=== PATIENT | male | born 1945 | race Asian ===

== ENCOUNTER 2018-06-16 12:21 | Inpatient (IN) | payer MEDICAID ==
[~2018-06-16] VITALS: Ht 172.7 cm; Wt 82.2 kg
[2018-06-16 12:22] VITALS: BP 145/95
[2018-06-16] MEDS ORDERED: Albuterol ud Inhalation HHN ONE (12:45)
[2018-06-16] MEDS ORDERED: Solu-MEDROL 125mg Inj IVP ONE (13:30)
[2018-06-16 13:34] LABS: APPEARANCE,URINE SLIGHTLY CLOUDY; BILIRUBIN, URINE NEGATIVE (NEGATIVE); COLOR,URINE PALE YELLOW; GLUCOSE, URINE (UA) NEGATIVE (NEGATIVE); KETONES,URINE NEGATIVE (NEGATIVE); LEUKOCYTE ESTERASE ,URINE 3+ (NEGATIVE); NITRITE,URINE NEGATIVE (NEGATIVE); PH,URINE 5 (4.5-8.0); PROTEIN,URINE 2+ (NEGATIVE); UROBILINOGEN,URINE NORMAL MG/DL (0.0-1.0)
[2018-06-16 13:38] LABS: BASOPHILS % (AUTO) 0.8 % (0.0-2.0); EOSINOPHILS % (AUTO) 9.9 % (0.0-3.0); HEMOGLOBIN 14.3 G/DL (14.2-18.0); LYMPHOCYTES % (AUTO) 24.7 % (20.0-45.0); MEAN CORPUSCULAR VOLUME 88 FL (80-99); MONOCYTES % (AUTO) 6.3 % (1.0-10.0); NEUTROPHILS % (AUTO) 58.3 % (45.0-75.0); PLATELET COUNT 185 K/UL (150-450); RED CELL DISTRIBUTION WIDTH 13.5 % (11.6-14.8)
[2018-06-16 13:58] LABS: ANION GAP 11 mmol/L (5-15); BLOOD UREA NITROGEN 36 mg/dL (7-18); CALCIUM 8.9 MG/DL (8.5-10.1); CARBON DIOXIDE 21 MMOL/L (21-32); CHLORIDE 107 MMOL/L (98-107); CREATININE 2.5 MG/DL (0.55-1.30); POTASSIUM 4.2 MMOL/L (3.5-5.1); SODIUM 139 MMOL/L (136-145)
[2018-06-16] MEDS ORDERED: Isovue-370 150ml vial INJ PRN (14:00)
[2018-06-16] MEDS ORDERED: cefTRIAXone 1 GM in NS 55 ML IVPB ONE (14:00)
[2018-06-16 14:02] LABS: ALANINE AMINOTRANSFERASE 11 U/L (12-78); ALBUMIN 3.4 G/DL (3.4-5.0); ALBUMIN/GLOBULIN RATIO 0.7 (1.0-2.7); ALKALINE PHOSPHATASE 152 U/L (46-116); ASPARTATE AMINO TRANSFERASE 19 U/L (15-37); BILIRUBIN,TOTAL 0.3 MG/DL (0.2-1.0)
[2018-06-16 14:19] VITALS: BP 156/91
[2018-06-16] MEDS ORDERED: Albuterol/Ipratropium 3ml neb HHN PRN (15:00)
[2018-06-16] MEDS ORDERED: Nitroglycerin Subl 0.4mg tab SL PRN (15:00)
[2018-06-16] MEDS ORDERED: Morphine Sulfate 2mg/ml Inj IVP PRN (15:00)
[2018-06-16] MEDS ORDERED: Promethazine/Codeine 5ml UD ORAL PRN (15:00)
[2018-06-16] MEDS ORDERED: LORazepam Inj 2mg/ml 1ml IV PRN (15:00)
[2018-06-16] MEDS ORDERED: Ketorolac 30mg Inj IV PRN (15:00)
[2018-06-16 15:04] LABS: CREATINE KINASE 133 U/L (26-308)
[2018-06-16 15:40] LABS: BILIRUBIN, URINE NEGATIVE (NEGATIVE); COLOR,URINE PALE YELLOW; GLUCOSE, URINE (UA) NEGATIVE (NEGATIVE); KETONES,URINE NEGATIVE (NEGATIVE); LEUKOCYTE ESTERASE ,URINE 3+ (NEGATIVE); NITRITE,URINE NEGATIVE (NEGATIVE); PH,URINE 5 (4.5-8.0); PROTEIN,URINE 2+ (NEGATIVE); UROBILINOGEN,URINE NORMAL MG/DL (0.0-1.0)
--- NOTE | 2018-06-16 15:41 | Emergency Room Report ---
History of Present Illness General Chief Complaint: Upper Respiratory Illness Source: EMS Present Illness HPI Patient is a 72-year-old male brought in by EMS after increased cough and difficulty breathing. Patient gradual onset of symptoms of the past one week. Patient was noted to have increased nonproductive cough. The patient had an [place] the [place] approximately one and one half months ago. Patient denied any fever. He reported having increased cough and shortness of breath. Patient had previous surgery to his right femur after a fracture and had intermittent filler kristi placement approximately one year ago. Patient was noted to have some baseline renal insufficiency. Allergies: Coded Allergies: No Known Allergies (Unverified , 06/16/18) Patient History Past Medical History: see triage record Reviewed Nursing Documentation: PMH: Agreed; PSxH: Agreed Nursing Documentation-PMH Past Medical History: No History, Except For Review of Systems All Other Systems: negative except mentioned in HPI Physical Exam Vital Signs Date Time Temp Pulse Resp B/P (MAP) Pulse Ox O2 Delivery O2 Flow Rate FiO2 06/16/18 12:12 97.6 86 20 156/96 96 Room Air 97.5 Sp02 EP Interpretation: reviewed, normal General Appearance: normal inspection, no apparent distress, alert, GCS 15, mild distress Head: atraumatic ENT: normal ENT inspection, hearing grossly normal, normal voice Neck: normal inspection, full range of motion, supple, no bony tend Respiratory: normal inspection, no retraction, no accessory muscle use, crackles Cardiovascular #1: regular rate, rhythm, no edema Gastrointestinal: normal inspection, normal bowel sounds, non tender, soft, no guarding, no hernia Genitourinary: no CVA tenderness Musculoskeletal: normal inspection, back normal, normal range of motion Neurologic: normal inspection, alert, oriented x3, responsive, awning assembler III-XII nml as tested, motor strength/tone normal, speech normal Psychiatric: normal inspection, judgement/insight normal, mood/affect normal Skin: normal inspection, normal color, no rash Medical Decision Making Diagnostic Impression: Primary Impression: Pneumonitis Additional Impressions: Urinary tract infection Dehydration ER Course Patient presented for shortness of breath. Differential included but was not limited to anemia, pneumonia, pneumothorax, myocardial infarction, pericardial effusion, congestive heart failure, acidosis. Because of complexity of patient' s case laboratory testing and imaging studies were ordered. The patient was noted to have increased difficulty breathing. Patient was given IV Solu-Medrol as well as breathing treatments. Patient started on IV antibiotics after cultures are obtained. Dr. Andrea Trinidad was contacted for inpatient management due to panel physician Labs Test 06/16/18 13:10 White Blood Count 7.0 K/UL (4.8-10.8) Red Blood Count 5.10 M/UL (4.70-6.10) Hemoglobin 14.3 G/DL (14.2-18.0) Hematocrit 45.0 % (42.0-52.0) Mean Corpuscular Volume 88 FL (80-99) Mean Corpuscular Hemoglobin 28.1 PG (27.0-31.0) Mean Corpuscular Hemoglobin Concent 31.8 G/DL (32.0-36.0) Red Cell Distribution Width 13.5 % (11.6-14.8) Platelet Count 185 K/UL (150-450) Mean Platelet Volume 6.0 FL (6.5-10.1) Neutrophils (%) (Auto) 58.3 % (45.0-75.0) Lymphocytes (%) (Auto) 24.7 % (20.0-45.0) Monocytes (%) (Auto) 6.3 % (1.0-10.0) Eosinophils (%) (Auto) 9.9 % (0.0-3.0) Basophils (%) (Auto) 0.8 % (0.0-2.0) Prothrombin Time 10.1 SEC (9.30-11.50) Prothromb Time International Ratio 1.0 (0.9-1.1) Activated Partial Thromboplast Time 28 SEC (23-33) D-Dimer 2.01 mg/L FEU (0.00-0.49) Sodium Level 139 MMOL/L (136-145) Potassium Level 4.2 MMOL/L (3.5-5.1) Chloride Level 107 MMOL/L (98-107) Carbon Dioxide Level 21 MMOL/L (21-32) Anion Gap 11 mmol/L (5-15) Blood Urea Nitrogen 36 mg/dL (7-18) Creatinine 2.5 MG/DL (0.55-1.30) Estimat Glomerular Filtration Rate mL/min (>60) Glucose Level 122 MG/DL (74-106) Uric Acid 8.4 MG/DL (2.6-7.2) Calcium Level 8.9 MG/DL (8.5-10.1) Total Bilirubin 0.3 MG/DL (0.2-1.0) Aspartate Amino Transf (AST/SGOT) 19 U/L (15-37) Alanine Aminotransferase (ALT/SGPT) 11 U/L (12-78) Alkaline Phosphatase 152 U/L (46-116) Total Creatine Kinase 133 U/L (26-308) Troponin I 0.017 ng/mL (0.000-0.056) Total Protein 8.0 G/DL (6.4-8.2) Albumin 3.4 G/DL (3.4-5.0) Globulin 4.6 g/dL Albumin/Globulin Ratio 0.7 (1.0-2.7) EKG Diagnostic Results Rate: normal Rhythm: NSR ST Segments: no acute changes Last Vital Signs Date Time Temp Pulse Resp B/P (MAP) Pulse Ox O2 Delivery O2 Flow Rate FiO2 06/16/18 14:19 98.5 97 24 156/91 98 Room Air 98.5 Status: unchanged Disposition: ADMITTED INPATIENT Condition: Serious Referrals: NOT CHOSEN IPA/,REFERRING (PCP) Rinku Novoa MD Jun 16, 2018 15:40
[2018-06-16 15:44] LABS: APPEARANCE,URINE SLIGHTLY CLOUDY
[2018-06-16] MEDS ORDERED: [UNRECOGNIZED DRUG - OTHER] ORAL (15:50)
[2018-06-16] MEDS ORDERED: [UNRECOGNIZED DRUG - OTHER] ORAL (15:50)
[2018-06-16 15:51] VITALS: BP 167/104
[2018-06-16] MEDS: Piperacillin/Tazobactam 3.375 GM in D5W 110 ML IV SCH (16:26)
[2018-06-16] MEDS: Solu-MEDROL 125mg Inj IV SCH (17:02)
[2018-06-16 20:00] VITALS: BP 113/76
[2018-06-16] MEDS: Theophylline ER 100mg ORAL SCH (20:32)
[2018-06-16] MEDS: Heparin 5000 units/ml inj SUBQ SCH (20:34)
[2018-06-17] VITALS: BP 136/81
[2018-06-17 04:00] VITALS: BP 125/77
[2018-06-17] MEDS: Solu-MEDROL 125mg Inj IV SCH ×5 (05:31→23:43)
[2018-06-17 08:00] VITALS: BP 142/106
[2018-06-17] MEDS: Piperacillin/Tazobactam 3.375 GM in D5W 110 ML IV SCH ×5 (08:43→23:42)
[2018-06-17] MEDS: Theophylline ER 100mg ORAL SCH ×2 (08:45→20:09)
[2018-06-17] MEDS: Heparin 5000 units/ml inj SUBQ SCH ×2 (08:46→20:12)
[2018-06-17 12:00] VITALS: BP 137/84
--- NOTE | 2018-06-17 14:14 | General Progress Note ---
Progress Note Progress Note [id number] full consult dictated Teresa Caraballo MD Jun 17, 2018 14:13
--- NOTE | 2018-06-17 15:00 | History and Physical Report ---
DATE OF ADMISSION: 06/16/2018 TIME: 11 a.m. CONSULTANTS: 1. Juan Ibarra M.D. 2. Kory Cabello M.D. 3. Teresa Caraballo M.D. 4. Amrit Pacheco M.D CHIEF COMPLAINT: Shortness of breath, coughing, , UTI. BRIEF HISTORY: The patient is a 72-year-old male, who lives at home, presents for increased shortness of breath and coughing for one day increasing, came to [place], diagnosed the above, UTI, renal insufficiency. He also admitted to telemetry for further care. Currently, calm in bed, slight short of breath. No complaints. REVIEW OF SYSTEMS: No chest pain. Slight short of breath. No nausea, vomiting, or diarrhea. PAST MEDICAL HISTORY: Nothing. PAST SURGICAL HISTORY: Right leg. MEDICATIONS: Include heparin, theophylline, methylprednisolone, Zosyn, clonidine, albuterol, Ketoralac, lorazepam, morphine, nitroglycerin, promethazine, and temazepam. ALLERGIES: Denies. SOCIAL HISTORY: No smoking. No alcohol. No intravenous drug abuse. FAMILY HISTORY: Noncontributory. PHYSICAL EXAMINATION: GENERAL: Slightly anxious in bed, oriented x2, in no acute distress. VITAL SIGNS: Temperature is 98, pulse 97, respirations , and blood pressure 142/106. CARDIOVASCULAR: No murmur. LUNGS: Poor air exchange. ABDOMEN: Bowel sounds distant. EXTREMITIES: No cyanosis, clubbing, or edema. NEUROLOGIC: The patient moves all extremities, but slightly weak. LABORATORY AND DIAGNOSTIC DATA: Laboratories at this time show CBC is normal. BMP show BUN and creatinine 36/2.5. Glucose 122. ALT 11, alkaline phosphatase 152. Troponin 0.017. Albumin 3.4. INR is 1.0. D-dimer 2.01. PTT 28. Urinalysis show 3+ leukocyte esterase. ASSESSMENT: 1. Shortness of breath. 2. Cough. 3. Renal failure. 4. Urinary tract infection. PLAN: 1. Continue premeds. 2. O2 and pulmonary treatment. 3. Antibiotics per Infectious Disease. 4. IV fluids, blood pressure and blood sugar control. 5. OT, PT, and dietary evaluation. 6. CBC and BMP in the morning. 7. We will continue to follow the patient. Andrea Trinidad D.O. DR: BELÉN JOB#: [id number] CC:
[2018-06-17] MEDS ORDERED: Tubing IV Secondary IV ONE (15:26)
[2018-06-17] MEDS ORDERED: NS 275ml ONE (15:26)
[2018-06-17 16:00] VITALS: BP 135/84
--- NOTE | 2018-06-17 16:45 | Consultation ---
DATE OF CONSULTATION: 06/17/2018 NEPHROLOGY CONSULTATION CONSULTING PHYSICIAN: Teresa Caraballo M.D. REFERRING PHYSICIAN: Andrea Trinidad D.O. REASON FOR CONSULTATION: Acute renal failure. HISTORY OF PRESENT ILLNESS: The patient is a 72-year-old male with past medical history significant for history of hypertension and unknown baseline renal function, was brought into the emergency room at [facility] complaining of increasing shortness of breath and difficulty breathing with productive cough. He denied having any fever or chills. He was found to have creatinine . He was admitted in the hospital. Unfortunately, the patient used to speak only language Ari, which we could not find a network technical analyst, although his is next to the bedside I am not able to fully communicate with the patient. PAST MEDICAL HISTORY: Including, 1. History of hypertension. 2. Unknown baseline creatinine. HOME MEDICATIONS: Unknown. PAST SURGICAL HISTORY: History of right hip replacement. REVIEW OF SYSTEMS: Limited due to the patient's language barrier. PHYSICAL EXAMINATION: VITAL SIGNS: The patient had temperature of 97, pulse rate of 86, respiratory rate of 20, and blood pressure of 156/96. HEAD AND NECK: No JVP. No LAD. No thyromegaly. Extraocular movement intact. Pupils are reactive to light and accommodation. LUNGS: Has bilateral rhonchi. CARDIAC: Regular rate and rhythm. S1, S2. No murmur. No rub. ABDOMEN: Soft, nontender, and nondistended. No organomegaly. EXTREMITIES: No edema. No clubbing. No cyanosis. LABORATORY AND DIAGNOSTIC DATA: The patient had a chest x-ray, results has not been read yet. Laboratory on admission, the patient had sodium of 139, potassium 4.2, chloride 102, bicarbonate 20, BUN of 36, creatinine of 2.5, glucose of 122, calcium of 8.9. AST of 19, ALT of 11, and alkaline phosphatase of 152. Albumin of 3.4. UA revealed specific gravity of 1.010, pH of 5, protein 2+, wbc of 20 to 30, rbc 0 to 2, leukocyte esterase 3+, urine sodium was 69. ASSESSMENT: 1. Acute versus chronic renal failure with 2+ proteinuria. 2. Possible pneumonia, based on the ER information. 3. Uncontrolled hypertension. PLAN: Plan for the patient to start the patient on Norvasc 5 mg p.o. daily. I would discontinue Toradol at this time. The patient states the patient has a history of chronic kidney disease. I would obtain a random urine protein creatinine ratio to calculate the proteinuria. Check the microalbumin. I would start the patient on Norvasc 5 mg p.o. daily for better blood pressure control. I would scan the bladder, would monitor renal function and electrolytes closely. Again, I would like to thank, Dr. Andrea Trinidad, for allowing me to participate in the care of this patient. Bess Byrnes JOB#: [id number] CC:
--- NOTE | 2018-06-17 17:04 | Cardiology Progress Note ---
Assessment/Plan Assessment/Plan The patient is seen and examined, full consult note will be dictated shortly. Objective Last 24 Hour Vital Signs Date Time Temp Pulse Resp B/P (MAP) Pulse Ox O2 Delivery O2 Flow Rate FiO2 06/17/18 16:00 98.0 92 20 135/84 (101) 94 98.0 06/17/18 16:00 89 06/17/18 15:44 97 136/98 06/17/18 15:12 78 18 97 Room Air 21 06/17/18 15:03 77 18 98 Room Air 21 06/17/18 12:00 97.9 96 20 137/84 (101) 96 97.9 06/17/18 12:00 64 06/17/18 09:00 Room Air 06/17/18 08:17 80 20 97 Room Air 06/17/18 08:05 80 20 97 Room Air 21 06/17/18 08:00 61 06/17/18 08:00 98.0 97 32 142/106 (118) 98 98.0 06/17/18 04:00 97.7 69 20 125/77 (93) 96 97.7 06/17/18 04:00 81 06/17/18 00:00 97.8 88 20 136/81 (99) 96 97.8 06/17/18 00:00 75 06/16/18 23:30 Room Air 06/16/18 23:29 Room Air 06/16/18 21:00 Room Air 06/16/18 20:00 90 06/16/18 20:00 98.1 91 18 113/76 (88) 95 98.1 Intake and Output 06/16/18 06/17/18 19:00 07:00 Intake Total 230.0 ml Balance 230.0 ml Intake Oral 120 ml IV Total 110.0 ml # Voids 1 3 Laboratory Tests Test 06/17/18 16:00 Urine Random Total Protein 53 MG/DL (< 11.9) H Urine Creatinine 50.3 MG/DL (30.0-125.0) Microbiology Date/Time Source Procedure Growth Status 06/17/18 06:41 Sputum Gram Stain - Final Complete 06/17/18 06:41 Sputum Sputum Culture - Final CULTURE NOT PERFORMED ... Complete 06/16/18 13:10 Urine,Clean Catch Urine Culture - Preliminary Gram Negative Bacillus 1 Resulted Kory Cabello MD Jun 17, 2018 17:04
--- NOTE | 2018-06-17 17:37 | Diagnostic Imaging Report ---
EXAM: MR Head Without Intravenous Contrast CLINICAL HISTORY: DYSPHAGIA TECHNIQUE: Magnetic resonance images of the head/brain without intravenous contrast in multiple planes. COMPARISON: No relevant prior studies available. FINDINGS: Brain: Generalized atrophy. Tiny focus of restricted diffusion in the right insular ribbon cortex as well as small foci in the right parietal white matter consistent with tiny acute infarcts. Mild white matter T2 hyperintensity, likely mild chronic small vessel ischemia. Left caudate nucleus old lacunar infarct. No hemorrhage. No mass effect or midline shift. Ventricles: Generalized atrophy. Prominent ventricles likely due to central atrophy. Bones/joints: Unremarkable. Sinuses: Moderate ethmoid sinus and bilateral maxillary sinus mucosal thickening. No acute sinusitis. 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 Orbits: Unremarkable as visualized. IMPRESSION: 1. Tiny focus of restricted diffusion in the right insular ribbon cortex as well as small foci in the right parietal white matter consistent with tiny acute infarcts. No intracranial hemorrhage. No mass effect or midline shift. 2. Involutional changes and mild chronic small vessel ischemia. 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 3. Moderate ethmoid sinus and bilateral maxillary sinus mucosal thickening. Critical Value Communications 06/17/18 17:49 Call Nurse called GHADA Montgomery on 06/17 17:49 (-07:00)
--- NOTE | 2018-06-17 19:15 | Consultation ---
DATE OF CONSULTATION: 06/17/2018 NOTE: "POOR AUDIO QUALITY/AUDIO BREAKS" CARDIOLOGY CONSULTATION CONSULTING PHYSICIAN: Kory Cabello M.D. REFERRING PHYSICIAN: Andrea Trinidad D.O. REASON FOR CONSULTATION: Management of shortness of breath. HISTORY OF PRESENT ILLNESS: The patient is a very unfortunate 72-year-old gentleman, who was brought in by EMS for increasing cough and difficulty breathing that has been going on for just about a week. The cough is nonproductive. The patient denies any chest pain at the time of arrival to the hospital. Initial blood pressure in the emergency department was 156/96 mmHg, heart rate was 86. A 12-lead electrocardiogram showed sinus rhythm with no acute ST and T-wave abnormalities and somewhat borderline prolonged QT interval. There is no prior history of coronary artery disease, congestive heart failure, or cardiac arrhythmias. PAST MEDICAL HISTORY: Hypertension. PAST SURGICAL HISTORY: Right hip replacement. MEDICATIONS: List of medication . HABITS: Denies any tobacco, alcohol, or illicit drug use. FAMILY HISTORY: No premature coronary artery disease . REVIEW OF SYSTEMS: A 12-system review done essentially negative except what was mentioned in the history of present illness. PHYSICAL EXAMINATION: VITAL SIGNS: on room air, temperature 97.6 degrees Fahrenheit. GENERAL: The patient is a very unfortunate 72-year-old gentleman in no apparent respiratory distress. Alert and oriented x4. HEENT: Atraumatic, normocephalic. EENT, pupils are equal, round, and reactive to light and accommodation. Extraocular muscles intact. NECK: JVP less than 5 cm. No carotid bruit. Carotid upstrokes 2+ bilaterally. CARDIOVASCULAR SYSTEM: Normal S1, S2. Regular rate and rhythm. No murmurs, gallops, or rubs. PMI is at fourth intercostal space at the midclavicular line. LUNGS: Clear to auscultation bilaterally. ABDOMEN: Soft, nontender, and nondistended. No hepatosplenomegaly. Positive bowel sounds. DIAGNOSTIC DATA: with left axis deviation, borderline prolonged QT interval. No acute ST and T-wave abnormalities. Chest x-ray shows a normal cardiac silhouette and no acute cardiopulmonary disease. ASSESSMENT AND PLAN: seen in Cardiology consultation at request of Dr. Trinidad. 1. Dyspnea, most likely acute bronchitis, however, required to have 2D echocardiography for assessment of LV systolic and diastolic function. A chest x-ray does not show any evidence of cardiomegaly or pulmonary edema. Further therapeutic and diagnostic decision will be based on results of 2D echocardiography. In the meantime, I would like to obtain beta-natriuretic peptide for assessment of intracardiac filling pressure. 2. History of hypertension. and clonidine as p.r.n. basis. We will continue to monitor the patient's blood pressure in this hospitalization. I would like to thank Dr. Trinidad for the courtesy of this consultation. Kory Cabello M.D. DR: Juan Jose JOB#: [id number] CC:
[2018-06-17 20:00] VITALS: BP 133/85
[2018-06-18] VITALS (7 sets, daily range): BP systolic 125–149; BP diastolic 71–94
[2018-06-18] MEDS: Solu-MEDROL 125mg Inj IV SCH (06:01)
[2018-06-18 06:24] LABS: HEMATOCRIT 41.2 % (42.0-52.0); HEMOGLOBIN 13.3 G/DL (14.2-18.0); MEAN CORPUSCULAR VOLUME 87 FL (80-99); PLATELET COUNT 218 K/UL (150-450); RED BLOOD COUNT 4.74 M/UL (4.70-6.10); RED CELL DISTRIBUTION WIDTH 13.4 % (11.6-14.8); WHITE BLOOD COUNT 14.5 K/UL (4.8-10.8)
[2018-06-18 07:42] LABS: ANION GAP 14 mmol/L (5-15); BLOOD UREA NITROGEN 43 mg/dL (7-18); CALCIUM 9.4 MG/DL (8.5-10.1); CARBON DIOXIDE 18 MMOL/L (21-32); CHLORIDE 105 MMOL/L (98-107); CREATININE 2.6 MG/DL (0.55-1.30); POTASSIUM 3.9 MMOL/L (3.5-5.1); SODIUM 137 MMOL/L (136-145)
[2018-06-18] MEDS ORDERED: CHLORPROMAZINE IV PRN (08:00)
[2018-06-18] MEDS ORDERED: SODIUM CHLORIDE IV PRN (08:00)
--- NOTE | 2018-06-18 08:17 | Diagnostic Imaging Report ---
Indication: Shortness of breath Technique: One view of the chest Comparison: none Findings: Lungs and pleural spaces are clear. The heart size is normal. Impression: Negative This agrees with the preliminary interpretation provided overnight by [facility] teleradiology service.
[2018-06-18] MEDS: Piperacillin/Tazobactam 3.375 GM in D5W 110 ML IV SCH (09:04)
[2018-06-18] MEDS: Theophylline ER 100mg ORAL SCH ×2 (09:05→20:55)
[2018-06-18] MEDS: Heparin 5000 units/ml inj SUBQ SCH ×2 (09:07→20:57)
--- NOTE | 2018-06-18 11:26 | Consultation ---
History of Present Illness General Date patient seen: Jun 18, 2018 Chief Complaint: Upper Respiratory Illness Reason for Consultation: UTI Present Illness HPI Mr. Johnson is a 72 yo male who presented on 06/16/18 with SOB cough and UTI. He had been having these symptoms for 1 day. He was admittd for treatment. Currently he reports no complaints and denies SOB and cough, He does have new leukocytosis to 14 (after starting solumedrol) and Urine culture is now growing highly resistant acinetobacter. The patient specifically denies Dysuria and hematuria. No Sick contacts, No Lung problems before. Spoke to patient and his son as no continuing education specialist available PMHx/PSHx HTN Right hip replacement SocHx No E/T/D FamHx Not contributory Allergies: Coded Allergies: No Known Allergies (Unverified , 06/16/18) Medication History Scheduled [faropenem sodium ], 200 MG ORAL DAILY, (Reported) [nefrozon], 150-500 MG ORAL DAILY, (Reported) Patient History Healthcare decision maker Resuscitation status Full Code Advanced Directive on File Review of Systems All Other Systems: negative except mentioned in HPI Physical Exam Physical Exam Narrative GENERAL: NAD, Sitting in bed, Comfortable HEENT: NCAT, MMM, EOMI, PERRL, No LAD, No scleral icterus CARDIOVASCULAR: RRR, S1, S2, No M/R/G LUNGS: CTAB ABDOMEN: Soft, NT, ND, +BS, No CVA tenderness or back pain EXTREMITIES: No cyanosis, clubbing, or edema. Pulses 2+ in Ext NEUROLOGIC: A/O, The patient moves all extremities Last 24 Hour Vital Signs Date Time Temp Pulse Resp B/P (MAP) Pulse Ox O2 Delivery O2 Flow Rate FiO2 06/18/18 09:06 83 147/71 06/18/18 07:50 77 18 96 Room Air 21 06/18/18 07:45 75 18 95 Room Air 21 06/18/18 04:00 98.2 55 23 130/77 (94) 92 98.2 06/18/18 03:46 57 06/18/18 00:00 98.0 55 21 127/72 (90) 92 98.0 06/17/18 23:35 75 18 96 Room Air 21 06/17/18 23:30 70 18 96 Room Air 21 06/17/18 23:26 64 06/17/18 21:00 Room Air 06/17/18 20:00 98.1 100 21 133/85 (101) 96 98.1 06/17/18 19:03 100 06/17/18 16:00 98.0 92 20 135/84 (101) 94 98.0 06/17/18 16:00 89 06/17/18 15:44 97 136/98 06/17/18 15:12 78 18 97 Room Air 21 06/17/18 15:03 77 18 98 Room Air 21 06/17/18 12:00 97.9 96 20 137/84 (101) 96 97.9 06/17/18 12:00 64 Intake and Output 06/17/18 06/18/18 19:00 07:00 Intake Total 230.0 ml 184.16 ml Balance 230.0 ml 184.16 ml Intake Oral 120 ml 120 ml IV Total 110.0 ml 64.16 ml # Voids 3 3 # Bowel Movements 1 Laboratory Tests Test 06/17/18 16:00 06/17/18 17:55 06/18/18 06:10 Urine Random Total Protein 53 MG/DL (< 11.9) H Urine Creatinine 50.3 MG/DL (30.0-125.0) Pro-B-Type Natriuretic Peptide 809 pg/mL (0-125) H White Blood Count 14.5 K/UL (4.8-10.8) H Red Blood Count 4.74 M/UL (4.70-6.10) Hemoglobin 13.3 G/DL (14.2-18.0) L Hematocrit 41.2 % (42.0-52.0) L Mean Corpuscular Volume 87 FL (80-99) Mean Corpuscular Hemoglobin 28.1 PG (27.0-31.0) Mean Corpuscular Hemoglobin Concent 32.3 G/DL (32.0-36.0) Red Cell Distribution Width 13.4 % (11.6-14.8) Platelet Count 218 K/UL (150-450) Mean Platelet Volume 5.8 FL (6.5-10.1) L Neutrophils (%) (Auto) % (45.0-75.0) Lymphocytes (%) (Auto) % (20.0-45.0) Monocytes (%) (Auto) % (1.0-10.0) Eosinophils (%) (Auto) % (0.0-3.0) Basophils (%) (Auto) % (0.0-2.0) Differential Total Cells Counted 100 Neutrophils % (Manual) 92 % (45-75) H Lymphocytes % (Manual) 5 % (20-45) L Monocytes % (Manual) 1 % (1-10) Eosinophils % (Manual) 0 % (0-3) Basophils % (Manual) 0 % (0-2) Band Neutrophils 2 % (0-8) Platelet Estimate Adequate Platelet Morphology Normal Red Blood Cell Morphology Normal Sodium Level 137 MMOL/L (136-145) Potassium Level 3.9 MMOL/L (3.5-5.1) Chloride Level 105 MMOL/L (98-107) Carbon Dioxide Level 18 MMOL/L (21-32) L Anion Gap 14 mmol/L (5-15) Blood Urea Nitrogen 43 mg/dL (7-18) H Creatinine 2.6 MG/DL (0.55-1.30) H Estimat Glomerular Filtration Rate mL/min (>60) Glucose Level 150 MG/DL (74-106) H Calcium Level 9.4 MG/DL (8.5-10.1) Height (Feet): 5 Height (Inches): 8.00 Weight (Pounds): 181 Medications Current Medications Medications (Trade) Dose Ordered Sig/Markus Route PRN Reason Start Time Stop Time Status Last Admin Dose Admin Acetaminophen (Tylenol) 650 mg Q4H PRN ORAL Mild Pain/Temp > 100.5 06/17/18 13:15 07/17/18 13:14 06/17/18 20:09 Albuterol/ Ipratropium (Albuterol/ Ipratropium) 3 ml Q4H PRN HHN dyspnea 06/16/18 15:00 06/21/18 14:59 Amlodipine Besylate (Norvasc) 2.5 mg DAILY ORAL 06/17/18 14:26 07/17/18 14:25 06/18/18 09:06 Chlorpromazine 25 mg/Sodium Chloride 551 ml @ 550 mls/hr Q8H PRN IV HICCUPS 06/18/18 08:00 07/18/18 07:59 Clonidine HCl (Catapres Tab) 0.1 mg Q6H PRN ORAL sbp>160 06/16/18 16:00 07/16/18 15:59 06/16/18 16:26 Dextrose (Dextrose 50%) 25 ml STAT PRN IV Hypoglycemia 06/16/18 15:00 07/16/18 14:59 Dextrose (Dextrose 50%) 50 ml STAT PRN IV Hypoglycemia 06/16/18 15:00 07/16/18 14:59 Heparin Sodium (Porcine) (Heparin 5000 units/ml) 5,000 units EVERY 12 HOURS SUBQ 06/16/18 21:00 07/16/18 20:59 06/18/18 09:07 Iopamidol (Isovue-370 150ml) 150 ml NOW PRN INJ Radiology Procedure 06/16/18 14:00 06/18/18 13:58 Lorazepam (Ativan 2mg/ml 1ml) 0.5 mg Q4H PRN IV For Anxiety 06/16/18 15:00 06/23/18 14:59 Methylprednisolone Sodium Succinate (Solu-MEDROL) 60 mg EVERY 6 HOURS IV 06/16/18 18:00 07/16/18 17:59 06/18/18 06:01 Morphine Sulfate (Morphine Sulfate) 2 mg Q4H PRN IVP severe pain 7-10 06/16/18 15:00 06/23/18 14:59 Nitroglycerin (Ntg) 0.4 mg Q5M X 3 DOSES PRN SL Prn Chest Pain 06/16/18 15:00 07/16/18 14:59 Ondansetron HCl (Zofran) 4 mg Q6H PRN IVP Nausea & Vomiting 06/16/18 15:00 07/16/18 14:59 Piperacillin Sod/ Tazobactam Sod 3.375 gm/Dextrose 110 ml @ 27.5 mls/hr Q8H IV 06/16/18 16:00 06/23/18 15:59 06/18/18 09:04 Promethazine HCl/ Codeine (Phenergan with Codeine) 5 ml Q6H PRN ORAL cough 06/16/18 15:00 07/16/18 14:59 06/17/18 00:12 Temazepam (Restoril) 15 mg HSPRN PRN ORAL Insomnia 06/16/18 15:00 06/23/18 14:59 Theophylline (Teofilo-Dur) 100 mg EVERY 12 HOURS ORAL 06/16/18 21:00 07/16/18 20:59 06/18/18 09:05 Assessment/Plan Assessment/Plan A: UTI - Highly resistent Ancinetobacter - Colistin and minicocycline sensi pending - Will treat given NOEMÍ/CKD SOB - Resolved - Now on RA Viral bronchitis? Reactive Airways Dz? Right Hip Replacement P: Start Tigecyclin 100mg x 1 the 50mg for 7 days D/C Zosyn #2 f/u Colistin and minocycline MICs Monitor CBC and Temps Respiratory care Tahnk you for this consult. We will continue to follow the patent with you. Biju Nuñez MD Jun 18, 2018 11:26
--- NOTE | 2018-06-18 11:39 | Pulmonology Progress Note ---
Assessment/Plan Problems: (1) Hypertension (2) Bronchitis (3) S/P right hip fracture Assessment/Plan taper steroids respiratory treatment pain management MRI reviewed echo, doppler of carotid artery. Subjective Interval Events: feeling better Allergies: Coded Allergies: No Known Allergies (Unverified , 06/16/18) Objective Last 24 Hour Vital Signs Date Time Temp Pulse Resp B/P (MAP) Pulse Ox O2 Delivery O2 Flow Rate FiO2 06/18/18 09:06 83 147/71 06/18/18 09:00 Room Air 06/18/18 08:00 72 06/18/18 08:00 98.2 68 20 144/71 (95) 96 98.2 06/18/18 07:50 77 18 96 Room Air 21 06/18/18 07:45 75 18 95 Room Air 21 06/18/18 04:00 98.2 55 23 130/77 (94) 92 98.2 06/18/18 03:46 57 06/18/18 00:00 98.0 55 21 127/72 (90) 92 98.0 06/17/18 23:35 75 18 96 Room Air 21 06/17/18 23:30 70 18 96 Room Air 21 06/17/18 23:26 64 06/17/18 21:00 Room Air 06/17/18 20:00 98.1 100 21 133/85 (101) 96 98.1 06/17/18 19:03 100 06/17/18 16:00 98.0 92 20 135/84 (101) 94 98.0 06/17/18 16:00 89 06/17/18 15:44 97 136/98 06/17/18 15:12 78 18 97 Room Air 21 06/17/18 15:03 77 18 98 Room Air 21 06/17/18 12:00 97.9 96 20 137/84 (101) 96 97.9 06/17/18 12:00 64 Intake and Output 06/17/18 06/18/18 19:00 07:00 Intake Total 230.0 ml 184.16 ml Balance 230.0 ml 184.16 ml Intake Oral 120 ml 120 ml IV Total 110.0 ml 64.16 ml # Voids 3 3 # Bowel Movements 1 General Appearance: WD/WN HEENT: normocephalic, atraumatic, anicteric Respiratory/Chest: chest wall non-tender, lungs clear Cardiovascular: normal peripheral pulses, normal rate Abdomen: normal bowel sounds, soft, non tender Extremities: no cyanosis Skin: no rash 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 Complete 06/16/18 13:10 Urine,Clean Catch Urine Culture - Preliminary A.baumanii Complx - Mdr Resulted Laboratory Tests 06/17/18 16:00: Urine Random Total Protein 53H, Urine Creatinine 50.3 06/17/18 17:55: Pro-B-Type Natriuretic Peptide 809H 06/18/18 06:10: White Blood Count 14.5H, Red Blood Count 4.74, Hemoglobin 13.3L, Hematocrit 41.2L, Mean Corpuscular Volume 87, Mean Corpuscular Hemoglobin 28.1, Mean Corpuscular Hemoglobin Concent 32.3, Red Cell Distribution Width 13.4, Platelet Count 218, Mean Platelet Volume 5.8L, Neutrophils (%) (Auto) , Lymphocytes (%) ( Auto) , Monocytes (%) (Auto) , Eosinophils (%) (Auto) , Basophils (%) (Auto) , Differential Total Cells Counted 100, Neutrophils % (Manual) 92H, Lymphocytes % (Manual) 5L, Monocytes % (Manual) 1, Eosinophils % (Manual) 0, Basophils % ( Manual) 0, Band Neutrophils 2, Platelet Estimate Adequate, Platelet Morphology Normal, Red Blood Cell Morphology Normal, Sodium Level 137, Potassium Level 3.9 , Chloride Level 105, Carbon Dioxide Level 18L, Anion Gap 14, Blood Urea Nitrogen 43H, Creatinine 2.6H, Estimat Glomerular Filtration Rate , Glucose Level 150H, Calcium Level 9.4 Current Medications Medications (Trade) Dose Ordered Sig/Markus Route PRN Reason Start Time Stop Time Status Last Admin Dose Admin Acetaminophen (Tylenol) 650 mg Q4H PRN ORAL Mild Pain/Temp > 100.5 06/17/18 13:15 07/17/18 13:14 06/17/18 20:09 Albuterol/ Ipratropium (Albuterol/ Ipratropium) 3 ml Q4H PRN HHN dyspnea 06/16/18 15:00 06/21/18 14:59 Amlodipine Besylate (Norvasc) 2.5 mg DAILY ORAL 06/17/18 14:26 07/17/18 14:25 06/18/18 09:06 Chlorpromazine 25 mg/Sodium Chloride 551 ml @ 550 mls/hr Q8H PRN IV HICCUPS 06/18/18 08:00 07/18/18 07:59 Clonidine HCl (Catapres Tab) 0.1 mg Q6H PRN ORAL sbp>160 06/16/18 16:00 07/16/18 15:59 06/16/18 16:26 Dextrose (Dextrose 50%) 25 ml STAT PRN IV Hypoglycemia 06/16/18 15:00 07/16/18 14:59 Dextrose (Dextrose 50%) 50 ml STAT PRN IV Hypoglycemia 06/16/18 15:00 07/16/18 14:59 Heparin Sodium (Porcine) (Heparin 5000 units/ml) 5,000 units EVERY 12 HOURS SUBQ 06/16/18 21:00 07/16/18 20:59 06/18/18 09:07 Iopamidol (Isovue-370 150ml) 150 ml NOW PRN INJ Radiology Procedure 06/16/18 14:00 06/18/18 13:58 Lorazepam (Ativan 2mg/ml 1ml) 0.5 mg Q4H PRN IV For Anxiety 06/16/18 15:00 06/23/18 14:59 Methylprednisolone Sodium Succinate (Solu-MEDROL) 60 mg EVERY 6 HOURS IV 06/16/18 18:00 07/16/18 17:59 06/18/18 06:01 Morphine Sulfate (Morphine Sulfate) 2 mg Q4H PRN IVP severe pain 7-10 06/16/18 15:00 06/23/18 14:59 Nitroglycerin (Ntg) 0.4 mg Q5M X 3 DOSES PRN SL Prn Chest Pain 06/16/18 15:00 07/16/18 14:59 Ondansetron HCl (Zofran) 4 mg Q6H PRN IVP Nausea & Vomiting 06/16/18 15:00 07/16/18 14:59 Piperacillin Sod/ Tazobactam Sod 3.375 gm/Dextrose 110 ml @ 27.5 mls/hr Q8H IV 06/16/18 16:00 06/23/18 15:59 06/18/18 09:04 Promethazine HCl/ Codeine (Phenergan with Codeine) 5 ml Q6H PRN ORAL cough 06/16/18 15:00 07/16/18 14:59 06/17/18 00:12 Temazepam (Restoril) 15 mg HSPRN PRN ORAL Insomnia 06/16/18 15:00 06/23/18 14:59 Theophylline (Teofilo-Dur) 100 mg EVERY 12 HOURS ORAL 06/16/18 21:00 07/16/18 20:59 06/18/18 09:05 Juan Ibarra MD Jun 18, 2018 11:39
--- NOTE | 2018-06-18 12:48 | General Progress Note ---
Assessment/Plan Problem List: (1) SOB (shortness of breath) ICD Codes: R06.02 - Shortness of breath SNOMED: 979208063 (2) Renal failure ICD Codes: N19 - Unspecified kidney failure SNOMED: 09629437 (3) Cough ICD Codes: R05 - Cough SNOMED: 22564378 (4) Urinary tract infection ICD Codes: N39.0 - Urinary tract infection, site not specified SNOMED: 65177271 (5) Dehydration ICD Codes: E86.0 - Dehydration SNOMED: 92731159 Status: stable, progressing Assessment/Plan o2 pulm tx ot pt diet abx ivf cbc bmp am Subjective Constitutional: Reports: weakness Respiratory: Reports: shortness of breath Allergies: Coded Allergies: No Known Allergies (Unverified , 06/16/18) All Systems: reviewed and negative except above Subjective calm in bed Objective Last 24 Hour Vital Signs Date Time Temp Pulse Resp B/P (MAP) Pulse Ox O2 Delivery O2 Flow Rate FiO2 06/18/18 09:06 83 147/71 06/18/18 09:00 Room Air 06/18/18 08:00 72 06/18/18 08:00 98.2 68 20 144/71 (95) 96 98.2 06/18/18 07:50 77 18 96 Room Air 21 06/18/18 07:45 75 18 95 Room Air 21 06/18/18 04:00 98.2 55 23 130/77 (94) 92 98.2 06/18/18 03:46 57 06/18/18 00:00 98.0 55 21 127/72 (90) 92 98.0 06/17/18 23:35 75 18 96 Room Air 21 06/17/18 23:30 70 18 96 Room Air 21 06/17/18 23:26 64 06/17/18 21:00 Room Air 06/17/18 20:00 98.1 100 21 133/85 (101) 96 98.1 06/17/18 19:03 100 06/17/18 16:00 98.0 92 20 135/84 (101) 94 98.0 06/17/18 16:00 89 06/17/18 15:44 97 136/98 06/17/18 15:12 78 18 97 Room Air 21 06/17/18 15:03 77 18 98 Room Air 21 Intake and Output 06/17/18 06/18/18 19:00 07:00 Intake Total 230.0 ml 184.16 ml Balance 230.0 ml 184.16 ml Intake Oral 120 ml 120 ml IV Total 110.0 ml 64.16 ml # Voids 3 3 # Bowel Movements 1 Laboratory Tests 06/17/18 16:00: Urine Random Total Protein 53H, Urine Creatinine 50.3 06/17/18 17:55: Pro-B-Type Natriuretic Peptide 809H 06/18/18 06:10: White Blood Count 14.5H, Red Blood Count 4.74, Hemoglobin 13.3L, Hematocrit 41.2L, Mean Corpuscular Volume 87, Mean Corpuscular Hemoglobin 28.1, Mean Corpuscular Hemoglobin Concent 32.3, Red Cell Distribution Width 13.4, Platelet Count 218, Mean Platelet Volume 5.8L, Neutrophils (%) (Auto) , Lymphocytes (%) ( Auto) , Monocytes (%) (Auto) , Eosinophils (%) (Auto) , Basophils (%) (Auto) , Differential Total Cells Counted 100, Neutrophils % (Manual) 92H, Lymphocytes % (Manual) 5L, Monocytes % (Manual) 1, Eosinophils % (Manual) 0, Basophils % ( Manual) 0, Band Neutrophils 2, Platelet Estimate Adequate, Platelet Morphology Normal, Red Blood Cell Morphology Normal, Sodium Level 137, Potassium Level 3.9 , Chloride Level 105, Carbon Dioxide Level 18L, Anion Gap 14, Blood Urea Nitrogen 43H, Creatinine 2.6H, Estimat Glomerular Filtration Rate , Glucose Level 150H, Calcium Level 9.4 Height (Feet): 5 Height (Inches): 8.00 Weight (Pounds): 181 General Appearance: alert EENT: normal ENT inspection Neck: normal alignment Cardiovascular: normal peripheral pulses, normal rate, regular rhythm Respiratory/Chest: chest wall non-tender, lungs clear, normal breath sounds Abdomen: normal bowel sounds, non tender, soft Extremities: normal inspection Edema: no edema noted Arm (L), no edema noted Arm (R), no edema noted Leg (L), no edema noted Leg (R), no edema noted Pedal (L), no edema noted Pedal (R), no edema noted Generalized Neurologic: motor weakness Skin: normal pigmentation, warm/dry Andrea Trinidad DO Jun 18, 2018 12:48
[2018-06-18] MEDS ORDERED: Tigecycline 100 MG in D5W 110 ML IVPB ONE (13:00)
--- NOTE | 2018-06-18 17:31 | Cardiology Report ---
APPROVED REPORT EKG Measurement Heart [id number] Normal sinus rhythm Left axis deviation Abnormal ECG
[2018-06-18] MEDS ORDERED: Promethazine/Codeine 5ml UD ORAL PRN (22:00)
[2018-06-18] MEDS ORDERED: Morphine Sulfate 2mg/ml Inj IVP PRN (22:00)
[2018-06-18] MEDS ORDERED: Albuterol/Ipratropium 3ml neb HHN PRN (22:00)
[2018-06-18] MEDS ORDERED: LORazepam Inj 2mg/ml 1ml IV PRN (22:00)
[2018-06-18] MEDS ORDERED: Nitroglycerin Subl 0.4mg tab SL PRN (22:00)
[2018-06-18] MEDS: Tigecycline 50 MG in D5W 110 ML IVPB SCH (22:23)
[2018-06-18] MEDS ORDERED: Tigecycline 50 MG in D5W 110 ML IVPB SCH (23:00)
--- NOTE | 2018-06-18 23:45 | Cardiology Progress Note ---
Assessment/Plan Assessment/Plan 1. Dyspnea, most likely acute bronchitis, echo reveals normal LVEF at ~65% with no WMA. Chest x-ray does not show any evidence of cardiomegaly or pulmonary edema. 2. HTN, stage II, will optimize amlodipine, may have to add a diuretic if renal dysfunction is chronic.Use clonidine as p.r.n. basis. 3. Renal failure, acute vs chronic. Subjective Subjective Sinus rhythm at rate of 66. Objective Last 24 Hour Vital Signs Date Time Temp Pulse Resp B/P (MAP) Pulse Ox O2 Delivery O2 Flow Rate FiO2 06/18/18 22:36 Room Air 21 06/18/18 22:36 Room Air 21 06/18/18 21:30 97.5 66 20 149/93 (111) 97 97.5 06/18/18 21:00 Room Air 06/18/18 20:00 97.3 73 20 146/94 (111) 93 97.3 06/18/18 19:35 70 06/18/18 16:00 66 06/18/18 16:00 96.3 62 20 143/86 (105) 96 96.3 06/18/18 14:40 Room Air 06/18/18 14:40 Room Air 06/18/18 12:00 85 06/18/18 12:00 96.3 86 20 125/83 (97) 95 96.3 06/18/18 09:06 83 147/71 06/18/18 09:00 Room Air 06/18/18 08:00 72 06/18/18 08:00 98.2 68 20 144/71 (95) 96 98.2 06/18/18 07:50 77 18 96 Room Air 06/18/18 07:45 75 18 95 Room Air 21 06/18/18 04:00 98.2 55 23 130/77 (94) 92 98.2 06/18/18 03:46 57 06/18/18 00:00 98.0 55 21 127/72 (90) 92 98.0 Intake and Output 06/17/18 06/18/18 19:00 07:00 Intake Total 230.0 ml 184.16 ml Balance 230.0 ml 184.16 ml Intake Oral 120 ml 120 ml IV Total 110.0 ml 64.16 ml # Voids 3 3 # Bowel Movements 1 2D Echo: LVEF 65%, Trace MR, Grade I LVDD, RVSP 11 mmHg Laboratory Tests Test 06/18/18 06:10 White Blood Count 14.5 K/UL (4.8-10.8) H Red Blood Count 4.74 M/UL (4.70-6.10) Hemoglobin 13.3 G/DL (14.2-18.0) L Hematocrit 41.2 % (42.0-52.0) L Mean Corpuscular Volume 87 FL (80-99) Mean Corpuscular Hemoglobin 28.1 PG (27.0-31.0) Mean Corpuscular Hemoglobin Concent 32.3 G/DL (32.0-36.0) Red Cell Distribution Width 13.4 % (11.6-14.8) Platelet Count 218 K/UL (150-450) Mean Platelet Volume 5.8 FL (6.5-10.1) L Neutrophils (%) (Auto) % (45.0-75.0) Lymphocytes (%) (Auto) % (20.0-45.0) Monocytes (%) (Auto) % (1.0-10.0) Eosinophils (%) (Auto) % (0.0-3.0) Basophils (%) (Auto) % (0.0-2.0) Differential Total Cells Counted 100 Neutrophils % (Manual) 92 % (45-75) H Lymphocytes % (Manual) 5 % (20-45) L Monocytes % (Manual) 1 % (1-10) Eosinophils % (Manual) 0 % (0-3) Basophils % (Manual) 0 % (0-2) Band Neutrophils 2 % (0-8) Platelet Estimate Adequate Platelet Morphology Normal Red Blood Cell Morphology Normal Sodium Level 137 MMOL/L (136-145) Potassium Level 3.9 MMOL/L (3.5-5.1) Chloride Level 105 MMOL/L (98-107) Carbon Dioxide Level 18 MMOL/L (21-32) L Anion Gap 14 mmol/L (5-15) Blood Urea Nitrogen 43 mg/dL (7-18) H Creatinine 2.6 MG/DL (0.55-1.30) H Estimat Glomerular Filtration Rate mL/min (>60) Glucose Level 150 MG/DL (74-106) H Calcium Level 9.4 MG/DL (8.5-10.1) Microbiology Date/Time Source Procedure Growth Status 9/2/18 13:10 Blood Blood Culture - Preliminary NO GROWTH AFTER 24 HOURS Resulted 06/16/18 13:10 Blood Blood Culture - Preliminary NO GROWTH AFTER 24 HOURS Resulted 06/17/18 22:00 Sputum Expectorated Gram Stain - Final Resulted 06/17/18 22:00 Sputum Expectorated Sputum Culture Pending Resulted 06/17/18 06:41 Sputum Gram Stain - Final Complete 06/17/18 06:41 Sputum Sputum Culture - Final CULTURE NOT PERFORMED ... Complete 06/16/18 13:10 Urine,Clean Catch Urine Culture - Preliminary A.baumanii Complx - Mdr Resulted Objective HEENT: Atraumatic, normocephalic. EENT, pupils are equal, round, and reactive to light and accommodation. Extraocular muscles intact. NECK: JVP less than 5 cm. No carotid bruit. Carotid upstrokes 2+ bilaterally. CARDIOVASCULAR SYSTEM: Normal S1, S2. Regular rate and rhythm. No murmurs, gallops, or rubs. PMI is at fourth intercostal space at the midclavicular line. LUNGS: Clear to auscultation bilaterally. ABDOMEN: Soft, nontender, and nondistended. No hepatosplenomegaly. Positive bowel sounds. EXTREMITIES: No edema, clubbing or cyanosis. Kory Cabello MD Jun 18, 2018 23:45
--- NOTE | 2018-06-18 23:51 | Nephrology Progress Note ---
Assessment/Plan Assessment 1. Acute versus chronic renal failure with 2+ proteinuria. 2. Possible pneumonia, based on the ER information. 3. Uncontrolled hypertension. Plan plan continue current meds monitoring renal function avoid Nsaid replace electrolyte as need it fallow up with us of kidney Subjective Constitutional: Reports: no symptoms HEENT: Reports: no symptoms Genitourinary: Reports: no symptoms Neurologic/Psychiatric: Reports: no symptoms Objective Objective Last 24 Hour Vital Signs Date Time Temp Pulse Resp B/P (MAP) Pulse Ox O2 Delivery O2 Flow Rate FiO2 06/18/18 22:36 Room Air 21 06/18/18 22:36 Room Air 21 06/18/18 21:30 97.5 66 20 149/93 (111) 97 97.5 06/18/18 21:00 Room Air 06/18/18 20:00 97.3 73 20 146/94 (111) 93 97.3 06/18/18 19:35 70 06/18/18 16:00 66 06/18/18 16:00 96.3 62 20 143/86 (105) 96 96.3 06/18/18 14:40 Room Air 06/18/18 14:40 Room Air 06/18/18 12:00 85 06/18/18 12:00 96.3 86 20 125/83 (97) 95 96.3 06/18/18 09:06 83 147/71 06/18/18 09:00 Room Air 06/18/18 08:00 72 06/18/18 08:00 98.2 68 20 144/71 (95) 96 98.2 06/18/18 07:50 77 18 96 Room Air 06/18/18 07:45 75 18 95 Room Air 06/18/18 04:00 98.2 55 23 130/77 (94) 92 98.2 06/18/18 03:46 57 06/18/18 00:00 98.0 55 21 127/72 (90) 92 98.0 Intake and Output 06/17/18 06/18/18 19:00 07:00 Intake Total 230.0 ml 184.16 ml Balance 230.0 ml 184.16 ml Intake Oral 120 ml 120 ml IV Total 110.0 ml 64.16 ml # Voids 3 3 # Bowel Movements 1 Laboratory Tests 06/18/18 06:10: White Blood Count 14.5H, Red Blood Count 4.74, Hemoglobin 13.3L, Hematocrit 41.2L, Mean Corpuscular Volume 87, Mean Corpuscular Hemoglobin 28.1, Mean Corpuscular Hemoglobin Concent 32.3, Red Cell Distribution Width 13.4, Platelet Count 218, Mean Platelet Volume 5.8L, Neutrophils (%) (Auto) , Lymphocytes (%) ( Auto) , Monocytes (%) (Auto) , Eosinophils (%) (Auto) , Basophils (%) (Auto) , Differential Total Cells Counted 100, Neutrophils % (Manual) 92H, Lymphocytes % (Manual) 5L, Monocytes % (Manual) 1, Eosinophils % (Manual) 0, Basophils % ( Manual) 0, Band Neutrophils 2, Platelet Estimate Adequate, Platelet Morphology Normal, Red Blood Cell Morphology Normal, Sodium Level 137, Potassium Level 3.9 , Chloride Level 105, Carbon Dioxide Level 18L, Anion Gap 14, Blood Urea Nitrogen 43H, Creatinine 2.6H, Estimat Glomerular Filtration Rate , Glucose Level 150H, Calcium Level 9.4 Height (Feet): 5 Height (Inches): 8.00 Weight (Pounds): 181 Objective HEAD AND NECK: No JVP. No LAD. No thyromegaly. Extraocular movement intact. Pupils are reactive to light and accommodation. LUNGS: Has bilateral rhonchi. CARDIAC: Regular rate and rhythm. S1, S2. No murmur. No rub. ABDOMEN: Soft, nontender, and nondistended. No organomegaly. EXTREMITIES: No edema. No clubbing. No cyanosi Teresa Caraballo MD Jun 18, 2018 23:51
[2018-06-19] VITALS: BP 137/79
[2018-06-19] MEDS ORDERED: SODIUM CHLORIDE IV PRN ×2
[2018-06-19] MEDS ORDERED: CHLORPROMAZINE IV PRN ×2
[2018-06-19 06:34] LABS: BASOPHILS % (AUTO) 0.1 % (0.0-2.0); HEMATOCRIT 39.2 % (42.0-52.0); HEMOGLOBIN 12.8 G/DL (14.2-18.0); LYMPHOCYTES % (AUTO) 10.2 % (20.0-45.0); MEAN CORPUSCULAR VOLUME 87 FL (80-99); MONOCYTES % (AUTO) 4.8 % (1.0-10.0); NEUTROPHILS % (AUTO) 84.9 % (45.0-75.0); PLATELET COUNT 194 K/UL (150-450); RED CELL DISTRIBUTION WIDTH 13.4 % (11.6-14.8); WHITE BLOOD COUNT 13.6 K/UL (4.8-10.8)
[2018-06-19 06:40] LABS: ANION GAP 13 mmol/L (5-15); BLOOD UREA NITROGEN 55 mg/dL (7-18); CALCIUM 8.5 MG/DL (8.5-10.1); CARBON DIOXIDE 20 MMOL/L (21-32); CHLORIDE 108 MMOL/L (98-107); CREATININE 2.5 MG/DL (0.55-1.30); POTASSIUM 3.5 MMOL/L (3.5-5.1); SODIUM 141 MMOL/L (136-145)
[2018-06-19 08:00] VITALS: BP 123/69
[2018-06-19] MEDS: Tigecycline 50 MG in D5W 110 ML IVPB SCH (08:50)
[2018-06-19] MEDS ORDERED: Heparin 5000 units/ml inj SUBQ SCH (09:00)
[2018-06-19] MEDS ORDERED: Theophylline ER 100mg ORAL SCH (09:00)
[2018-06-19 12:00] VITALS: BP 146/71
--- NOTE | 2018-06-19 13:00 | General Progress Note ---
Assessment/Plan Problem List: (1) SOB (shortness of breath) ICD Codes: R06.02 - Shortness of breath SNOMED: 909873869 (2) Renal failure ICD Codes: N19 - Unspecified kidney failure SNOMED: 87483093 (3) Cough ICD Codes: R05 - Cough SNOMED: 84087211 (4) Urinary tract infection ICD Codes: N39.0 - Urinary tract infection, site not specified SNOMED: 39245938 (5) Dehydration ICD Codes: E86.0 - Dehydration SNOMED: 53057014 Status: stable, progressing Assessment/Plan o2 pulm tx ot pt diet abx ivf cbc bmp am Subjective Constitutional: Reports: weakness Respiratory: Reports: shortness of breath Allergies: Coded Allergies: No Known Allergies (Unverified , 06/16/18) All Systems: reviewed and negative except above Subjective calm in bed Objective Last 24 Hour Vital Signs Date Time Temp Pulse Resp B/P (MAP) Pulse Ox O2 Delivery O2 Flow Rate FiO2 06/19/18 12:00 96.3 75 19 146/71 (96) 99 96.3 06/19/18 08:50 90 123/69 06/19/18 08:15 Room Air 06/19/18 08:00 97.5 90 19 123/69 (87) 97 97.5 06/19/18 06:50 Room Air 06/19/18 06:50 Room Air 06/19/18 00:00 98.6 55 17 137/79 (98) 95 98.6 06/18/18 22:36 Room Air 21 06/18/18 22:36 Room Air 21 06/18/18 21:30 97.5 66 20 149/93 (111) 97 97.5 06/18/18 21:00 Room Air 06/18/18 20:00 97.3 73 20 146/94 (111) 93 97.3 06/18/18 19:35 70 06/18/18 16:00 66 06/18/18 16:00 96.3 62 20 143/86 (105) 96 96.3 06/18/18 14:40 Room Air 06/18/18 14:40 Room Air Intake and Output 06/18/18 06/19/18 19:00 07:00 Intake Total 820 ml 661 ml Balance 820 ml 661 ml Intake Oral 820 ml IV Total 661 ml # Voids 3 3 # Bowel Movements 1 1 Laboratory Tests 06/19/18 05:45: White Blood Count 13.6H, Red Blood Count 4.50L, Hemoglobin 12.8L, Hematocrit 39.2L, Mean Corpuscular Volume 87, Mean Corpuscular Hemoglobin 28.4, Mean Corpuscular Hemoglobin Concent 32.6, Red Cell Distribution Width 13.4, Platelet Count 194, Mean Platelet Volume 5.6L, Neutrophils (%) (Auto) 84.9H, Lymphocytes (%) (Auto) 10.2L, Monocytes (%) (Auto) 4.8, Eosinophils (%) (Auto) 0.0, Basophils (%) (Auto) 0.1, Sodium Level 141, Potassium Level 3.5, Chloride Level 108H, Carbon Dioxide Level 20L, Anion Gap 13, Blood Urea Nitrogen 55H, Creatinine 2.5H, Estimat Glomerular Filtration Rate , Glucose Level 101, Calcium Level 8.5 Height (Feet): 5 Height (Inches): 8.00 Weight (Pounds): 181 General Appearance: lethargic EENT: normal ENT inspection Neck: normal alignment Cardiovascular: normal peripheral pulses, normal rate, regular rhythm Respiratory/Chest: chest wall non-tender, lungs clear, normal breath sounds Abdomen: normal bowel sounds, non tender, soft Extremities: normal inspection Edema: no edema noted Arm (L), no edema noted Arm (R), no edema noted Leg (L), no edema noted Leg (R), no edema noted Pedal (L), no edema noted Pedal (R), no edema noted Generalized Neurologic: responsive, motor weakness Skin: normal pigmentation, warm/dry Andrea Trinidad DO Jun 19, 2018 13:00
--- NOTE | 2018-06-19 13:33 | Infectious Diseases Prog Note ---
Assessment/Plan Assessment/Plan A: UTI - Highly resistent Ancinetobacter - Colistin and minicocycline sensi pending SOB - Resolved - Now on RA Viral bronchitis? Reactive Airways Dz? Right Hip Replacement P: D/C Tigecycline as patients symptoms resolved prior to tigecycline D/C Zosyn #2 Monitor CBC and Temps Respiratory care\ Close monitoring of any UTI symptoms as this would require full course of abx for true UTI. We will continue to follow the patient with you. Subjective Allergies: Coded Allergies: No Known Allergies (Unverified , 06/16/18) Subjective Patient reports feeling well Afebrile Objective Vital Signs Last 24 Hour Vital Signs Date Time Temp Pulse Resp B/P (MAP) Pulse Ox O2 Delivery O2 Flow Rate FiO2 06/19/18 12:00 96.3 75 19 146/71 (96) 99 96.3 06/19/18 08:50 90 123/69 06/19/18 08:15 Room Air 06/19/18 08:00 97.5 90 19 123/69 (87) 97 97.5 06/19/18 06:50 Room Air 06/19/18 06:50 Room Air 06/19/18 00:00 98.6 55 17 137/79 (98) 95 98.6 06/18/18 22:36 Room Air 21 06/18/18 22:36 Room Air 21 06/18/18 21:30 97.5 66 20 149/93 (111) 97 97.5 06/18/18 21:00 Room Air 06/18/18 20:00 97.3 73 20 146/94 (111) 93 97.3 06/18/18 19:35 70 06/18/18 16:00 66 06/18/18 16:00 96.3 62 20 143/86 (105) 96 96.3 06/18/18 14:40 Room Air 06/18/18 14:40 Room Air Height (Feet): 5 Height (Inches): 8.00 Weight (Pounds): 181 Objective GENERAL: NAD, Sitting in bed, Comfortable HEENT: NCAT, MMM, EOMI CARDIOVASCULAR: RRR, S1, S2, No M/R/G LUNGS: CTAB ABDOMEN: Soft, NT, ND, +BS, EXTREMITIES: No cyanosis, clubbing, or edema. NEUROLOGIC: A/O, The patient moves all extremities Microbiology Date/Time Source Procedure Growth Status 06/17/18 22:00 Sputum Expectorated Gram Stain - Final Resulted 06/17/18 22:00 Sputum Expectorated Sputum Culture Pending Resulted 06/17/18 06:41 Sputum Gram Stain - Final Complete 06/17/18 06:41 Sputum Sputum Culture - Final CULTURE NOT PERFORMED ... Complete Laboratory Tests Test 06/19/18 05:45 White Blood Count 13.6 K/UL (4.8-10.8) H Red Blood Count 4.50 M/UL (4.70-6.10) L Hemoglobin 12.8 G/DL (14.2-18.0) L Hematocrit 39.2 % (42.0-52.0) L Mean Corpuscular Volume 87 FL (80-99) Mean Corpuscular Hemoglobin 28.4 PG (27.0-31.0) Mean Corpuscular Hemoglobin Concent 32.6 G/DL (32.0-36.0) Red Cell Distribution Width 13.4 % (11.6-14.8) Platelet Count 194 K/UL (150-450) Mean Platelet Volume 5.6 FL (6.5-10.1) L Neutrophils (%) (Auto) 84.9 % (45.0-75.0) H Lymphocytes (%) (Auto) 10.2 % (20.0-45.0) L Monocytes (%) (Auto) 4.8 % (1.0-10.0) Eosinophils (%) (Auto) 0.0 % (0.0-3.0) Basophils (%) (Auto) 0.1 % (0.0-2.0) Sodium Level 141 MMOL/L (136-145) Potassium Level 3.5 MMOL/L (3.5-5.1) Chloride Level 108 MMOL/L (98-107) H Carbon Dioxide Level 20 MMOL/L (21-32) L Anion Gap 13 mmol/L (5-15) Blood Urea Nitrogen 55 mg/dL (7-18) H Creatinine 2.5 MG/DL (0.55-1.30) H Estimat Glomerular Filtration Rate mL/min (>60) Glucose Level 101 MG/DL (74-106) Calcium Level 8.5 MG/DL (8.5-10.1) Current Medications Medications (Trade) Dose Ordered Sig/Markus Route PRN Reason Start Time Stop Time Status Last Admin Dose Admin Acetaminophen (Tylenol) 650 mg Q4H PRN ORAL Mild Pain/Temp > 100.5 06/18/18 22:00 07/18/18 21:59 Albuterol/ Ipratropium (Albuterol/ Ipratropium) 3 ml Q4H PRN HHN dyspnea 06/18/18 22:00 06/21/18 21:59 Amlodipine Besylate (Norvasc) 5 mg DAILY ORAL 06/19/18 09:00 07/19/18 08:59 06/19/18 08:50 Chlorpromazine 25 mg/Sodium Chloride 551 ml @ 550 mls/hr Q8H PRN IV HICCUPS 06/19/18 00:00 07/18/18 07:59 06/19/18 01:08 Clonidine HCl (Catapres Tab) 0.1 mg Q6H PRN ORAL sbp>160 06/18/18 22:00 07/16/18 15:59 Dextrose (Dextrose 50%) 25 ml STAT PRN IV Hypoglycemia 06/18/18 22:00 07/18/18 21:59 Dextrose (Dextrose 50%) 50 ml STAT PRN IV Hypoglycemia 06/18/18 22:00 07/18/18 21:59 Heparin Sodium (Porcine) (Heparin 5000 units/ml) 5,000 units EVERY 12 HOURS SUBQ 06/19/18 09:00 07/16/18 20:59 06/19/18 08:49 Lorazepam (Ativan 2mg/ml 1ml) 0.5 mg Q4H PRN IV For Anxiety 06/18/18 22:00 06/23/18 21:59 Morphine Sulfate (Morphine Sulfate) 2 mg Q4H PRN IVP severe pain 7-10 06/18/18 22:00 06/23/18 21:59 Nitroglycerin (Ntg) 0.4 mg Q5M X 3 DOSES PRN SL Prn Chest Pain 06/18/18 22:00 07/16/18 14:59 Ondansetron HCl (Zofran) 4 mg Q6H PRN IVP Nausea & Vomiting 06/18/18 22:00 07/18/18 21:59 Promethazine HCl/ Codeine (Phenergan with Codeine) 5 ml Q6H PRN ORAL cough 06/18/18 22:00 07/18/18 21:59 Temazepam (Restoril) 15 mg HSPRN PRN ORAL Insomnia 06/18/18 22:00 06/25/18 21:59 Theophylline (Teofilo-Dur) 100 mg EVERY 12 HOURS ORAL 06/19/18 09:00 07/16/18 20:59 06/19/18 08:49 Tigecycline 50 mg/ Dextrose 110 ml @ 220 mls/hr EVERY 12 HOURS IVPB 06/18/18 23:00 06/25/18 22:59 06/19/18 08:50 Biju Nuñez MD Jun 19, 2018 13:33
--- NOTE | 2018-06-19 13:38 | Pulmonology Progress Note ---
Assessment/Plan Problems: (1) Hypertension (2) Bronchitis (3) S/P right hip fracture Assessment/Plan MDR uti on Tigecycline respiratory treatment pain management MRI reviewed echo, doppler of carotid artery. Subjective ROS Limited/Unobtainable: No Constitutional: Reports: no symptoms HEENT: Repors: no symptoms Allergies: Coded Allergies: No Known Allergies (Unverified , 06/16/18) Objective Last 24 Hour Vital Signs Date Time Temp Pulse Resp B/P (MAP) Pulse Ox O2 Delivery O2 Flow Rate FiO2 06/19/18 12:00 96.3 75 19 146/71 (96) 99 96.3 06/19/18 08:50 90 123/69 06/19/18 08:15 Room Air 06/19/18 08:00 97.5 90 19 123/69 (87) 97 97.5 06/19/18 06:50 Room Air 06/19/18 06:50 Room Air 06/19/18 00:00 98.6 55 17 137/79 (98) 95 98.6 06/18/18 22:36 Room Air 21 06/18/18 22:36 Room Air 21 06/18/18 21:30 97.5 66 20 149/93 (111) 97 97.5 06/18/18 21:00 Room Air 06/18/18 20:00 97.3 73 20 146/94 (111) 93 97.3 06/18/18 19:35 70 06/18/18 16:00 66 06/18/18 16:00 96.3 62 20 143/86 (105) 96 96.3 06/18/18 14:40 Room Air 06/18/18 14:40 Room Air Intake and Output 06/18/18 06/19/18 19:00 07:00 Intake Total 820 ml 661 ml Balance 820 ml 661 ml Intake Oral 820 ml IV Total 661 ml # Voids 3 3 # Bowel Movements 1 1 General Appearance: WD/WN HEENT: normocephalic Respiratory/Chest: chest wall non-tender, lungs clear Cardiovascular: normal peripheral pulses, normal rate Abdomen: normal bowel sounds, soft, non tender Genitourinary: normal external genitalia Skin: no rash, no ulcers Microbiology Date/Time Source Procedure Growth Status 06/17/18 22:00 Sputum Expectorated Gram Stain - Final Resulted 06/17/18 22:00 Sputum Expectorated Sputum Culture Pending Resulted 06/17/18 06:41 Sputum Gram Stain - Final Complete 06/17/18 06:41 Sputum Sputum Culture - Final CULTURE NOT PERFORMED ... Complete Laboratory Tests 06/19/18 05:45: White Blood Count 13.6H, Red Blood Count 4.50L, Hemoglobin 12.8L, Hematocrit 39.2L, Mean Corpuscular Volume 87, Mean Corpuscular Hemoglobin 28.4, Mean Corpuscular Hemoglobin Concent 32.6, Red Cell Distribution Width 13.4, Platelet Count 194, Mean Platelet Volume 5.6L, Neutrophils (%) (Auto) 84.9H, Lymphocytes (%) (Auto) 10.2L, Monocytes (%) (Auto) 4.8, Eosinophils (%) (Auto) 0.0, Basophils (%) (Auto) 0.1, Sodium Level 141, Potassium Level 3.5, Chloride Level 108H, Carbon Dioxide Level 20L, Anion Gap 13, Blood Urea Nitrogen 55H, Creatinine 2.5H, Estimat Glomerular Filtration Rate , Glucose Level 101, Calcium Level 8.5 Current Medications Medications (Trade) Dose Ordered Sig/Markus Route PRN Reason Start Time Stop Time Status Last Admin Dose Admin Acetaminophen (Tylenol) 650 mg Q4H PRN ORAL Mild Pain/Temp > 100.5 06/18/18 22:00 07/18/18 21:59 Albuterol/ Ipratropium (Albuterol/ Ipratropium) 3 ml Q4H PRN HHN dyspnea 06/18/18 22:00 06/21/18 21:59 Amlodipine Besylate (Norvasc) 5 mg DAILY ORAL 06/19/18 09:00 07/19/18 08:59 06/19/18 08:50 Chlorpromazine 25 mg/Sodium Chloride 551 ml @ 550 mls/hr Q8H PRN IV HICCUPS 06/19/18 00:00 07/18/18 07:59 06/19/18 01:08 Clonidine HCl (Catapres Tab) 0.1 mg Q6H PRN ORAL sbp>160 06/18/18 22:00 07/16/18 15:59 Dextrose (Dextrose 50%) 25 ml STAT PRN IV Hypoglycemia 06/18/18 22:00 07/18/18 21:59 Dextrose (Dextrose 50%) 50 ml STAT PRN IV Hypoglycemia 06/18/18 22:00 07/18/18 21:59 Heparin Sodium (Porcine) (Heparin 5000 units/ml) 5,000 units EVERY 12 HOURS SUBQ 06/19/18 09:00 07/16/18 20:59 06/19/18 08:49 Lorazepam (Ativan 2mg/ml 1ml) 0.5 mg Q4H PRN IV For Anxiety 06/18/18 22:00 06/23/18 21:59 Morphine Sulfate (Morphine Sulfate) 2 mg Q4H PRN IVP severe pain 7-10 06/18/18 22:00 06/23/18 21:59 Nitroglycerin (Ntg) 0.4 mg Q5M X 3 DOSES PRN SL Prn Chest Pain 06/18/18 22:00 07/16/18 14:59 Ondansetron HCl (Zofran) 4 mg Q6H PRN IVP Nausea & Vomiting 06/18/18 22:00 07/18/18 21:59 Promethazine HCl/ Codeine (Phenergan with Codeine) 5 ml Q6H PRN ORAL cough 06/18/18 22:00 07/18/18 21:59 Temazepam (Restoril) 15 mg HSPRN PRN ORAL Insomnia 06/18/18 22:00 06/25/18 21:59 Theophylline (Teofilo-Dur) 100 mg EVERY 12 HOURS ORAL 06/19/18 09:00 07/16/18 20:59 06/19/18 08:49 Tigecycline 50 mg/ Dextrose 110 ml @ 220 mls/hr EVERY 12 HOURS IVPB 06/18/18 23:00 06/25/18 22:59 06/19/18 08:50 Juan Ibarra MD Jun 19, 2018 13:38
--- NOTE | 2018-06-19 16:22 | Diagnostic Imaging Report ---
Indication: Acute renal failure Technique: Grayscale and duplex images of the kidneys, retroperitoneum, and bladder were obtained. Comparison: none Findings: Right kidney measures 9.1 cm in length. Left kidney measures 8.5 cm in length. Both kidneys demonstrate slightly increased echogenicity and thinning of the cortex. No hydronephrosis. Left lower pole demonstrates a small shadowing focus in the renal parenchymal. Inferior vena cava is suboptimally visualized. Bladder is normal. Impression: Negative for hydronephrosis Mild increased echogenicity and renal cortical thinning, could indicate medical renal disease Possible left lower pole parenchymal calyceal calculus.
--- NOTE | 2018-06-20 13:49 | Discharge Summary ---
Discharge Summary Discharge Summary _ DATE OF ADMISSION: 06/16/2018 DATE OF DISCHARGE: 06/19/2018 CONSULTANTS: Dr. Juan Caraballo BRIEF HOSPITAL COURSE: Patient is a 72-year-old Ari-speaking male, who lives at home, presented to ED due to increased shortness of breath and cough for 1 day. He was brought in by EMS after increased cough and difficulty breathing. He was noted to have increased nonproductive cough. On evaluation at ED, he had stable vital signs. He was noted to have increased difficulty breathing and was given breathing treatment and IV Solu-Medrol. Blood work did not show any leukocytosis. Creatinine was elevated to 2.5, BUN 36. Troponin was negative. Urinalysis showed 20-30 WBC, 0-2 RBC, 3+ leukocyte esterase. He had an EKG that showed normal sinus rhythm. Cultures were obtained. Chest x-ray was negative. He was started on IV Rocephin. He was admitted for pneumonitis and UTI. Renal function was elevated. 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 Bladder scan done showed low residual. Renal ultrasound was negative for hydronephrosis. There was mild increased echogenicity and renal cortical thinning noted. He was started on Norvasc for blood pressure control. 12-lead EKG showed sinus rhythm with no acute ST to T wave abnormality and a somewhat borderline prolonged QT interval. He was given breathing treatment and pulmonary support. Echocardiogram with normal left ventricular ejection fraction at approximately 65% with no wall motion abnormality. Urine culture with highly resistant Acinetobacter. Zosyn was discontinued. He was given tigecycline. 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 There was tiny focus of restricted diffusion in the right insular cortex and right parietal white matter consistent with tiny acute infarcts. There was no intracranial hemorrhage. No mass effect or midline shift. Carotid duplex ultrasound with no significant plaque within the right and left extracranial carotid arteries. He underwent swallow evaluation. Patient denied any swallowing difficulty. He had good mastication time and good bolus control. Overall, patient swallowing seemed functional. He was recommended mechanical soft (finely chopped/chopped) with thin liquids. Strict aspiration precaution. Steroids were tapered. He was saturating well on room air. He was then cleared for discharge home off antibiotics. FINAL DIAGNOSES: MDR UTI Acute on chronic renal failure with proteinuria Uncontrolled Hypertension stage II Dyspnea, most likely due to acute bronchitis Possible pneumonia Status post right hip replacement Dehydration DISPOSITION: Patient was discharged home. DISCHARGE INSTRUCTIONS: Follow up with PCP in a week. I have been assigned to dictate discharge summary on this account, and I was not involved in the patient's management. Silvia Carrillo NP Jun 20, 2018 13:49
--- NOTE | 2018-06-20 15:58 | Diagnostic Imaging Report ---
APPROVED REPORT CPT Code: 22302 Vascular Symptoms Comments: DIZZINESS. CAROTID (BILATERAL) - Imaging reveals no significant plaque within the right and left extracranial carotid arteries. The Doppler spectral flow analysis is within normal limits throughout the extracranial carotid arteries bilaterally. VERTEBRAL- The vertebral arteries are within normal limits.
== END 2018-06-19 18:01 | disposition home or self-care (01) | DRG 139 ==
LOC: EDBD 12:21 → EDBEDREQ 13:09 → EMR 13:22 → EDBEDREQ 14:17 → 2E 14:28 → 4E 06-18 22:16
DX: J18.9 Pneumonia, unspecified organism (principal); N17.9 Acute kidney failure, unspecified; N39.0 Urinary tract infection, site not specified; B96.89 Other specified bacterial agents as the cause of diseases classified elsewhere; Z16.24 Resistance to multiple antibiotics; J20.9 Acute bronchitis, unspecified; I12.9 Hypertensive chronic kidney disease with stage 1 through stage 4 chronic kidney disease, or unspecified chronic kidney disease; N18.9 Chronic kidney disease, unspecified; Z96.641 Presence of right artificial hip joint; E86.0 Dehydration; Z86.73 Personal history of transient ischemic attack (TIA), and cerebral infarction without residual deficits
CPT/HCPCS: 36415; 70551; 71045; 76770; 80048; 80053; 81001; 81003; 82044; 82550; 82570; 83880; 84133; 84300; 84484; 84550; 85007; 85025; 85379; 85610; 85730; 87040; 87070; 87086; 87181; 87205; 89050; 93005; 93306; 93880; 94640; 94664; 96365; 96375; 99285

== ENCOUNTER 2018-11-04 13:01 | Emergency (ER) | payer MEDICAID, OTHER ==
[~2018-11-04] VITALS: Ht 157.5 cm; Wt 72.6 kg
[~2018-11-04 13:01] MED LIST: [UNRECOGNIZED DRUG - OTHER] ORAL; [UNRECOGNIZED DRUG - OTHER] ORAL
[2018-11-04] MEDS ORDERED: NKM (13:02)
--- NOTE | 2018-11-04 13:14 | NUR ---
ED Nurse Note:pt. was BIBA from home with flu like symptoms, no fever
--- NOTE | 2018-11-04 13:16 | Emergency Room Report ---
History of Present Illness General Chief Complaint: Flu Like Symptoms Source: Medical Record, EMS Present Illness HPI 73-year-old male patient presents the ER brought in by ambulance complaining of "feeling shaky" and flulike symptoms for the past 1 day. Reports shaky symptoms times 1 day secondary to feeling "cold and feverish", reports subjective fever at home that began after "walking up stairs", patient afebrile currently in the ER. Reports congestion symptoms for the past 4 days. Reports dry cough during this time, denies history of DC or asthma. Denies hemoptysis. Denies vomiting or diarrhea. Denies sore throat. Reports congestion symptoms. Denies chest pain or SOB. Reports sick contacts at home. Denies recent travel. states has been taking ibuprofen at home for relief of symptoms. Denies other aggravating or relieving factors. States did not receive flu vaccine this year. Allergies: Coded Allergies: No Known Allergies (Unverified , 06/16/18) Patient History Past Medical History: see triage record Reviewed Nursing Documentation: PMH: Agreed; PSxH: Agreed Nursing Documentation-PMH Past Medical History: No History, Except For Hx Cardiac Problems: Yes Hx Hypertension: Yes Hx Cancer: No Hx Gastrointestinal Problems: No Hx Neurological Problems: No Review of Systems All Other Systems: negative except mentioned in HPI Physical Exam Vital Signs Date Time Temp Pulse Resp B/P (MAP) Pulse Ox O2 Delivery O2 Flow Rate FiO2 11/04/18 13:01 98.1 101 18 112/47 95 Room Air Sp02 EP Interpretation: reviewed, normal General Appearance: well appearing, no apparent distress, alert, GCS 15, non- toxic Head: normocephalic, atraumatic Eyes: bilateral eye normal inspection, bilateral eye PERRL ENT: hearing grossly normal, normal pharynx, no angioedema, normal voice, TMs + canals normal, uvula midline, moist mucus membranes Neck: full range of motion, no meningismus, no bony tend Respiratory: lungs clear, normal breath sounds, no rhonchi, no respiratory distress, no accessory muscle use, no wheezing, speaking full sentences Cardiovascular #1: regular rate, rhythm, no edema Gastrointestinal: non tender, soft, no mass, non-distended, no guarding, no rebound Genitourinary: no CVA tenderness Musculoskeletal: back normal, digits/nails normal, gait/station normal, normal range of motion, non-tender Neurologic: alert, oriented x3, responsive, motor strength/tone normal, sensory intact Psychiatric: mood/affect normal Skin: no rash Lymphatic: no adenopathy Medical Decision Making PA Attestation Dr. Jarrett is my supervising Physician whom patient management has been discussed with. Diagnostic Impression: Primary Impression: Influenza-like symptoms ER Course Pt presents to ED c/o cough, congestion and "shaking" secondary to subjective fever symptoms. DDX considered but are not limited to influenza, viral URI, pneumonia, strep throat, rhinitis, sinusitis, otitis media, otitis externa. Denies chest pain, shortness of breath, does not require cardiac workup at this time. VITAL SIGNS are WNL, patient is afebrile. ER COURSE: Provide with Tylenol in the ER. CXR shows no acute disease per the preliminary reading, compared to previous chest x-ray on file. Low suspicion for pneumonia, does not require antibiotics at this time. Lungs clear to auscultation, no wheezes, rhonci or rales. patient afebrile. Low suspicion for pneumonia. no tonsillar exudates, no pharyngeal erythema, history of cough, no fever, no stridor, uvula midline, low suspicion for peritonsillar abscess. Likely viral etiology of symptoms. Symptomatic treatment. drink plenty of fluids. Salt water gargles for sore throat. Followup with PCP for further treatment and/or referral as needed. Patient is resting comfortably no acute distress, vitals stable, does not require further lab workup at this time, okay for outpatient follow-up and treatment. Return to ER immediately for new or worsening of symptoms. Discuss further treatment referral with primary care provider. DISCHARGE: -Rx given for Claritin -Rx given for Tylenol/Acetaminophen -Rx given for Tessalon Perles. -Rx given for Tamiflu for influenza. At this time pt is stable for d/c to home. Patient is resting comfortably, in no acute distress, nontoxic appearing. Patient to take medications as instructed Will provide with patient care instructions and any necessary prescriptions. Care plan and follow-up instructions provided. Patient instructed to follow-up with primary care provider in 3 - 5 days. Patient questions asked and answered. Patient reports understanding and agreement to treatment plan. ER precautions given. Patient instructed to return to ER immediately for any new or worsening of symptoms including but not limited to increasing SOB, persistent fever, intractable vomiting. - Please note that this Emergency Department Report was dictated using Network Intelligenceboard runner technology software, occasionally this can lead to erroneous entry secondary to interpretation by the dictation equipment. Chest X-Ray Diagnostic Results Chest X-Ray Diagnostic Results : Chest X-Ray Ordered: Yes # of Views/Limited/Complete: 1 View Indication: Chest Pain EP Interpretation: Yes PA Xray: Interpretation reviewed, by supervising MD, and agrees with findings. Interpretation: no consolidation, no effusion, no pneumothorax, no acute cardiopulmonary disease Impression: No acute disease LOREE Scribken Text Pablo Melendez PA-C Last Vital Signs Date Time Temp Pulse Resp B/P (MAP) Pulse Ox O2 Delivery O2 Flow Rate FiO2 11/04/18 13:01 98.1 101 18 112/47 95 Room Air Status: improved Disposition: HOME, SELF-CARE Condition: Stable Scripts Oseltamivir Phosphate (Tamiflu) 75 Mg Capsule 75 MG ORAL TWICE A DAY for 5 Days, #10 CAP Prov: Alphonse Melendez 11/04/18 Benzonatate* (TESSALON PERLE*) 100 Mg Capsule 100 MG ORAL THREE TIMES A DAY, #20 PERLE Prov: Alphonse Melendez 11/04/18 Loratadine (CLARITIN) 10 Mg Capsule 10 MG ORAL DAILY, #30 CAP Prov: Alphonse Melendez 11/04/18 Acetaminophen* (TYLENOL EXTRA STRENGTH*) 500 Mg Tablet 500 MG ORAL Q8H PRN for Prn Headache/Temp > 101, #30 TAB 0 Refills Prov: Alphonse Melendez 11/04/18 Patient Instructions: Influenza, Adult, [id number], Upper Respiratory Infection, Adult, [id number] Additional Instructions: Followup with primary care provider in 3 -5 days. Take medications as directed. Patient questions asked and answered. ER precautions given, patient instructed to return to ER immediately for any new or worsening of symptoms. Alphonse Melendez Nov 04, 2018 13:15
[2018-11-04] MEDS ORDERED: CLARITIN10 M2 ORAL (13:19)
[2018-11-04] MEDS ORDERED: TESSALON PERLE100 MG ORAL (13:19)
[2018-11-04] MEDS ORDERED: TYLENOL EXTRA500 MG ORAL (13:19)
[2018-11-04 13:27] VITALS: BP 112/47
--- NOTE | 2018-11-04 13:28 | NUR ---
ED Nurse Note:chest x-ray done
[2018-11-04] MEDS ORDERED: TAMIFLU75 MG ORAL (13:39)
--- NOTE | 2018-11-04 14:00 | Diagnostic Imaging Report ---
Indication: Reason For Exam: PAIN Technique: Portable AP view of the chest Comparison: 06/16/2018 Findings: Lung volumes are low. Heart size and mediastinal contours are stable line for differences in lung volumes and patient's rightward rotation. There is vascular crowding at the bases. No definite focal consolidation. No silhouetting of the heart borders or diaphragms. No pleural effusion or pneumothorax. No acute osseous abnormality. IMPRESSION: Exam with low lung volumes. No definite radiographic evidence of acute cardiopulmonary disease. No significant interval change compared to the prior exam line for differences in technique.
[2018-11-04 14:11] VITALS: BP 112/47
--- NOTE | 2018-11-04 14:12 | NUR ---
ED Nurse Note: Pt is DC per ER provider order. pt is alert and oriented times 4. pt vital signs, status and condition are within normal limits. pt has left with all belongings including DC notes and prescription. pt is able to understand DC notes and prescriptions. pt is instructed to follow up with primary provider as soon as possible. pt is stable for discharge. pt is able to ambulate with steady gait. PT ID is DC.
== END 2018-11-04 14:18 | disposition home or self-care (01) ==
LOC: EDBD 13:01 → EMR 13:50
DX: J11.1 Influenza due to unidentified influenza virus with other respiratory manifestations (principal); I10 Essential (primary) hypertension
CPT/HCPCS: 71045; 99283

== ENCOUNTER 2018-11-07 15:44 | Inpatient (IN) | payer MEDICAID ==
[~2018-11-07] VITALS: Ht 172.7 cm; Wt 93.2 kg
[2018-11-07] VITALS (10 sets, daily range): BP systolic 125–191; BP diastolic 61–140
[~2018-11-07 15:44] MED LIST changes: +CLARITIN10 M2 ORAL; +NKM; +TAMIFLU75 MG ORAL; +TESSALON PERLE100 MG ORAL; +TYLENOL EXTRA500 MG ORAL
[2018-11-07] MEDS ORDERED: UNOBMED (15:51)
[2018-11-07 16:20] LABS: BASOPHILS % (AUTO) 0.4 % (0.0-2.0); EOSINOPHILS % (AUTO) 0.4 % (0.0-3.0); HEMATOCRIT 36.1 % (42.0-52.0); HEMOGLOBIN 12.3 G/DL (14.2-18.0); LYMPHOCYTES % (AUTO) 8.2 % (20.0-45.0); MEAN CORPUSCULAR VOLUME 87 FL (80-99); MONOCYTES % (AUTO) 11.6 % (1.0-10.0); NEUTROPHILS % (AUTO) 79.5 % (45.0-75.0); PLATELET COUNT 129 K/UL (150-450); RED BLOOD COUNT 4.16 M/UL (4.70-6.10); RED CELL DISTRIBUTION WIDTH 12.8 % (11.6-14.8); WHITE BLOOD COUNT 16.4 K/UL (4.8-10.8)
[2018-11-07 16:22] LABS: APPEARANCE,URINE CLEAR; BILIRUBIN, URINE NEGATIVE (NEGATIVE); COLOR,URINE PALE YELLOW; GLUCOSE, URINE (UA) NEGATIVE (NEGATIVE); KETONES,URINE NEGATIVE (NEGATIVE); LEUKOCYTE ESTERASE ,URINE 3+ (NEGATIVE); NITRITE,URINE NEGATIVE (NEGATIVE); PH,URINE 5 (4.5-8.0); PROTEIN,URINE 2+ (NEGATIVE); UROBILINOGEN,URINE NORMAL MG/DL (0.0-1.0)
[2018-11-07 16:49] LABS: ANION GAP 14 mmol/L (5-15); BLOOD UREA NITROGEN 51 mg/dL (7-18); CALCIUM 8.7 MG/DL (8.5-10.1); CARBON DIOXIDE 19 MMOL/L (21-32); CHLORIDE 100 MMOL/L (98-107); CREATININE 4.4 MG/DL (0.55-1.30); POTASSIUM 4.3 MMOL/L (3.5-5.1); SODIUM 132 MMOL/L (136-145)
--- NOTE | 2018-11-07 17:00 | Diagnostic Imaging Report ---
Indication: Shortness of breath Technique: One view of the chest Comparison: 11/04/2018 Findings: Lungs and pleural spaces are largely clear. Heart size is normal. There is some atelectasis in the right perihilar region and left lung base Impression: Minimal bilateral atelectatic changes. No acute process otherwise
[2018-11-07 17:05] LABS: ALANINE AMINOTRANSFERASE < 6 U/L (12-78); ALBUMIN/GLOBULIN RATIO 0.8 (1.0-2.7); ALKALINE PHOSPHATASE 152 U/L (46-116); ASPARTATE AMINO TRANSFERASE 12 U/L (15-37); BILIRUBIN,TOTAL 0.9 MG/DL (0.2-1.0); CKMB 0.5 NG/ML (0.0-3.6); CREATINE KINASE 40 U/L (26-308)
[2018-11-07] MEDS ORDERED: cefTRIAXone 1 GM in NS 55 ML IVPB ONE (17:15)
--- NOTE | 2018-11-07 19:20 | Emergency Room Report ---
History of Present Illness General Chief Complaint: General Complaint Source: Patient, Medical Record Present Illness HPI Patient is a 73-year-old male brought in by family member after increased difficulty breathing. Patient had gradual onset of symptoms. He was noted to have some subjective fever. Patient prior history of renal disease as well as diabetes. He was noted to have some increased difficulty with urinary hesitancy as well as decreased urine output. Patient had not been on dialysis. Allergies: Coded Allergies: No Known Allergies (Unverified , 06/16/18) Patient History Reviewed Nursing Documentation: PMH: Agreed; PSxH: Agreed Nursing Documentation-PMH Hx Cardiac Problems: Yes - R LEG SURGERY X 1 YEAR AGO Hx Hypertension: Yes Hx Cancer: No Hx Gastrointestinal Problems: No Hx Neurological Problems: No Review of Systems All Other Systems: negative except mentioned in HPI Physical Exam Vital Signs Date Time Temp Pulse Resp B/P (MAP) Pulse Ox O2 Delivery O2 Flow Rate FiO2 11/07/18 15:48 98.2 92 16 140/72 100 Room Air Sp02 EP Interpretation: reviewed, normal General Appearance: alert, mild distress Head: atraumatic ENT: normal ENT inspection, hearing grossly normal, normal voice Neck: normal inspection, full range of motion, supple, no bony tend Respiratory: normal inspection, no respiratory distress, no retraction Cardiovascular #1: regular rate, rhythm, no edema Gastrointestinal: normal inspection, normal bowel sounds, non tender, soft, no guarding, no hernia Genitourinary: no CVA tenderness Musculoskeletal: normal inspection, normal range of motion, decreased range of motion Neurologic: normal inspection, alert, responsive, speech normal Psychiatric: normal inspection, judgement/insight normal, mood/affect normal Skin: normal inspection, normal color, no rash Procedures Critical Care Time Critical Care Time Patient had a critical medical condition which untreated could potentially result in life or limb threatening injury. Total critical care time excluding procedures approximately 45 minutes. Medical Decision Making Diagnostic Impression: Primary Impression: Urinary tract infection Additional Impressions: Hypertension Influenza-like illness Renal insufficiency ER Course Presented for shortness of breath. Differential included but was not limited to anemia, pneumonia, pneumothorax, myocardial infarction, pericardial effusion , congestive heart failure, acidosis. Because of complexity of patient's case laboratory testing and imaging studies were ordered. EKG interpreted by me showed normal sinus rhythm with a rate of [address] there are no acute ST or T wave changes. Chest x-ray read by radiology showed lungs and pleural spaces which are largely clear heart size is normal there is some atelectasis in the right perihilar region and left lung base. Patient was given IV antibiotics. Laboratory testing showed some evidence of urinary infection. Patient noted to have elevated white blood count. He was given some IV fluids initially. BNP was noted to be greater than 9500. Patient was discussed with Dr. Crawford who agreed to accept the patient to [facility] . Patient was noted to have some worsening of respiratory status. Patient is noted to have increased difficulty breathing. Patient was given IV steroids as well as IV breathing treatments and was started on BiPAP.Dr. Michelet Menchaca was contacted for Dr. Miles for [facility] physician. Patient will be admitted to stepdown unit. Labs Test 11/07/18 16:00 White Blood Count 16.4 K/UL (4.8-10.8) Red Blood Count 4.16 M/UL (4.70-6.10) Hemoglobin 12.3 G/DL (14.2-18.0) Hematocrit 36.1 % (42.0-52.0) Mean Corpuscular Volume 87 FL (80-99) Mean Corpuscular Hemoglobin 29.5 PG (27.0-31.0) Mean Corpuscular Hemoglobin Concent 34.0 G/DL (32.0-36.0) Red Cell Distribution Width 12.8 % (11.6-14.8) Platelet Count 129 K/UL (150-450) Mean Platelet Volume 6.3 FL (6.5-10.1) Neutrophils (%) (Auto) 79.5 % (45.0-75.0) Lymphocytes (%) (Auto) 8.2 % (20.0-45.0) Monocytes (%) (Auto) 11.6 % (1.0-10.0) Eosinophils (%) (Auto) 0.4 % (0.0-3.0) Basophils (%) (Auto) 0.4 % (0.0-2.0) Urine Color Pale yellow Urine Appearance Clear Urine pH 5 (4.5-8.0) Urine Specific [place] 1.005 (1.005-1.035) Urine Protein 2+ (NEGATIVE) Urine Glucose (UA) Negative (NEGATIVE) Urine Ketones Negative (NEGATIVE) Urine Blood 3+ (NEGATIVE) Urine Nitrite Negative (NEGATIVE) Urine Bilirubin Negative (NEGATIVE) Urine Urobilinogen Normal MG/DL (0.0-1.0) Urine Leukocyte Esterase 3+ (NEGATIVE) Urine RBC 0-2 /HPF (0 - 0) Urine WBC 20-30 /HPF (0 - 0) Urine Squamous Epithelial Cells Occasional /LPF Urine Bacteria Few /HPF (NONE) Sodium Level 132 MMOL/L (136-145) Potassium Level 4.3 MMOL/L (3.5-5.1) Chloride Level 100 MMOL/L (98-107) Carbon Dioxide Level 19 MMOL/L (21-32) Anion Gap 14 mmol/L (5-15) Blood Urea Nitrogen 51 mg/dL (7-18) Creatinine 4.4 MG/DL (0.55-1.30) Estimat Glomerular Filtration Rate mL/min (>60) Glucose Level 129 MG/DL (74-106) Lactic Acid Level 1.40 mmol/L (0.4-2.0) Calcium Level 8.7 MG/DL (8.5-10.1) Total Bilirubin 0.9 MG/DL (0.2-1.0) Aspartate Amino Transf (AST/SGOT) 12 U/L (15-37) Alanine Aminotransferase (ALT/SGPT) < 6 U/L (12-78) Alkaline Phosphatase 152 U/L (46-116) Total Creatine Kinase 40 U/L (26-308) Creatine Kinase MB 0.5 NG/ML (0.0-3.6) Creatine Kinase MB Relative Index 1.2 Troponin I 0.010 ng/mL (0.000-0.056) Pro-B-Type Natriuretic Peptide 9406 pg/mL (0-125) Total Protein 7.0 G/DL (6.4-8.2) Albumin 3.0 G/DL (3.4-5.0) Globulin 4.0 g/dL Albumin/Globulin Ratio 0.8 (1.0-2.7) EKG Diagnostic Results Rate: normal Rhythm: NSR ST Segments: no acute changes Last Vital Signs Date Time Temp Pulse Resp B/P (MAP) Pulse Ox O2 Delivery O2 Flow Rate FiO2 11/07/18 19:01 98.2 100 21 135/100 100 Room Air Status: unchanged Disposition: ADMITTED INPATIENT Condition: Serious Referrals: Wilton Dunlap MD (PCP) Rinku Novoa MD Nov 07, 2018 19:20
[2018-11-07] MEDS ORDERED: Solu-MEDROL 125mg Inj ONE (20:44)
[2018-11-07] MEDS ORDERED: Albuterol/Ipratropium 3ml neb HHN ONE (20:45)
[2018-11-07] MEDS ORDERED: Solu-MEDROL 125mg Inj IVP ONE (20:45)
[2018-11-07] MEDS: NovoLOG Insulin Flexpen SUBQ SCH (21:00)
[2018-11-07] MEDS ORDERED: Bumetanide 2.5mg/10ml Inj IVP SCH (22:00)
[2018-11-07] MEDS: Albuterol/Ipratropium 3ml neb HHN SCH (22:00)
[2018-11-07] MEDS ORDERED: Enoxaparin 30mg Inj SUBQ SCH (23:30)
[2018-11-08] VITALS (39 sets, daily range): BP systolic 99–138; BP diastolic 25–95
--- NOTE | 2018-11-08 | History and Physical Report ---
DATE OF ADMISSION: 11/07/2018 REASON FOR ADMISSION: 1. Respiratory failure. 2. Sepsis. 3. Acute kidney injury. 4. CKD stage 4. HISTORY OF PRESENT ILLNESS: The patient is a 73-year-old gentleman who was brought into the emergency room by family member after difficulty breathing with increasing shortness of breath for the last 24 to 36 hours. The patient was noted to have a temperature of approximately 100.2 degrees. He does have known CKD stage 4 with a baseline creatinine in the mid 2s along with diabetes mellitus. He had noted some decreased urinary output and urinary hesitancy. He has not been on dialysis in the past. During his ER stay, the patient continued to deteriorate. At first, he was awake and alert. emergency room physician then gave the patient was given IV antibiotics. He continued to deteriorate requiring higher oxygenation and felt to be in bronchospasm and respiratory failure and such he was intubated. At that time, it was also noted that his temperature had peaked at 106, currently at 104. ALLERGIES: No known drug allergies. PAST MEDICAL HISTORY: 1. Hypertension. 2. Influenza. 3. Diabetes mellitus. PAST SURGICAL HISTORY: Right leg surgery one year ago. FAMILY HISTORY: Positive for hypertension and diabetes. REVIEW OF SYSTEMS: Cannot obtain as patient is intubated, sedated on mechanical ventilation. LABORATORY AND DIAGNOSTIC DATA: Laboratories dated November 07, 2018, white cell count 16.4, hemoglobin 12.3, and platelet count 129. Sodium 132, potassium 4.3, creatinine 4.4, BUN 51, AST and ALT of 12 and 6 respectively. Troponin 0.01. PHYSICAL EXAMINATION: VITAL SIGNS: Blood pressure 135/100, pulse 135, temperature 106.2. The patient is currently intubated on mechanical ventilation. GENERAL: The patient intubated, sedated on mechanical ventilation. HEENT: Extraocular muscles intact. No lymphadenopathy. CARDIOVASCULAR: S1 and S2. Tachycardic. PULMONARY: mild diffuse wheezing ABDOMEN: Obese, nondistended, nontender. EXTREMITIES: Trace edema bilaterally. ASSESSMENT AND PLAN: 1. Acute kidney injury on CKD, stage 4. Creatinine currently 4.4, most likely secondary to a component of intravascular volume depletion. At this time, we will hydrate the patient as patient currently intubated on mechanical ventilation. No overt signs of volume overload. Renal ultrasound to rule out any obstructive uropathy. Gustafson catheter to be placed. 2. Severe sepsis. The patient has been started on IV antibiotics. Infectious Diseases has been consulted. 3. Hypertension. Currently at this time, the patient's blood pressure stable. Continue to monitor. Medications as deemed appropriate. 4. Respiratory failure, currently intubated, sedated on mechanical ventilation. Pulmonary Critical Care has been consulted. 5. Hyperthermia, temperature 106, could be due to either reaction to medication or underlying severe sepsis. We will continue to monitor. Cooling blanket has been placed. Michelet Menchaca MD DR: Cristian JOB#: [id number] CC: EMI
[2018-11-08] MEDS ORDERED: Piperacillin/Tazobactam 3.375 GM in NS 110 ML IVPB SCH (01:30)
[2018-11-08] MEDS ORDERED: Vancomycin 1gm/D5W 275ml IVPB ONE ×4 (02:00→04:00)
[2018-11-08] MEDS: Enoxaparin 30mg Inj SUBQ SCH ×2 (02:45→21:01)
[2018-11-08] MEDS: NovoLOG Insulin Flexpen SUBQ SCH ×4 (06:30→21:01)
[2018-11-08] MEDS: Albuterol/Ipratropium 3ml neb HHN SCH ×3 (06:57→22:52)
[2018-11-08 06:59] LABS: HEMATOCRIT 34.8 % (42.0-52.0); HEMOGLOBIN 11.9 G/DL (14.2-18.0); MEAN CORPUSCULAR VOLUME 86 FL (80-99); PLATELET COUNT 113 K/UL (150-450); RED BLOOD COUNT 4.04 M/UL (4.70-6.10)
[2018-11-08 07:07] LABS: ALANINE AMINOTRANSFERASE 14 U/L (12-78); ALBUMIN 2.5 G/DL (3.4-5.0); ALBUMIN/GLOBULIN RATIO 0.7 (1.0-2.7); ALKALINE PHOSPHATASE 144 U/L (46-116); ANION GAP 16 mmol/L (5-15); ASPARTATE AMINO TRANSFERASE 18 U/L (15-37); BLOOD UREA NITROGEN 51 mg/dL (7-18); CALCIUM 8.1 MG/DL (8.5-10.1); CARBON DIOXIDE 16 MMOL/L (21-32); CHLORIDE 105 MMOL/L (98-107); CREATININE 4.6 MG/DL (0.55-1.30); POTASSIUM 4.4 MMOL/L (3.5-5.1); SODIUM 136 MMOL/L (136-145)
--- NOTE | 2018-11-08 08:11 | Nephrology Progress Note ---
Assessment/Plan Assessment/Plan A/P 1) Sepsis- blood and urine Cxs pending - Emperic Abx started, await ID adjustments 2) Resp FL- bronchospasms - intubated on mech ventilation - Dr Chris to follow 3) Vito on CKD 4- multifact ATN affecting residual renal fx - may require HD, renal US pending - continue IVFs -avoid nephrotoxins 4) Met Acidosis- due to renal insuff - monitor lactic acid - IV bicarb iniated Subjective Date patient seen: Nov 08, 2018 Time patient seen: 08:05 ROS Limited/Unobtainable: Yes Allergies: Coded Allergies: No Known Allergies (Unverified , 06/16/18) Subjective Patient intubated sedated on mechanical ventilation Objective Last 24 Hour Vital Signs Date Time Temp Pulse Resp B/P (MAP) Pulse Ox O2 Delivery O2 Flow Rate FiO2 11/08/18 07:39 20 108/70 Mechanical Ventilator 60 11/08/18 07:00 20 107/69 Endotracheal Tube 60 11/08/18 07:00 20 107/69 Endotracheal Tube 60 11/08/18 07:00 20 107/69 Endotracheal Tube 60 11/08/18 07:00 20 107/69 Endotracheal Tube 60 11/08/18 07:00 20 107/69 Endotracheal Tube 60 11/08/18 07:00 20 107/69 Endotracheal Tube 60 11/08/18 07:00 20 107/69 Endotracheal Tube 60 11/08/18 07:00 20 107/69 Endotracheal Tube 60 11/08/18 06:56 57 20 60 11/08/18 06:56 56 20 98 Mechanical Ventilator 10.0 11/08/18 06:45 57 20 123/65 (84) 97 11/08/18 06:32 20 123/65 Endotracheal Tube 60 11/08/18 06:32 20 123/65 Endotracheal Tube 60 11/08/18 06:32 20 123/65 Endotracheal Tube 60 11/08/18 06:32 20 123/65 Endotracheal Tube 60 11/08/18 06:32 20 123/65 Endotracheal Tube 60 11/08/18 06:32 20 123/65 Endotracheal Tube 60 11/08/18 06:32 20 123/65 Endotracheal Tube 60 11/08/18 06:30 65 19 133/72 (92) 99 11/08/18 06:17 20 117/66 Endotracheal Tube 60 11/08/18 06:16 20 133/72 Endotracheal Tube 60 11/08/18 06:16 20 133/72 Endotracheal Tube 60 11/08/18 06:15 60 20 135/74 (94) 100 11/08/18 06:03 20 117/66 Endotracheal Tube 60 11/08/18 06:00 55 20 117/66 (83) 100 11/08/18 05:48 20 111/70 Endotracheal Tube 60 11/08/18 05:45 55 20 114/68 (83) 99 11/08/18 05:33 20 112/67 Endotracheal Tube 60 11/08/18 05:30 57 20 112/67 (82) 99 11/08/18 05:15 56 20 112/68 (83) 99 11/08/18 05:00 57 20 116/69 (85) 100 11/08/18 05:00 20 116/69 Endotracheal Tube 60 11/08/18 04:54 56 20 60 11/08/18 04:45 56 20 111/70 (84) 99 11/08/18 04:30 57 20 113/68 (83) 99 11/08/18 04:15 59 20 113/71 (85) 99 11/08/18 04:00 20 114/71 Endotracheal Tube 60 11/08/18 04:00 Endotracheal Tube 11/08/18 04:00 97.8 61 20 114/71 (85) 99 11/08/18 03:50 63 20 60 11/08/18 03:45 64 20 116/74 (88) 99 11/08/18 03:30 64 20 117/73 (88) 99 11/08/18 03:00 64 20 113/73 (86) 99 11/08/18 03:00 20 113/78 Endotracheal Tube 60 11/08/18 02:45 66 20 113/75 (88) 99 11/08/18 02:30 67 20 111/70 (84) 98 11/08/18 02:15 70 20 119/74 (89) 99 11/08/18 02:08 60 11/08/18 02:00 82 22 130/78 (95) 99 11/08/18 02:00 20 130/78 Endotracheal Tube 60 11/08/18 02:00 Endotracheal Tube 100.0 11/08/18 01:58 98.7 85 20 138/95 (109) 100 11/08/18 01:55 20 138/95 Endotracheal Tube 60 11/08/18 01:55 85 11/08/18 00:50 25 117/91 Mechanical Ventilator 60 11/08/18 00:47 99.4 80 20 116/76 98 Mechanical Ventilator 60 11/08/18 00:39 83 20 60 11/08/18 00:30 98.9 84 20 107/73 98 Mechanical Ventilator 100 11/08/18 00:24 60 11/08/18 00:00 100.2 90 21 114/72 100 Mechanical Ventilator 100 11/07/18 23:50 26 114/101 Mechanical Ventilator 60 11/07/18 23:50 26 114/101 Mechanical Ventilator 100 11/07/18 23:30 102.9 98 26 125/89 100 Mechanical Ventilator 100 11/07/18 23:05 106 25 100 11/07/18 23:00 103.3 106 25 136/65 97 Mechanical Ventilator 100 11/07/18 22:50 25 136/65 Mechanical Ventilator 60 11/07/18 22:50 25 136/65 Mechanical Ventilator 100 11/07/18 22:45 25 156/88 Mechanical Ventilator 100 11/07/18 22:45 25 156/88 Mechanical Ventilator 100 11/07/18 22:40 25 158/88 Mechanical Ventilator 100 11/07/18 22:40 25 158/88 Mechanical Ventilator 100 11/07/18 22:35 26 165/91 Mechanical Ventilator 100 11/07/18 22:35 26 165/91 Mechanical Ventilator 100 11/07/18 22:30 103.8 129 26 150/90 99 Mechanical Ventilator 100 11/07/18 22:30 26 157/90 Mechanical Ventilator 100 11/07/18 22:30 26 157/90 Mechanical Ventilator 100 11/07/18 22:25 25 156/86 Mechanical Ventilator 100 11/07/18 22:25 25 156/86 Mechanical Ventilator 100 11/07/18 22:20 26 155/89 Mechanical Ventilator 100 11/07/18 22:20 26 155/89 Mechanical Ventilator 100 11/07/18 22:16 135 20 100 11/07/18 22:15 123 29 99 Simple Mask 6.0 11/07/18 22:10 26 150/90 Mechanical Ventilator 100 11/07/18 22:10 26 150/90 Mechanical Ventilator 100 11/07/18 22:00 104.7 156 25 158/61 100 Mechanical Ventilator 100 11/07/18 21:55 25 158/61 Mechanical Ventilator 100 11/07/18 21:30 106.0 141 25 191/104 97 Mechanical Ventilator 100 11/07/18 21:28 143 27 98 Simple Mask 10.0 11/07/18 21:21 133 27 97 Facial 100 11/07/18 21:15 100 11/07/18 21:00 106.8 147 26 155/140 97 Ambu-Bag 15.0 11/07/18 20:45 100 11/07/18 20:30 102.4 134 30 139/91 97 Simple Mask 15.0 11/07/18 20:00 99.1 88 25 130/80 100 Room Air 11/07/18 19:01 98.2 100 21 135/100 100 Room Air 11/07/18 16:31 98.2 85 18 140/75 100 Room Air 11/07/18 16:04 92 16 Room Air 11/07/18 15:48 98.2 92 16 140/72 100 Room Air Intake and Output 11/07/18 11/08/18 18:59 06:59 Intake Total 1055 ml 1714.904 ml Output Total 1050 ml Balance 1055 ml 664.904 ml Intake IV Total 1055 ml 1714.904 ml Output Urine Total 1050 ml # Voids 1 2 Laboratory Tests 11/07/18 16:00: White Blood Count 16.4H, Red Blood Count 4.16L, Hemoglobin 12.3L, Hematocrit 36.1L, Mean Corpuscular Volume 87, Mean Corpuscular Hemoglobin 29.5, Mean Corpuscular Hemoglobin Concent 34.0, Red Cell Distribution Width 12.8, Platelet Count 129L, Mean Platelet Volume 6.3L, Neutrophils (%) (Auto) 79.5H, Lymphocytes (%) (Auto) 8.2L, Monocytes (%) (Auto) 11.6H, Eosinophils (%) (Auto) 0.4, Basophils (%) (Auto) 0.4, Urine Color Pale yellow, Urine Appearance Clear, Urine pH 5, Urine Specific [place] 1.005, Urine Protein 2+H, Urine Glucose (UA) Negative, Urine Ketones Negative, Urine Blood 3+H, Urine Nitrite Negative, Urine Bilirubin Negative, Urine Urobilinogen Normal, Urine Leukocyte Esterase 3+ H, Urine RBC 0-2H, Urine WBC 20-30H, Urine Squamous Epithelial Cells Occasional , Urine Bacteria Few, Sodium Level 132L, Potassium Level 4.3, Chloride Level 100 , Carbon Dioxide Level 19L, Anion Gap 14, Blood Urea Nitrogen 51H, Creatinine 4.4H, Estimat Glomerular Filtration Rate , Glucose Level 129H, Lactic Acid Level 1.40, Calcium Level 8.7, Total Bilirubin 0.9, Aspartate Amino Transf (AST/ SGOT) 12L, Alanine Aminotransferase (ALT/SGPT) < 6L, Alkaline Phosphatase 152H, Total Creatine Kinase 40, Creatine Kinase MB 0.5, Creatine Kinase MB Relative Index 1.2, Troponin I 0.010, Pro-B-Type Natriuretic Peptide 9406H, Total Protein 7.0, Albumin 3.0L, Globulin 4.0, Albumin/Globulin Ratio 0.8L, Triglycerides Level 218H 11/07/18 23:30: Troponin I 0.020 11/08/18 00:02: Arterial Blood pH 7.303L, Arterial Blood Partial Pressure CO2 33.5L, Arterial Blood Partial Pressure O2 193.5H, Arterial Blood HCO3 16.2*L, Arterial Blood Oxygen Saturation 98.3, Arterial Blood Base Excess -9.2*L, Evaristo Test Positive 11/08/18 05:50: White Blood Count 17.0H, Red Blood Count 4.04L, Hemoglobin 11.9L, Hematocrit 34.8L, Mean Corpuscular Volume 86, Mean Corpuscular Hemoglobin 29.4, Mean Corpuscular Hemoglobin Concent 34.1, Red Cell Distribution Width 13.0, Platelet Count 113L, Mean Platelet Volume 7.2, Neutrophils (%) (Auto) , Lymphocytes (%) ( Auto) , Monocytes (%) (Auto) , Eosinophils (%) (Auto) , Basophils (%) (Auto) , Sodium Level 136, Potassium Level 4.4, Chloride Level 105, Carbon Dioxide Level 16L, Anion Gap 16H, Blood Urea Nitrogen 51H, Creatinine 4.6H, Estimat Glomerular Filtration Rate , Glucose Level 185H, Lactic Acid Level 0.80, Calcium Level 8.1L, Total Bilirubin 1.0, Aspartate Amino Transf (AST/SGOT) 18, Alanine Aminotransferase (ALT/SGPT) 14, Alkaline Phosphatase 144H, Troponin I 0.061H, Total Protein 6.3L, Albumin 2.5L, Globulin 3.8, Albumin/Globulin Ratio 0.7L, Neutrophils % (Manual) [Pending], Lymphocytes % (Manual) [Pending], Platelet Estimate [Pending], Platelet Morphology [Pending] Height (Feet): 5 Height (Inches): 8.00 Weight (Pounds): 210 General Appearance: no apparent distress EENT: normal ENT inspection Neck: normal alignment, supple Cardiovascular: regular rhythm, tachycardia Respiratory/Chest: expiratory wheezing Abdomen: non tender, soft Edema: no edema noted Arm (L), no edema noted Arm (R), no edema noted Leg (L), no edema noted Leg (R), no edema noted Pedal (L), no edema noted Pedal (R), no edema noted Generalized Michelet Menchaca MD Nov 08, 2018 08:11
[2018-11-08] MEDS ORDERED: Aspirin Baby 81mg ORAL SCH (09:00)
[2018-11-08] MEDS ORDERED: Oseltamivir 75mg cap ORAL SCH (09:00)
[2018-11-08] MEDS: Piperacillin/Tazobactam 3.375 GM in NS 110 ML IVPB SCH ×2 (09:00→21:02)
[2018-11-08] MEDS: Sodium Bicarbonate 150 ML in D5W 1000ml 1,000 ML IV SCH ×2 (09:43→21:30)
--- NOTE | 2018-11-08 10:54 | Diagnostic Imaging Report ---
Indication: Post intubation Technique: One view of the chest Comparison: 6 hours earlier Findings: Interim endotracheal intubation, tip projected at the level the abner. Interim nasogastric intubation, tip coiled in the stomach, projected at the level of the gastric antrum/body junction. Suboptimal inspiration noted, with right infrahilar and left basilar atelectatic changes. The heart size is upper limits of normal Impression: Somewhat low position of endotracheal tube. Technologist describes that the tube was withdrawn by about 2 cm after the radiograph was obtained Satisfactory nasogastric intubation
--- NOTE | 2018-11-08 11:06 | Diagnostic Imaging Report ---
Indication: Acute renal failure Technique: Grayscale and duplex images of the kidneys, retroperitoneum, and bladder were obtained. Doppler interrogation of the renal vessels Comparison: none Findings: Exam is limited, due to inability to access the patient's left side, per technologist. Right kidney measures 10.3 cm in length. Left kidney measures 10.6 cm in length. Increased renal echogenicity described on the prior study is less evident currently.. The left kidney demonstrates moderate hydronephrosis. No focal abnormality. Inferior vena cava could not be visualized. Bladder is empty, contains a Gustafson catheter. Impression: Limited exam, as described Moderate left hydronephrosis, etiology not demonstrated. Empty bladder with a Gustafson catheter Note inability to visualize inferior vena cava
--- NOTE | 2018-11-08 11:13 | Consultation ---
History of Present Illness General Date patient seen: Nov 08, 2018 Time patient seen: 11:03 Chief Complaint: Respiratory failure Reason for Consultation: Acute hypoxemic respiratory failure and bronchospa Present Illness HPI 73 y/o male w/ hx CKD, HTN, DM admitted after presenting with difficulty urinating and shortness of breath with fever. Noted with high fevers in ED apparently. Abx started for possible UTI and noted to become unresponsive and possibly in bronchospasm. Was intubated for hypoxia and bronchospasm. Has been in the ICU and agitated, wanting to be extubated. No fevers in ID. No more wheezing, no secretions. Noted with metabolic acidosis and getting bicarb gtt. He was empirically started on treatment for the flu. CXR clear on admission but felt to be dehydrated. Allergies: Coded Allergies: No Known Allergies (Unverified , 06/16/18) Medication History Scheduled Benzonatate* (Tessalon Perle*), 100 MG ORAL THREE TIMES A DAY Loratadine (Claritin), 10 MG ORAL DAILY Oseltamivir Phosphate (Tamiflu), 75 MG ORAL TWICE A DAY Scheduled PRN Acetaminophen* (Tylenol Extra Strength*), 500 MG ORAL Q8H PRN for Prn Headache/ Temp > 101 Miscellaneous Medications Unable to Obtain Medications (Unable To Obtain Meds), (Reported) Discontinued Medications [faropenem sodium ], 200 MG ORAL DAILY, (Reported) Discontinued Reason: Therapy completed [nefrozon], 150-500 MG ORAL DAILY, (Reported) Discontinued Reason: Therapy completed Patient History Limited by: medical condition History Provided By: Medical Record Healthcare decision maker golden rosen Resuscitation status Full Code Advanced Directive on File No Past Medical/Surgical History Past Medical/Surgical History: (1) Renal insufficiency (2) Hypertension Review of Systems ROS Narrative Unable to obtain due to patient factors Physical Exam General Appearance: WD/WN, other - mildly agitated Lines, tubes and drains: endotracheal tube HEENT: normocephalic, atraumatic, mucous membranes moist Neck: supple Respiratory/Chest: lungs clear Cardiovascular/Chest: normal rate, regular rhythm Abdomen: non tender, soft Extremities: no edema Last 24 Hour Vital Signs Date Time Temp Pulse Resp B/P (MAP) Pulse Ox O2 Delivery O2 Flow Rate FiO2 11/08/18 09:59 68 26 60 11/08/18 08:15 59 20 110/62 (78) 98 11/08/18 08:15 20 120/68 Mechanical Ventilator 60 11/08/18 08:10 20 115/65 Mechanical Ventilator 60 11/08/18 08:05 20 112/62 Mechanical Ventilator 60 11/08/18 08:00 Endotracheal Tube 11/08/18 08:00 98.4 58 20 115/64 (81) 98 11/08/18 08:00 20 110/62 Mechanical Ventilator 60 11/08/18 08:00 60 11/08/18 07:55 20 118/65 Mechanical Ventilator 60 11/08/18 07:50 20 115/64 Mechanical Ventilator 60 11/08/18 07:45 20 120/64 Mechanical Ventilator 60 11/08/18 07:39 20 108/70 Mechanical Ventilator 60 11/08/18 07:00 20 107/69 Endotracheal Tube 60 11/08/18 07:00 20 107/69 Endotracheal Tube 60 11/08/18 07:00 20 107/69 Endotracheal Tube 60 11/08/18 07:00 20 107/69 Endotracheal Tube 60 11/08/18 07:00 20 107/69 Endotracheal Tube 60 11/08/18 07:00 20 107/69 Endotracheal Tube 60 11/08/18 07:00 20 107/69 Endotracheal Tube 60 11/08/18 07:00 20 107/69 Endotracheal Tube 60 11/08/18 06:56 57 20 60 11/08/18 06:56 56 20 98 Mechanical Ventilator 10.0 11/08/18 06:45 57 20 123/65 (84) 97 11/08/18 06:32 20 123/65 Endotracheal Tube 60 11/08/18 06:32 20 123/65 Endotracheal Tube 60 11/08/18 06:32 20 123/65 Endotracheal Tube 60 11/08/18 06:32 20 123/65 Endotracheal Tube 60 11/08/18 06:32 20 123/65 Endotracheal Tube 60 11/08/18 06:32 20 123/65 Endotracheal Tube 60 11/08/18 06:32 20 123/65 Endotracheal Tube 60 11/08/18 06:30 65 19 133/72 (92) 99 11/08/18 06:17 20 117/66 Endotracheal Tube 60 11/08/18 06:16 20 133/72 Endotracheal Tube 60 11/08/18 06:16 20 133/72 Endotracheal Tube 60 11/08/18 06:15 60 20 135/74 (94) 100 11/08/18 06:03 20 117/66 Endotracheal Tube 60 11/08/18 06:00 55 20 117/66 (83) 100 11/08/18 05:48 20 111/70 Endotracheal Tube 60 11/08/18 05:45 55 20 114/68 (83) 99 11/08/18 05:33 20 112/67 Endotracheal Tube 60 11/08/18 05:30 57 20 112/67 (82) 99 11/08/18 05:15 56 20 112/68 (83) 99 11/08/18 05:00 57 20 116/69 (85) 100 11/08/18 05:00 20 116/69 Endotracheal Tube 60 11/08/18 04:54 56 20 60 11/08/18 04:45 56 20 111/70 (84) 99 11/08/18 04:30 57 20 113/68 (83) 99 11/08/18 04:15 59 20 113/71 (85) 99 11/08/18 04:00 20 114/71 Endotracheal Tube 60 11/08/18 04:00 Endotracheal Tube 11/08/18 04:00 97.8 61 20 114/71 (85) 99 11/08/18 03:50 63 20 60 11/08/18 03:45 64 20 116/74 (88) 99 11/08/18 03:30 64 20 117/73 (88) 99 11/08/18 03:00 64 20 113/73 (86) 99 11/08/18 03:00 20 113/78 Endotracheal Tube 60 11/08/18 02:45 66 20 113/75 (88) 99 11/08/18 02:30 67 20 111/70 (84) 98 11/08/18 02:15 70 20 119/74 (89) 99 11/08/18 02:08 60 11/08/18 02:00 82 22 130/78 (95) 99 11/08/18 02:00 20 130/78 Endotracheal Tube 60 11/08/18 02:00 Endotracheal Tube 100.0 11/08/18 01:58 98.7 85 20 138/95 (109) 100 11/08/18 01:55 20 138/95 Endotracheal Tube 60 11/08/18 01:55 85 11/08/18 00:50 25 117/91 Mechanical Ventilator 60 11/08/18 00:47 99.4 80 20 116/76 98 Mechanical Ventilator 60 11/08/18 00:39 83 20 60 11/08/18 00:30 98.9 84 20 107/73 98 Mechanical Ventilator 100 11/08/18 00:24 60 11/08/18 00:00 100.2 90 21 114/72 100 Mechanical Ventilator 100 11/07/18 23:50 26 114/101 Mechanical Ventilator 60 11/07/18 23:50 26 114/101 Mechanical Ventilator 100 11/07/18 23:30 102.9 98 26 125/89 100 Mechanical Ventilator 100 11/07/18 23:05 106 25 100 11/07/18 23:00 103.3 106 25 136/65 97 Mechanical Ventilator 100 11/07/18 22:50 25 136/65 Mechanical Ventilator 60 11/07/18 22:50 25 136/65 Mechanical Ventilator 100 11/07/18 22:45 25 156/88 Mechanical Ventilator 100 11/07/18 22:45 25 156/88 Mechanical Ventilator 100 11/07/18 22:40 25 158/88 Mechanical Ventilator 100 11/07/18 22:40 25 158/88 Mechanical Ventilator 100 11/07/18 22:35 26 165/91 Mechanical Ventilator 100 11/07/18 22:35 26 165/91 Mechanical Ventilator 100 11/07/18 22:30 103.8 129 26 150/90 99 Mechanical Ventilator 100 11/07/18 22:30 26 157/90 Mechanical Ventilator 100 11/07/18 22:30 26 157/90 Mechanical Ventilator 100 11/07/18 22:25 25 156/86 Mechanical Ventilator 100 11/07/18 22:25 25 156/86 Mechanical Ventilator 100 11/07/18 22:20 26 155/89 Mechanical Ventilator 100 11/07/18 22:20 26 155/89 Mechanical Ventilator 100 11/07/18 22:16 135 20 100 11/07/18 22:15 123 29 99 Simple Mask 6.0 11/07/18 22:10 26 150/90 Mechanical Ventilator 100 11/07/18 22:10 26 150/90 Mechanical Ventilator 100 11/07/18 22:00 104.7 156 25 158/61 100 Mechanical Ventilator 100 11/07/18 21:55 25 158/61 Mechanical Ventilator 100 11/07/18 21:30 106.0 141 25 191/104 97 Mechanical Ventilator 100 11/07/18 21:28 143 27 98 Simple Mask 10.0 11/07/18 21:21 133 27 97 Facial 100 11/07/18 21:15 100 11/07/18 21:00 106.8 147 26 155/140 97 Ambu-Bag 15.0 11/07/18 20:45 100 11/07/18 20:30 102.4 134 30 139/91 97 Simple Mask 15.0 11/07/18 20:00 99.1 88 25 130/80 100 Room Air 11/07/18 19:01 98.2 100 21 135/100 100 Room Air 11/07/18 16:31 98.2 85 18 140/75 100 Room Air 11/07/18 16:04 92 16 Room Air 11/07/18 15:48 98.2 92 16 140/72 100 Room Air Intake and Output 11/07/18 11/08/18 18:59 06:59 Intake Total 1055 ml 1714.904 ml Output Total 1050 ml Balance 1055 ml 664.904 ml Intake IV Total 1055 ml 1714.904 ml Output Urine Total 1050 ml # Voids 1 2 Laboratory Tests Test 11/07/18 16:00 11/07/18 23:30 11/08/18 00:02 11/08/18 05:50 White Blood Count 16.4 K/UL (4.8-10.8) H 17.0 K/UL (4.8-10.8) H Red Blood Count 4.16 M/UL (4.70-6.10) L 4.04 M/UL (4.70-6.10) L Hemoglobin 12.3 G/DL (14.2-18.0) L 11.9 G/DL (14.2-18.0) L Hematocrit 36.1 % (42.0-52.0) L 34.8 % (42.0-52.0) L Mean Corpuscular Volume 87 FL (80-99) 86 FL (80-99) Mean Corpuscular Hemoglobin 29.5 PG (27.0-31.0) 29.4 PG (27.0-31.0) Mean Corpuscular Hemoglobin Concent 34.0 G/DL (32.0-36.0) 34.1 G/DL (32.0-36.0) Red Cell Distribution Width 12.8 % (11.6-14.8) 13.0 % (11.6-14.8) Platelet Count 129 K/UL (150-450) L 113 K/UL (150-450) L Mean Platelet Volume 6.3 FL (6.5-10.1) L 7.2 FL (6.5-10.1) Neutrophils (%) (Auto) 79.5 % (45.0-75.0) H % (45.0-75.0) Lymphocytes (%) (Auto) 8.2 % (20.0-45.0) L % (20.0-45.0) Monocytes (%) (Auto) 11.6 % (1.0-10.0) H % (1.0-10.0) Eosinophils (%) (Auto) 0.4 % (0.0-3.0) % (0.0-3.0) Basophils (%) (Auto) 0.4 % (0.0-2.0) % (0.0-2.0) Urine Color Pale yellow Urine Appearance Clear Urine pH 5 (4.5-8.0) Urine Specific [place] 1.005 (1.005-1.035) Urine Protein 2+ (NEGATIVE) H Urine Glucose (UA) Negative (NEGATIVE) Urine Ketones Negative (NEGATIVE) Urine Blood 3+ (NEGATIVE) H Urine Nitrite Negative (NEGATIVE) Urine Bilirubin Negative (NEGATIVE) Urine Urobilinogen Normal MG/DL (0.0-1.0) Urine Leukocyte Esterase 3+ (NEGATIVE) H Urine RBC 0-2 /HPF (0 - 0) H Urine WBC 20-30 /HPF (0 - 0) H Urine Squamous Epithelial Cells Occasional /LPF Urine Bacteria Few /HPF (NONE) Sodium Level 132 MMOL/L (136-145) L 136 MMOL/L (136-145) Potassium Level 4.3 MMOL/L (3.5-5.1) 4.4 MMOL/L (3.5-5.1) Chloride Level 100 MMOL/L (98-107) 105 MMOL/L (98-107) Carbon Dioxide Level 19 MMOL/L (21-32) L 16 MMOL/L (21-32) L Anion Gap 14 mmol/L (5-15) 16 mmol/L (5-15) H Blood Urea Nitrogen 51 mg/dL (7-18) H 51 mg/dL (7-18) H Creatinine 4.4 MG/DL (0.55-1.30) H 4.6 MG/DL (0.55-1.30) H Estimat Glomerular Filtration Rate mL/min (>60) mL/min (>60) Glucose Level 129 MG/DL (74-106) H 185 MG/DL (74-106) H Lactic Acid Level 1.40 mmol/L (0.4-2.0) 0.80 mmol/L (0.4-2.0) Calcium Level 8.7 MG/DL (8.5-10.1) 8.1 MG/DL (8.5-10.1) L Total Bilirubin 0.9 MG/DL (0.2-1.0) 1.0 MG/DL (0.2-1.0) Aspartate Amino Transf (AST/SGOT) 12 U/L (15-37) L 18 U/L (15-37) Alanine Aminotransferase (ALT/SGPT) < 6 U/L (12-78) L 14 U/L (12-78) Alkaline Phosphatase 152 U/L (46-116) H 144 U/L (46-116) H Total Creatine Kinase 40 U/L (26-308) Creatine Kinase MB 0.5 NG/ML (0.0-3.6) Creatine Kinase MB Relative Index 1.2 Troponin I 0.010 ng/mL (0.000-0.056) 0.020 ng/mL (0.000-0.056) 0.061 ng/mL (0.000-0.056) Pro-B-Type Natriuretic Peptide 9406 pg/mL (0-125) H Total Protein 7.0 G/DL (6.4-8.2) 6.3 G/DL (6.4-8.2) L Albumin 3.0 G/DL (3.4-5.0) L 2.5 G/DL (3.4-5.0) L Globulin 4.0 g/dL 3.8 g/dL Albumin/Globulin Ratio 0.8 (1.0-2.7) L 0.7 (1.0-2.7) L Triglycerides Level 218 MG/DL (30-150) H Arterial Blood pH 7.303 (7.350-7.450) Arterial Blood Partial Pressure CO2 33.5 mmHg (35.0-45.0) L Arterial Blood Partial Pressure O2 193.5 mmHg (75.0-100.0) H Arterial Blood HCO3 16.2 mmol/L (22.0-26.0) *L Arterial Blood Oxygen Saturation 98.3 % (95-100) Arterial Blood Base Excess -9.2 (-2-2) *L Evaristo Test Positive Differential Total Cells Counted 100 Neutrophils % (Manual) 91 % (45-75) H Lymphocytes % (Manual) 3 % (20-45) L Monocytes % (Manual) 1 % (1-10) Eosinophils % (Manual) 0 % (0-3) Basophils % (Manual) 0 % (0-2) Band Neutrophils 5 % (0-8) Platelet Estimate Decreased L Platelet Morphology Normal Red Blood Cell Morphology Normal Test 11/08/18 06:00 Arterial Blood pH 7.317 (7.350-7.450) Arterial Blood Partial Pressure CO2 32.2 mmHg (35.0-45.0) L Arterial Blood Partial Pressure O2 98.9 mmHg (75.0-100.0) Arterial Blood HCO3 16.1 mmol/L (22.0-26.0) *L Arterial Blood Oxygen Saturation 96.8 % (95-100) Arterial Blood Base Excess -9.0 (-2-2) L Evaristo Test Positive Microbiology Date/Time Source Procedure Growth Status 11/07/18 16:00 Nasal Nares Influenza Types A,B Antigen (SIMEON) - Final Complete 11/07/18 16:00 Urine,Clean Catch Urine Culture - Preliminary Gram Negative Bacillus 1 Resulted Height (Feet): 5 Height (Inches): 8.00 Weight (Pounds): 210 Medications Current Medications Medications (Trade) Dose Ordered Sig/Markus Route PRN Reason Start Time Stop Time Status Last Admin Dose Admin Acetaminophen (Tylenol) 650 mg Q4H PRN ORAL Mild Pain (Pain Scale 1-3) 11/07/18 21:42 12/07/18 21:41 Albuterol/ Ipratropium (Albuterol/ Ipratropium) 3 ml Q8HR HHN 11/07/18 22:00 11/12/18 21:59 11/08/18 06:57 Aspirin (ASA) 81 mg DAILY ORAL 11/08/18 09:00 12/08/18 08:59 11/08/18 09:00 Dextrose (Dextrose 50%) 25 ml Q30M PRN IV Hypoglycemia 11/07/18 21:43 12/07/18 21:42 Dextrose (Dextrose 50%) 50 ml Q30M PRN IV Hypoglycemia 11/07/18 21:43 12/07/18 21:42 Enoxaparin Sodium (Lovenox) 30 mg QHS SUBQ 11/08/18 02:30 12/08/18 02:29 11/08/18 02:45 Insulin Aspart (NovoLOG) BEFORE MEALS AND HS SUBQ 11/07/18 21:00 12/07/18 20:59 Ondansetron HCl (Zofran) 4 mg Q6H PRN IVP Nausea & Vomiting 11/07/18 21:43 12/07/18 21:42 Oseltamivir Phosphate (Tamiflu) 30 mg DAILY ORAL 11/08/18 09:00 11/13/18 08:59 11/08/18 09:00 Pantoprazole (Protonix) 40 mg DAILY ORAL 11/08/18 09:00 12/08/18 08:59 11/08/18 09:00 Piperacillin Sod/ Tazobactam Sod 3.375 gm/Sodium Chloride 110 ml @ 27.5 mls/hr Q12H IVPB 11/08/18 09:00 11/15/18 08:59 11/08/18 09:00 Sodium Bicarbonate 150 ml/Dextrose 1,150 ml @ 100 mls/hr [id number] IV 11/08/18 09:30 12/08/18 09:29 11/08/18 09:43 Vancomycin HCl (Vanco rx to dose) 1 ea DAILY PRN MISC Per rx protocol 11/08/18 01:00 12/08/18 00:59 Vancomycin/Sodium Chloride 250 ml @ 166.667 mls/hr ONCE ONCE IVPB 11/08/18 14:00 11/08/18 15:29 Objective Narrative CXR - clear lung gillette Assessment/Plan Assessment/Plan Problem List: 1. Acute hypoxemic respiratory failure -intubated 11/08 2. Acute bronchospasm - seems to have resolved 3. NOEMÍ on CKD - possible dehydration 4. Metabolic acidosis 5. UTI, gram negative bacillus 6. Possible influenza 7. HTN Plan: -on mechanical support on minimal vent settings with clear lung sounds -PS 8 now and if tolerating, extubate -repeat CXR tomorrow -f/u cultures and viral swab -abx: vanco/zosyn -bicarb gtt per renal -monitor volumes and renal function -steroids given in ED but given no wheezing, will hold off on further. Case d/w RUFFLER Biju Alexander MD Nov 08, 2018 11:13
--- NOTE | 2018-11-08 12:03 | Diagnostic Imaging Report ---
Indication: Post orogastric feeding tube placement Technique: One view of the upper abdomen Comparison: none Findings: There is an enteric feeding tube in place, tip projected at the level gastric antrum or pylorus. Visualized bowel gas is unremarkable. Impression: Satisfactory orogastric tube placement
[2018-11-08] MEDS ORDERED: Vancomycin 750mg/NS 250ml IVPB ONE (14:00)
--- NOTE | 2018-11-08 14:17 | Consultation ---
History of Present Illness General Date patient seen: Nov 08, 2018 Chief Complaint: General Complaint Reason for Consultation: Acute hypoxemic respiratory failure and bronchospa Present Illness HPI 73 y/o M with hx of CKD IV (b/l Cr mid 2s), HTN, DM presented to ED on 11/08 with SOB, fever, difficulty urinating. Upon admission patient with T 100.2 and respiratory status deteriorated, patient became unresponsive and was intubated and admitted to ICU. Tm 106; now afebrile >12hrs WBC 12 Bacteremic GNR Allergies: Coded Allergies: No Known Allergies (Unverified , 06/16/18) Medication History Scheduled Benzonatate* (Tessalon Perle*), 100 MG ORAL THREE TIMES A DAY Loratadine (Claritin), 10 MG ORAL DAILY Oseltamivir Phosphate (Tamiflu), 75 MG ORAL TWICE A DAY Scheduled PRN Acetaminophen* (Tylenol Extra Strength*), 500 MG ORAL Q8H PRN for Prn Headache/ Temp > 101 Miscellaneous Medications Unable to Obtain Medications (Unable To Obtain Meds), (Reported) Discontinued Medications [faropenem sodium ], 200 MG ORAL DAILY, (Reported) Discontinued Reason: Therapy completed [nefrozon], 150-500 MG ORAL DAILY, (Reported) Discontinued Reason: Therapy completed Patient History Healthcare decision maker golden rosen Resuscitation status Full Code Advanced Directive on File No Patient History Narrative Pmhx: as above Shx: reviewed Fhx: non contributory Review of Systems All Other Systems: negative except mentioned in HPI ROS Narrative unable to obtain Physical Exam Physical Exam Narrative General Appearance: WD/WN, other - mildly agitated Lines, tubes and drains: endotracheal tube HEENT: normocephalic, atraumatic, mucous membranes moist Neck: supple Respiratory/Chest: lungs clear Cardiovascular/Chest: normal rate, regular rhythm Abdomen: non tender, soft Extremities: no edema Last 24 Hour Vital Signs Date Time Temp Pulse Resp B/P (MAP) Pulse Ox O2 Delivery O2 Flow Rate FiO2 11/08/18 13:00 74 13 133/81 (98) 100 11/08/18 12:00 65 11/08/18 12:00 Venturi Mask Venturi Mask 11/08/18 12:00 98.8 70 13 128/78 (95) 100 11/08/18 11:00 75 13 136/80 (98) 100 11/08/18 10:50 Venturi Mask 14.0 55 11/08/18 10:00 70 20 120/72 (88) 100 11/08/18 09:59 68 26 60 11/08/18 09:00 65 20 115/68 (84) 98 11/08/18 08:15 59 20 110/62 (78) 98 11/08/18 08:15 20 120/68 Mechanical Ventilator 60 11/08/18 08:10 20 115/65 Mechanical Ventilator 60 11/08/18 08:05 20 112/62 Mechanical Ventilator 60 11/08/18 08:00 Endotracheal Tube 11/08/18 08:00 98.4 58 20 115/64 (81) 98 11/08/18 08:00 20 110/62 Mechanical Ventilator 60 11/08/18 08:00 60 11/08/18 08:00 58 11/08/18 07:55 20 118/65 Mechanical Ventilator 60 11/08/18 07:50 20 115/64 Mechanical Ventilator 60 11/08/18 07:45 20 120/64 Mechanical Ventilator 60 11/08/18 07:39 20 108/70 Mechanical Ventilator 60 11/08/18 07:00 20 107/69 Endotracheal Tube 60 11/08/18 07:00 20 107/69 Endotracheal Tube 60 11/08/18 07:00 20 107/69 Endotracheal Tube 60 11/08/18 07:00 20 107/69 Endotracheal Tube 60 11/08/18 07:00 20 107/69 Endotracheal Tube 60 11/08/18 07:00 20 107/69 Endotracheal Tube 60 11/08/18 07:00 20 107/69 Endotracheal Tube 60 11/08/18 07:00 20 107/69 Endotracheal Tube 60 11/08/18 06:56 57 20 60 11/08/18 06:56 56 20 98 Mechanical Ventilator 10.0 11/08/18 06:45 57 20 123/65 (84) 97 11/08/18 06:32 20 123/65 Endotracheal Tube 60 11/08/18 06:32 20 123/65 Endotracheal Tube 60 11/08/18 06:32 20 123/65 Endotracheal Tube 60 11/08/18 06:32 20 123/65 Endotracheal Tube 60 11/08/18 06:32 20 123/65 Endotracheal Tube 60 11/08/18 06:32 20 123/65 Endotracheal Tube 60 11/08/18 06:32 20 123/65 Endotracheal Tube 60 11/08/18 06:30 65 19 133/72 (92) 99 11/08/18 06:17 20 117/66 Endotracheal Tube 60 11/08/18 06:16 20 133/72 Endotracheal Tube 60 11/08/18 06:16 20 133/72 Endotracheal Tube 60 11/08/18 06:15 60 20 135/74 (94) 100 11/08/18 06:03 20 117/66 Endotracheal Tube 60 11/08/18 06:00 55 20 117/66 (83) 100 11/08/18 05:48 20 111/70 Endotracheal Tube 60 11/08/18 05:45 55 20 114/68 (83) 99 11/08/18 05:33 20 112/67 Endotracheal Tube 60 11/08/18 05:30 57 20 112/67 (82) 99 11/08/18 05:15 56 20 112/68 (83) 99 11/08/18 05:00 57 20 116/69 (85) 100 11/08/18 05:00 20 116/69 Endotracheal Tube 60 11/08/18 04:54 56 20 60 11/08/18 04:45 56 20 111/70 (84) 99 11/08/18 04:30 57 20 113/68 (83) 99 11/08/18 04:15 59 20 113/71 (85) 99 11/08/18 04:00 20 114/71 Endotracheal Tube 60 11/08/18 04:00 Endotracheal Tube 11/08/18 04:00 97.8 61 20 114/71 (85) 99 11/08/18 03:50 63 20 60 11/08/18 03:45 64 20 116/74 (88) 99 11/08/18 03:30 64 20 117/73 (88) 99 11/08/18 03:00 64 20 113/73 (86) 99 11/08/18 03:00 20 113/78 Endotracheal Tube 60 11/08/18 02:45 66 20 113/75 (88) 99 11/08/18 02:30 67 20 111/70 (84) 98 11/08/18 02:15 70 20 119/74 (89) 99 11/08/18 02:08 60 11/08/18 02:00 82 22 130/78 (95) 99 11/08/18 02:00 20 130/78 Endotracheal Tube 60 11/08/18 02:00 Endotracheal Tube 100.0 11/08/18 01:58 98.7 85 20 138/95 (109) 100 11/08/18 01:55 20 138/95 Endotracheal Tube 60 11/08/18 01:55 85 11/08/18 00:50 25 117/91 Mechanical Ventilator 60 11/08/18 00:47 99.4 80 20 116/76 98 Mechanical Ventilator 60 11/08/18 00:39 83 20 60 11/08/18 00:30 98.9 84 20 107/73 98 Mechanical Ventilator 100 11/08/18 00:24 60 11/08/18 00:00 100.2 90 21 114/72 100 Mechanical Ventilator 100 11/07/18 23:50 26 114/101 Mechanical Ventilator 60 11/07/18 23:50 26 114/101 Mechanical Ventilator 100 11/07/18 23:30 102.9 98 26 125/89 100 Mechanical Ventilator 100 11/07/18 23:05 106 25 100 11/07/18 23:00 103.3 106 25 136/65 97 Mechanical Ventilator 100 11/07/18 22:50 25 136/65 Mechanical Ventilator 60 11/07/18 22:50 25 136/65 Mechanical Ventilator 100 11/07/18 22:45 25 156/88 Mechanical Ventilator 100 11/07/18 22:45 25 156/88 Mechanical Ventilator 100 11/07/18 22:40 25 158/88 Mechanical Ventilator 100 11/07/18 22:40 25 158/88 Mechanical Ventilator 100 11/07/18 22:35 26 165/91 Mechanical Ventilator 100 11/07/18 22:35 26 165/91 Mechanical Ventilator 100 11/07/18 22:30 103.8 129 26 150/90 99 Mechanical Ventilator 100 11/07/18 22:30 26 157/90 Mechanical Ventilator 100 11/07/18 22:30 26 157/90 Mechanical Ventilator 100 11/07/18 22:25 25 156/86 Mechanical Ventilator 100 11/07/18 22:25 25 156/86 Mechanical Ventilator 100 11/07/18 22:20 26 155/89 Mechanical Ventilator 100 11/07/18 22:20 26 155/89 Mechanical Ventilator 100 11/07/18 22:16 135 20 100 11/07/18 22:15 123 29 99 Simple Mask 6.0 11/07/18 22:10 26 150/90 Mechanical Ventilator 100 11/07/18 22:10 26 150/90 Mechanical Ventilator 100 11/07/18 22:00 104.7 156 25 158/61 100 Mechanical Ventilator 100 11/07/18 21:55 25 158/61 Mechanical Ventilator 100 11/07/18 21:30 106.0 141 25 191/104 97 Mechanical Ventilator 100 11/07/18 21:28 143 27 98 Simple Mask 10.0 11/07/18 21:21 133 27 97 Facial 100 11/07/18 21:15 100 11/07/18 21:00 106.8 147 26 155/140 97 Ambu-Bag 15.0 11/07/18 20:45 100 11/07/18 20:30 102.4 134 30 139/91 97 Simple Mask 15.0 11/07/18 20:00 99.1 88 25 130/80 100 Room Air 11/07/18 19:01 98.2 100 21 135/100 100 Room Air 11/07/18 16:31 98.2 85 18 140/75 100 Room Air 11/07/18 16:04 92 16 Room Air 11/07/18 15:48 98.2 92 16 140/72 100 Room Air Intake and Output 11/07/18 11/08/18 19:00 07:00 Intake Total 1055 ml 1714.904 ml Output Total 1150 ml Balance 1055 ml 564.904 ml Intake IV Total 1055 ml 1714.904 ml Output Urine Total 1150 ml # Voids 1 2 Laboratory Tests Test 11/07/18 16:00 11/07/18 23:30 11/08/18 00:02 11/08/18 05:50 White Blood Count 16.4 K/UL (4.8-10.8) H 17.0 K/UL (4.8-10.8) H Red Blood Count 4.16 M/UL (4.70-6.10) L 4.04 M/UL (4.70-6.10) L Hemoglobin 12.3 G/DL (14.2-18.0) L 11.9 G/DL (14.2-18.0) L Hematocrit 36.1 % (42.0-52.0) L 34.8 % (42.0-52.0) L Mean Corpuscular Volume 87 FL (80-99) 86 FL (80-99) Mean Corpuscular Hemoglobin 29.5 PG (27.0-31.0) 29.4 PG (27.0-31.0) Mean Corpuscular Hemoglobin Concent 34.0 G/DL (32.0-36.0) 34.1 G/DL (32.0-36.0) Red Cell Distribution Width 12.8 % (11.6-14.8) 13.0 % (11.6-14.8) Platelet Count 129 K/UL (150-450) L 113 K/UL (150-450) L Mean Platelet Volume 6.3 FL (6.5-10.1) L 7.2 FL (6.5-10.1) Neutrophils (%) (Auto) 79.5 % (45.0-75.0) H % (45.0-75.0) Lymphocytes (%) (Auto) 8.2 % (20.0-45.0) L % (20.0-45.0) Monocytes (%) (Auto) 11.6 % (1.0-10.0) H % (1.0-10.0) Eosinophils (%) (Auto) 0.4 % (0.0-3.0) % (0.0-3.0) Basophils (%) (Auto) 0.4 % (0.0-2.0) % (0.0-2.0) Urine Color Pale yellow Urine Appearance Clear Urine pH 5 (4.5-8.0) Urine Specific [place] 1.005 (1.005-1.035) Urine Protein 2+ (NEGATIVE) H Urine Glucose (UA) Negative (NEGATIVE) Urine Ketones Negative (NEGATIVE) Urine Blood 3+ (NEGATIVE) H Urine Nitrite Negative (NEGATIVE) Urine Bilirubin Negative (NEGATIVE) Urine Urobilinogen Normal MG/DL (0.0-1.0) Urine Leukocyte Esterase 3+ (NEGATIVE) H Urine RBC 0-2 /HPF (0 - 0) H Urine WBC 20-30 /HPF (0 - 0) H Urine Squamous Epithelial Cells Occasional /LPF Urine Bacteria Few /HPF (NONE) Sodium Level 132 MMOL/L (136-145) L 136 MMOL/L (136-145) Potassium Level 4.3 MMOL/L (3.5-5.1) 4.4 MMOL/L (3.5-5.1) Chloride Level 100 MMOL/L (98-107) 105 MMOL/L (98-107) Carbon Dioxide Level 19 MMOL/L (21-32) L 16 MMOL/L (21-32) L Anion Gap 14 mmol/L (5-15) 16 mmol/L (5-15) H Blood Urea Nitrogen 51 mg/dL (7-18) H 51 mg/dL (7-18) H Creatinine 4.4 MG/DL (0.55-1.30) H 4.6 MG/DL (0.55-1.30) H Estimat Glomerular Filtration Rate mL/min (>60) mL/min (>60) Glucose Level 129 MG/DL (74-106) H 185 MG/DL (74-106) H Lactic Acid Level 1.40 mmol/L (0.4-2.0) 0.80 mmol/L (0.4-2.0) Calcium Level 8.7 MG/DL (8.5-10.1) 8.1 MG/DL (8.5-10.1) L Total Bilirubin 0.9 MG/DL (0.2-1.0) 1.0 MG/DL (0.2-1.0) Aspartate Amino Transf (AST/SGOT) 12 U/L (15-37) L 18 U/L (15-37) Alanine Aminotransferase (ALT/SGPT) < 6 U/L (12-78) L 14 U/L (12-78) Alkaline Phosphatase 152 U/L (46-116) H 144 U/L (46-116) H Total Creatine Kinase 40 U/L (26-308) Creatine Kinase MB 0.5 NG/ML (0.0-3.6) Creatine Kinase MB Relative Index 1.2 Troponin I 0.010 ng/mL (0.000-0.056) 0.020 ng/mL (0.000-0.056) 0.061 ng/mL (0.000-0.056) Pro-B-Type Natriuretic Peptide 9406 pg/mL (0-125) H Total Protein 7.0 G/DL (6.4-8.2) 6.3 G/DL (6.4-8.2) L Albumin 3.0 G/DL (3.4-5.0) L 2.5 G/DL (3.4-5.0) L Globulin 4.0 g/dL 3.8 g/dL Albumin/Globulin Ratio 0.8 (1.0-2.7) L 0.7 (1.0-2.7) L Triglycerides Level 218 MG/DL (30-150) H Arterial Blood pH 7.303 (7.350-7.450) Arterial Blood Partial Pressure CO2 33.5 mmHg (35.0-45.0) L Arterial Blood Partial Pressure O2 193.5 mmHg (75.0-100.0) H Arterial Blood HCO3 16.2 mmol/L (22.0-26.0) *L Arterial Blood Oxygen Saturation 98.3 % (95-100) Arterial Blood Base Excess -9.2 (-2-2) *L Evaristo Test Positive Differential Total Cells Counted 100 Neutrophils % (Manual) 91 % (45-75) H Lymphocytes % (Manual) 3 % (20-45) L Monocytes % (Manual) 1 % (1-10) Eosinophils % (Manual) 0 % (0-3) Basophils % (Manual) 0 % (0-2) Band Neutrophils 5 % (0-8) Platelet Estimate Decreased L Platelet Morphology Normal Red Blood Cell Morphology Normal Test 11/08/18 06:00 Arterial Blood pH 7.317 (7.350-7.450) Arterial Blood Partial Pressure CO2 32.2 mmHg (35.0-45.0) L Arterial Blood Partial Pressure O2 98.9 mmHg (75.0-100.0) Arterial Blood HCO3 16.1 mmol/L (22.0-26.0) *L Arterial Blood Oxygen Saturation 96.8 % (95-100) Arterial Blood Base Excess -9.0 (-2-2) L Evaristo Test Positive Microbiology Date/Time Source Procedure Growth Status 11/07/18 16:00 Blood Blood Culture - Preliminary Resulted 11/07/18 16:00 Nasal Nares Influenza Types A,B Antigen (SIMEON) - Final Complete 11/07/18 16:00 Urine,Clean Catch Urine Culture - Preliminary Gram Negative Bacillus 1 Resulted Height (Feet): 5 Height (Inches): 8.00 Weight (Pounds): 210 Medications Current Medications Medications (Trade) Dose Ordered Sig/Markus Route PRN Reason Start Time Stop Time Status Last Admin Dose Admin Acetaminophen (Tylenol) 650 mg Q4H PRN ORAL Mild Pain (Pain Scale 1-3) 11/07/18 21:42 12/07/18 21:41 Albuterol/ Ipratropium (Albuterol/ Ipratropium) 3 ml Q8HR HHN 11/07/18 22:00 11/12/18 21:59 11/08/18 06:57 Aspirin (ASA) 81 mg DAILY ORAL 11/08/18 09:00 12/08/18 08:59 11/08/18 09:00 Dextrose (Dextrose 50%) 25 ml Q30M PRN IV Hypoglycemia 11/07/18 21:43 12/07/18 21:42 Dextrose (Dextrose 50%) 50 ml Q30M PRN IV Hypoglycemia 11/07/18 21:43 12/07/18 21:42 Enoxaparin Sodium (Lovenox) 30 mg QHS SUBQ 11/08/18 02:30 12/08/18 02:29 11/08/18 02:45 Insulin Aspart (NovoLOG) BEFORE MEALS AND HS SUBQ 11/07/18 21:00 12/07/18 20:59 Ondansetron HCl (Zofran) 4 mg Q6H PRN IVP Nausea & Vomiting 11/07/18 21:43 12/07/18 21:42 Oseltamivir Phosphate (Tamiflu) 30 mg DAILY ORAL 11/08/18 09:00 11/13/18 08:59 11/08/18 09:00 Pantoprazole (Protonix) 40 mg DAILY ORAL 11/08/18 09:00 12/08/18 08:59 11/08/18 09:00 Piperacillin Sod/ Tazobactam Sod 3.375 gm/Sodium Chloride 110 ml @ 27.5 mls/hr Q12H IVPB 11/08/18 09:00 11/15/18 08:59 11/08/18 09:00 Sodium Bicarbonate 150 ml/Dextrose 1,150 ml @ 100 mls/hr [id number] IV 11/08/18 09:30 12/08/18 09:29 11/08/18 09:43 Vancomycin HCl (Vanco rx to dose) 1 ea DAILY PRN MISC Per rx protocol 11/08/18 01:00 12/08/18 00:59 Vancomycin/Sodium Chloride 250 ml @ 166.667 mls/hr ONCE ONCE IVPB 11/08/18 14:00 11/08/18 15:29 Assessment/Plan Assessment/Plan Abx: IV Vancomycin 11/08- Ceftriaxone 11/07- Tamiflu x 11/08 Zosyn 11/08- Assessment: SEvere sepsis 2ry to UTI c/w GNR bacteremia -CXR: Minimal bilateral atelectatic changes. No acute process otherwise -u/a wbc 20-30, nit neg, luek large; ucx 40-50 K GNR -BCx 10/16 GNR Fever, improving Leukocytosis Acute respiratory failure s/p intubation 11/07- sp extubation 11/08 NOEMÍ on CKD - (b/l Cr mid 2s) HTN DM Plan: -Continue Zosyn #1 pending ID and sensi GNR Ucx and Bcx -Continue IV Vancomycin #1 for now -will d/c in next 24hrs if no gram positive growth -Repeat Bcx x2 -f/u cx -Monitor CBC/CMP, temperatures -ICU/ETT care -aspiration precautions Thank you for this consultation. Will continue to follow along with you. Discussed with RN and patient's son by phone. Ewa Lin M.D. Nov 08, 2018 14:17
[2018-11-08] MEDS ORDERED: cefTRIAXone 1 GM in D5W 55 ML IVPB SCH (17:00)
--- NOTE | 2018-11-08 18:48 | Consultation ---
History of Present Illness General Date patient seen: Nov 08, 2018 Time patient seen: 15:48 Chief Complaint: General Complaint Reason for Consultation: Acute hypoxemic respiratory failure and bronchospa Present Illness HPI Pt came in from home due to "unable to urinate x2 days", now complaining of discomfort 5/10. Abdomen noted to be distended. Cardiology consulted for elevated troponin. Patient has urosepsis and left hydronephrosis on imaging, CXR clear but patient was intubated for respiratory distress, currently on 14 L venturi mask. Blood and urine cultures positive for gram negative rods. Currently in ICU and hypotensive but not in pressers. He was coughing and having SOB. Influenza panel was negative. He has a hx of HTN and DM in the past with CKD. Allergies: Coded Allergies: No Known Allergies (Unverified , 06/16/18) Medication History Scheduled Benzonatate* (Tessalon Perle*), 100 MG ORAL THREE TIMES A DAY Loratadine (Claritin), 10 MG ORAL DAILY Oseltamivir Phosphate (Tamiflu), 75 MG ORAL TWICE A DAY Scheduled PRN Acetaminophen* (Tylenol Extra Strength*), 500 MG ORAL Q8H PRN for Prn Headache/ Temp > 101 Miscellaneous Medications Unable to Obtain Medications (Unable To Obtain Meds), (Reported) Discontinued Medications [faropenem sodium ], 200 MG ORAL DAILY, (Reported) Discontinued Reason: Therapy completed [nefrozon], 150-500 MG ORAL DAILY, (Reported) Discontinued Reason: Therapy completed Patient History Healthcare decision maker golden rosen Resuscitation status Full Code Advanced Directive on File No Review of Systems Constitutional: Reports: no symptoms Eye: Reports: no symptoms ENT: Reports: no symptoms Respiratory: Reports: cough, shortness of breath Cardiovascular: Reports: no symptoms Gastrointestinal: Reports: abdominal pain Genitourinary: Reports: no symptoms Musculoskeletal: Reports: no symptoms Skin: Reports: no symptoms Psychiatric: Reports: no symptoms Neurological: Reports: no symptoms Endocrine: Reports: no symptoms Hematologic/Lymphatic: Reports: no symptoms Physical Exam General Appearance: mild distress Lines, tubes and drains: peripheral, ngt HEENT: normocephalic, atraumatic Neck: non-tender, normal alignment, supple, normal inspection Respiratory/Chest: chest wall non-tender, lungs clear Cardiovascular/Chest: normal peripheral pulses, normal rate, regular rhythm Abdomen: normal bowel sounds, soft, no organomegaly, no mass Extremities: normal range of motion, non-tender, normal inspection Skin Exam: normal pigmentation, warm/dry 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 normal, no motor/sensory deficits Last 24 Hour Vital Signs Date Time Temp Pulse Resp B/P (MAP) Pulse Ox O2 Delivery O2 Flow Rate FiO2 11/08/18 18:00 78 28 107/25 (52) 100 11/08/18 17:00 79 24 99/62 (74) 100 11/08/18 16:00 Venturi Mask Venturi Mask 11/08/18 16:00 98.9 78 13 125/70 (88) 100 11/08/18 16:00 82 11/08/18 15:14 74 19 100 Venturi Mask 8.0 40 11/08/18 15:03 55 11/08/18 15:03 76 16 100 Venturi Mask 14.0 55 11/08/18 15:00 73 18 111/66 (81) 100 11/08/18 14:00 66 18 110/68 (82) 100 11/08/18 13:00 74 13 133/81 (98) 100 11/08/18 12:00 65 11/08/18 12:00 Venturi Mask Venturi Mask 11/08/18 12:00 98.8 70 13 128/78 (95) 100 11/08/18 11:00 75 13 136/80 (98) 100 11/08/18 10:50 Venturi Mask 14.0 55 11/08/18 10:00 70 20 120/72 (88) 100 11/08/18 09:59 68 26 60 11/08/18 09:00 65 20 115/68 (84) 98 11/08/18 08:15 59 20 110/62 (78) 98 11/08/18 08:15 20 120/68 Mechanical Ventilator 60 11/08/18 08:10 20 115/65 Mechanical Ventilator 60 11/08/18 08:05 20 112/62 Mechanical Ventilator 60 11/08/18 08:00 Endotracheal Tube 11/08/18 08:00 98.4 58 20 115/64 (81) 98 11/08/18 08:00 20 110/62 Mechanical Ventilator 60 11/08/18 08:00 60 11/08/18 08:00 58 11/08/18 07:55 20 118/65 Mechanical Ventilator 60 11/08/18 07:50 20 115/64 Mechanical Ventilator 60 11/08/18 07:45 20 120/64 Mechanical Ventilator 60 11/08/18 07:39 20 108/70 Mechanical Ventilator 60 11/08/18 07:00 20 107/69 Endotracheal Tube 60 11/08/18 07:00 20 107/69 Endotracheal Tube 60 11/08/18 07:00 20 107/69 Endotracheal Tube 60 11/08/18 07:00 20 107/69 Endotracheal Tube 60 11/08/18 07:00 20 107/69 Endotracheal Tube 60 11/08/18 07:00 20 107/69 Endotracheal Tube 60 11/08/18 07:00 20 107/69 Endotracheal Tube 60 11/08/18 07:00 20 107/69 Endotracheal Tube 60 11/08/18 06:56 57 20 60 11/08/18 06:56 56 20 98 Mechanical Ventilator 10.0 11/08/18 06:45 57 20 123/65 (84) 97 11/08/18 06:32 20 123/65 Endotracheal Tube 60 11/08/18 06:32 20 123/65 Endotracheal Tube 60 11/08/18 06:32 20 123/65 Endotracheal Tube 60 11/08/18 06:32 20 123/65 Endotracheal Tube 60 11/08/18 06:32 20 123/65 Endotracheal Tube 60 11/08/18 06:32 20 123/65 Endotracheal Tube 60 11/08/18 06:32 20 123/65 Endotracheal Tube 60 11/08/18 06:30 65 19 133/72 (92) 99 11/08/18 06:17 20 117/66 Endotracheal Tube 60 11/08/18 06:16 20 133/72 Endotracheal Tube 60 11/08/18 06:16 20 133/72 Endotracheal Tube 60 11/08/18 06:15 60 20 135/74 (94) 100 11/08/18 06:03 20 117/66 Endotracheal Tube 60 11/08/18 06:00 55 20 117/66 (83) 100 11/08/18 05:48 20 111/70 Endotracheal Tube 60 11/08/18 05:45 55 20 114/68 (83) 99 11/08/18 05:33 20 112/67 Endotracheal Tube 60 11/08/18 05:30 57 20 112/67 (82) 99 11/08/18 05:15 56 20 112/68 (83) 99 11/08/18 05:00 57 20 116/69 (85) 100 11/08/18 05:00 20 116/69 Endotracheal Tube 60 11/08/18 04:54 56 20 60 11/08/18 04:45 56 20 111/70 (84) 99 11/08/18 04:30 57 20 113/68 (83) 99 11/08/18 04:15 59 20 113/71 (85) 99 11/08/18 04:00 20 114/71 Endotracheal Tube 60 11/08/18 04:00 Endotracheal Tube 11/08/18 04:00 97.8 61 20 114/71 (85) 99 11/08/18 03:50 63 20 60 11/08/18 03:45 64 20 116/74 (88) 99 11/08/18 03:30 64 20 117/73 (88) 99 11/08/18 03:00 64 20 113/73 (86) 99 11/08/18 03:00 20 113/78 Endotracheal Tube 60 11/08/18 02:45 66 20 113/75 (88) 99 11/08/18 02:30 67 20 111/70 (84) 98 11/08/18 02:15 70 20 119/74 (89) 99 11/08/18 02:08 60 11/08/18 02:00 82 22 130/78 (95) 99 11/08/18 02:00 20 130/78 Endotracheal Tube 60 11/08/18 02:00 Endotracheal Tube 100.0 11/08/18 01:58 98.7 85 20 138/95 (109) 100 11/08/18 01:55 20 138/95 Endotracheal Tube 60 11/08/18 01:55 85 11/08/18 00:50 25 117/91 Mechanical Ventilator 60 11/08/18 00:47 99.4 80 20 116/76 98 Mechanical Ventilator 60 11/08/18 00:39 83 20 60 11/08/18 00:30 98.9 84 20 107/73 98 Mechanical Ventilator 100 11/08/18 00:24 60 11/08/18 00:00 100.2 90 21 114/72 100 Mechanical Ventilator 100 11/07/18 23:50 26 114/101 Mechanical Ventilator 60 11/07/18 23:50 26 114/101 Mechanical Ventilator 100 11/07/18 23:30 102.9 98 26 125/89 100 Mechanical Ventilator 100 11/07/18 23:05 106 25 100 11/07/18 23:00 103.3 106 25 136/65 97 Mechanical Ventilator 100 11/07/18 22:50 25 136/65 Mechanical Ventilator 60 11/07/18 22:50 25 136/65 Mechanical Ventilator 100 11/07/18 22:45 25 156/88 Mechanical Ventilator 100 11/07/18 22:45 25 156/88 Mechanical Ventilator 100 11/07/18 22:40 25 158/88 Mechanical Ventilator 100 11/07/18 22:40 25 158/88 Mechanical Ventilator 100 11/07/18 22:35 26 165/91 Mechanical Ventilator 100 11/07/18 22:35 26 165/91 Mechanical Ventilator 100 11/07/18 22:30 103.8 129 26 150/90 99 Mechanical Ventilator 100 11/07/18 22:30 26 157/90 Mechanical Ventilator 100 11/07/18 22:30 26 157/90 Mechanical Ventilator 100 11/07/18 22:25 25 156/86 Mechanical Ventilator 100 11/07/18 22:25 25 156/86 Mechanical Ventilator 100 11/07/18 22:20 26 155/89 Mechanical Ventilator 100 11/07/18 22:20 26 155/89 Mechanical Ventilator 100 11/07/18 22:16 135 20 100 11/07/18 22:15 123 29 99 Simple Mask 6.0 11/07/18 22:10 26 150/90 Mechanical Ventilator 100 11/07/18 22:10 26 150/90 Mechanical Ventilator 100 11/07/18 22:00 104.7 156 25 158/61 100 Mechanical Ventilator 100 11/07/18 21:55 25 158/61 Mechanical Ventilator 100 11/07/18 21:30 106.0 141 25 191/104 97 Mechanical Ventilator 100 11/07/18 21:28 143 27 98 Simple Mask 10.0 11/07/18 21:21 133 27 97 Facial 100 11/07/18 21:15 100 11/07/18 21:00 106.8 147 26 155/140 97 Ambu-Bag 15.0 11/07/18 20:45 100 11/07/18 20:30 102.4 134 30 139/91 97 Simple Mask 15.0 11/07/18 20:00 99.1 88 25 130/80 100 Room Air 11/07/18 19:01 98.2 100 21 135/100 100 Room Air Intake and Output 11/07/18 11/08/18 19:00 07:00 Intake Total 1055 ml 1714.904 ml Output Total 1150 ml Balance 1055 ml 564.904 ml Intake IV Total 1055 ml 1714.904 ml Output Urine Total 1150 ml # Voids 1 2 Laboratory Tests Test 11/07/18 23:30 11/08/18 00:02 11/08/18 05:50 11/08/18 06:00 Troponin I 0.020 ng/mL (0.000-0.056) 0.061 ng/mL (0.000-0.056) Arterial Blood pH 7.303 (7.350-7.450) 7.317 (7.350-7.450) Arterial Blood Partial Pressure CO2 33.5 mmHg (35.0-45.0) L 32.2 mmHg (35.0-45.0) L Arterial Blood Partial Pressure O2 193.5 mmHg (75.0-100.0) H 98.9 mmHg (75.0-100.0) Arterial Blood HCO3 16.2 mmol/L (22.0-26.0) *L 16.1 mmol/L (22.0-26.0) *L Arterial Blood Oxygen Saturation 98.3 % (95-100) 96.8 % (95-100) Arterial Blood Base Excess -9.2 (-2-2) *L -9.0 (-2-2) L Evaristo Test Positive Positive White Blood Count 17.0 K/UL (4.8-10.8) H Red Blood Count 4.04 M/UL (4.70-6.10) L Hemoglobin 11.9 G/DL (14.2-18.0) L Hematocrit 34.8 % (42.0-52.0) L Mean Corpuscular Volume 86 FL (80-99) Mean Corpuscular Hemoglobin 29.4 PG (27.0-31.0) Mean Corpuscular Hemoglobin Concent 34.1 G/DL (32.0-36.0) Red Cell Distribution Width 13.0 % (11.6-14.8) Platelet Count 113 K/UL (150-450) L Mean Platelet Volume 7.2 FL (6.5-10.1) Neutrophils (%) (Auto) % (45.0-75.0) Lymphocytes (%) (Auto) % (20.0-45.0) Monocytes (%) (Auto) % (1.0-10.0) Eosinophils (%) (Auto) % (0.0-3.0) Basophils (%) (Auto) % (0.0-2.0) Differential Total Cells Counted 100 Neutrophils % (Manual) 91 % (45-75) H Lymphocytes % (Manual) 3 % (20-45) L Monocytes % (Manual) 1 % (1-10) Eosinophils % (Manual) 0 % (0-3) Basophils % (Manual) 0 % (0-2) Band Neutrophils 5 % (0-8) Platelet Estimate Decreased L Platelet Morphology Normal Red Blood Cell Morphology Normal Sodium Level 136 MMOL/L (136-145) Potassium Level 4.4 MMOL/L (3.5-5.1) Chloride Level 105 MMOL/L (98-107) Carbon Dioxide Level 16 MMOL/L (21-32) L Anion Gap 16 mmol/L (5-15) H Blood Urea Nitrogen 51 mg/dL (7-18) H Creatinine 4.6 MG/DL (0.55-1.30) H Estimat Glomerular Filtration Rate mL/min (>60) Glucose Level 185 MG/DL (74-106) H Lactic Acid Level 0.80 mmol/L (0.4-2.0) Calcium Level 8.1 MG/DL (8.5-10.1) L Total Bilirubin 1.0 MG/DL (0.2-1.0) Aspartate Amino Transf (AST/SGOT) 18 U/L (15-37) Alanine Aminotransferase (ALT/SGPT) 14 U/L (12-78) Alkaline Phosphatase 144 U/L (46-116) H Total Protein 6.3 G/DL (6.4-8.2) L Albumin 2.5 G/DL (3.4-5.0) L Globulin 3.8 g/dL Albumin/Globulin Ratio 0.7 (1.0-2.7) L Height (Feet): 5 Height (Inches): 8.00 Weight (Pounds): 210 Medications Current Medications Medications (Trade) Dose Ordered Sig/Markus Route PRN Reason Start Time Stop Time Status Last Admin Dose Admin Acetaminophen (Tylenol) 650 mg Q4H PRN ORAL Mild Pain (Pain Scale 1-3) 11/07/18 21:42 12/07/18 21:41 Albuterol/ Ipratropium (Albuterol/ Ipratropium) 3 ml Q8HR HHN 11/07/18 22:00 11/12/18 21:59 11/08/18 15:03 Aspirin (ASA) 81 mg DAILY ORAL 11/08/18 09:00 12/08/18 08:59 11/08/18 09:00 Dextrose (Dextrose 50%) 25 ml Q30M PRN IV Hypoglycemia 11/07/18 21:43 12/07/18 21:42 Dextrose (Dextrose 50%) 50 ml Q30M PRN IV Hypoglycemia 11/07/18 21:43 12/07/18 21:42 Enoxaparin Sodium (Lovenox) 30 mg QHS SUBQ 11/08/18 02:30 12/08/18 02:29 11/08/18 02:45 Insulin Aspart (NovoLOG) BEFORE MEALS AND HS SUBQ 11/07/18 21:00 12/07/18 20:59 Ondansetron HCl (Zofran) 4 mg Q6H PRN IVP Nausea & Vomiting 11/07/18 21:43 12/07/18 21:42 Oseltamivir Phosphate (Tamiflu) 30 mg DAILY ORAL 11/08/18 09:00 11/13/18 08:59 11/08/18 09:00 Pantoprazole (Protonix) 40 mg DAILY ORAL 11/08/18 09:00 12/08/18 08:59 11/08/18 09:00 Piperacillin Sod/ Tazobactam Sod 3.375 gm/Sodium Chloride 110 ml @ 27.5 mls/hr Q12H IVPB 11/08/18 09:00 11/15/18 08:59 11/08/18 09:00 Sodium Bicarbonate 150 ml/Dextrose 1,150 ml @ 100 mls/hr [id number] IV 11/08/18 09:30 12/08/18 09:29 11/08/18 09:43 Vancomycin HCl (Vanco rx to dose) 1 ea DAILY PRN MISC Per rx protocol 11/08/18 01:00 12/08/18 00:59 Assessment/Plan Status: stable Assessment/Plan Assessment Urosepsis Hydronephrosis Hypertension Diabetes CKD Elevated troponin Respiratory failure Plan Continue Abx for urosepsis Extubated to venturi mask, continue pulmonary hygeine BP low, hold anti hypertensive medications Serial Troponin, clinically not significant and likely from sepsis and CKD Echocardiogram to evaluate filling pressures and LV function Stress dose steroids Monitor renal function, may need dialysis, no evidence of fluid overload Outpatient stress test when stable to evaluate coronary perfusion given cardiac risk factors Hold aspirin given CKD Biju Leon MD Nov 08, 2018 18:48
[2018-11-09] VITALS (18 sets, daily range): BP systolic 96–168; BP diastolic 56–93
[2018-11-09 05:38] LABS: HEMATOCRIT 34.9 % (42.0-52.0); HEMOGLOBIN 11.8 G/DL (14.2-18.0); MEAN CORPUSCULAR VOLUME 86 FL (80-99); PLATELET COUNT 140 K/UL (150-450); RED BLOOD COUNT 4.03 M/UL (4.70-6.10); RED CELL DISTRIBUTION WIDTH 12.6 % (11.6-14.8); WHITE BLOOD COUNT 15.9 K/UL (4.8-10.8)
[2018-11-09 05:51] LABS: ANION GAP 16 mmol/L (5-15); BLOOD UREA NITROGEN 58 mg/dL (7-18); CALCIUM 8.7 MG/DL (8.5-10.1); CARBON DIOXIDE 19 MMOL/L (21-32); CHLORIDE 104 MMOL/L (98-107); SODIUM 138 MMOL/L (136-145)
[2018-11-09] MEDS: NovoLOG Insulin Flexpen SUBQ SCH ×4 (06:15→21:00)
[2018-11-09] MEDS: Albuterol/Ipratropium 3ml neb HHN SCH ×2 (06:44→14:37)
--- NOTE | 2018-11-09 08:09 | Nephrology Progress Note ---
Assessment/Plan Assessment/Plan A/P 1) Sepsis- G- rods urine and blood - ID adjusting medications 2) Resp FL- bronchospasms - extubated - Dr Miles 3) NOEMÍ on CKD 4- multifact ATN affecting residual renal fx - may require HD, The left kidney demonstrates moderate hydronephrosis - continue IVFs 4) Met Acidosis- due to renal insuff -improved IV bicarb gtt 5) The left kidney demonstrates moderate hydronephrosis- Urology to asses Subjective Date patient seen: Nov 09, 2018 Time patient seen: 08:05 ROS Limited/Unobtainable: Yes Allergies: Coded Allergies: No Known Allergies (Unverified , 06/16/18) Subjective Patient extubated. Much improved Objective Last 24 Hour Vital Signs Date Time Temp Pulse Resp B/P (MAP) Pulse Ox O2 Delivery O2 Flow Rate FiO2 11/09/18 07:00 80 16 109/62 (78) 94 11/09/18 06:55 72 18 100 Room Air 21 11/09/18 06:55 28 11/09/18 06:45 74 17 95 Room Air 21 11/09/18 06:45 95 Room Air 21 11/09/18 06:45 Room Air 21 11/09/18 06:00 71 17 110/63 (79) 96 11/09/18 05:00 79 17 103/66 (78) 98 11/09/18 04:00 Nasal Cannula 2.0 Nasal Cannula 2.0 11/09/18 04:00 78 11/09/18 04:00 97.8 70 16 97/56 (70) 97 11/09/18 03:00 73 15 102/59 (73) 95 11/09/18 02:00 74 16 96/56 (69) 92 11/09/18 01:00 83 17 96/59 (71) 97 11/09/18 00:00 Nasal Cannula 2.0 Nasal Cannula 2.0 11/09/18 00:00 97.6 87 18 101/59 (73) 96 11/08/18 23:00 80 16 100 Nasal Cannula 2.0 28 11/08/18 23:00 82 20 109/65 (80) 100 11/08/18 22:51 28 11/08/18 22:50 76 18 97 Nasal Cannula 2.0 28 11/08/18 22:00 68 12 109/66 (80) 99 11/08/18 21:00 71 17 118/68 (85) 99 11/08/18 20:00 Nasal Cannula 2.0 Nasal Cannula 2.0 11/08/18 20:00 73 11/08/18 20:00 98.0 74 18 113/67 (82) 100 11/08/18 19:00 77 28 107/65 (79) 100 11/08/18 19:00 99 Nasal Cannula 2.0 28 11/08/18 19:00 Nasal Cannula 2.0 28 11/08/18 18:00 78 28 107/25 (52) 100 11/08/18 17:00 79 24 99/62 (74) 100 11/08/18 16:00 Venturi Mask Venturi Mask 11/08/18 16:00 98.9 78 13 125/70 (88) 100 11/08/18 16:00 82 11/08/18 15:14 74 19 100 Venturi Mask 8.0 40 11/08/18 15:03 55 11/08/18 15:03 76 16 100 Venturi Mask 14.0 55 11/08/18 15:00 73 18 111/66 (81) 100 11/08/18 14:00 66 18 110/68 (82) 100 11/08/18 13:00 74 13 133/81 (98) 100 11/08/18 12:00 65 11/08/18 12:00 Venturi Mask Venturi Mask 11/08/18 12:00 98.8 70 13 128/78 (95) 100 11/08/18 11:00 75 13 136/80 (98) 100 11/08/18 10:50 Venturi Mask 14.0 55 11/08/18 10:00 70 20 120/72 (88) 100 11/08/18 09:59 68 26 60 11/08/18 09:00 65 20 115/68 (84) 98 11/08/18 08:15 59 20 110/62 (78) 98 11/08/18 08:15 20 120/68 Mechanical Ventilator 60 11/08/18 08:10 20 115/65 Mechanical Ventilator 60 Intake and Output 11/08/18 11/09/18 19:00 07:00 Intake Total 100 ml 1310.0 ml Output Total 820 ml 1075 ml Balance -720 ml 235.0 ml Intake IV Total 100 ml 1310.0 ml Output Urine Total 820 ml 1075 ml Laboratory Tests 11/09/18 05:00: Sodium Level 138, Potassium Level 4.0, Chloride Level 104, Carbon Dioxide Level 19L, Anion Gap 16H, Blood Urea Nitrogen 58H, Creatinine 5.0H, Estimat Glomerular Filtration Rate , Glucose Level 233H, Calcium Level 8.7 11/09/18 05:10: White Blood Count 15.9H, Red Blood Count 4.03L, Hemoglobin 11.8L, Hematocrit 34.9L, Mean Corpuscular Volume 86, Mean Corpuscular Hemoglobin 29.2, Mean Corpuscular Hemoglobin Concent 33.7, Red Cell Distribution Width 12.6, Platelet Count 140L, Mean Platelet Volume 7.5, Neutrophils (%) (Auto) , Lymphocytes (%) ( Auto) , Monocytes (%) (Auto) , Eosinophils (%) (Auto) , Basophils (%) (Auto) , Neutrophils % (Manual) [Pending], Lymphocytes % (Manual) [Pending], Platelet Estimate [Pending], Platelet Morphology [Pending] Height (Feet): 5 Height (Inches): 8.00 Weight (Pounds): 208 General Appearance: no apparent distress, alert EENT: normal ENT inspection Neck: normal alignment, supple Cardiovascular: normal rate, regular rhythm Respiratory/Chest: lungs clear, normal breath sounds Abdomen: non tender, soft Edema: no edema noted Arm (L), no edema noted Arm (R), no edema noted Leg (L), no edema noted Leg (R), no edema noted Pedal (L), no edema noted Pedal (R), no edema noted Generalized Michelet Menchaca MD Nov 09, 2018 08:08
[2018-11-09] MEDS: Sodium Bicarbonate 150 ML in D5W 1000ml 1,000 ML IV SCH ×2 (08:27→16:57)
[2018-11-09] MEDS: Piperacillin/Tazobactam 3.375 GM in NS 110 ML IVPB SCH (09:12)
--- NOTE | 2018-11-09 09:35 | Infectious Diseases Prog Note ---
Assessment/Plan Assessment/Plan Severe sepsis 2ry to UTI c/w Acinetobacer -CXR: Minimal bilateral atelectatic changes. No acute process otherwise -u/a wbc 20-30, nit neg, luek large; ucx 40-50 K Acinetobacter -BCx 10/16 GNR Fever, resolved Leukocytosis Acute respiratory failure s/p intubation 11/07- sp extubation 11/08 NOEMÍ on CKD - (b/l Cr mid 2s) HTN DM Plan: - Start Tigecycline #1 for Acinetobacter urosepsis - 11/09 SP Zosyn #2 pending ID and sensi GNR Ucx and Bcx - 11/09 SP IV Vancomycin #2 -Repeat Bcx x2 -f/u cx -Monitor CBC/CMP, temperatures -ICU/ETT care -aspiration precautions Thank you for this consultation. Will continue to follow along with you. Subjective Allergies: Coded Allergies: No Known Allergies (Unverified , 06/16/18) Subjective Afebrile awake and alert no complaints Continued leukocytosis Urine growing acinetobacter MDR Blood also with GNR Objective Vital Signs Last 24 Hour Vital Signs Date Time Temp Pulse Resp B/P (MAP) Pulse Ox O2 Delivery O2 Flow Rate FiO2 11/09/18 08:00 Nasal Cannula 2.0 Nasal Cannula 2.0 11/09/18 08:00 78 11/09/18 08:00 97.9 78 16 112/66 (81) 96 11/09/18 07:00 80 16 109/62 (78) 94 11/09/18 06:55 72 18 100 Room Air 21 11/09/18 06:55 28 11/09/18 06:45 74 17 95 Room Air 21 11/09/18 06:45 95 Room Air 21 11/09/18 06:45 Room Air 21 11/09/18 06:00 71 17 110/63 (79) 96 11/09/18 05:00 79 17 103/66 (78) 98 11/09/18 04:00 Nasal Cannula 2.0 Nasal Cannula 2.0 11/09/18 04:00 78 11/09/18 04:00 97.8 70 16 97/56 (70) 97 11/09/18 03:00 73 15 102/59 (73) 95 11/09/18 02:00 74 16 96/56 (69) 92 1/26/19 01:00 83 17 96/59 (71) 97 11/09/18 00:00 Nasal Cannula 2.0 Nasal Cannula 2.0 11/09/18 00:00 97.6 87 18 101/59 (73) 96 11/08/18 23:00 80 16 100 Nasal Cannula 2.0 28 11/08/18 23:00 82 20 109/65 (80) 100 11/08/18 22:51 28 11/08/18 22:50 76 18 97 Nasal Cannula 2.0 28 11/08/18 22:00 68 12 109/66 (80) 99 11/08/18 21:00 71 17 118/68 (85) 99 11/08/18 20:00 Nasal Cannula 2.0 Nasal Cannula 2.0 11/08/18 20:00 73 11/08/18 20:00 98.0 74 18 113/67 (82) 100 11/08/18 19:00 77 28 107/65 (79) 100 11/08/18 19:00 99 Nasal Cannula 2.0 28 11/08/18 19:00 Nasal Cannula 2.0 28 11/08/18 18:00 78 28 107/25 (52) 100 11/08/18 17:00 79 24 99/62 (74) 100 11/08/18 16:00 Venturi Mask Venturi Mask 11/08/18 16:00 98.9 78 13 125/70 (88) 100 11/08/18 16:00 82 11/08/18 15:14 74 19 100 Venturi Mask 8.0 40 11/08/18 15:03 55 11/08/18 15:03 76 16 100 Venturi Mask 14.0 55 11/08/18 15:00 73 18 111/66 (81) 100 11/08/18 14:00 66 18 110/68 (82) 100 11/08/18 13:00 74 13 133/81 (98) 100 11/08/18 12:00 65 11/08/18 12:00 Venturi Mask Venturi Mask 11/08/18 12:00 98.8 70 13 128/78 (95) 100 11/08/18 11:00 75 13 136/80 (98) 100 11/08/18 10:50 Venturi Mask 14.0 55 11/08/18 10:00 70 20 120/72 (88) 100 11/08/18 09:59 68 26 60 Height (Feet): 5 Height (Inches): 8.00 Weight (Pounds): 208 Objective General: NAD HEENT: normocephalic, atraumatic, mucous membranes moist Respiratory/Chest: lungs clear Cardiovascular/Chest: normal rate, regular rhythm Abdomen: non tender, soft Microbiology Date/Time Source Procedure Growth Status 11/07/18 16:00 Blood Blood Culture - Preliminary Gram Negative Kit Resulted 11/07/18 15:45 Blood Blood Culture - Preliminary NO GROWTH AFTER 24 HOURS Resulted 11/07/18 16:00 Nasal Nares Influenza Types A,B Antigen (SIMEON) - Final Complete 11/07/18 16:00 Urine,Clean Catch Urine Culture - Preliminary A.baumanii Complx - Mdr Resulted Laboratory Tests Test 11/09/18 05:00 11/09/18 05:10 Sodium Level 138 MMOL/L (136-145) Potassium Level 4.0 MMOL/L (3.5-5.1) Chloride Level 104 MMOL/L (98-107) Carbon Dioxide Level 19 MMOL/L (21-32) L Anion Gap 16 mmol/L (5-15) H Blood Urea Nitrogen 58 mg/dL (7-18) H Creatinine 5.0 MG/DL (0.55-1.30) H Estimat Glomerular Filtration Rate mL/min (>60) Glucose Level 233 MG/DL (74-106) H Calcium Level 8.7 MG/DL (8.5-10.1) White Blood Count 15.9 K/UL (4.8-10.8) H Red Blood Count 4.03 M/UL (4.70-6.10) L Hemoglobin 11.8 G/DL (14.2-18.0) L Hematocrit 34.9 % (42.0-52.0) L Mean Corpuscular Volume 86 FL (80-99) Mean Corpuscular Hemoglobin 29.2 PG (27.0-31.0) Mean Corpuscular Hemoglobin Concent 33.7 G/DL (32.0-36.0) Red Cell Distribution Width 12.6 % (11.6-14.8) Platelet Count 140 K/UL (150-450) L Mean Platelet Volume 7.5 FL (6.5-10.1) Neutrophils (%) (Auto) % (45.0-75.0) Lymphocytes (%) (Auto) % (20.0-45.0) Monocytes (%) (Auto) % (1.0-10.0) Eosinophils (%) (Auto) % (0.0-3.0) Basophils (%) (Auto) % (0.0-2.0) Neutrophils % (Manual) Pending Lymphocytes % (Manual) Pending Platelet Estimate Pending Platelet Morphology Pending Current Medications Medications (Trade) Dose Ordered Sig/Markus Route PRN Reason Start Time Stop Time Status Last Admin Dose Admin Acetaminophen (Tylenol) 650 mg Q4H PRN ORAL Mild Pain (Pain Scale 1-3) 11/07/18 21:42 12/07/18 21:41 Albuterol/ Ipratropium (Albuterol/ Ipratropium) 3 ml Q8HR HHN 11/07/18 22:00 11/12/18 21:59 11/09/18 06:44 Dextrose (Dextrose 50%) 25 ml Q30M PRN IV Hypoglycemia 11/07/18 21:43 12/07/18 21:42 Dextrose (Dextrose 50%) 50 ml Q30M PRN IV Hypoglycemia 11/07/18 21:43 12/07/18 21:42 Enoxaparin Sodium (Lovenox) 30 mg QHS SUBQ 11/08/18 02:30 12/08/18 02:29 11/08/18 21:01 Insulin Aspart (NovoLOG) BEFORE MEALS AND HS SUBQ 11/07/18 21:00 12/07/18 20:59 11/09/18 06:15 Ondansetron HCl (Zofran) 4 mg Q6H PRN IVP Nausea & Vomiting 11/07/18 21:43 12/07/18 21:42 Oseltamivir Phosphate (Tamiflu) 30 mg DAILY ORAL 11/08/18 09:00 11/13/18 08:59 11/09/18 09:12 Pantoprazole (Protonix) 40 mg DAILY ORAL 11/08/18 09:00 12/08/18 08:59 11/09/18 09:12 Piperacillin Sod/ Tazobactam Sod 3.375 gm/Sodium Chloride 110 ml @ 27.5 mls/hr Q12H IVPB 11/08/18 09:00 11/15/18 08:59 11/09/18 09:12 Sodium Bicarbonate 150 ml/Dextrose 1,150 ml @ 100 mls/hr [id number] IV 11/08/18 09:30 12/08/18 09:29 11/09/18 08:27 Vancomycin HCl (Vanco rx to dose) 1 ea DAILY PRN MISC Per rx protocol 11/08/18 01:00 12/08/18 00:59 Biju Nuñez MD Nov 09, 2018 09:35
--- NOTE | 2018-11-09 09:45 | Pulmonology Progress Note ---
Assessment/Plan Assessment/Plan Problem List: 1. Acute hypoxemic respiratory failure -intubated 11/08; now extubated 2. Acute bronchospasm - resolved 3. NOEMÍ on CKD - 4. Metabolic acidosis 5. UTI, gram negative bacillus 6. Rule out influenza 7. 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 Subjective Interval Events: Looking and feeling better Constitutional: Reports: no symptoms HEENT: Repors: no symptoms Respiratory: Reports: no symptoms Cardiovascular: Reports: no symptoms Gastrointestinal/Abdominal: Reports: no symptoms Genitourinary: Reports: no symptoms Neurologic: Reports: no symptoms Allergies: Coded Allergies: No Known Allergies (Unverified , 06/16/18) Objective Last 24 Hour Vital Signs Date Time Temp Pulse Resp B/P (MAP) Pulse Ox O2 Delivery O2 Flow Rate FiO2 11/09/18 08:00 Nasal Cannula 2.0 Nasal Cannula 2.0 11/09/18 08:00 78 11/09/18 08:00 97.9 78 16 112/66 (81) 96 11/09/18 07:00 80 16 109/62 (78) 94 11/09/18 06:55 72 18 100 Room Air 21 11/09/18 06:55 28 11/09/18 06:45 74 17 95 Room Air 21 11/09/18 06:45 95 Room Air 21 11/09/18 06:45 Room Air 21 11/09/18 06:00 71 17 110/63 (79) 96 11/09/18 05:00 79 17 103/66 (78) 98 11/09/18 04:00 Nasal Cannula 2.0 Nasal Cannula 2.0 11/09/18 04:00 78 11/09/18 04:00 97.8 70 16 97/56 (70) 97 11/09/18 03:00 73 15 102/59 (73) 95 11/09/18 02:00 74 16 96/56 (69) 92 11/09/18 01:00 83 17 96/59 (71) 97 11/09/18 00:00 Nasal Cannula 2.0 Nasal Cannula 2.0 11/09/18 00:00 97.6 87 18 101/59 (73) 96 11/08/18 23:00 80 16 100 Nasal Cannula 2.0 28 11/08/18 23:00 82 20 109/65 (80) 100 11/08/18 22:51 28 11/08/18 22:50 76 18 97 Nasal Cannula 2.0 28 11/08/18 22:00 68 12 109/66 (80) 99 11/08/18 21:00 71 17 118/68 (85) 99 11/08/18 20:00 Nasal Cannula 2.0 Nasal Cannula 2.0 11/08/18 20:00 73 11/08/18 20:00 98.0 74 18 113/67 (82) 100 11/08/18 19:00 77 28 107/65 (79) 100 11/08/18 19:00 99 Nasal Cannula 2.0 28 11/08/18 19:00 Nasal Cannula 2.0 28 11/08/18 18:00 78 28 107/25 (52) 100 11/08/18 17:00 79 24 99/62 (74) 100 11/08/18 16:00 Venturi Mask Venturi Mask 11/08/18 16:00 98.9 78 13 125/70 (88) 100 11/08/18 16:00 82 11/08/18 15:14 74 19 100 Venturi Mask 8.0 40 11/08/18 15:03 55 11/08/18 15:03 76 16 100 Venturi Mask 14.0 55 11/08/18 15:00 73 18 111/66 (81) 100 11/08/18 14:00 66 18 110/68 (82) 100 11/08/18 13:00 74 13 133/81 (98) 100 11/08/18 12:00 65 11/08/18 12:00 Venturi Mask Venturi Mask 11/08/18 12:00 98.8 70 13 128/78 (95) 100 11/08/18 11:00 75 13 136/80 (98) 100 11/08/18 10:50 Venturi Mask 14.0 55 11/08/18 10:00 70 20 120/72 (88) 100 11/08/18 09:59 68 26 60 Intake and Output 11/08/18 11/09/18 18:59 06:59 Intake Total 1310.0 ml Output Total 860 ml 1070 ml Balance -860 ml 240.0 ml Intake IV Total 1310.0 ml Output Urine Total 860 ml 1070 ml General Appearance: no acute distress HEENT: normocephalic Respiratory/Chest: chest wall non-tender, lungs clear Cardiovascular: normal peripheral pulses, normal rate Abdomen: normal bowel sounds Microbiology Date/Time Source Procedure Growth Status 11/07/18 16:00 Blood Blood Culture - Preliminary Gram Negative Kit Resulted 11/07/18 15:45 Blood Blood Culture - Preliminary NO GROWTH AFTER 24 HOURS Resulted 11/07/18 16:00 Nasal Nares Influenza Types A,B Antigen (SIMEON) - Final Complete 11/07/18 16:00 Urine,Clean Catch Urine Culture - Preliminary A.baumanii Complx - Mdr Resulted Laboratory Tests 11/09/18 05:00: Sodium Level 138, Potassium Level 4.0, Chloride Level 104, Carbon Dioxide Level 19L, Anion Gap 16H, Blood Urea Nitrogen 58H, Creatinine 5.0H, Estimat Glomerular Filtration Rate , Glucose Level 233H, Calcium Level 8.7 11/09/18 05:10: White Blood Count 15.9H, Red Blood Count 4.03L, Hemoglobin 11.8L, Hematocrit 34.9L, Mean Corpuscular Volume 86, Mean Corpuscular Hemoglobin 29.2, Mean Corpuscular Hemoglobin Concent 33.7, Red Cell Distribution Width 12.6, Platelet Count 140L, Mean Platelet Volume 7.5, Neutrophils (%) (Auto) , Lymphocytes (%) ( Auto) , Monocytes (%) (Auto) , Eosinophils (%) (Auto) , Basophils (%) (Auto) , Neutrophils % (Manual) [Pending], Lymphocytes % (Manual) [Pending], Platelet Estimate [Pending], Platelet Morphology [Pending] Current Medications Medications (Trade) Dose Ordered Sig/Markus Route PRN Reason Start Time Stop Time Status Last Admin Dose Admin Acetaminophen (Tylenol) 650 mg Q4H PRN ORAL Mild Pain (Pain Scale 1-3) 11/07/18 21:42 12/07/18 21:41 Albuterol/ Ipratropium (Albuterol/ Ipratropium) 3 ml Q8HR HHN 11/07/18 22:00 11/12/18 21:59 11/09/18 06:44 Dextrose (Dextrose 50%) 25 ml Q30M PRN IV Hypoglycemia 11/07/18 21:43 12/07/18 21:42 Dextrose (Dextrose 50%) 50 ml Q30M PRN IV Hypoglycemia 11/07/18 21:43 12/07/18 21:42 Enoxaparin Sodium (Lovenox) 30 mg QHS SUBQ 11/08/18 02:30 12/08/18 02:29 11/08/18 21:01 Insulin Aspart (NovoLOG) BEFORE MEALS AND HS SUBQ 11/07/18 21:00 12/07/18 20:59 11/09/18 06:15 Ondansetron HCl (Zofran) 4 mg Q6H PRN IVP Nausea & Vomiting 11/07/18 21:43 12/07/18 21:42 Oseltamivir Phosphate (Tamiflu) 30 mg DAILY ORAL 11/08/18 09:00 11/13/18 08:59 11/09/18 09:12 Pantoprazole (Protonix) 40 mg DAILY ORAL 11/08/18 09:00 12/08/18 08:59 11/09/18 09:12 Sodium Bicarbonate 150 ml/Dextrose 1,150 ml @ 100 mls/hr [id number] IV 11/08/18 09:30 12/08/18 09:29 11/09/18 08:27 Tigecycline 100 mg/Sodium Chloride 110 ml @ 110 mls/hr ONCE IVPB 11/09/18 11:00 11/09/18 13:00 Tigecycline 50 mg/ Sodium Chloride 110 ml @ 220 mls/hr EVERY 12 HOURS IVPB 11/09/18 21:00 11/16/18 20:59 Duglas Miles MD Nov 09, 2018 09:45
--- NOTE | 2018-11-09 10:34 | Diagnostic Imaging Report ---
EXAM: XR Chest, 1 View CLINICAL HISTORY: SOB TECHNIQUE: Frontal view of the chest. COMPARISON: Chest x-ray 11/07/182148 FINDINGS: Lungs: Hypoventilatory lungs. Bibasilar lung atelectasis. Pleural space: Unremarkable. No pneumothorax. Heart: Unremarkable. No cardiomegaly. Mediastinum: Unremarkable. Bones/joints: Unremarkable. Tubes, lines and devices: Interval removal of the endotracheal tube and NG tube. IMPRESSION: 1. Hypoventilatory lungs. Bibasilar lung atelectasis. 2. Interval removal of the endotracheal tube and NG tube.
[2018-11-09] MEDS ORDERED: Zemuron 50mg/5ml Inj IV ONE (10:49)
[2018-11-09] MEDS ORDERED: Etomidate 40mg/20ml Inj IV ONE (10:49)
--- NOTE | 2018-11-09 10:59 | Cardiology Progress Note ---
Assessment/Plan Status: stable Assessment/Plan Assessment/Plan Status: stable Assessment/Plan Assessment Urosepsis Hydronephrosis Hypertension Diabetes CKD Elevated troponin Respiratory failure Plan Stable on room BP low, hold anti hypertensive medications Serial Troponin, clinically not significant and likely from sepsis and CKD Echocardiogram to evaluate filling pressures and LV function Stress dose steroids Monitor renal function, may need dialysis, no evidence of fluid overload Outpatient stress test when stable to evaluate coronary perfusion given cardiac risk factors Hold aspirin given CKD Urology consult pending for hydronephrosis Transfer to [facility] Subjective Cardiovascular: Reports: no symptoms Respiratory: Reports: no symptoms Gastrointestinal/Abdominal: Reports: no symptoms Genitourinary: Reports: no symptoms Subjective No acute events, being trasferred to [facility], currently stable on room air, BUN and creatinine elevated,urology consult pending. Hemodynamically stable, Family at bedside Objective Last 24 Hour Vital Signs Date Time Temp Pulse Resp B/P (MAP) Pulse Ox O2 Delivery O2 Flow Rate FiO2 11/09/18 10:00 82 19 110/68 (82) 98 11/09/18 09:00 85 19 118/66 (83) 98 11/09/18 08:00 Nasal Cannula 2.0 Nasal Cannula 2.0 11/09/18 08:00 78 11/09/18 08:00 97.9 78 16 112/66 (81) 96 11/09/18 07:00 80 16 109/62 (78) 94 11/09/18 06:55 72 18 100 Room Air 21 11/09/18 06:55 28 11/09/18 06:45 74 17 95 Room Air 21 11/09/18 06:45 95 Room Air 21 11/09/18 06:45 Room Air 21 11/09/18 06:00 71 17 110/63 (79) 96 11/09/18 05:00 79 17 103/66 (78) 98 11/09/18 04:00 Nasal Cannula 2.0 Nasal Cannula 2.0 11/09/18 04:00 78 11/09/18 04:00 97.8 70 16 97/56 (70) 97 11/09/18 03:00 73 15 102/59 (73) 95 11/09/18 02:00 74 16 96/56 (69) 92 11/09/18 01:00 83 17 96/59 (71) 97 11/09/18 00:00 Nasal Cannula 2.0 Nasal Cannula 2.0 11/09/18 00:00 97.6 87 18 101/59 (73) 96 11/08/18 23:00 80 16 100 Nasal Cannula 2.0 28 11/08/18 23:00 82 20 109/65 (80) 100 11/08/18 22:51 28 11/08/18 22:50 76 18 97 Nasal Cannula 2.0 28 11/08/18 22:00 68 12 109/66 (80) 99 11/08/18 21:00 71 17 118/68 (85) 99 11/08/18 20:00 Nasal Cannula 2.0 Nasal Cannula 2.0 11/08/18 20:00 73 11/08/18 20:00 98.0 74 18 113/67 (82) 100 11/08/18 19:00 77 28 107/65 (79) 100 11/08/18 19:00 99 Nasal Cannula 2.0 28 11/08/18 19:00 Nasal Cannula 2.0 28 11/08/18 18:00 78 28 107/25 (52) 100 11/08/18 17:00 79 24 99/62 (74) 100 11/08/18 16:00 Venturi Mask Venturi Mask 11/08/18 16:00 98.9 78 13 125/70 (88) 100 11/08/18 16:00 82 11/08/18 15:14 74 19 100 Venturi Mask 8.0 40 11/08/18 15:03 55 11/08/18 15:03 76 16 100 Venturi Mask 14.0 55 11/08/18 15:00 73 18 111/66 (81) 100 11/08/18 14:00 66 18 110/68 (82) 100 11/08/18 13:00 74 13 133/81 (98) 100 11/08/18 12:00 65 11/08/18 12:00 Venturi Mask Venturi Mask 11/08/18 12:00 98.8 70 13 128/78 (95) 100 11/08/18 11:00 75 13 136/80 (98) 100 General Appearance: no apparent distress, alert EENT: PERRL/EOMI Neck: non-tender, normal alignment, supple, normal inspection, no JVD Rhythm: NSR Cardiovascular: normal peripheral pulses, normal rate, regular rhythm Respiratory/Chest: chest wall non-tender, lungs clear Abdomen: normal bowel sounds, non tender, soft, no organomegaly Extremities: normal range of motion, non-tender Neurologic: chocolate dipper II-XII grossly normal, no motor/sensory deficits Intake and Output 11/08/18 11/09/18 18:59 06:59 Intake Total 1310.0 ml Output Total 860 ml 1070 ml Balance -860 ml 240.0 ml Intake IV Total 1310.0 ml Output Urine Total 860 ml 1070 ml Laboratory Tests Test 11/09/18 05:00 11/09/18 05:10 Sodium Level 138 MMOL/L (136-145) Potassium Level 4.0 MMOL/L (3.5-5.1) Chloride Level 104 MMOL/L (98-107) Carbon Dioxide Level 19 MMOL/L (21-32) L Anion Gap 16 mmol/L (5-15) H Blood Urea Nitrogen 58 mg/dL (7-18) H Creatinine 5.0 MG/DL (0.55-1.30) H Estimat Glomerular Filtration Rate mL/min (>60) Glucose Level 233 MG/DL (74-106) H Calcium Level 8.7 MG/DL (8.5-10.1) White Blood Count 15.9 K/UL (4.8-10.8) H Red Blood Count 4.03 M/UL (4.70-6.10) L Hemoglobin 11.8 G/DL (14.2-18.0) L Hematocrit 34.9 % (42.0-52.0) L Mean Corpuscular Volume 86 FL (80-99) Mean Corpuscular Hemoglobin 29.2 PG (27.0-31.0) Mean Corpuscular Hemoglobin Concent 33.7 G/DL (32.0-36.0) Red Cell Distribution Width 12.6 % (11.6-14.8) Platelet Count 140 K/UL (150-450) L Mean Platelet Volume 7.5 FL (6.5-10.1) Neutrophils (%) (Auto) % (45.0-75.0) Lymphocytes (%) (Auto) % (20.0-45.0) Monocytes (%) (Auto) % (1.0-10.0) Eosinophils (%) (Auto) % (0.0-3.0) Basophils (%) (Auto) % (0.0-2.0) Differential Total Cells Counted 100 Neutrophils % (Manual) 90 % (45-75) H Lymphocytes % (Manual) 3 % (20-45) L Monocytes % (Manual) 5 % (1-10) Eosinophils % (Manual) 0 % (0-3) Basophils % (Manual) 0 % (0-2) Band Neutrophils 2 % (0-8) Platelet Estimate Decreased L Platelet Morphology Normal Red Blood Cell Morphology Normal Microbiology Date/Time Source Procedure Growth Status 11/07/18 16:00 Blood Blood Culture - Preliminary Gram Negative Kit Resulted 11/07/18 15:45 Blood Blood Culture - Preliminary NO GROWTH AFTER 24 HOURS Resulted 11/07/18 16:00 Nasal Nares Influenza Types A,B Antigen (SIMEON) - Final Complete 11/07/18 16:00 Urine,Clean Catch Urine Culture - Preliminary A.baumanii Complx - Mdr Resulted Biju Leon MD Nov 09, 2018 10:59
[2018-11-09] MEDS ORDERED: SODIUM CHLORIDE IVPB SCH ×2 (11:00)
[2018-11-09] MEDS ORDERED: TIGECYCLINE IVPB SCH ×4 (11:00→21:00)
[2018-11-09] MEDS ORDERED: Lidocaine 1% Plain 30 ml INJ PRN ×2 (12:37→15:20)
--- NOTE | 2018-11-09 12:41 | Consultation ---
History of Present Illness General Date patient seen: Nov 09, 2018 Time patient seen: 12:37 Chief Complaint: General Complaint Referring physician: Ginger Reason for Consultation: Acute hypoxemic respiratory failure and bronchospa Present Illness HPI 73 yo male with sepsis, respiratory distress. Etiology likely left hydronephrosis. Has baseline CKD. Discussed with son, as patient does not speak icelandic. Currently resting comfortably. Was intubated after admission, but now stable again. Allergies: Coded Allergies: No Known Allergies (Unverified , 06/16/18) Medication History Scheduled Benzonatate* (Tessalon Perle*), 100 MG ORAL THREE TIMES A DAY Loratadine (Claritin), 10 MG ORAL DAILY Oseltamivir Phosphate (Tamiflu), 75 MG ORAL TWICE A DAY Scheduled PRN Acetaminophen* (Tylenol Extra Strength*), 500 MG ORAL Q8H PRN for Prn Headache/ Temp > 101 Miscellaneous Medications Unable to Obtain Medications (Unable To Obtain Meds), (Reported) Discontinued Medications [faropenem sodium ], 200 MG ORAL DAILY, (Reported) Discontinued Reason: Therapy completed [nefrozon], 150-500 MG ORAL DAILY, (Reported) Discontinued Reason: Therapy completed Patient History Limited by: language barrier History Provided By: Family Member Healthcare decision maker golden rosen Resuscitation status Full Code Advanced Directive on File No Past Medical/Surgical History Past Medical/Surgical History: (1) Renal failure Review of Systems Constitutional: Denies: no symptoms, see HPI, chills, sweats, fever, malaise, weakness, other Eye: Denies: no symptoms, see HPI, eye pain, blurred vision, tearing, double vision, nose pain, nose congestion, acuity changes, discharge, other ENT: Denies: no symptoms, see HPI, ear pain, ear discharge, nose pain, nose congestion, throat pain, throat swelling, mouth pain, hearing loss, nasal discharge, other Respiratory: Denies: no symptoms, see HPI, cough, orthopnea, shortness of breath, stridor, wheezing, RUELAS, sputum, other Gastrointestinal: Denies: no symptoms, see HPI, abdominal pain, constipation, diarrhea, nausea, vomiting, melena, hematemesis, other All Other Systems: negative except mentioned in HPI Physical Exam General Appearance: no apparent distress HEENT: atraumatic Respiratory/Chest: lungs clear Cardiovascular/Chest: normal rate Abdomen: non tender, soft Skin Exam: warm/dry Last 24 Hour Vital Signs Date Time Temp Pulse Resp B/P (MAP) Pulse Ox O2 Delivery O2 Flow Rate FiO2 11/09/18 10:00 82 19 110/68 (82) 98 11/09/18 09:00 85 19 118/66 (83) 98 11/09/18 08:00 Nasal Cannula 2.0 Nasal Cannula 2.0 11/09/18 08:00 78 11/09/18 08:00 97.9 78 16 112/66 (81) 96 11/09/18 07:00 80 16 109/62 (78) 94 11/09/18 06:55 72 18 100 Room Air 21 11/09/18 06:55 28 11/09/18 06:45 74 17 95 Room Air 21 11/09/18 06:45 95 Room Air 21 11/09/18 06:45 Room Air 21 11/09/18 06:00 71 17 110/63 (79) 96 11/09/18 05:00 79 17 103/66 (78) 98 11/09/18 04:00 Nasal Cannula 2.0 Nasal Cannula 2.0 11/09/18 04:00 78 11/09/18 04:00 97.8 70 16 97/56 (70) 97 11/09/18 03:00 73 15 102/59 (73) 95 11/09/18 02:00 74 16 96/56 (69) 92 11/09/18 01:00 83 17 96/59 (71) 97 11/09/18 00:00 Nasal Cannula 2.0 Nasal Cannula 2.0 11/09/18 00:00 97.6 87 18 101/59 (73) 96 11/08/18 23:00 80 16 100 Nasal Cannula 2.0 28 11/08/18 23:00 82 20 109/65 (80) 100 11/08/18 22:51 28 11/08/18 22:50 76 18 97 Nasal Cannula 2.0 28 11/08/18 22:00 68 12 109/66 (80) 99 11/08/18 21:00 71 17 118/68 (85) 99 11/08/18 20:00 Nasal Cannula 2.0 Nasal Cannula 2.0 11/08/18 20:00 73 11/08/18 20:00 98.0 74 18 113/67 (82) 100 11/08/18 19:00 77 28 107/65 (79) 100 11/08/18 19:00 99 Nasal Cannula 2.0 28 11/08/18 19:00 Nasal Cannula 2.0 28 11/08/18 18:00 78 28 107/25 (52) 100 11/08/18 17:00 79 24 99/62 (74) 100 11/08/18 16:00 Venturi Mask Venturi Mask 11/08/18 16:00 98.9 78 13 125/70 (88) 100 11/08/18 16:00 82 11/08/18 15:14 74 19 100 Venturi Mask 8.0 40 11/08/18 15:03 55 11/08/18 15:03 76 16 100 Venturi Mask 14.0 55 11/08/18 15:00 73 18 111/66 (81) 100 11/08/18 14:00 66 18 110/68 (82) 100 11/08/18 13:00 74 13 133/81 (98) 100 Intake and Output 11/08/18 11/09/18 18:59 06:59 Intake Total 1310.0 ml Output Total 860 ml 1070 ml Balance -860 ml 240.0 ml Intake IV Total 1310.0 ml Output Urine Total 860 ml 1070 ml Laboratory Tests Test 11/09/18 05:00 11/09/18 05:10 Sodium Level 138 MMOL/L (136-145) Potassium Level 4.0 MMOL/L (3.5-5.1) Chloride Level 104 MMOL/L (98-107) Carbon Dioxide Level 19 MMOL/L (21-32) L Anion Gap 16 mmol/L (5-15) H Blood Urea Nitrogen 58 mg/dL (7-18) H Creatinine 5.0 MG/DL (0.55-1.30) H Estimat Glomerular Filtration Rate mL/min (>60) Glucose Level 233 MG/DL (74-106) H Calcium Level 8.7 MG/DL (8.5-10.1) White Blood Count 15.9 K/UL (4.8-10.8) H Red Blood Count 4.03 M/UL (4.70-6.10) L Hemoglobin 11.8 G/DL (14.2-18.0) L Hematocrit 34.9 % (42.0-52.0) L Mean Corpuscular Volume 86 FL (80-99) Mean Corpuscular Hemoglobin 29.2 PG (27.0-31.0) Mean Corpuscular Hemoglobin Concent 33.7 G/DL (32.0-36.0) Red Cell Distribution Width 12.6 % (11.6-14.8) Platelet Count 140 K/UL (150-450) L Mean Platelet Volume 7.5 FL (6.5-10.1) Neutrophils (%) (Auto) % (45.0-75.0) Lymphocytes (%) (Auto) % (20.0-45.0) Monocytes (%) (Auto) % (1.0-10.0) Eosinophils (%) (Auto) % (0.0-3.0) Basophils (%) (Auto) % (0.0-2.0) Differential Total Cells Counted 100 Neutrophils % (Manual) 90 % (45-75) H Lymphocytes % (Manual) 3 % (20-45) L Monocytes % (Manual) 5 % (1-10) Eosinophils % (Manual) 0 % (0-3) Basophils % (Manual) 0 % (0-2) Band Neutrophils 2 % (0-8) Platelet Estimate Decreased L Platelet Morphology Normal Red Blood Cell Morphology Normal Height (Feet): 5 Height (Inches): 8.00 Weight (Pounds): 208 Medications Current Medications Medications (Trade) Dose Ordered Sig/Markus Route PRN Reason Start Time Stop Time Status Last Admin Dose Admin Acetaminophen (Tylenol) 650 mg Q4H PRN ORAL Mild Pain (Pain Scale 1-3) 11/07/18 21:42 12/07/18 21:41 11/09/18 11:48 Albuterol/ Ipratropium (Albuterol/ Ipratropium) 3 ml Q8HR HHN 11/07/18 22:00 11/12/18 21:59 11/09/18 06:44 Dextrose (Dextrose 50%) 25 ml Q30M PRN IV Hypoglycemia 11/07/18 21:43 12/07/18 21:42 Dextrose (Dextrose 50%) 50 ml Q30M PRN IV Hypoglycemia 11/07/18 21:43 12/07/18 21:42 Enoxaparin Sodium (Lovenox) 30 mg QHS SUBQ 11/08/18 02:30 12/08/18 02:29 11/08/18 21:01 Insulin Aspart (NovoLOG) BEFORE MEALS AND HS SUBQ 11/07/18 21:00 12/07/18 20:59 11/09/18 11:47 Ondansetron HCl (Zofran) 4 mg Q6H PRN IVP Nausea & Vomiting 11/07/18 21:43 12/07/18 21:42 Oseltamivir Phosphate (Tamiflu) 30 mg DAILY ORAL 11/08/18 09:00 11/13/18 08:59 11/09/18 09:12 Pantoprazole (Protonix) 40 mg DAILY ORAL 11/08/18 09:00 12/08/18 08:59 11/09/18 09:12 Sodium Bicarbonate 150 ml/Dextrose 1,150 ml @ 100 mls/hr [id number] IV 11/08/18 09:30 12/08/18 09:29 11/09/18 08:27 Tigecycline 100 mg/Sodium Chloride 110 ml @ 110 mls/hr ONCE IVPB 11/09/18 11:00 11/09/18 13:00 11/09/18 11:00 Tigecycline 50 mg/ Sodium Chloride 110 ml @ 220 mls/hr EVERY 12 HOURS IVPB 11/09/18 21:00 11/16/18 20:59 Objective Narrative renal ultrasound: left hydro Assessment/Plan Status: stable Assessment/Plan 73 yo male with sepsis likely from source (left hydronephrosis). Given active infection with hydronephrosis, recommend percutaneous nephrostomy tube placement. Discussed with radiology department and willing to do first thing Sunday AM. Patient currently stable. Discussed with son given language barrier. Will get a CT abd/pelvis to better evaluate where and why obstruction present to left kidney, suspect kidney stone. 1. CT abd pelvis 2. plan for left nephrostomy tube placement sunday AM. 3. will need outpatient follow up for stone (if present) removal as well as nephrostomy tube removal Alen Miller M.D. Nov 09, 2018 12:41
[2018-11-09] MEDS ORDERED: Isovue-300 100ml vial INJ PRN ×2 (12:45→15:30)
--- NOTE | 2018-11-09 16:14 | Diagnostic Imaging Report ---
EXAM: CT Abdomen and Pelvis Without Intravenous Contrast CLINICAL HISTORY: IMP TECHNIQUE: Axial computed tomography images of the abdomen and pelvis without intravenous contrast. CTDI is 19.51 mGy and DLP is 1172 mGy-cm. One or more of the following dose reduction techniques were used: automated exposure control, adjustment of the mA and/or kV according to patient size, use of iterative reconstruction technique. COMPARISON: No relevant prior studies available. FINDINGS: Lung bases: Bibasilar lung atelectasis/airspace disease. Pleural space: Small bilateral pleural effusions. Heart: Cardiomegaly. Mediastinum: Small hiatal hernia. ABDOMEN: Liver: Hepatomegaly. Gallbladder and bile ducts: Gallstones. No ductal dilation. Pancreas: Unremarkable. No ductal dilation. Spleen: Unremarkable. No splenomegaly. Adrenals: Unremarkable. No mass. Kidneys and ureters: Hyperdensities in the distal third of left ureter may be sludge or stones, largest measuring up to 4 x 7 mm, resulting in moderate left hydronephrosis. Left perinephric and periureteral stranding, query superimposed infection. Layering left calyceal 8 mm hyperdensity may be nephrocalcinosis. Stomach and bowel: Moderate stool and gas in the colon. No bowel obstruction. No mucosal thickening. PELVIS: Appendix: No findings to suggest acute appendicitis. Bladder: Gustafson catheter in the urinary bladder. No stones. Reproductive: Unremarkable as visualized. ABDOMEN and PELVIS: Intraperitoneal space: Unremarkable. No free air. No significant fluid collection. Bones/joints: Left inferior pubic ramus and ischial old fractures. Displaced sacrococcygeal junction, likely old. Soft tissues: Old injection calcified granulomas bilateral buttock subcutaneous soft tissue. Vasculature: Unremarkable. No abdominal aortic aneurysm. Lymph nodes: Unremarkable. No enlarged lymph nodes. IMPRESSION: 1. Small bilateral pleural effusions. Bibasilar atelectasis and airspace disease. 2. Hyperdensities in the distal third of left ureter may be sludge or stones, largest measuring up to 4 x 7 mm, resulting in moderate left hydronephrosis. Left perinephric and periureteral stranding, query superimposed infection. 3. Layering left calyceal 8 mm hyperdensity may be nephrocalcinosis. 4. Gallstones. 5. Moderate stool and gas in the colon. No bowel obstruction.
[2018-11-09] MEDS ORDERED: NS 275ml ONE (17:11)
[2018-11-09] MEDS ORDERED: Guaifenesin/DM 10ml syrup ORAL PRN (20:30)
[2018-11-09] MEDS ORDERED: [UNRECOGNIZED DRUG - OTHER] IVPB SCH ×2 (21:00)
[2018-11-09] MEDS ORDERED: Enoxaparin 30mg Inj SUBQ SCH (21:00)
[2018-11-09] MEDS: Tigecycline 50 MG in NS 110 ML IVPB SCH (21:01)
[2018-11-10] VITALS: BP 122/82
[2018-11-10] MEDS: Albuterol/Ipratropium 3ml neb HHN SCH ×4 (00:05→23:33)
[2018-11-10 04:00] VITALS: BP 139/77
[2018-11-10] MEDS: Sodium Bicarbonate 150 ML in D5W 1000ml 1,000 ML IV SCH (04:30)
[2018-11-10] MEDS: NovoLOG Insulin Flexpen SUBQ SCH ×4 (06:05→20:56)
[2018-11-10 07:10] LABS: ANION GAP 13 mmol/L (5-15); BLOOD UREA NITROGEN 70 mg/dL (7-18); CALCIUM 8.3 MG/DL (8.5-10.1); CARBON DIOXIDE 25 MMOL/L (21-32); CHLORIDE 105 MMOL/L (98-107); CREATININE 4.6 MG/DL (0.55-1.30); POTASSIUM 3.6 MMOL/L (3.5-5.1); SODIUM 143 MMOL/L (136-145)
[2018-11-10 08:00] VITALS: BP 122/69
--- NOTE | 2018-11-10 08:27 | Nephrology Progress Note ---
Assessment/Plan Assessment/Plan A/P 1) Sepsis- G- rods urine and blood - mgmt per ID 2) Resp [place]- bronchospasms - extubated - Dr Miles 3) NOEMÍ on CKD 4- multifact ATN affecting residual renal fx - sepsis, left hydro. Abx. Cr slightly improved 4) Met Acidosis- due to renal insuff -change to po bicarb 5) Left [place]- Hyperdensities in the distal third of left ureter may be sludge or stones, largest measuring up to 4 x 7 mm, resulting in moderate left hydronephrosis. - PCNT on Sunday Subjective Date patient seen: Nov 10, 2018 Time patient seen: 08:24 ROS Limited/Unobtainable: Yes Allergies: Coded Allergies: No Known Allergies (Unverified , 06/16/18) Subjective Patient extubated. No kiswahili. Breathing well Objective Last 24 Hour Vital Signs Date Time Temp Pulse Resp B/P (MAP) Pulse Ox O2 Delivery O2 Flow Rate FiO2 11/10/18 04:00 Room Air Room Air 11/10/18 04:00 98.2 80 17 139/77 (97) 95 11/10/18 03:35 79 11/10/18 00:18 63 18 99 Room Air 21 11/10/18 00:05 71 18 94 Room Air 21 11/10/18 00:00 98.2 68 18 122/82 (95) 94 11/10/18 00:00 Room Air Room Air 11/09/18 23:33 70 11/09/18 22:49 95 Room Air 21 11/09/18 22:49 Room Air 21 11/09/18 20:00 98.2 83 18 118/72 (87) 96 11/09/18 20:00 Room Air Room Air 11/09/18 19:20 78 11/09/18 16:00 77 11/09/18 16:00 Room Air Room Air 11/09/18 16:00 80 18 118/71 (87) 96 11/09/18 15:00 85 18 153/88 (109) 99 11/09/18 14:45 89 22 100 Nasal Cannula 1.0 24 11/09/18 14:37 86 23 97 Nasal Cannula 1.0 24 11/09/18 14:00 80 18 150/82 (104) 97 11/09/18 13:00 79 18 168/93 (118) 97 11/09/18 12:00 97.3 83 18 116/63 (80) 98 11/09/18 12:00 75 11/09/18 12:00 Nasal Cannula 2.0 Nasal Cannula 2.0 11/09/18 11:00 83 18 112/59 (76) 98 11/09/18 10:00 82 19 110/68 (82) 98 11/09/18 09:00 85 19 118/66 (83) 98 Intake and Output 11/09/18 11/10/18 19:00 07:00 Intake Total 600 ml 1210 ml Output Total 1300 ml 1500 ml Balance -700 ml -290 ml Intake IV Total 600 ml 1210 ml Output Urine Total 1300 ml 1500 ml # Bowel Movements 2 Laboratory Tests 11/10/18 04:40: Sodium Level 143, Potassium Level 3.6, Chloride Level 105, Carbon Dioxide Level 25, Anion Gap 13, Blood Urea Nitrogen 70H, Creatinine 4.6H, Estimat Glomerular Filtration Rate , Glucose Level 101#, Calcium Level 8.3L Height (Feet): 5 Height (Inches): 8.00 Weight (Pounds): 204 General Appearance: no apparent distress, alert EENT: normal ENT inspection Neck: normal alignment, supple Cardiovascular: normal rate, regular rhythm Respiratory/Chest: lungs clear, normal breath sounds Abdomen: non tender, soft Edema: no edema noted Arm (L), no edema noted Arm (R), no edema noted Leg (L), no edema noted Leg (R), no edema noted Pedal (L), no edema noted Pedal (R), no edema noted Generalized Michelet Menchaca MD Nov 10, 2018 08:27
[2018-11-10] MEDS: Tigecycline 50 MG in NS 110 ML IVPB SCH ×2 (08:54→21:02)
[2018-11-10] MEDS ORDERED: Sodium Bicarbonate 650mg Tab ORAL SCH (09:00)
--- NOTE | 2018-11-10 10:34 | Pulmonology Progress Note ---
Assessment/Plan Assessment/Plan Problem List: 1. Acute hypoxemic respiratory failure -intubated 11/08; now extubated 2. Acute bronchospasm - resolved 3. NOEMÍ on CKD - 4. Metabolic acidosis 5. UTI, gram negative bacillus 6. Rule out influenza 7. HTN Plan: -To [facility] -reviewed CXR -f/u cultures and viral swab -abx: vanco/zosyn for neprostomy on Sunday ? FELICIA mcdaniel Subjective Interval Events: Better; afebrile Constitutional: Reports: no symptoms HEENT: Repors: no symptoms Respiratory: Reports: no symptoms Cardiovascular: Reports: no symptoms Gastrointestinal/Abdominal: Reports: no symptoms Genitourinary: Reports: no symptoms Allergies: Coded Allergies: No Known Allergies (Unverified , 06/16/18) Objective Last 24 Hour Vital Signs Date Time Temp Pulse Resp B/P (MAP) Pulse Ox O2 Delivery O2 Flow Rate FiO2 11/10/18 08:30 69 18 99 Room Air 21 11/10/18 08:23 Room Air 21 11/10/18 08:23 74 18 96 Room Air 21 11/10/18 08:23 97 Room Air 21 11/10/18 08:00 97.7 101 16 122/69 (86) 97 11/10/18 04:00 Room Air Room Air 11/10/18 04:00 98.2 80 17 139/77 (97) 95 11/10/18 03:35 79 11/10/18 00:18 63 18 99 Room Air 21 11/10/18 00:05 71 18 94 Room Air 21 11/10/18 00:00 98.2 68 18 122/82 (95) 94 11/10/18 00:00 Room Air Room Air 11/09/18 23:33 70 11/09/18 22:49 95 Room Air 21 11/09/18 22:49 Room Air 21 11/09/18 20:00 98.2 83 18 118/72 (87) 96 11/09/18 20:00 Room Air Room Air 11/09/18 19:20 78 11/09/18 16:00 77 11/09/18 16:00 Room Air Room Air 11/09/18 16:00 80 18 118/71 (87) 96 11/09/18 15:00 85 18 153/88 (109) 99 11/09/18 14:45 89 22 100 Nasal Cannula 1.0 24 11/09/18 14:37 86 23 97 Nasal Cannula 1.0 24 11/09/18 14:00 80 18 150/82 (104) 97 11/09/18 13:00 79 18 168/93 (118) 97 11/09/18 12:00 97.3 83 18 116/63 (80) 98 11/09/18 12:00 75 11/09/18 12:00 Nasal Cannula 2.0 Nasal Cannula 2.0 11/09/18 11:00 83 18 112/59 (76) 98 Intake and Output 11/09/18 11/10/18 19:00 07:00 Intake Total 600 ml 1210 ml Output Total 1300 ml 1500 ml Balance -700 ml -290 ml Intake IV Total 600 ml 1210 ml Output Urine Total 1300 ml 1500 ml # Bowel Movements 2 General Appearance: no acute distress HEENT: normocephalic Respiratory/Chest: chest wall non-tender Cardiovascular: normal peripheral pulses, normal rate Abdomen: normal bowel sounds, soft, non tender Microbiology Date/Time Source Procedure Growth Status 11/08/18 16:20 Blood Blood Culture - Preliminary NO GROWTH AFTER 24 HOURS Resulted 11/08/18 16:05 Blood Blood Culture - Preliminary NO GROWTH AFTER 24 HOURS Resulted 11/07/18 16:00 Blood Blood Culture - Preliminary Acinetobacter Baumanii - Mdr Resulted 11/07/18 15:45 Blood Blood Culture - Preliminary NO GROWTH AFTER 48 HOURS Resulted 11/07/18 16:00 Nasal Nares Influenza Types A,B Antigen (SIMEON) - Final Complete 11/07/18 16:00 Urine,Clean Catch Urine Culture - Final A.baumanii Complx - Mdr Complete 11/07/18 23:05 Rectum VRE Culture - Final NO VANCOMYCIN RESISTANT ENTEROCOCCUS ... Complete Laboratory Tests 11/10/18 04:40: Sodium Level 143, Potassium Level 3.6, Chloride Level 105, Carbon Dioxide Level 25, Anion Gap 13, Blood Urea Nitrogen 70H, Creatinine 4.6H, Estimat Glomerular Filtration Rate , Glucose Level 101#, Calcium Level 8.3L Current Medications Medications (Trade) Dose Ordered Sig/Markus Route PRN Reason Start Time Stop Time Status Last Admin Dose Admin Acetaminophen (Tylenol) 650 mg Q4H PRN ORAL Mild Pain (Pain Scale 1-3) 11/09/18 15:20 12/07/18 15:19 Albuterol/ Ipratropium (Albuterol/ Ipratropium) 3 ml Q8HRT HHN 11/09/18 23:00 11/14/18 22:59 11/10/18 08:23 Dextrose (Dextrose 50%) 25 ml Q30M PRN IV Hypoglycemia 11/09/18 15:45 12/07/18 21:42 Dextrose (Dextrose 50%) 50 ml Q30M PRN IV Hypoglycemia 11/09/18 15:45 12/07/18 21:42 Enoxaparin Sodium (Lovenox) 30 mg QHS SUBQ 11/09/18 21:00 12/08/18 02:29 11/09/18 21:00 Guaifenesin/ Dextromethorphan (Robitussin DM Syrup) 5 ml Q8H PRN ORAL For Cough 11/09/18 20:30 12/09/18 20:29 11/09/18 20:56 Insulin Aspart (NovoLOG) BEFORE MEALS AND HS SUBQ 11/09/18 16:30 12/07/18 20:59 11/09/18 21:00 Iopamidol (Isovue-300 100ml) 100 ml PRN PRN INJ PROCEDURE 11/09/18 15:30 11/10/18 15:29 Lidocaine HCl (Xylocaine 1% 30ml) 30 ml ONCE PRN INJ PROCEDURE 11/09/18 15:20 11/10/18 23:59 Ondansetron HCl (Zofran) 4 mg Q6H PRN IVP Nausea & Vomiting 11/09/18 15:45 12/07/18 21:42 Oseltamivir Phosphate (Tamiflu) 30 mg DAILY ORAL 11/10/18 09:00 11/13/18 08:59 11/10/18 08:46 Pantoprazole (Protonix) 40 mg DAILY ORAL 11/10/18 09:00 12/08/18 08:59 11/10/18 08:46 Sodium Bicarbonate (NaHCO3) 650 mg THREE TIMES A DAY ORAL 11/10/18 09:00 12/10/18 08:59 11/10/18 08:46 Tigecycline 50 mg/ Sodium Chloride 110 ml @ 220 mls/hr EVERY 12 HOURS IVPB 11/09/18 21:00 11/16/18 20:59 11/10/18 08:54 Duglas Miles MD Nov 10, 2018 10:34
--- NOTE | 2018-11-10 11:11 | Cardiology Report ---
APPROVED REPORT EKG Measurement Heart [id number] Normal sinus rhythm Prolonged QT Abnormal ECG
--- NOTE | 2018-11-10 11:12 | Cardiology Report ---
APPROVED REPORT EKG Measurement Heart [id number] AR 140P4 [id number] Sinus tachycardia Otherwise normal ECG
[2018-11-10 11:45] VITALS: BP 131/80
[2018-11-10] MEDS ORDERED: Lidocaine 1% Plain 30 ml INJ ONE (12:00)
[2018-11-10] MEDS ORDERED: Isovue-300 100ml vial INJ ONE (12:00)
--- NOTE | 2018-11-10 12:03 | Cardiology Report ---
APPROVED REPORT EXAM: Two-dimensional and M-mode echocardiogram with Doppler and color Doppler. INDICATION Hypertension M-Mode DIMENSIONS IVSd1.3 (0.7-1.1cm)Left Atrium (MM)4.0 (1.6-4.0cm) LVDd4.1 (3.5-5.6cm)Aortic Root3.5 (2.0-3.7cm) PWd1.1 (0.7-1.1cm)Aortic Cusp Exc.2.0 (1.5-2.0cm) LVDs1.7 (2.5-4.0cm) PWs1.8 cm Technically difficult study due to patient on ventilator. Study quality precludes accurate assessment of regional wall motion. Normal left ventricular chamber size, systolic function and wall motion. Left ventricular ejection fraction estimated to be 60 %. Mild left ventricular hypertrophy. Anterior Echo-free space, may be due to pericardial fat or effusion. All other cardiac chamber sizes are within normal limits. Mild focal aortic valve sclerosis with adequate cusp excursion. Mildly thickened mitral valve leaflets with normal excursion. Mild mitral annulus and aortic root calcification. Normal pulmonic valve structure. Normal tricuspid valve structure. IVC dilated at 2.3 cm without physiological collapse. A color flow and spectral Doppler study was performed and revealed: No aortic insufficiency. Trace mitral regurgitation. Mitral diastolic velocities suggest mild left ventricular diastolic dysfunction (Grade I). No tricuspid regurgitation. Tricuspid systolic velocities suggests peak right ventricular systolic pressure of 20 mmHg. No pulmonic regurgitation present.
[2018-11-10] MEDS ORDERED: Guaifenesin/DM 10ml syrup ORAL PRN (12:30)
[2018-11-10] MEDS ORDERED: Albuterol/Ipratropium 3ml neb HHN PRN (13:15)
[2018-11-10] MEDS: Sodium Bicarbonate 650mg Tab ORAL SCH ×2 (13:19→17:23)
[2018-11-10 16:00] VITALS: BP 141/87
--- NOTE | 2018-11-10 19:31 | Cardiology Progress Note ---
Assessment/Plan Status: stable Assessment/Plan Assessment/Plan Status: stable Assessment/Plan Assessment Urosepsis Hydronephrosis Hypertension Diabetes CKD Elevated troponin Respiratory failure Plan Stable on room air BP low, hold anti hypertensive medications Serial Troponin, clinically not significant and likely from sepsis and CKD Echocardiogram to evaluate filling pressures and LV function Stress dose steroids Outpatient stress test when stable to evaluate coronary perfusion given cardiac risk factors Hold aspirin given CKD Urology consult pending for hydronephrosis, cleared to proceed with nephrostomy tubes on sunday Subjective Cardiovascular: Reports: no symptoms Respiratory: Reports: no symptoms Gastrointestinal/Abdominal: Reports: no symptoms Genitourinary: Reports: no symptoms Subjective No acute events, stable on room air. Patient is positive for Gram positive cocci in pairs and chains in 2 bottles and Gram positive cocci in clusters in 1 bottle. Vitals stable, no pain Objective Last 24 Hour Vital Signs Date Time Temp Pulse Resp B/P (MAP) Pulse Ox O2 Delivery O2 Flow Rate FiO2 11/10/18 16:00 98.3 77 18 141/87 (105) 95 11/10/18 15:08 Room Air 21 11/10/18 15:08 Room Air 21 11/10/18 11:45 97.7 89 20 131/80 (97) 96 11/10/18 08:30 69 18 99 Room Air 21 11/10/18 08:23 Room Air 21 11/10/18 08:23 74 18 96 Room Air 21 11/10/18 08:23 97 Room Air 11/10/18 08:00 82 11/10/18 08:00 97.7 101 16 122/69 (86) 97 11/10/18 08:00 Room Air 11/10/18 04:00 Room Air Room Air 11/10/18 04:00 98.2 80 17 139/77 (97) 95 11/10/18 03:35 79 11/10/18 00:18 63 18 99 Room Air 21 11/10/18 00:05 71 18 94 Room Air 21 11/10/18 00:00 98.2 68 18 122/82 (95) 94 11/10/18 00:00 Room Air Room Air 11/09/18 23:33 70 11/09/18 22:49 95 Room Air 11/09/18 22:49 Room Air 21 11/09/18 20:00 98.2 83 18 118/72 (87) 96 11/09/18 20:00 Room Air Room Air General Appearance: no apparent distress, alert EENT: PERRL/EOMI, normal ENT inspection, TMs normal, pharynx normal Neck: non-tender, normal alignment, supple, normal inspection, no JVD Rhythm: NSR Cardiovascular: normal peripheral pulses, normal rate Respiratory/Chest: chest wall non-tender, lungs clear Abdomen: normal bowel sounds, non tender Extremities: normal range of motion, non-tender 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 normal Intake and Output 11/09/18 11/10/18 18:59 06:59 Intake Total 600 ml 1310 ml Output Total 365 ml 2500 ml Balance 235 ml -1190 ml IV Total 600 ml 1310 ml Output Urine Total 365 ml 2500 ml # Bowel Movements 2 Laboratory Tests Test 11/10/18 04:40 Sodium Level 143 MMOL/L (136-145) Potassium Level 3.6 MMOL/L (3.5-5.1) Chloride Level 105 MMOL/L (98-107) Carbon Dioxide Level 25 MMOL/L (21-32) Anion Gap 13 mmol/L (5-15) Blood Urea Nitrogen 70 mg/dL (7-18) H Creatinine 4.6 MG/DL (0.55-1.30) H Estimat Glomerular Filtration Rate mL/min (>60) Glucose Level 101 MG/DL (74-106) # Calcium Level 8.3 MG/DL (8.5-10.1) L Microbiology Date/Time Source Procedure Growth Status 11/08/18 16:20 Blood Blood Culture - Preliminary NO GROWTH AFTER 24 HOURS Resulted 11/08/18 16:05 Blood Blood Culture - Preliminary NO GROWTH AFTER 24 HOURS Resulted 11/07/18 23:05 Nasal Nares MRSA Culture - Final NO METHICILLIN RESISTANT STAPH AUREUS... Complete 11/07/18 23:05 Rectum VRE Culture - Final NO VANCOMYCIN RESISTANT ENTEROCOCCUS ... Complete Biju Leon MD Nov 10, 2018 19:31
[2018-11-10 20:09] VITALS: BP 132/81
[2018-11-10] MEDS: Enoxaparin 30mg Inj SUBQ SCH (20:48)
[2018-11-11] VITALS (21 sets, daily range): BP systolic 120–158; BP diastolic 65–93
[2018-11-11] MEDS: NovoLOG Insulin Flexpen SUBQ SCH ×4 (05:48→21:00)
[2018-11-11] MEDS: Albuterol/Ipratropium 3ml neb HHN SCH ×3 (07:23→23:56)
--- NOTE | 2018-11-11 08:01 | Pulmonology Progress Note ---
Assessment/Plan Assessment/Plan Problem List: 1. Acute hypoxemic respiratory failure -intubated 11/08; now extubated 2. Acute bronchospasm - resolved 3. NOEMÍ on CKD - 4. Metabolic acidosis 5. UTI, gram negative bacillus 6. Rule out influenza 7. HTN Plan: -Now on medical floor -reviewed CXR -f/u cultures and viral swab -abx: for neprostomy today ? FELICIA mcdaniel Subjective Interval Events: None new Constitutional: Reports: no symptoms HEENT: Repors: no symptoms Respiratory: Reports: no symptoms Cardiovascular: Reports: no symptoms Gastrointestinal/Abdominal: Reports: no symptoms Genitourinary: Reports: no symptoms Neurologic: Reports: no symptoms Allergies: Coded Allergies: No Known Allergies (Unverified , 06/16/18) Objective Last 24 Hour Vital Signs Date Time Temp Pulse Resp B/P (MAP) Pulse Ox O2 Delivery O2 Flow Rate FiO2 11/11/18 07:24 80 18 98 Room Air 11/11/18 07:23 Room Air 11/11/18 07:23 94 Room Air 11/11/18 07:18 81 18 96 Room Air 11/11/18 04:00 98.1 80 19 130/70 (90) 94 11/11/18 00:00 99.0 79 18 131/72 (91) 93 11/10/18 23:42 72 20 98 Room Air 21 11/10/18 23:32 78 20 95 Room Air 21 11/10/18 23:31 Room Air 21 11/10/18 23:31 95 Room Air 11/10/18 20:09 97.9 82 19 132/81 (98) 95 11/10/18 16:00 98.3 77 18 141/87 (105) 95 11/10/18 15:08 Room Air 21 11/10/18 15:08 Room Air 11/10/18 11:45 97.7 89 20 131/80 (97) 96 11/10/18 08:30 69 18 99 Room Air 21 11/10/18 08:23 Room Air 21 11/10/18 08:23 74 18 96 Room Air 21 11/10/18 08:23 97 Room Air 21 Intake and Output 11/10/18 11/11/18 19:00 07:00 Intake Total 966.667 ml 510 ml Output Total 900 ml 2700 ml Balance 66.667 ml -2190 ml Intake Oral 720 ml 400 ml IV Total 246.667 ml 110 ml Output Urine Total 900 ml 2700 ml # Voids 1 # Bowel Movements 1 General Appearance: no acute distress HEENT: normocephalic Respiratory/Chest: chest wall non-tender, lungs clear Cardiovascular: normal peripheral pulses, normal rate Abdomen: normal bowel sounds, soft, non tender Microbiology Date/Time Source Procedure Growth Status 11/08/18 16:20 Blood Blood Culture - Preliminary NO GROWTH AFTER 48 HOURS Resulted 11/08/18 16:05 Blood Blood Culture - Preliminary NO GROWTH AFTER 48 HOURS Resulted Current Medications Medications (Trade) Dose Ordered Sig/Markus Route PRN Reason Start Time Stop Time Status Last Admin Dose Admin Acetaminophen (Tylenol) 650 mg Q4H PRN ORAL Mild Pain (Pain Scale 1-3) 11/10/18 12:30 12/07/18 12:29 Albuterol/ Ipratropium (Albuterol/ Ipratropium) 3 ml Q4H PRN HHN Shortness of Breath 11/10/18 13:15 11/15/18 13:14 Albuterol/ Ipratropium (Albuterol/ Ipratropium) 3 ml Q8HRT HHN 11/10/18 15:00 11/14/18 22:59 11/11/18 07:23 Dextrose (Dextrose 50%) 25 ml Q30M PRN IV Hypoglycemia 11/10/18 12:15 12/07/18 21:42 Dextrose (Dextrose 50%) 50 ml Q30M PRN IV Hypoglycemia 11/10/18 12:15 12/07/18 21:42 Enoxaparin Sodium (Lovenox) 30 mg QHS SUBQ 11/10/18 21:00 12/08/18 02:29 Guaifenesin/ Dextromethorphan (Robitussin DM Syrup) 5 ml Q8H PRN ORAL For Cough 11/10/18 12:30 12/09/18 20:29 Insulin Aspart (NovoLOG) BEFORE MEALS AND HS SUBQ 11/10/18 16:30 12/07/18 20:59 Ondansetron HCl (Zofran) 4 mg Q6H PRN IVP Nausea & Vomiting 11/10/18 12:30 12/07/18 12:29 Oseltamivir Phosphate (Tamiflu) 30 mg DAILY ORAL 11/11/18 09:00 11/12/18 09:01 Pantoprazole (Protonix) 40 mg DAILY ORAL 11/11/18 09:00 12/08/18 08:59 Sodium Bicarbonate (NaHCO3) 650 mg THREE TIMES A DAY ORAL 11/10/18 13:00 12/10/18 08:59 11/10/18 17:23 Tigecycline 50 mg/ Sodium Chloride 110 ml @ 220 mls/hr EVERY 12 HOURS IVPB 11/10/18 21:00 11/16/18 20:59 11/10/18 21:02 Duglas Miles MD Nov 11, 2018 08:01
--- NOTE | 2018-11-11 08:09 | Nephrology Progress Note ---
Assessment/Plan Assessment/Plan A/P 1) Sepsis- G- rods urine and blood - Abx mgmt per ID 2) Resp [place]- bronchospasms, resolved 3) NOEMÍ on CKD 4- multifact ATN affecting residual renal fx - sepsis, left hydro. Abx. Cr slightly improved - PCNT today, am labs pending 4) Met Acidosis- due to renal insuff -po bicarb 5) Left [place]- Hyperdensities in the distal third of left ureter may be sludge or stones, largest measuring up to 4 x 7 mm, resulting in moderate left hydronephrosis. - PCNT Subjective Date patient seen: Nov 11, 2018 Time patient seen: 08:07 Allergies: Coded Allergies: No Known Allergies (Unverified , 06/16/18) Subjective Patient in bathroom, NPO for procedure Objective Last 24 Hour Vital Signs Date Time Temp Pulse Resp B/P (MAP) Pulse Ox O2 Delivery O2 Flow Rate FiO2 11/11/18 07:24 80 18 98 Room Air 11/11/18 07:23 Room Air 11/11/18 07:23 94 Room Air 11/11/18 07:18 81 18 96 Room Air 11/11/18 04:00 98.1 80 19 130/70 (90) 94 11/11/18 00:00 99.0 79 18 131/72 (91) 93 11/10/18 23:42 72 20 98 Room Air 21 11/10/18 23:32 78 20 95 Room Air 11/10/18 23:31 Room Air 21 11/10/18 23:31 95 Room Air 11/10/18 20:09 97.9 82 19 132/81 (98) 95 11/10/18 16:00 98.3 77 18 141/87 (105) 95 11/10/18 15:08 Room Air 11/10/18 15:08 Room Air 11/10/18 11:45 97.7 89 20 131/80 (97) 96 11/10/18 08:30 69 18 99 Room Air 21 11/10/18 08:23 Room Air 21 11/10/18 08:23 74 18 96 Room Air 21 11/10/18 08:23 97 Room Air 21 Intake and Output 11/10/18 11/11/18 19:00 07:00 Intake Total 966.667 ml 510 ml Output Total 900 ml 2700 ml Balance 66.667 ml -2190 ml Intake Oral 720 ml 400 ml IV Total 246.667 ml 110 ml Output Urine Total 900 ml 2700 ml # Voids 1 # Bowel Movements 1 Height (Feet): 5 Height (Inches): 8.00 Weight (Pounds): 211 Michelet Menchaca MD Nov 11, 2018 08:09
[2018-11-11 08:23] LABS: BASOPHILS % (AUTO) 0.6 % (0.0-2.0); EOSINOPHILS % (AUTO) 1.4 % (0.0-3.0); HEMATOCRIT 37.6 % (42.0-52.0); HEMOGLOBIN 12.3 G/DL (14.2-18.0); LYMPHOCYTES % (AUTO) 16.6 % (20.0-45.0); MEAN CORPUSCULAR VOLUME 87 FL (80-99); MONOCYTES % (AUTO) 8.3 % (1.0-10.0); NEUTROPHILS % (AUTO) 73.1 % (45.0-75.0); PLATELET COUNT 165 K/UL (150-450); WHITE BLOOD COUNT 12.4 K/UL (4.8-10.8)
[2018-11-11 08:49] LABS: ANION GAP 12 mmol/L (5-15); BLOOD UREA NITROGEN 80 mg/dL (7-18); CALCIUM 8.1 MG/DL (8.5-10.1); CARBON DIOXIDE 24 MMOL/L (21-32); CHLORIDE 103 MMOL/L (98-107); CREATININE 4.4 MG/DL (0.55-1.30); POTASSIUM 4.1 MMOL/L (3.5-5.1); SODIUM 139 MMOL/L (136-145)
--- NOTE | 2018-11-11 09:54 | Infectious Diseases Prog Note ---
Assessment/Plan Assessment/Plan Severe sepsis 2ry to UTI c/w Acinetobacer -CXR: Minimal bilateral atelectatic changes. No acute process otherwise -u/a wbc 20-30, nit neg, luek large; ucx 40-50 K Acinetobacter -BCx 10/16 GNR Fever, resolved Leukocytosis Acute respiratory failure s/p intubation 11/07- sp extubation 11/08 NOEMÍ on CKD - (b/l Cr mid 2s) HTN DM Plan: - Start Tigecycline #3/ for Acinetobacter urosepsis ( End date 11/23/18) - 11/09 SP Zosyn #2 pending ID and sensi GNR Ucx and Bcx - 11/09 SP IV Vancomycin #2 -Repeat Bcx x2 -f/u cx -Monitor CBC/CMP, temperatures -ICU/ETT care -aspiration precautions Thank you for this consultation. Will continue to follow along with you. Subjective Allergies: Coded Allergies: No Known Allergies (Unverified , 06/16/18) Subjective Afebrile awake and alert no complaints Leukocytosis improving Objective Vital Signs Last 24 Hour Vital Signs Date Time Temp Pulse Resp B/P (MAP) Pulse Ox O2 Delivery O2 Flow Rate FiO2 11/11/18 08:00 99.0 97 20 142/78 (99) 96 11/11/18 07:24 80 18 98 Room Air 11/11/18 07:23 Room Air 21 11/11/18 07:23 94 Room Air 11/11/18 07:18 81 18 96 Room Air 11/11/18 04:00 98.1 80 19 130/70 (90) 94 11/11/18 00:00 99.0 79 18 131/72 (91) 93 11/10/18 23:42 72 20 98 Room Air 21 11/10/18 23:32 78 20 95 Room Air 21 11/10/18 23:31 Room Air 21 11/10/18 23:31 95 Room Air 21 11/10/18 20:09 97.9 82 19 132/81 (98) 95 11/10/18 16:00 98.3 77 18 141/87 (105) 95 11/10/18 15:08 Room Air 21 11/10/18 15:08 Room Air 21 11/10/18 11:45 97.7 89 20 131/80 (97) 96 Height (Feet): 5 Height (Inches): 8.00 Weight (Pounds): 211 Objective General: NAD, Laying in bed HEENT: normocephalic, atraumatic, mucous membranes moist Respiratory/Chest: lungs clear Cardiovascular/Chest: normal rate, regular rhythm Abdomen: non tender, soft Microbiology Date/Time Source Procedure Growth Status 11/08/18 16:20 Blood Blood Culture - Preliminary NO GROWTH AFTER 48 HOURS Resulted 11/08/18 16:05 Blood Blood Culture - Preliminary NO GROWTH AFTER 48 HOURS Resulted Laboratory Tests Test 11/11/18 07:00 White Blood Count 12.4 K/UL (4.8-10.8) H Red Blood Count 4.30 M/UL (4.70-6.10) L Hemoglobin 12.3 G/DL (14.2-18.0) L Hematocrit 37.6 % (42.0-52.0) L Mean Corpuscular Volume 87 FL (80-99) Mean Corpuscular Hemoglobin 28.6 PG (27.0-31.0) Mean Corpuscular Hemoglobin Concent 32.8 G/DL (32.0-36.0) Red Cell Distribution Width 13.0 % (11.6-14.8) Platelet Count 165 K/UL (150-450) Mean Platelet Volume 5.6 FL (6.5-10.1) L Neutrophils (%) (Auto) 73.1 % (45.0-75.0) Lymphocytes (%) (Auto) 16.6 % (20.0-45.0) L Monocytes (%) (Auto) 8.3 % (1.0-10.0) Eosinophils (%) (Auto) 1.4 % (0.0-3.0) Basophils (%) (Auto) 0.6 % (0.0-2.0) Prothrombin Time 10.9 SEC (9.30-11.50) Prothromb Time International Ratio 1.0 (0.9-1.1) Sodium Level 139 MMOL/L (136-145) Potassium Level 4.1 MMOL/L (3.5-5.1) Chloride Level 103 MMOL/L (98-107) Carbon Dioxide Level 24 MMOL/L (21-32) Anion Gap 12 mmol/L (5-15) Blood Urea Nitrogen 80 mg/dL (7-18) H Creatinine 4.4 MG/DL (0.55-1.30) H Estimat Glomerular Filtration Rate mL/min (>60) Glucose Level 78 MG/DL (74-106) Calcium Level 8.1 MG/DL (8.5-10.1) L Current Medications Medications (Trade) Dose Ordered Sig/Markus Route PRN Reason Start Time Stop Time Status Last Admin Dose Admin Acetaminophen (Tylenol) 650 mg Q4H PRN ORAL Mild Pain (Pain Scale 1-3) 11/10/18 12:30 12/07/18 12:29 Albuterol/ Ipratropium (Albuterol/ Ipratropium) 3 ml Q4H PRN HHN Shortness of Breath 11/10/18 13:15 11/15/18 13:14 Albuterol/ Ipratropium (Albuterol/ Ipratropium) 3 ml Q8HRT HHN 11/10/18 15:00 11/14/18 22:59 11/11/18 07:23 Dextrose (Dextrose 50%) 25 ml Q30M PRN IV Hypoglycemia 11/10/18 12:15 12/07/18 21:42 Dextrose (Dextrose 50%) 50 ml Q30M PRN IV Hypoglycemia 11/10/18 12:15 12/07/18 21:42 Enoxaparin Sodium (Lovenox) 30 mg QHS SUBQ 11/10/18 21:00 12/08/18 02:29 Guaifenesin/ Dextromethorphan (Robitussin DM Syrup) 5 ml Q8H PRN ORAL For Cough 11/10/18 12:30 12/09/18 20:29 Insulin Aspart (NovoLOG) BEFORE MEALS AND HS SUBQ 11/10/18 16:30 12/07/18 20:59 Ondansetron HCl (Zofran) 4 mg Q6H PRN IVP Nausea & Vomiting 11/10/18 12:30 12/07/18 12:29 Oseltamivir Phosphate (Tamiflu) 30 mg DAILY ORAL 11/11/18 09:00 11/12/18 09:01 Pantoprazole (Protonix) 40 mg DAILY ORAL 11/11/18 09:00 12/08/18 08:59 Sodium Bicarbonate (NaHCO3) 650 mg THREE TIMES A DAY ORAL 11/10/18 13:00 12/10/18 08:59 11/10/18 17:23 Tigecycline 50 mg/ Sodium Chloride 110 ml @ 220 mls/hr EVERY 12 HOURS IVPB 11/10/18 21:00 11/16/18 20:59 11/10/18 21:02 Biju Nuñez MD Nov 11, 2018 09:54
[2018-11-11] MEDS: Tigecycline 50 MG in NS 110 ML IVPB SCH ×2 (10:06→21:00)
[2018-11-11] MEDS ORDERED: ceFAZolin 1gm/50ml Premix 50 ML IV PRN (13:45)
[2018-11-11] MEDS ORDERED: Heparin 2000 units/Ns 1000ml INJ PRN (13:45)
[2018-11-11] MEDS ORDERED: Lidocaine 1% Plain 30 ml INJ PRN (13:45)
--- NOTE | 2018-11-11 14:41 | Pre-Procedure Note/Attestation ---
Pre-Procedure Note/Attestation Complete Prior to Procedure Planned Procedure: left Procedure Narrative: nephrostomy Indications for Procedure Pre-Operative Diagnosis: obstructive uropathy Attestation I attest that I discussed the nature of the procedure; its benefits; risks and complications; and alternatives (and the risks and benefits of such alternatives ), prior to the procedure, with the patient (or the patient's legal entry level account representative). I attest that, if there was a reasonable possibility of needing a blood transfusion, the patient (or the patient's legal entry level account representative) was given the [facility] standardized written summary, pursuant to the Donnell Malik Blood Safety Act ([place] Health and Safety Code # 1645, as amended). I attest that I re-evaluated the patient just prior to the surgery and that there has been no change in the patient's H&P, except as documented below: Harsha Brown MD Nov 11, 2018 14:41
--- NOTE | 2018-11-11 14:42 | Moderate Sedation - Procedural ---
Moderate Sedation HPI Home Medication Active Scripts Oseltamivir Phosphate (Tamiflu) 75 Mg Capsule, 75 MG ORAL TWICE A DAY for 5 Days , #10 CAP Prov:Alphonse Melendez Keri 11/04/18 Benzonatate* (TESSALON PERLE*) 100 Mg Capsule, 100 MG ORAL THREE TIMES A DAY, # 20 PERLE Prov:Alphonse Melendez NoeAMaxwell 11/04/18 Loratadine (CLARITIN) 10 Mg Capsule, 10 MG ORAL DAILY, #30 CAP Prov:Alphonse Melendez NoeAMaxwell 11/04/18 Acetaminophen* (TYLENOL EXTRA STRENGTH*) 500 Mg Tablet, 500 MG ORAL Q8H PRN for Prn Headache/Temp > 101, #30 TAB 0 Refills Prov:Alphonse MelendezDon 11/04/18 Reported Medications Unable to Obtain Medications (UNABLE TO OBTAIN MEDS) 1 Ea Ea 11/07/18 Discontinued Reported Medications [faropenem sodium ] No Conflict Check, 200 MG ORAL DAILY 06/16/18 [nefrozon] No Conflict Check, 150-500 MG ORAL DAILY nefrozon (taurine 500mg and acetylcysteine 150mg) daily 06/16/18 Patient History Allergies: Coded Allergies: No Known Allergies (Unverified , 06/16/18) Pre-Procedural Mod Sedation Date: Dec 12, 2018 Pre-Assessment Time: 14:41 Pre-Sedation Assessment: Eval. Immed. Prior to Sed Airway Assessment (Malampati): III Pre-op Diagnosis: obstructive uropathy Evaluation ASA Score: I Informed Consent The nature of the procedure/sedation; its benefits; risks and complications; and alternatives (and the risks and benefits of such alternatives) were discussed with the patient (or their legal technical account representative), prior to the procedure. All questions were answered to the patient's (or their legal technical account representative's) satisfaction and the patient (or their legal technical account representative) gave informed consent to the procedure. I attest that I re-evaluated the patient just prior to the surgery and that there has been no change in the patient's H&P, except as documented below: Post Procedure Assessment Post Procedure TIme: 15:16 Communication: No Apparent Limitation Mental Status: Awake Respiration: Unlabored Skin Condition: WNL Adomen: WNL Nausea: NO Vomiting: NO Harsha Brown MD Nov 11, 2018 14:42
[2018-11-11] MEDS ORDERED: fentaNYL 100 mcg/2 mL IV ONE (14:47)
[2018-11-11] MEDS ORDERED: Midazolam 2mg/2ml Inj ONE (14:47)
--- NOTE | 2018-11-11 15:18 | Brief Operative Note ---
Immediate Post Operative Note Operative Note Pre-op Diagnosis: obstructive uropathy Procedure: L nephrostomy Post-op Diagnosis: same Post-op Diagnosis: same as pre-op Findings: consistent w/pre-op dx studies Surgeon: Helio BROWN Anesthesia: moderate sedation Specimen: none Complications: none Condition: stable Fluids: none Drains: other - 8.5 F pigtail Implant(s) used?: No Harsha Brown MD Nov 11, 2018 15:18
[2018-11-11] MEDS ORDERED: fentaNYL 100 mcg/2 mL IV SCH (16:00)
[2018-11-11] MEDS ORDERED: Midazolam 2mg/2ml Inj IVP SCH (16:00)
--- NOTE | 2018-11-11 16:24 | Diagnostic Imaging Report ---
Indication: Dyspnea Technique: One view of the chest Comparison: 11/10/2018 Findings: Interim removal of endotracheal and nasogastric tube-reportedly patient self extubated. The heart is enlarged. There is some hazy opacity at the right lung base which could indicate infiltrate or pleural fluid. Pulmonary congestion appears minimally decreased overall Impression: Interim endotracheal and nasogastric extubation Slightly decreased interstitial congestion Persistent right basilar hazy opacity, may reflect pleural fluid, infiltrate, or overlying soft tissue
--- NOTE | 2018-11-11 16:37 | Cardiology Progress Note ---
Assessment/Plan Status: stable Assessment/Plan Assessment/Plan Status: stable Assessment/Plan Assessment Urosepsis Hydronephrosis Hypertension Diabetes CKD Elevated troponin Respiratory failure Plan Stable on room air BP low, hold anti hypertensive medications Serial Troponin, clinically not significant and likely from sepsis and CKD Echocardiogram to evaluate filling pressures and LV function Stress dose steroids Outpatient stress test when stable to evaluate coronary perfusion given cardiac risk factors Hold aspirin given CKD Urology consult pending for hydronephrosis, cleared to proceed with nephrostomy tubes on sunday, NPO Subjective Cardiovascular: Reports: no symptoms Respiratory: Reports: no symptoms Gastrointestinal/Abdominal: Reports: no symptoms Genitourinary: Reports: no symptoms Subjective No acute events, NPO for nephrostomy tube today, no acute events, no complaints , vitals stable Objective Last 24 Hour Vital Signs Date Time Temp Pulse Resp B/P (MAP) Pulse Ox O2 Delivery O2 Flow Rate FiO2 11/11/18 15:58 98.0 82 16 99 Nasal Cannula 3.0 80 97 11/11/18 15:30 98.5 76 18 128/76 99 Nasal Cannula 2 11/11/18 15:27 79 16 99 Room Air 21 11/11/18 15:25 72 14 137/85 97 Nasal Cannula 2 11/11/18 15:22 77 16 96 Room Air 21 11/11/18 15:20 82 15 130/81 99 Nasal Cannula 3 11/11/18 15:16 98.3 79 23 123/65 99 Nasal Cannula 3 11/11/18 15:10 79 18 123/65 (84) 99 11/11/18 15:05 78 18 132/67 (88) 97 11/11/18 15:00 77 18 128/76 (93) 98 11/11/18 14:55 98.0 83 18 120/81 (94) 96 11/11/18 14:05 83 19 11/11/18 12:00 97.7 84 19 147/83 (104) 95 11/11/18 08:00 99.0 97 20 142/78 (99) 96 11/11/18 07:24 80 18 98 Room Air 21 11/11/18 07:23 Room Air 21 11/11/18 07:23 94 Room Air 21 11/11/18 07:18 81 18 96 Room Air 21 11/11/18 04:00 98.1 80 19 130/70 (90) 94 11/11/18 00:00 99.0 79 18 131/72 (91) 93 11/10/18 23:42 72 20 98 Room Air 21 11/10/18 23:32 78 20 95 Room Air 21 11/10/18 23:31 Room Air 21 11/10/18 23:31 95 Room Air 21 11/10/18 20:09 97.9 82 19 132/81 (98) 95 General Appearance: no apparent distress, alert EENT: PERRL/EOMI, normal ENT inspection, TMs normal, pharynx normal Neck: non-tender, normal alignment, normal inspection, no JVD Rhythm: NSR Cardiovascular: normal peripheral pulses, normal rate, regular rhythm Respiratory/Chest: chest wall non-tender, lungs clear Abdomen: normal bowel sounds, non tender, soft, no organomegaly, no mass Extremities: normal range of motion, non-tender 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, no motor/sensory deficits Intake and Output 11/10/18 11/11/18 18:59 06:59 Intake Total 1066.667 ml 510 ml Output Total 900 ml 2700 ml Balance 166.667 ml -2190 ml Intake Oral 720 ml 400 ml IV Total 346.667 ml 110 ml Output Urine Total 900 ml 2700 ml # Voids 1 # Bowel Movements 1 Laboratory Tests Test 11/11/18 07:00 White Blood Count 12.4 K/UL (4.8-10.8) H Red Blood Count 4.30 M/UL (4.70-6.10) L Hemoglobin 12.3 G/DL (14.2-18.0) L Hematocrit 37.6 % (42.0-52.0) L Mean Corpuscular Volume 87 FL (80-99) Mean Corpuscular Hemoglobin 28.6 PG (27.0-31.0) Mean Corpuscular Hemoglobin Concent 32.8 G/DL (32.0-36.0) Red Cell Distribution Width 13.0 % (11.6-14.8) Platelet Count 165 K/UL (150-450) Mean Platelet Volume 5.6 FL (6.5-10.1) L Neutrophils (%) (Auto) 73.1 % (45.0-75.0) Lymphocytes (%) (Auto) 16.6 % (20.0-45.0) L Monocytes (%) (Auto) 8.3 % (1.0-10.0) Eosinophils (%) (Auto) 1.4 % (0.0-3.0) Basophils (%) (Auto) 0.6 % (0.0-2.0) Prothrombin Time 10.9 SEC (9.30-11.50) Prothromb Time International Ratio 1.0 (0.9-1.1) Sodium Level 139 MMOL/L (136-145) Potassium Level 4.1 MMOL/L (3.5-5.1) Chloride Level 103 MMOL/L (98-107) Carbon Dioxide Level 24 MMOL/L (21-32) Anion Gap 12 mmol/L (5-15) Blood Urea Nitrogen 80 mg/dL (7-18) H Creatinine 4.4 MG/DL (0.55-1.30) H Estimat Glomerular Filtration Rate mL/min (>60) Glucose Level 78 MG/DL (74-106) Calcium Level 8.1 MG/DL (8.5-10.1) L Biju Leon MD Nov 11, 2018 16:37
[2018-11-11] MEDS ORDERED: HYDROmorphone 1mg/ml Carpuject IVP PRN (16:45)
[2018-11-11] MEDS: Enoxaparin 30mg Inj SUBQ SCH (21:00)
[2018-11-12] VITALS: BP 139/74
[2018-11-12 04:00] VITALS: BP 142/77
[2018-11-12] MEDS: NovoLOG Insulin Flexpen SUBQ SCH ×4 (06:30→20:48)
[2018-11-12 07:05] LABS: ANION GAP 13 mmol/L (5-15); BLOOD UREA NITROGEN 77 mg/dL (7-18); CALCIUM 7.8 MG/DL (8.5-10.1); CARBON DIOXIDE 22 MMOL/L (21-32); CHLORIDE 102 MMOL/L (98-107); CREATININE 4.4 MG/DL (0.55-1.30); POTASSIUM 3.9 MMOL/L (3.5-5.1); SODIUM 137 MMOL/L (136-145)
[2018-11-12] MEDS: Albuterol/Ipratropium 3ml neb HHN SCH ×3 (07:39→23:55)
[2018-11-12 08:00] VITALS: BP 150/66
--- NOTE | 2018-11-12 08:24 | Pulmonology Progress Note ---
Assessment/Plan Assessment/Plan Problem List: 1. Acute hypoxemic respiratory failure -intubated 11/08; now extubated 2. Acute bronchospasm - resolved 3. NOEMÍ on CKD - 4. Metabolic acidosis 5. UTI, gram negative bacillus 6. Rule out influenza 7. HTN 8. S/p nephrostomy 9. Headache 10. Diarrhea Plan: -Now on medical floor -await nephrostomy followup/urology followup -DC mcdaniel? Check stool for c diff Add toradol for NICOLAS Subjective Interval Events: S/p nephrostomy tube placement (L); now reporting diarrhea Constitutional: Reports: no symptoms HEENT: Repors: no symptoms Respiratory: Reports: no symptoms Cardiovascular: Reports: no symptoms Gastrointestinal/Abdominal: Reports: diarrhea Genitourinary: Reports: no symptoms Neurologic: Reports: headache Psychiatric: Reports: no symptoms Allergies: Coded Allergies: No Known Allergies (Unverified , 06/16/18) Objective Last 24 Hour Vital Signs Date Time Temp Pulse Resp B/P (MAP) Pulse Ox O2 Delivery O2 Flow Rate FiO2 11/12/18 08:15 76 20 97 Room Air 11/12/18 08:10 94 Room Air 21 11/12/18 08:10 Room Air 21 11/12/18 08:10 74 20 94 Room Air 11/12/18 04:00 97.9 79 17 142/77 (98) 93 79 11/12/18 00:03 77 20 98 Room Air 11/12/18 00:00 98.1 84 17 139/74 (95) 92 84 11/11/18 23:57 Room Air 11/11/18 23:55 95 Room Air 11/11/18 23:55 76 20 95 Room Air 21 11/11/18 20:00 96.7 81 16 138/79 (98) 93 81 11/11/18 17:55 97.7 11/11/18 17:45 97.7 86 17 135/78 (97) 97 11/11/18 17:15 98.4 93 18 141/75 (97) 94 11/11/18 16:55 97.9 11/11/18 16:45 97.9 85 18 153/78 (103) 93 11/11/18 16:30 97.2 89 20 158/83 (108) 94 11/11/18 16:15 97.5 87 19 155/79 (104) 93 11/11/18 16:00 97.9 68 19 134/79 (97) 94 11/11/18 15:58 98.0 82 16 99 Nasal Cannula 3.0 80 97 11/11/18 15:30 98.5 76 18 128/76 99 Nasal Cannula 2 11/11/18 15:27 79 16 99 Room Air 21 11/11/18 15:25 72 14 137/85 97 Nasal Cannula 2 11/11/18 15:22 77 16 96 Room Air 21 11/11/18 15:20 82 15 130/81 99 Nasal Cannula 3 11/11/18 15:16 98.3 79 23 123/65 99 Nasal Cannula 3 11/11/18 15:10 79 18 123/65 (84) 99 11/11/18 15:05 78 18 132/67 (88) 97 11/11/18 15:00 77 18 128/76 (93) 98 11/11/18 14:55 98.0 83 18 120/81 (94) 96 11/11/18 14:05 83 19 11/11/18 12:00 97.7 84 19 147/83 (104) 95 Intake and Output 11/11/18 11/12/18 19:00 07:00 Intake Total 1040 ml Output Total 1950 ml 800 ml Balance -910 ml -800 ml Intake Oral 480 ml IV Total 560 ml Output Urine Total 1550 ml 800 ml Other 400 ml General Appearance: no acute distress HEENT: normocephalic Respiratory/Chest: chest wall non-tender, lungs clear Cardiovascular: normal peripheral pulses, normal rate Abdomen: normal bowel sounds, soft, non tender Laboratory Tests 11/12/18 05:40: Sodium Level 137, Potassium Level 3.9, Chloride Level 102, Carbon Dioxide Level 22, Anion Gap 13, Blood Urea Nitrogen 77H, Creatinine 4.4H, Estimat Glomerular Filtration Rate , Glucose Level 78, Calcium Level 7.8L Current Medications Medications (Trade) Dose Ordered Sig/Markus Route PRN Reason Start Time Stop Time Status Last Admin Dose Admin Acetaminophen (Tylenol) 650 mg Q4H PRN ORAL Mild Pain (Pain Scale 1-3) 11/10/18 12:30 12/07/18 12:29 11/11/18 16:25 Albuterol/ Ipratropium (Albuterol/ Ipratropium) 3 ml Q4H PRN HHN Shortness of Breath 11/10/18 13:15 11/15/18 13:14 Albuterol/ Ipratropium (Albuterol/ Ipratropium) 3 ml Q8HRT HHN 11/10/18 15:00 11/14/18 22:59 11/12/18 07:39 Cefazolin Sodium 50 ml @ 100 mls/hr ONCE PRN IV for radiology use 11/11/18 13:45 11/12/18 23:59 Dextrose (Dextrose 50%) 25 ml Q30M PRN IV Hypoglycemia 11/10/18 12:15 12/07/18 21:42 Dextrose (Dextrose 50%) 50 ml Q30M PRN IV Hypoglycemia 11/10/18 12:15 12/07/18 21:42 Enoxaparin Sodium (Lovenox) 30 mg QHS SUBQ 11/10/18 21:00 12/08/18 02:29 11/11/18 21:00 Guaifenesin/ Dextromethorphan (Robitussin DM Syrup) 5 ml Q8H PRN ORAL For Cough 11/10/18 12:30 12/09/18 20:29 Heparin Sodium/ Sodium Chloride (Heparin 2000 units/Ns 1000ml premix) 2,000 unit ONCE PRN INJ radiology use 11/11/18 13:45 11/12/18 23:59 Hydromorphone HCl (Dilaudid) 1 mg Q4H PRN IVP Severe Pain (Pain Scale 7-10) 11/11/18 16:45 11/18/18 16:44 11/11/18 17:25 Insulin Aspart (NovoLOG) BEFORE MEALS AND HS SUBQ 11/10/18 16:30 12/07/18 20:59 Lidocaine HCl (Xylocaine 1% 30ml) 30 ml ONCE PRN INJ radiology use 11/11/18 13:45 11/12/18 23:59 Ondansetron HCl (Zofran) 4 mg Q6H PRN IVP Nausea & Vomiting 11/10/18 12:30 12/07/18 12:29 Oseltamivir Phosphate (Tamiflu) 30 mg DAILY ORAL 11/11/18 09:00 11/12/18 09:01 11/11/18 11:04 Pantoprazole (Protonix) 40 mg DAILY ORAL 11/11/18 09:00 12/08/18 08:59 11/11/18 11:04 Sodium Chloride 1,000 ml @ 75 mls/hr [id number] IV 11/11/18 11:04 12/11/18 11:03 11/12/18 01:45 Tigecycline 50 mg/ Sodium Chloride 110 ml @ 220 mls/hr EVERY 12 HOURS IVPB 11/10/18 21:00 11/16/18 20:59 11/11/18 21:00 Duglas Miles MD Nov 12, 2018 08:24
[2018-11-12] MEDS ORDERED: traMADol 50mg tab ORAL PRN (08:30)
--- NOTE | 2018-11-12 08:32 | Diagnostic Imaging Report ---
Indication: Hydronephrosis, distal left ureteral calculus Technique: Informed consent obtained over the phone from the patient's son. Prior imaging studies reviewed. Procedural timeout performed. Total sterile technique, including sterile gloves and hand hygiene, hat, mask, sterile gown, large sterile drape, and preparation with 2% chlorhexidine utilized. Patient given preprocedure antibiotics. Local anesthesia with 1% lidocaine. Under real-time ultrasound guidance, posterior left lower pole calyx punctured using 21-gauge micropuncture needle. Spontaneous return of urine observed. Contrast injected, confirming satisfactory access. 0.018 guidewire introduced, followed by introduction of a 6 Amharic Linn introducer assembly. Dilator and stylet removed, 0.[address] as a safety wire. 0.035 guidewire inserted, over which was passed a 8.5 Amharic Cook all-purpose drainage catheter. Pigtail was formed. Contrast injected, confirming satisfactory position of the catheter. The 0.018 guidewire was removed. Catheter was fixed to the skin, placed to gravity drainage. The patient tolerated the procedure well, without immediate complication. Total fluoroscopy time 54.8 seconds. Total dose area product 0.06775 mGycm2 Number of images: 5 Comparison: Reference made to renal ultrasound and 11/07/2018, CT scan 11/09/2018 Findings: Initial images document satisfactory posterior lower pole calyceal access, moderate hydronephrosis and hydroureter, occlusion of the distal ureter. Completion images document satisfactory placement of pigtail catheter within the renal pelvis Impression: Successful left nephrostomy for relief of obstructive uropathy, as described
[2018-11-12] MEDS ORDERED: metroNIDAZOLE 500mg tab ORAL SCH (09:00)
[2018-11-12] MEDS: Tigecycline 50 MG in NS 110 ML IVPB SCH ×2 (09:20→20:29)
--- NOTE | 2018-11-12 09:30 | Infectious Diseases Prog Note ---
Assessment/Plan Assessment/Plan Severe sepsis 2ry to UTI c/w Acinetobacer -CXR: Minimal bilateral atelectatic changes. No acute process otherwise -u/a wbc 20-30, nit neg, luek large; ucx 40-50 K Acinetobacter -BCx 10/16 GNR Fever, resolved Leukocytosis Acute respiratory failure s/p intubation 11/07- sp extubation 11/08 NOEMÍ on CKD - (b/l Cr mid 2s) HTN DM Plan: - Start Tigecycline #/ for Acinetobacter urosepsis ( End date 11/23/18) - 11/09 SP Zosyn #2 pending ID and sensi GNR Ucx and Bcx - 11/09 SP IV Vancomycin #2 -Repeat Bcx x2 -f/u cx -Monitor CBC/CMP, temperatures -ICU/ETT care -aspiration precautions Thank you for this consultation. Will continue to follow along with you. Subjective Allergies: Coded Allergies: No Known Allergies (Unverified , 06/16/18) Subjective Afebrile awake and alert no complaints WBCs pending Objective Vital Signs Last 24 Hour Vital Signs Date Time Temp Pulse Resp B/P (MAP) Pulse Ox O2 Delivery O2 Flow Rate FiO2 11/12/18 08:15 76 20 97 Room Air 21 11/12/18 08:10 94 Room Air 21 11/12/18 08:10 Room Air 21 11/12/18 08:10 74 20 94 Room Air 11/12/18 04:00 97.9 79 17 142/77 (98) 93 79 11/12/18 00:03 77 20 98 Room Air 11/12/18 00:00 98.1 84 17 139/74 (95) 92 84 11/11/18 23:57 Room Air 21 11/11/18 23:55 95 Room Air 21 11/11/18 23:55 76 20 95 Room Air 21 11/11/18 20:00 96.7 81 16 138/79 (98) 93 81 11/11/18 17:55 97.7 11/11/18 17:45 97.7 86 17 135/78 (97) 97 11/11/18 17:15 98.4 93 18 141/75 (97) 94 11/11/18 16:55 97.9 11/11/18 16:45 97.9 85 18 153/78 (103) 93 11/11/18 16:30 97.2 89 20 158/83 (108) 94 11/11/18 16:15 97.5 87 19 155/79 (104) 93 11/11/18 16:00 97.9 68 19 134/79 (97) 94 11/11/18 15:58 98.0 82 16 99 Nasal Cannula 3.0 80 97 11/11/18 15:30 98.5 76 18 128/76 99 Nasal Cannula 2 11/11/18 15:27 79 16 99 Room Air 21 11/11/18 15:25 72 14 137/85 97 Nasal Cannula 2 11/11/18 15:22 77 16 96 Room Air 21 11/11/18 15:20 82 15 130/81 99 Nasal Cannula 3 11/11/18 15:16 98.3 79 23 123/65 99 Nasal Cannula 3 11/11/18 15:10 79 18 123/65 (84) 99 11/11/18 15:05 78 18 132/67 (88) 97 11/11/18 15:00 77 18 128/76 (93) 98 11/11/18 14:55 98.0 83 18 120/81 (94) 96 11/11/18 14:05 83 19 11/11/18 12:00 97.7 84 19 147/83 (104) 95 Height (Feet): 5 Height (Inches): 8.00 Weight (Pounds): 210 Objective General: NAD HEENT: normocephalic, atraumatic, mucous membranes moist Respiratory/Chest: lungs clear Cardiovascular/Chest: normal rate, regular rhythm Abdomen: non tender, soft Laboratory Tests Test 11/12/18 05:40 Sodium Level 137 MMOL/L (136-145) Potassium Level 3.9 MMOL/L (3.5-5.1) Chloride Level 102 MMOL/L (98-107) Carbon Dioxide Level 22 MMOL/L (21-32) Anion Gap 13 mmol/L (5-15) Blood Urea Nitrogen 77 mg/dL (7-18) H Creatinine 4.4 MG/DL (0.55-1.30) H Estimat Glomerular Filtration Rate mL/min (>60) Glucose Level 78 MG/DL (74-106) Calcium Level 7.8 MG/DL (8.5-10.1) L Current Medications Medications (Trade) Dose Ordered Sig/Markus Route PRN Reason Start Time Stop Time Status Last Admin Dose Admin Acetaminophen (Tylenol) 650 mg Q4H PRN ORAL Mild Pain (Pain Scale 1-3) 11/10/18 12:30 12/07/18 12:29 11/11/18 16:25 Albuterol/ Ipratropium (Albuterol/ Ipratropium) 3 ml Q4H PRN HHN Shortness of Breath 11/10/18 13:15 11/15/18 13:14 Albuterol/ Ipratropium (Albuterol/ Ipratropium) 3 ml Q8HRT HHN 11/10/18 15:00 11/14/18 22:59 11/12/18 07:39 Cefazolin Sodium 50 ml @ 100 mls/hr ONCE PRN IV for radiology use 11/11/18 13:45 11/12/18 23:59 Dextrose (Dextrose 50%) 25 ml Q30M PRN IV Hypoglycemia 11/10/18 12:15 12/07/18 21:42 Dextrose (Dextrose 50%) 50 ml Q30M PRN IV Hypoglycemia 11/10/18 12:15 12/07/18 21:42 Enoxaparin Sodium (Lovenox) 30 mg QHS SUBQ 11/10/18 21:00 12/08/18 02:29 11/11/18 21:00 Guaifenesin/ Dextromethorphan (Robitussin DM Syrup) 5 ml Q8H PRN ORAL For Cough 11/10/18 12:30 12/09/18 20:29 Heparin Sodium/ Sodium Chloride (Heparin 2000 units/Ns 1000ml premix) 2,000 unit ONCE PRN INJ radiology use 11/11/18 13:45 11/12/18 23:59 Hydromorphone HCl (Dilaudid) 1 mg Q4H PRN IVP Severe Pain (Pain Scale 7-10) 11/11/18 16:45 11/18/18 16:44 11/11/18 17:25 Insulin Aspart (NovoLOG) BEFORE MEALS AND HS SUBQ 11/10/18 16:30 12/07/18 20:59 Lidocaine HCl (Xylocaine 1% 30ml) 30 ml ONCE PRN INJ radiology use 11/11/18 13:45 11/12/18 23:59 Metronidazole (Flagyl) 500 mg ONCE ORAL 11/12/18 09:00 11/12/18 10:00 11/12/18 09:20 Metronidazole (Flagyl) 500 mg Q8HR ORAL 11/12/18 14:00 11/19/18 13:59 Ondansetron HCl (Zofran) 4 mg Q6H PRN IVP Nausea & Vomiting 11/10/18 12:30 12/07/18 12:29 Pantoprazole (Protonix) 40 mg DAILY ORAL 11/11/18 09:00 12/08/18 08:59 11/12/18 09:20 Sodium Chloride 1,000 ml @ 75 mls/hr [id number] IV 11/11/18 11:04 12/11/18 11:03 11/12/18 01:45 Tigecycline 50 mg/ Sodium Chloride 110 ml @ 220 mls/hr EVERY 12 HOURS IVPB 11/10/18 21:00 11/16/18 20:59 11/12/18 09:20 Tramadol HCl (Ultram) 50 mg Q6H PRN ORAL Moderate Breakthru Pain (5-7) 11/12/18 08:30 11/19/18 08:29 Biju Nuñez MD Nov 12, 2018 09:30
--- NOTE | 2018-11-12 09:38 | Nephrology Progress Note ---
Assessment/Plan Assessment/Plan A/P 1) Sepsis- G- rods urine and blood - Abx mgmt per ID, s/p PCNT 2) Resp FL- bronchospasms, resolved. Per PULM 3) NOEMÍ on CKD 4- multifact ATN affecting residual renal fx. cr stable at 4.4, will need renal f/u - sepsis, left hydro. Abx. 4) Met Acidosis- due to renal insuff. Resolved 5) Left [place]- Hyperdensities in the distal third of left ureter may be sludge or stones, largest measuring up to 4 x 7 mm, resulting in moderate left hydronephrosis. - s/p left PCNT Subjective Date patient seen: Nov 12, 2018 Time patient seen: 09:36 ROS Limited/Unobtainable: Yes Allergies: Coded Allergies: No Known Allergies (Unverified , 06/16/18) Subjective Patient had PCNT left side Objective Last 24 Hour Vital Signs Date Time Temp Pulse Resp B/P (MAP) Pulse Ox O2 Delivery O2 Flow Rate FiO2 11/12/18 08:15 76 20 97 Room Air 21 11/12/18 08:10 94 Room Air 21 11/12/18 08:10 Room Air 21 11/12/18 08:10 74 20 94 Room Air 21 11/12/18 04:00 97.9 79 17 142/77 (98) 93 79 11/12/18 00:03 77 20 98 Room Air 21 11/12/18 00:00 98.1 84 17 139/74 (95) 92 84 11/11/18 23:57 Room Air 21 11/11/18 23:55 95 Room Air 11/11/18 23:55 76 20 95 Room Air 21 11/11/18 20:00 96.7 81 16 138/79 (98) 93 81 11/11/18 17:55 97.7 11/11/18 17:45 97.7 86 17 135/78 (97) 97 11/11/18 17:15 98.4 93 18 141/75 (97) 94 11/11/18 16:55 97.9 11/11/18 16:45 97.9 85 18 153/78 (103) 93 11/11/18 16:30 97.2 89 20 158/83 (108) 94 11/11/18 16:15 97.5 87 19 155/79 (104) 93 11/11/18 16:00 97.9 68 19 134/79 (97) 94 11/11/18 15:58 98.0 82 16 99 Nasal Cannula 3.0 80 97 11/11/18 15:30 98.5 76 18 128/76 99 Nasal Cannula 2 11/11/18 15:27 79 16 99 Room Air 21 11/11/18 15:25 72 14 137/85 97 Nasal Cannula 2 11/11/18 15:22 77 16 96 Room Air 21 11/11/18 15:20 82 15 130/81 99 Nasal Cannula 3 11/11/18 15:16 98.3 79 23 123/65 99 Nasal Cannula 3 11/11/18 15:10 79 18 123/65 (84) 99 11/11/18 15:05 78 18 132/67 (88) 97 11/11/18 15:00 77 18 128/76 (93) 98 11/11/18 14:55 98.0 83 18 120/81 (94) 96 11/11/18 14:05 83 19 11/11/18 12:00 97.7 84 19 147/83 (104) 95 Intake and Output 11/11/18 11/12/18 18:59 06:59 Intake Total 1040 ml Output Total 1950 ml 800 ml Balance -910 ml -800 ml Intake Oral 480 ml IV Total 560 ml Output Urine Total 1550 ml 800 ml Other 400 ml Laboratory Tests 11/12/18 05:40: Sodium Level 137, Potassium Level 3.9, Chloride Level 102, Carbon Dioxide Level 22, Anion Gap 13, Blood Urea Nitrogen 77H, Creatinine 4.4H, Estimat Glomerular Filtration Rate , Glucose Level 78, Calcium Level 7.8L Height (Feet): 5 Height (Inches): 8.00 Weight (Pounds): 210 General Appearance: no apparent distress, alert EENT: normal ENT inspection Neck: normal alignment, supple Cardiovascular: normal rate, regular rhythm Respiratory/Chest: lungs clear, normal breath sounds Abdomen: non tender, soft Edema: no edema noted Arm (L), no edema noted Arm (R), no edema noted Leg (L), no edema noted Leg (R), no edema noted Pedal (L), no edema noted Pedal (R), no edema noted Generalized Michelet Menchaca MD Nov 12, 2018 09:38
[2018-11-12 12:00] VITALS: BP 148/80
--- NOTE | 2018-11-12 13:42 | GI Initial Consult Note ---
History of Present Illness General Date patient seen: Nov 12, 2018 Time patient seen: 13:37 Reason for Hospitalization: General Complaint Referring physician: Ginger Reason for Consultation: Severe diarrhea Present Illness HPI Patient is a 73-year-old male brought in by family member after increased difficulty breathing. Patient had gradual onset of symptoms. He was noted to have some subjective fever. Patient prior history of renal disease as well as diabetes. He was noted to have some increased difficulty with urinary hesitancy as well as decreased urine output. Patient had not been on dialysis. GI consulted for severe diarrhea. Initial HPI noted above. Patient seen, awake alert and oriented x4 no apparent distress with no active signs or symptoms of nausea vomiting. The patient presents today with persistent diarrhea. C. difficile stool collection is still pending. Noted that the patient has prophylactically been started on Flagyl. Abdominal pelvis CT was performed a few days prior most notable with stool and colonic gas. The patient is currently on ADA diet. Presents today with mild leukocytosis normocytic anemia and troponin elevation. Unknown history of endoscopic or colonoscopy. Home Meds Active Scripts Oseltamivir Phosphate (Tamiflu) 75 Mg Capsule, 75 MG ORAL TWICE A DAY for 5 Days , #10 CAP Prov:Alphonse Melendez 11/04/18 Benzonatate* (TESSALON PERLE*) 100 Mg Capsule, 100 MG ORAL THREE TIMES A DAY, # 20 PERLE Prov:Alphonse Melendez.Luis 11/04/18 Loratadine (CLARITIN) 10 Mg Capsule, 10 MG ORAL DAILY, #30 CAP Prov:Alphonse Melendez 11/04/18 Acetaminophen* (TYLENOL EXTRA STRENGTH*) 500 Mg Tablet, 500 MG ORAL Q8H PRN for Prn Headache/Temp > 101, #30 TAB 0 Refills Prov:Alphonse Melendez 11/04/18 Reported Medications Unable to Obtain Medications (UNABLE TO OBTAIN MEDS) 1 Ea Ea 11/07/18 Discontinued Reported Medications [faropenem sodium ] No Conflict Check, 200 MG ORAL DAILY 06/16/18 [nefrozon] No Conflict Check, 150-500 MG ORAL DAILY nefrozon (taurine 500mg and acetylcysteine 150mg) daily 06/16/18 Med list reviewed/reconciled: Yes Allergies: Coded Allergies: No Known Allergies (Unverified , 9/2/18) Patient History Limited by: language barrier History Provided By: Medical Record PMH Narrative Hx Cardiac Problems: Yes - R LEG SURGERY X 1 YEAR AGO Hx Hypertension: Yes Hx Cancer: No Hx Gastrointestinal Problems: No Hx Neurological Problems: No Social History: Denies: smoking, alcohol use, drug use, other Review of Systems All Other Systems: negative except mentioned in HPI Physical Exam Vital Signs Date Time Temp Pulse Resp B/P (MAP) Pulse Ox O2 Delivery O2 Flow Rate FiO2 11/08/18 07:00 20 107/69 Endotracheal Tube 60 11/08/18 08:00 58 11/08/18 08:00 98.4 98 11/08/18 10:50 14.0 Sp02 EP Interpretation: reviewed, normal Labs Laboratory Tests Test 11/12/18 05:40 Sodium Level 137 MMOL/L (136-145) Potassium Level 3.9 MMOL/L (3.5-5.1) Chloride Level 102 MMOL/L (98-107) Carbon Dioxide Level 22 MMOL/L (21-32) Anion Gap 13 mmol/L (5-15) Blood Urea Nitrogen 77 mg/dL (7-18) H Creatinine 4.4 MG/DL (0.55-1.30) H Estimat Glomerular Filtration Rate mL/min (>60) Glucose Level 78 MG/DL (74-106) Calcium Level 7.8 MG/DL (8.5-10.1) L General Appearance: well appearing, no apparent distress, alert Head: normocephalic EENT: PERRL/EOMI, normal ENT inspection Neck: supple Respiratory: normal breath sounds, no respiratory distress Cardiovascular: normal rate Gastrointestinal: normal inspection, non tender, soft, normal bowel sounds, non -distended Rectal: deferred Genitourinary: deferred Musculoskeletal: normal inspection, back normal Neurologic: normal inspection, alert, oriented x3, responsive Psychiatric: normal inspection, judgement/insight normal, memory normal Skin: normal inspection, normal color, no rash, warm/dry, palpation normal, well hydrated Lymphatic: normal inspection, no adenopathy Current Medications Current Medications Medications (Trade) Dose Ordered Sig/Markus Route PRN Reason Start Time Stop Time Status Last Admin Dose Admin Acetaminophen (Tylenol) 650 mg Q4H PRN ORAL Mild Pain (Pain Scale 1-3) 11/10/18 12:30 12/07/18 12:29 11/11/18 16:25 Albuterol/ Ipratropium (Albuterol/ Ipratropium) 3 ml Q4H PRN HHN Shortness of Breath 11/10/18 13:15 11/15/18 13:14 Albuterol/ Ipratropium (Albuterol/ Ipratropium) 3 ml Q8HRT HHN 11/10/18 15:00 11/14/18 22:59 11/12/18 07:39 Cefazolin Sodium 50 ml @ 100 mls/hr ONCE PRN IV for radiology use 11/11/18 13:45 11/12/18 23:59 Dextrose (Dextrose 50%) 25 ml Q30M PRN IV Hypoglycemia 11/10/18 12:15 12/07/18 21:42 Dextrose (Dextrose 50%) 50 ml Q30M PRN IV Hypoglycemia 11/10/18 12:15 12/07/18 21:42 Enoxaparin Sodium (Lovenox) 30 mg QHS SUBQ 11/10/18 21:00 12/08/18 02:29 11/11/18 21:00 Guaifenesin/ Dextromethorphan (Robitussin DM Syrup) 5 ml Q8H PRN ORAL For Cough 11/10/18 12:30 12/09/18 20:29 Heparin Sodium/ Sodium Chloride (Heparin 2000 units/Ns 1000ml premix) 2,000 unit ONCE PRN INJ radiology use 11/11/18 13:45 11/12/18 23:59 Hydromorphone HCl (Dilaudid) 1 mg Q4H PRN IVP Severe Pain (Pain Scale 7-10) 11/11/18 16:45 11/18/18 16:44 11/11/18 17:25 Insulin Aspart (NovoLOG) BEFORE MEALS AND HS SUBQ 11/10/18 16:30 12/07/18 20:59 Lidocaine HCl (Xylocaine 1% 30ml) 30 ml ONCE PRN INJ radiology use 11/11/18 13:45 11/12/18 23:59 Metronidazole (Flagyl) 500 mg Q8HR ORAL 11/12/18 14:00 11/19/18 13:59 Ondansetron HCl (Zofran) 4 mg Q6H PRN IVP Nausea & Vomiting 11/10/18 12:30 12/07/18 12:29 Pantoprazole (Protonix) 40 mg DAILY ORAL 11/11/18 09:00 12/08/18 08:59 11/12/18 09:20 Sodium Chloride 1,000 ml @ 75 mls/hr [id number] IV 11/11/18 11:04 12/11/18 11:03 11/12/18 01:45 Tigecycline 50 mg/ Sodium Chloride 110 ml @ 220 mls/hr EVERY 12 HOURS IVPB 11/10/18 21:00 11/16/18 20:59 11/12/18 09:20 Tramadol HCl (Ultram) 50 mg Q6H PRN ORAL Moderate Breakthru Pain (5-7) 11/12/18 08:30 11/19/18 08:29 GI: Plan Problems: (1) Diarrhea (2) Clostridium difficile colitis (3) Dehydration (4) Electrolyte imbalance (5) Normocytic anemia Plan C. difficile stool study pending collection to rule out any infectious colitis Continue Flagyl 500 mg 3 times daily The patient is currently on Protonix, which needs to be discontinued if tested positive for C. difficile Hold all stool softeners and laxatives Okay to give Imodium as needed once stool studies collected Continue ADA diet anemia work up OB stool r/o GI bleed monitor H&H, prn transfusions bowel regime ppi fu labs Discussed with Dr. wSain. Thank you for this patient referral, we will follow. The patient was seen and examined at bedside and all new and available data was reviewed in the patients chart. I agree with the above findings, impression and plan. (Patient seen earlier today. Signature stamp does not reflect patient encounter time.). - MD Annel Bateman,[facility] MANAGER [employer] Nov 12, 2018 13:42
--- NOTE | 2018-11-12 15:09 | Cardiology Progress Note ---
Assessment/Plan Status: stable Assessment/Plan Assessment/Plan Status: stable Assessment/Plan Assessment Urosepsis Hydronephrosis Hypertension Diabetes CKD Elevated troponin Respiratory failure Plan Stable on room air BP low, hold anti hypertensive medications Serial Troponin, clinically not significant and likely from sepsis and CKD Echocardiogram to evaluate filling pressures and LV function --> 60 % no significant valvular disease or pulmonary hypertension Stress dose steroids Outpatient stress test when stable to evaluate coronary perfusion given cardiac risk factors Hold aspirin given CKD Urology consult pending for hydronephrosis, s/p left nephrostomy tube C.diff pending for diarrhea, continue flagyl Subjective Cardiovascular: Reports: no symptoms Respiratory: Reports: no symptoms Gastrointestinal/Abdominal: Reports: diarrhea Genitourinary: Reports: no symptoms Subjective No acute events, left nephrostomy tube patent with serous sanguineus drain, patient had diarrhea, flagyl started, c. diff pending, vitals stable, no pain Objective Last 24 Hour Vital Signs Date Time Temp Pulse Resp B/P (MAP) Pulse Ox O2 Delivery O2 Flow Rate FiO2 11/12/18 12:00 97.8 82 20 148/80 (102) 95 82 11/12/18 08:15 76 20 97 Room Air 21 11/12/18 08:10 94 Room Air 21 11/12/18 08:10 Room Air 21 11/12/18 08:10 74 20 94 Room Air 21 11/12/18 08:00 97.9 74 20 150/66 (94) 93 74 11/12/18 04:00 97.9 79 17 142/77 (98) 93 79 11/12/18 00:03 77 20 98 Room Air 21 11/12/18 00:00 98.1 84 17 139/74 (95) 92 84 11/11/18 23:57 Room Air 21 11/11/18 23:55 95 Room Air 21 11/11/18 23:55 76 20 95 Room Air 21 11/11/18 20:00 96.7 81 16 138/79 (98) 93 81 11/11/18 17:55 97.7 11/11/18 17:45 97.7 86 17 135/78 (97) 97 11/11/18 17:15 98.4 93 18 141/75 (97) 94 11/11/18 16:55 97.9 11/11/18 16:45 97.9 85 18 153/78 (103) 93 11/11/18 16:30 97.2 89 20 158/83 (108) 94 11/11/18 16:15 97.5 87 19 155/79 (104) 93 11/11/18 16:00 97.9 68 19 134/79 (97) 94 11/11/18 15:58 98.0 82 16 99 Nasal Cannula 3.0 80 97 11/11/18 15:30 98.5 76 18 128/76 99 Nasal Cannula 2 11/11/18 15:27 79 16 99 Room Air 21 11/11/18 15:25 72 14 137/85 97 Nasal Cannula 2 11/11/18 15:22 77 16 96 Room Air 21 11/11/18 15:20 82 15 130/81 99 Nasal Cannula 3 11/11/18 15:16 98.3 79 23 123/65 99 Nasal Cannula 3 11/11/18 15:10 79 18 123/65 (84) 99 General Appearance: no apparent distress, alert EENT: normal ENT inspection, TMs normal Neck: non-tender, normal alignment, supple, normal inspection Rhythm: NSR Cardiovascular: normal peripheral pulses, normal rate, regular rhythm Respiratory/Chest: chest wall non-tender, lungs clear, normal breath sounds Abdomen: normal bowel sounds, non tender, soft, no organomegaly, no mass Extremities: normal range of motion, non-tender Neurologic: radiology asst II-XII grossly normal, no motor/sensory deficits Intake and Output 11/11/18 11/12/18 19:00 07:00 Intake Total 1040 ml Output Total 1950 ml 800 ml Balance -910 ml -800 ml Intake Oral 480 ml IV Total 560 ml Output Urine Total 1550 ml 800 ml Other 400 ml Laboratory Tests Test 11/12/18 05:40 Sodium Level 137 MMOL/L (136-145) Potassium Level 3.9 MMOL/L (3.5-5.1) Chloride Level 102 MMOL/L (98-107) Carbon Dioxide Level 22 MMOL/L (21-32) Anion Gap 13 mmol/L (5-15) Blood Urea Nitrogen 77 mg/dL (7-18) H Creatinine 4.4 MG/DL (0.55-1.30) H Estimat Glomerular Filtration Rate mL/min (>60) Glucose Level 78 MG/DL (74-106) Calcium Level 7.8 MG/DL (8.5-10.1) L Biju Leon MD Nov 12, 2018 15:08
[2018-11-12] MEDS: metroNIDAZOLE 500mg tab ORAL SCH ×2 (15:24→21:54)
[2018-11-12 16:00] VITALS: BP 141/73
[2018-11-12 20:00] VITALS: BP 147/76
[2018-11-12] MEDS: Enoxaparin 30mg Inj SUBQ SCH (20:32)
[2018-11-13] VITALS: BP 142/72
[2018-11-13 04:00] VITALS: BP 143/78
[2018-11-13] MEDS: metroNIDAZOLE 500mg tab ORAL SCH ×2 (05:43→13:26)
[2018-11-13] MEDS: NovoLOG Insulin Flexpen SUBQ SCH ×3 (06:29→16:30)
[2018-11-13 06:44] LABS: BASOPHILS % (AUTO) 0.5 % (0.0-2.0); EOSINOPHILS % (AUTO) 7.1 % (0.0-3.0); HEMATOCRIT 36.1 % (42.0-52.0); HEMOGLOBIN 11.9 G/DL (14.2-18.0); LYMPHOCYTES % (AUTO) 17.3 % (20.0-45.0); MEAN CORPUSCULAR VOLUME 87 FL (80-99); MONOCYTES % (AUTO) 6.8 % (1.0-10.0); NEUTROPHILS % (AUTO) 68.2 % (45.0-75.0); PLATELET COUNT 195 K/UL (150-450); RED BLOOD COUNT 4.14 M/UL (4.70-6.10); RED CELL DISTRIBUTION WIDTH 12.9 % (11.6-14.8); WHITE BLOOD COUNT 11.9 K/UL (4.8-10.8)
[2018-11-13 06:55] LABS: INR 1.1 (0.9-1.1)
[2018-11-13 07:24] LABS: ALANINE AMINOTRANSFERASE 9 U/L (12-78); ALBUMIN 2.4 G/DL (3.4-5.0); ALBUMIN/GLOBULIN RATIO 0.7 (1.0-2.7); ALKALINE PHOSPHATASE 115 U/L (46-116); ANION GAP 12 mmol/L (5-15); ASPARTATE AMINO TRANSFERASE 15 U/L (15-37); BILIRUBIN,TOTAL 0.6 MG/DL (0.2-1.0); BLOOD UREA NITROGEN 72 mg/dL (7-18); CALCIUM 7.8 MG/DL (8.5-10.1); CARBON DIOXIDE 22 MMOL/L (21-32); CHLORIDE 103 MMOL/L (98-107); FERRITIN 757 NG/ML (8-388); POTASSIUM 3.6 MMOL/L (3.5-5.1); SODIUM 137 MMOL/L (136-145)
[2018-11-13] MEDS: Albuterol/Ipratropium 3ml neb HHN SCH ×2 (07:49→15:29)
[2018-11-13 07:56] LABS: % IRON SATURATION 35 % (15-50); IRON 47 ug/dL (50-175); TOTAL IRON BINDING CAPACITY 136 ug/dL (250-450)
[2018-11-13 08:00] VITALS: BP 144/80
[2018-11-13] MEDS: Tigecycline 50 MG in NS 110 ML IVPB SCH (08:24)
--- NOTE | 2018-11-13 09:22 | Nephrology Progress Note ---
Assessment/Plan Assessment/Plan A/P 1) Sepsis- G- rods urine and blood - Abx mgmt per ID 2) Resp FL- bronchospasms, resolved. 3) CKD 4- multifact ATN affecting residual renal fx. cr stable at 4. Will f/u as outpt 4) Met Acidosis- Resolved 5) Left [place]- Hyperdensities in the distal third of left ureter may be sludge or stones, largest measuring up to 4 x 7 mm, resulting in moderate left hydronephrosis. - s/p left PCNT Subjective Date patient seen: Nov 13, 2018 Time patient seen: 09:14 ROS Limited/Unobtainable: No Allergies: Coded Allergies: No Known Allergies (Unverified , 06/16/18) Subjective Patient has PCNT left side Objective Last 24 Hour Vital Signs Date Time Temp Pulse Resp B/P (MAP) Pulse Ox O2 Delivery O2 Flow Rate FiO2 11/13/18 07:57 74 20 99 Room Air 11/13/18 07:50 73 20 97 Room Air 11/13/18 07:50 73 20 Room Air 11/13/18 04:00 97.8 81 20 143/78 (99) 93 11/13/18 00:00 97.6 86 18 142/72 (95) 93 11/13/18 00:00 72 20 98 Room Air 11/12/18 23:56 75 20 94 Room Air 11/12/18 23:53 72 20 Room Air 11/12/18 21:00 Room Air 11/12/18 20:00 98.5 76 20 147/76 (99) 95 11/12/18 16:00 98.4 89 20 141/73 (95) 95 89 11/12/18 15:56 79 20 98 Room Air 11/12/18 15:33 77 20 96 Room Air 11/12/18 12:00 97.8 82 20 148/80 (102) 95 82 Intake and Output 11/12/18 11/13/18 19:00 07:00 Intake Total 1840 ml 1295 ml Output Total 3100 ml 2900 ml Balance -1260 ml -1605 ml Intake Oral 720 ml 360 ml IV Total 1120 ml 935 ml Output Urine Total 1300 ml 1400 ml Other 1800 ml 1500 ml # Bowel Movements 2 Laboratory Tests 11/13/18 05:45: White Blood Count 11.9H, Red Blood Count 4.14L, Hemoglobin 11.9L, Hematocrit 36.1L, Mean Corpuscular Volume 87, Mean Corpuscular Hemoglobin 28.8, Mean Corpuscular Hemoglobin Concent 33.0, Red Cell Distribution Width 12.9, Platelet Count 195, Mean Platelet Volume 6.0L, Neutrophils (%) (Auto) 68.2, Lymphocytes ( %) (Auto) 17.3L, Monocytes (%) (Auto) 6.8, Eosinophils (%) (Auto) 7.1H, Basophils (%) (Auto) 0.5, Reticulocyte Count [Pending], Prothrombin Time 11.6H, Prothromb Time International Ratio 1.1, Activated Partial Thromboplast Time 34H , Sodium Level 137, Potassium Level 3.6, Chloride Level 103, Carbon Dioxide Level 22, Anion Gap 12, Blood Urea Nitrogen 72H, Creatinine 4.0H, Estimat Glomerular Filtration Rate , Glucose Level 84, Calcium Level 7.8L, Iron Level 47L, Total Iron Binding Capacity 136L, Percent Iron Saturation 35, Unsaturated Iron Binding 89L, Ferritin 757H, Total Bilirubin 0.6, Aspartate Amino Transf ( AST/SGOT) 15, Alanine Aminotransferase (ALT/SGPT) 9L, Alkaline Phosphatase 115, Total Protein 6.0L, Albumin 2.4L, Globulin 3.6, Albumin/Globulin Ratio 0.7L, Carcinoembryonic Antigen [Pending], Vitamin B12 Level 1839H, Folate 36.8, Thyroid Stimulating Hormone (TSH) 0.787, Free Thyroxine 1.30 Height (Feet): 5 Height (Inches): 8.00 Weight (Pounds): 205 General Appearance: no apparent distress, alert EENT: normal ENT inspection Neck: normal alignment, supple Cardiovascular: normal rate, regular rhythm Respiratory/Chest: lungs clear, normal breath sounds Abdomen: non tender, soft Edema: no edema noted Arm (L), no edema noted Arm (R), no edema noted Leg (L), no edema noted Leg (R), no edema noted Pedal (L), no edema noted Pedal (R), no edema noted Generalized Michelet Menchaca MD Nov 13, 2018 09:22
--- NOTE | 2018-11-13 09:25 | Pulmonology Progress Note ---
Assessment/Plan Assessment/Plan Problem List: 1. Acute hypoxemic respiratory failure -intubated 11/08; resolved. 2. Acute bronchospasm - resolved 3. NOEMÍ on CKD - 4. Metabolic acidosis 5. UTI, gram negative bacillus 6. Rule out influenza 7. HTN 8. S/p nephrostomy 9. Headache 10. Diarrhea; resolved. Plan: -Now on medical floor -DC to SNF with nephrostomy -DC mcdaniel today Check stool for c diff Add toradol for NICOLAS Subjective Interval Events: Feeling better Constitutional: Reports: no symptoms HEENT: Repors: no symptoms Respiratory: Reports: no symptoms Cardiovascular: Reports: no symptoms Gastrointestinal/Abdominal: Reports: no symptoms Genitourinary: Reports: no symptoms Neurologic: Reports: no symptoms Allergies: Coded Allergies: No Known Allergies (Unverified , 06/16/18) Objective Last 24 Hour Vital Signs Date Time Temp Pulse Resp B/P (MAP) Pulse Ox O2 Delivery O2 Flow Rate FiO2 11/13/18 07:57 74 20 99 Room Air 11/13/18 07:50 73 20 97 Room Air 11/13/18 07:50 73 20 Room Air 11/13/18 04:00 97.8 81 20 143/78 (99) 93 11/13/18 00:00 97.6 86 18 142/72 (95) 93 11/13/18 00:00 72 20 98 Room Air 21 11/12/18 23:56 75 20 94 Room Air 11/12/18 23:53 72 20 Room Air 11/12/18 21:00 Room Air 11/12/18 20:00 98.5 76 20 147/76 (99) 95 11/12/18 16:00 98.4 89 20 141/73 (95) 95 89 11/12/18 15:56 79 20 98 Room Air 11/12/18 15:33 77 20 96 Room Air 11/12/18 12:00 97.8 82 20 148/80 (102) 95 82 Intake and Output 11/12/18 11/13/18 19:00 07:00 Intake Total 1840 ml 1295 ml Output Total 3100 ml 2900 ml Balance -1260 ml -1605 ml Intake Oral 720 ml 360 ml IV Total 1120 ml 935 ml Output Urine Total 1300 ml 1400 ml Other 1800 ml 1500 ml # Bowel Movements 2 General Appearance: no acute distress HEENT: normocephalic Respiratory/Chest: chest wall non-tender, lungs clear Cardiovascular: normal peripheral pulses, normal rate Abdomen: normal bowel sounds, soft, non tender Microbiology Date/Time Source Procedure Growth Status 11/11/18 07:10 Blood Blood Culture - Preliminary NO GROWTH AFTER 24 HOURS Resulted 11/11/18 07:00 Blood Blood Culture - Preliminary NO GROWTH AFTER 24 HOURS Resulted Laboratory Tests 11/13/18 05:45: White Blood Count 11.9H, Red Blood Count 4.14L, Hemoglobin 11.9L, Hematocrit 36.1L, Mean Corpuscular Volume 87, Mean Corpuscular Hemoglobin 28.8, Mean Corpuscular Hemoglobin Concent 33.0, Red Cell Distribution Width 12.9, Platelet Count 195, Mean Platelet Volume 6.0L, Neutrophils (%) (Auto) 68.2, Lymphocytes ( %) (Auto) 17.3L, Monocytes (%) (Auto) 6.8, Eosinophils (%) (Auto) 7.1H, Basophils (%) (Auto) 0.5, Reticulocyte Count [Pending], Prothrombin Time 11.6H, Prothromb Time International Ratio 1.1, Activated Partial Thromboplast Time 34H , Sodium Level 137, Potassium Level 3.6, Chloride Level 103, Carbon Dioxide Level 22, Anion Gap 12, Blood Urea Nitrogen 72H, Creatinine 4.0H, Estimat Glomerular Filtration Rate , Glucose Level 84, Calcium Level 7.8L, Iron Level 47L, Total Iron Binding Capacity 136L, Percent Iron Saturation 35, Unsaturated Iron Binding 89L, Ferritin 757H, Total Bilirubin 0.6, Aspartate Amino Transf ( AST/SGOT) 15, Alanine Aminotransferase (ALT/SGPT) 9L, Alkaline Phosphatase 115, Total Protein 6.0L, Albumin 2.4L, Globulin 3.6, Albumin/Globulin Ratio 0.7L, Carcinoembryonic Antigen [Pending], Vitamin B12 Level 1839H, Folate 36.8, Thyroid Stimulating Hormone (TSH) 0.787, Free Thyroxine 1.30 Current Medications Medications (Trade) Dose Ordered Sig/Markus Route PRN Reason Start Time Stop Time Status Last Admin Dose Admin Acetaminophen (Tylenol) 650 mg Q4H PRN ORAL Mild Pain (Pain Scale 1-3) 11/10/18 12:30 12/07/18 12:29 11/11/18 16:25 Albuterol/ Ipratropium (Albuterol/ Ipratropium) 3 ml Q4H PRN HHN Shortness of Breath 11/10/18 13:15 11/15/18 13:14 Albuterol/ Ipratropium (Albuterol/ Ipratropium) 3 ml Q8HRT HHN 11/10/18 15:00 11/14/18 22:59 11/13/18 07:49 Dextrose (Dextrose 50%) 25 ml Q30M PRN IV Hypoglycemia 11/10/18 12:15 12/07/18 21:42 Dextrose (Dextrose 50%) 50 ml Q30M PRN IV Hypoglycemia 11/10/18 12:15 12/07/18 21:42 Enoxaparin Sodium (Lovenox) 30 mg QHS SUBQ 11/10/18 21:00 12/08/18 02:29 11/12/18 20:32 Guaifenesin/ Dextromethorphan (Robitussin DM Syrup) 5 ml Q8H PRN ORAL For Cough 11/10/18 12:30 12/09/18 20:29 11/12/18 15:24 Hydromorphone HCl (Dilaudid) 1 mg Q4H PRN IVP Severe Pain (Pain Scale 7-10) 11/11/18 16:45 11/18/18 16:44 11/11/18 17:25 Insulin Aspart (NovoLOG) BEFORE MEALS AND HS SUBQ 11/10/18 16:30 12/07/18 20:59 11/12/18 17:35 Metronidazole (Flagyl) 500 mg Q8HR ORAL 11/12/18 14:00 11/19/18 13:59 11/13/18 05:43 Ondansetron HCl (Zofran) 4 mg Q6H PRN IVP Nausea & Vomiting 11/10/18 12:30 12/07/18 12:29 Pantoprazole (Protonix) 40 mg DAILY ORAL 11/11/18 09:00 12/08/18 08:59 11/13/18 08:24 Sodium Chloride 1,000 ml @ 75 mls/hr [id number] IV 11/11/18 11:04 12/11/18 11:03 11/13/18 02:06 Tigecycline 50 mg/ Sodium Chloride 110 ml @ 220 mls/hr EVERY 12 HOURS IVPB 11/10/18 21:00 11/16/18 20:59 11/13/18 08:24 Tramadol HCl (Ultram) 50 mg Q6H PRN ORAL Moderate Breakthru Pain (5-7) 11/12/18 08:30 11/19/18 08:29 Duglas Miles MD Nov 13, 2018 09:25
[2018-11-13] MEDS ORDERED: LEVAQUIN500 MG ORAL (09:27)
[2018-11-13] MEDS ORDERED: GUAIFENESIN DM118 M1 ORAL (09:27)
[2018-11-13] MEDS ORDERED: TRAMADOL HCL50 MG ORAL (09:27)
[2018-11-13] MEDS ORDERED: FLAGYL500 MG ORAL (09:27)
--- NOTE | 2018-11-13 09:52 | Cardiology Progress Note ---
Assessment/Plan Status: stable Assessment/Plan Assessment/Plan Status: stable Assessment/Plan Assessment Urosepsis Hydronephrosis Hypertension Diabetes CKD Elevated troponin Respiratory failure Plan Stable on room air BP low, hold anti hypertensive medications Serial Troponin, clinically not significant and likely from sepsis and CKD Echocardiogram to evaluate filling pressures and LV function --> 60 % no significant valvular disease or pulmonary hypertension Stress dose steroids Outpatient stress test when stable to evaluate coronary perfusion given cardiac risk factors Hold aspirin given CKD Urology consult pending for hydronephrosis, s/p left nephrostomy tube C.diff pending for diarrhea, continue flagyl Dispo planning clear for discharge Subjective Cardiovascular: Reports: no symptoms Respiratory: Reports: no symptoms Gastrointestinal/Abdominal: Reports: no symptoms Genitourinary: Reports: no symptoms Subjective No acute events, left nephrostomy tube patent with serous sanguineus drain, patient had diarrhea, flagyl started, c. diff pending, vitals stable, no pain Objective Last 24 Hour Vital Signs Date Time Temp Pulse Resp B/P (MAP) Pulse Ox O2 Delivery O2 Flow Rate FiO2 11/13/18 08:00 98.3 75 18 144/80 (101) 100 11/13/18 07:57 74 20 99 Room Air 11/13/18 07:50 73 20 97 Room Air 21 11/13/18 07:50 73 20 Room Air 21 11/13/18 04:00 97.8 81 20 143/78 (99) 93 11/13/18 00:00 97.6 86 18 142/72 (95) 93 11/13/18 00:00 72 20 98 Room Air 21 11/12/18 23:56 75 20 94 Room Air 21 11/12/18 23:53 72 20 Room Air 21 11/12/18 21:00 Room Air 11/12/18 20:00 98.5 76 20 147/76 (99) 95 11/12/18 16:00 98.4 89 20 141/73 (95) 95 89 11/12/18 15:56 79 20 98 Room Air 21 11/12/18 15:33 77 20 96 Room Air 21 11/12/18 12:00 97.8 82 20 148/80 (102) 95 82 General Appearance: no apparent distress, alert EENT: PERRL/EOMI, normal ENT inspection, TMs normal, pharynx normal Neck: non-tender, normal alignment, supple, normal inspection, no JVD Rhythm: NSR Cardiovascular: normal peripheral pulses, normal rate, regular rhythm Respiratory/Chest: chest wall non-tender, lungs clear, normal breath sounds, no accessory muscle use Abdomen: normal bowel sounds, non tender, soft, no organomegaly, no mass Extremities: normal range of motion, non-tender, normal inspection Neurologic: lock expert II-XII grossly normal, no motor/sensory deficits Intake and Output 11/12/18 11/13/18 19:00 07:00 Intake Total 1840 ml 1295 ml Output Total 3100 ml 2900 ml Balance -1260 ml -1605 ml Intake Oral 720 ml 360 ml IV Total 1120 ml 935 ml Output Urine Total 1300 ml 1400 ml Other 1800 ml 1500 ml # Bowel Movements 2 Laboratory Tests Test 11/13/18 05:45 White Blood Count 11.9 K/UL (4.8-10.8) H Red Blood Count 4.14 M/UL (4.70-6.10) L Hemoglobin 11.9 G/DL (14.2-18.0) L Hematocrit 36.1 % (42.0-52.0) L Mean Corpuscular Volume 87 FL (80-99) Mean Corpuscular Hemoglobin 28.8 PG (27.0-31.0) Mean Corpuscular Hemoglobin Concent 33.0 G/DL (32.0-36.0) Red Cell Distribution Width 12.9 % (11.6-14.8) Platelet Count 195 K/UL (150-450) Mean Platelet Volume 6.0 FL (6.5-10.1) L Neutrophils (%) (Auto) 68.2 % (45.0-75.0) Lymphocytes (%) (Auto) 17.3 % (20.0-45.0) L Monocytes (%) (Auto) 6.8 % (1.0-10.0) Eosinophils (%) (Auto) 7.1 % (0.0-3.0) H Basophils (%) (Auto) 0.5 % (0.0-2.0) Reticulocyte Count Pending Prothrombin Time 11.6 SEC (9.30-11.50) H Prothromb Time International Ratio 1.1 (0.9-1.1) Activated Partial Thromboplast Time 34 SEC (23-33) H Sodium Level 137 MMOL/L (136-145) Potassium Level 3.6 MMOL/L (3.5-5.1) Chloride Level 103 MMOL/L (98-107) Carbon Dioxide Level 22 MMOL/L (21-32) Anion Gap 12 mmol/L (5-15) Blood Urea Nitrogen 72 mg/dL (7-18) H Creatinine 4.0 MG/DL (0.55-1.30) H Estimat Glomerular Filtration Rate mL/min (>60) Glucose Level 84 MG/DL (74-106) Calcium Level 7.8 MG/DL (8.5-10.1) L Iron Level 47 ug/dL (50-175) L Total Iron Binding Capacity 136 ug/dL (250-450) L Percent Iron Saturation 35 % (15-50) Unsaturated Iron Binding 89 ug/dL (112-346) L Ferritin 757 NG/ML (8-388) H Total Bilirubin 0.6 MG/DL (0.2-1.0) Aspartate Amino Transf (AST/SGOT) 15 U/L (15-37) Alanine Aminotransferase (ALT/SGPT) 9 U/L (12-78) L Alkaline Phosphatase 115 U/L (46-116) Total Protein 6.0 G/DL (6.4-8.2) L Albumin 2.4 G/DL (3.4-5.0) L Globulin 3.6 g/dL Albumin/Globulin Ratio 0.7 (1.0-2.7) L Carcinoembryonic Antigen Pending Vitamin B12 Level 1839 PG/ML (193-986) H Folate 36.8 NG/ML (8.6-58.9) Thyroid Stimulating Hormone (TSH) 0.787 uiU/mL (0.358-3.740) Free Thyroxine 1.30 NG/DL (0.76-1.46) Microbiology Date/Time Source Procedure Growth Status 11/11/18 07:10 Blood Blood Culture - Preliminary NO GROWTH AFTER 24 HOURS Resulted 11/11/18 07:00 Blood Blood Culture - Preliminary NO GROWTH AFTER 24 HOURS Resulted Biju Leon MD Nov 13, 2018 09:52
--- NOTE | 2018-11-13 14:37 | GI Progress Note ---
Assessment/Plan Problems: (1) Electrolyte imbalance ICD Codes: E87.8 - Other disorders of electrolyte and fluid balance, not elsewhere classified SNOMED: 153425823 (2) Clostridium difficile colitis ICD Codes: A04.72 - Enterocolitis due to Clostridium difficile, not specified as recurrent SNOMED: 995091219 (3) Diarrhea ICD Codes: R19.7 - Diarrhea, unspecified SNOMED: 91099991 (4) Dehydration ICD Codes: E86.0 - Dehydration SNOMED: 34374656 Status: stable Status Narrative Discussed with Dr. Swain. Assessment/Plan C. difficile stool study pending collection to rule out any infectious colitis Continue Flagyl 500 mg 3 times daily The patient is currently on Protonix, which needs to be discontinued if tested positive for C. difficile Hold all stool softeners and laxatives Okay to give Imodium as needed once stool studies collected Continue ADA diet anemia work up OB stool r/o GI bleed monitor H&H, prn transfusions bowel regime ppi fu labs The patient was seen and examined at bedside and all new and available data was reviewed in the patients chart. I agree with the above findings, impression and plan. (Patient seen earlier today. Signature stamp does not reflect patient encounter time.). - Dany Swain MD Subjective Gastrointestinal/Abdominal: Reports: no symptoms Subjective diarrhea improved Objective Last 24 Hour Vital Signs Date Time Temp Pulse Resp B/P (MAP) Pulse Ox O2 Delivery O2 Flow Rate FiO2 11/13/18 09:00 Room Air 11/13/18 08:00 98.3 75 18 144/80 (101) 100 11/13/18 07:57 74 20 99 Room Air 11/13/18 07:50 73 20 97 Room Air 21 11/13/18 07:50 73 20 Room Air 21 11/13/18 04:00 97.8 81 20 143/78 (99) 93 11/13/18 00:00 97.6 86 18 142/72 (95) 93 11/13/18 00:00 72 20 98 Room Air 21 11/12/18 23:56 75 20 94 Room Air 21 11/12/18 23:53 72 20 Room Air 21 11/12/18 21:00 Room Air 11/12/18 20:00 98.5 76 20 147/76 (99) 95 11/12/18 16:00 98.4 89 20 141/73 (95) 95 89 11/12/18 15:56 79 20 98 Room Air 21 11/12/18 15:33 77 20 96 Room Air 21 Intake and Output 11/12/18 11/13/18 19:00 07:00 Intake Total 1840 ml 1295 ml Output Total 3100 ml 2900 ml Balance -1260 ml -1605 ml Intake Oral 720 ml 360 ml IV Total 1120 ml 935 ml Output Urine Total 1300 ml 1400 ml Other 1800 ml 1500 ml # Bowel Movements 2 Laboratory Tests Test 11/13/18 05:45 White Blood Count 11.9 K/UL (4.8-10.8) H Red Blood Count 4.14 M/UL (4.70-6.10) L Hemoglobin 11.9 G/DL (14.2-18.0) L Hematocrit 36.1 % (42.0-52.0) L Mean Corpuscular Volume 87 FL (80-99) Mean Corpuscular Hemoglobin 28.8 PG (27.0-31.0) Mean Corpuscular Hemoglobin Concent 33.0 G/DL (32.0-36.0) Red Cell Distribution Width 12.9 % (11.6-14.8) Platelet Count 195 K/UL (150-450) Mean Platelet Volume 6.0 FL (6.5-10.1) L Neutrophils (%) (Auto) 68.2 % (45.0-75.0) Lymphocytes (%) (Auto) 17.3 % (20.0-45.0) L Monocytes (%) (Auto) 6.8 % (1.0-10.0) Eosinophils (%) (Auto) 7.1 % (0.0-3.0) H Basophils (%) (Auto) 0.5 % (0.0-2.0) Reticulocyte Count 0.4 % (0.0-2.0) Prothrombin Time 11.6 SEC (9.30-11.50) H Prothromb Time International Ratio 1.1 (0.9-1.1) Activated Partial Thromboplast Time 34 SEC (23-33) H Sodium Level 137 MMOL/L (136-145) Potassium Level 3.6 MMOL/L (3.5-5.1) Chloride Level 103 MMOL/L (98-107) Carbon Dioxide Level 22 MMOL/L (21-32) Anion Gap 12 mmol/L (5-15) Blood Urea Nitrogen 72 mg/dL (7-18) H Creatinine 4.0 MG/DL (0.55-1.30) H Estimat Glomerular Filtration Rate mL/min (>60) Glucose Level 84 MG/DL (74-106) Calcium Level 7.8 MG/DL (8.5-10.1) L Iron Level 47 ug/dL (50-175) L Total Iron Binding Capacity 136 ug/dL (250-450) L Percent Iron Saturation 35 % (15-50) Unsaturated Iron Binding 89 ug/dL (112-346) L Ferritin 757 NG/ML (8-388) H Total Bilirubin 0.6 MG/DL (0.2-1.0) Aspartate Amino Transf (AST/SGOT) 15 U/L (15-37) Alanine Aminotransferase (ALT/SGPT) 9 U/L (12-78) L Alkaline Phosphatase 115 U/L (46-116) Total Protein 6.0 G/DL (6.4-8.2) L Albumin 2.4 G/DL (3.4-5.0) L Globulin 3.6 g/dL Albumin/Globulin Ratio 0.7 (1.0-2.7) L Carcinoembryonic Antigen Pending Vitamin B12 Level 1839 PG/ML (193-986) H Folate 36.8 NG/ML (8.6-58.9) Thyroid Stimulating Hormone (TSH) 0.787 uiU/mL (0.358-3.740) Free Thyroxine 1.30 NG/DL (0.76-1.46) Height (Feet): 5 Height (Inches): 8.00 Weight (Pounds): 205 General Appearance: WD/WN, no apparent distress, alert, thin Cardiovascular: normal rate Respiratory/Chest: normal breath sounds, no respiratory distress Abdominal Exam: normal bowel sounds, non tender, soft Extremities: normal range of motion, non-tender Farhad Up NP Nov 13, 2018 14:37
--- NOTE | 2018-11-13 14:49 | Infectious Diseases Prog Note ---
Assessment/Plan Assessment/Plan Severe sepsis 2ry to UTI c/w Acinetobacer -CXR: Minimal bilateral atelectatic changes. No acute process otherwise -u/a wbc 20-30, nit neg, luek large; ucx 40-50 K Acinetobacter -BCx 10/16 GNR Fever, resolved Leukocytosis Acute respiratory failure s/p intubation 11/07- sp extubation 11/08 NOEMÍ on CKD - (b/l Cr mid 2s) HTN DM Plan: - Start Tigecycline #/ for Acinetobacter urosepsis ( End date 11/23/18) - 11/09 SP Zosyn #2 pending ID and sensi GNR Ucx and Bcx - 11/09 SP IV Vancomycin #2 -Monitor CBC/CMP, temperatures -aspiration precautions OK to D/C from an ID perspective Will continue to follow along with you. Subjective Allergies: Coded Allergies: No Known Allergies (Unverified , 06/16/18) Subjective Afebrile Leukocytosis resolving Objective Vital Signs Last 24 Hour Vital Signs Date Time Temp Pulse Resp B/P (MAP) Pulse Ox O2 Delivery O2 Flow Rate FiO2 11/13/18 09:00 Room Air 11/13/18 08:00 98.3 75 18 144/80 (101) 100 11/13/18 07:57 74 20 99 Room Air 21 11/13/18 07:50 73 20 97 Room Air 21 11/13/18 07:50 73 20 Room Air 21 11/13/18 04:00 97.8 81 20 143/78 (99) 93 11/13/18 00:00 97.6 86 18 142/72 (95) 93 11/13/18 00:00 72 20 98 Room Air 21 11/12/18 23:56 75 20 94 Room Air 21 11/12/18 23:53 72 20 Room Air 21 11/12/18 21:00 Room Air 11/12/18 20:00 98.5 76 20 147/76 (99) 95 11/12/18 16:00 98.4 89 20 141/73 (95) 95 89 11/12/18 15:56 79 20 98 Room Air 21 11/12/18 15:33 77 20 96 Room Air 21 Height (Feet): 5 Height (Inches): 8.00 Weight (Pounds): 205 Objective General: NAD HEENT: NCAT, MMM, EOMI Respiratory/Chest: lungs clear Cardiovascular/Chest: normal rate, regular rhythm Abdomen: non tender, soft Microbiology Date/Time Source Procedure Growth Status 11/11/18 07:10 Blood Blood Culture - Preliminary NO GROWTH AFTER 24 HOURS Resulted 11/11/18 07:00 Blood Blood Culture - Preliminary NO GROWTH AFTER 24 HOURS Resulted Laboratory Tests Test 11/13/18 05:45 White Blood Count 11.9 K/UL (4.8-10.8) H Red Blood Count 4.14 M/UL (4.70-6.10) L Hemoglobin 11.9 G/DL (14.2-18.0) L Hematocrit 36.1 % (42.0-52.0) L Mean Corpuscular Volume 87 FL (80-99) Mean Corpuscular Hemoglobin 28.8 PG (27.0-31.0) Mean Corpuscular Hemoglobin Concent 33.0 G/DL (32.0-36.0) Red Cell Distribution Width 12.9 % (11.6-14.8) Platelet Count 195 K/UL (150-450) Mean Platelet Volume 6.0 FL (6.5-10.1) L Neutrophils (%) (Auto) 68.2 % (45.0-75.0) Lymphocytes (%) (Auto) 17.3 % (20.0-45.0) L Monocytes (%) (Auto) 6.8 % (1.0-10.0) Eosinophils (%) (Auto) 7.1 % (0.0-3.0) H Basophils (%) (Auto) 0.5 % (0.0-2.0) Reticulocyte Count 0.4 % (0.0-2.0) Prothrombin Time 11.6 SEC (9.30-11.50) H Prothromb Time International Ratio 1.1 (0.9-1.1) Activated Partial Thromboplast Time 34 SEC (23-33) H Sodium Level 137 MMOL/L (136-145) Potassium Level 3.6 MMOL/L (3.5-5.1) Chloride Level 103 MMOL/L (98-107) Carbon Dioxide Level 22 MMOL/L (21-32) Anion Gap 12 mmol/L (5-15) Blood Urea Nitrogen 72 mg/dL (7-18) H Creatinine 4.0 MG/DL (0.55-1.30) H Estimat Glomerular Filtration Rate mL/min (>60) Glucose Level 84 MG/DL (74-106) Calcium Level 7.8 MG/DL (8.5-10.1) L Iron Level 47 ug/dL (50-175) L Total Iron Binding Capacity 136 ug/dL (250-450) L Percent Iron Saturation 35 % (15-50) Unsaturated Iron Binding 89 ug/dL (112-346) L Ferritin 757 NG/ML (8-388) H Total Bilirubin 0.6 MG/DL (0.2-1.0) Aspartate Amino Transf (AST/SGOT) 15 U/L (15-37) Alanine Aminotransferase (ALT/SGPT) 9 U/L (12-78) L Alkaline Phosphatase 115 U/L (46-116) Total Protein 6.0 G/DL (6.4-8.2) L Albumin 2.4 G/DL (3.4-5.0) L Globulin 3.6 g/dL Albumin/Globulin Ratio 0.7 (1.0-2.7) L Carcinoembryonic Antigen Pending Vitamin B12 Level 1839 PG/ML (193-986) H Folate 36.8 NG/ML (8.6-58.9) Thyroid Stimulating Hormone (TSH) 0.787 uiU/mL (0.358-3.740) Free Thyroxine 1.30 NG/DL (0.76-1.46) Current Medications Medications (Trade) Dose Ordered Sig/Markus Route PRN Reason Start Time Stop Time Status Last Admin Dose Admin Acetaminophen (Tylenol) 650 mg Q4H PRN ORAL Mild Pain (Pain Scale 1-3) 11/10/18 12:30 12/07/18 12:29 11/11/18 16:25 Albuterol/ Ipratropium (Albuterol/ Ipratropium) 3 ml Q4H PRN HHN Shortness of Breath 11/10/18 13:15 11/15/18 13:14 Albuterol/ Ipratropium (Albuterol/ Ipratropium) 3 ml Q8HRT HHN 11/10/18 15:00 11/14/18 22:59 11/13/18 07:49 Dextrose (Dextrose 50%) 25 ml Q30M PRN IV Hypoglycemia 11/10/18 12:15 12/07/18 21:42 Dextrose (Dextrose 50%) 50 ml Q30M PRN IV Hypoglycemia 11/10/18 12:15 12/07/18 21:42 Enoxaparin Sodium (Lovenox) 30 mg QHS SUBQ 11/10/18 21:00 12/08/18 02:29 11/12/18 20:32 Guaifenesin/ Dextromethorphan (Robitussin DM Syrup) 5 ml Q8H PRN ORAL For Cough 11/10/18 12:30 12/09/18 20:29 11/12/18 15:24 Hydromorphone HCl (Dilaudid) 1 mg Q4H PRN IVP Severe Pain (Pain Scale 7-10) 11/11/18 16:45 11/18/18 16:44 11/11/18 17:25 Insulin Aspart (NovoLOG) BEFORE MEALS AND HS SUBQ 11/10/18 16:30 12/07/18 20:59 11/13/18 11:45 Metronidazole (Flagyl) 500 mg Q8HR ORAL 11/12/18 14:00 11/19/18 13:59 11/13/18 13:26 Ondansetron HCl (Zofran) 4 mg Q6H PRN IVP Nausea & Vomiting 11/10/18 12:30 12/07/18 12:29 Pantoprazole (Protonix) 40 mg DAILY ORAL 11/11/18 09:00 12/08/18 08:59 11/13/18 08:24 Sodium Chloride 1,000 ml @ 75 mls/hr [id number] IV 11/11/18 11:04 12/11/18 11:03 11/13/18 02:06 Tigecycline 50 mg/ Sodium Chloride 110 ml @ 220 mls/hr EVERY 12 HOURS IVPB 11/10/18 21:00 11/16/18 20:59 11/13/18 08:24 Tramadol HCl (Ultram) 50 mg Q6H PRN ORAL Moderate Breakthru Pain (5-7) 11/12/18 08:30 11/19/18 08:29 Biju Nuñez MD Nov 13, 2018 14:49
[2018-11-13 16:00] VITALS: BP 149/80
[2018-11-13] MEDS ORDERED: 1/2 NS 1000ml IV ONE (17:58)
--- NOTE | 2018-11-14 14:18 | Discharge Summary ---
Discharge Summary Discharge Summary _ DATE OF ADMISSION: 11/07/2018 DATE OF DISCHARGE: 11/13/2018 DISCHARGED BY: Dr. Renate Miles CONSULTANTS: Dr. Biju Miller BRIEF HOSPITAL COURSE: Patient is a 73-year-old gentleman, who was brought into the emergency room by family member after difficulty breathing and increased shortness of breath for 24-36 hours. He has a known CKD stage IV with baseline creatinine in the mid 2s along with diabetes mellitus. He was noted to have decreased urinary output and urinary hesitancy. He has not been on dialysis in the past. On evaluation at the ED, blood work showed leukocytosis, WBC was elevated to 16. Hemoglobin was 12, hematocrit 36. Creatinine was elevated to 4.4, BUN 51. Troponin was negative. ProBNP was 9406. EKG showed sinus rhythm with no acute ST or T wave changes. Chest x-ray read by radiologist showed minimal bilateral atelectatic changes. He was given IV fluids. He was planned for transfer to [facility]. However while at the emergency room, he continued to deteriorate and was noted to have worsening of respiratory status with increased difficulty breathing. He was given IV steroids as well as IV breathing treatment. He was seen started on BiPAP. He continued with respiratory distress and temperature adam to 106.8. He was given antipyretics and IV fluids. He was started on cooling measures. He was eventually intubated and was admitted to ICU in critical condition for severe sepsis and acute kidney injury on CKD. He was given IV hydration. ID was consulted. He was started on IV vancomycin and Zosyn until culture results. He was noted on prophylactic treatment with Tamiflu. Blood culture showed gram-negative rods in 1/2 bottle. Urine culture showed gram-negative rods. Repeat blood culture was obtained. Patient had metabolic acidosis and was given bicarb drip. Renal function was monitored. Kidney ultrasound showed moderate hydronephrosis on the left kidney. Professor Of Geology was consulted. Patient was on mechanical vent and was eventually weaned off. He was given steroids at the ED, however there was no wheezing no further steroids were necessary. He was eventually weaned off the ventilator support and was extubated on 11/08/2018. He was placed on Lovenox for DVT prophylaxis. He had elevated troponin. Mill Beam Fitter was consulted. Troponin was clinically not significant pain was likely from sepsis and CKD. He was recommended stress test as outpatient. Echocardiogram done showed ejection fraction 60%. Urologist was consulted. Patient has active infection and evidence of hydronephrosis. He was recommended percutaneous nephrostomy tube placement. CT of the abdomen and pelvis showed hypodensities in the distal third of the left ureter, resulting in moderate left hydronephrosis. There is left perinephric and periureteric stranding, possibly superimposed infection. There was a left calyceal 8 mm hyperdensity, may be nephrocalcinosis. There was findings of gallstones; moderate stool and gas in the colon; no bowel obstruction. On 11/11/2018, he underwent placement of pigtail catheter within the left renal pelvis. He had successful left nephrostomy tube placement for relief of obstructive uropathy. Urine culture showed growth of Acinetobacter. She was given tigecycline. Repeat blood culture did not isolate any growth. Influenza screen was negative. Patient had diarrhea, GI was consulted. Protonix was discontinued. He was given Imodium. He was given Flagyl 500 mg 3 times daily. Kidney function improved. WBC was down trending. He was eventually cleared for discharge to snf. FINAL DIAGNOSES: Hypoxemic respiratory failure requiring intubation, status post extubation Severe sepsis secondary to UTI consistent with a Acinetobacter Acute bronchospasm, resolved Acute kidney injury on CKD stage IV Left hydronephrosis status post nephrostomy tube placement Metabolic acidosis UTI with gram-negative bacillus Hypertension Headache Diarrhea, resolved Diabetes mellitus Elevated troponin, likely from sepsis and CKD DISPOSITION: Patient was discharged to a SNF. DISCHARGE MEDICATIONS: Refer to Discharge Medication List. Continue antibiotics for 10 more days. DISCHARGE INSTRUCTIONS: Follow-up in a week. Will need outpatient follow-up for nephrostomy tube removal. I have been assigned to complete a discharge summary on this account, I was not involved with the patient's management. Silvia Carrillo NP Nov 14, 2018 14:18
== END 2018-11-13 17:59 | DRG 720 ==
LOC: EMR 16:09 → EDBEDREQ 17:13 → ICU 20:00 → EDBEDREQ 21:28 → EDBEDREQSVC 21:28 → EDBEDREQ 21:31 → EDBEDREQSVC 21:46 → EDBEDREQ 21:46 → 2W 11-09 15:42 → 4E 11-10 11:55 → SDSOVERFLO 11-11 16:15 → 4E 11-11 16:18
PROC: 0BH17EZ Insertion of Endotracheal Airway into Trachea, Via Natural or Artificial Opening (ICD-10-PCS; principal; 2018-11-07)
PROC: 5A1935Z Respiratory Ventilation, Less than 24 Consecutive Hours (ICD-10-PCS; principal; 2018-11-07)
PROC: 0T9330Z Drainage of Right Kidney Pelvis with Drainage Device, Percutaneous Approach (ICD-10-PCS; 2018-11-11)
DX: A41.59 Other Gram-negative sepsis (principal); N17.0 Acute kidney failure with tubular necrosis; J96.01 Acute respiratory failure with hypoxia; R65.20 Severe sepsis without septic shock; I12.9 Hypertensive chronic kidney disease with stage 1 through stage 4 chronic kidney disease, or unspecified chronic kidney disease; E11.22 Type 2 diabetes mellitus with diabetic chronic kidney disease; N18.4 Chronic kidney disease, stage 4 (severe); N39.0 Urinary tract infection, site not specified; N13.39 Other hydronephrosis; R51 Headache; R19.7 Diarrhea, unspecified
CPT/HCPCS: 36415; 36600; 50432; 71045; 74018; 74176; 76770; 80048; 80053; 81003; 82378; 82550; 82553; 82607; 82728; 82746; 82803; 82962; 83540; 83550; 83605; 83880; 84439; 84443; 84478; 84484; 85007; 85025; 85044; 85610; 85730; 86710; 87040; 87081; 87086; 87181; 93005; 93306; 94002; 94640; 94660; 94664; 94760; 96361; 96365; 96375; 99291; J1815; J2250; J2405; J7620

== ENCOUNTER 2018-12-02 02:25 | Emergency (ER) | payer MEDICAID ==
[~2018-12-02] VITALS: Ht 177.8 cm; Wt 90.7 kg
[~2018-12-02 02:25] MED LIST changes: +FLAGYL500 MG ORAL; +GUAIFENESIN DM118 M1 ORAL; +LEVAQUIN500 MG ORAL; +TRAMADOL HCL50 MG ORAL; +UNOBMED
--- NOTE | 2018-12-02 02:30 | NUR ---
ED Nurse Note: Patient presents in need of nephrostomy replacement. ERMD at bedside.
--- NOTE | 2018-12-02 02:33 | Emergency Room Report ---
History of Present Illness General Source: EMS Present Illness HPI Patient is a 73-year-old male brought in by EMS from care home after nephrostomy tube had become dislodged. Patient had previous episode of sepsis and had nephrostomy tube placement. Patient was noted to have prior history of type 2 diabetes. He was noted to have some renal insufficiency. Patient is a Ari speaker. Patient had nephrostomy tube placed due to hydronephrosis on the left kidney.Nephrostomy had been placed at this facility. Allergies: Coded Allergies: PENICILLINS (Verified Allergy, Unknown, 12/02/18) Patient History Past Medical History: see triage record Reviewed Nursing Documentation: PMH: Agreed; PSxH: Agreed Nursing Documentation-PMH Hx Cardiac Problems: Yes Hx Hypertension: Yes Hx Diabetes: Yes Hx Cancer: No Hx Gastrointestinal Problems: No Hx Neurological Problems: No Review of Systems All Other Systems: negative except mentioned in HPI Physical Exam Sp02 EP Interpretation: reviewed, normal General Appearance: normal inspection, well appearing, no apparent distress, alert, GCS 15, obese Head: atraumatic ENT: normal ENT inspection, hearing grossly normal, normal voice Neck: normal inspection, full range of motion, supple, no bony tend Respiratory: normal inspection, lungs clear, normal breath sounds, no respiratory distress, no retraction, no wheezing Cardiovascular #1: regular rate, rhythm, no edema Gastrointestinal: normal inspection, normal bowel sounds, non tender, soft, no guarding, no hernia Genitourinary: no CVA tenderness, other - left flank nephrostomy tube site Musculoskeletal: normal inspection, back normal, normal range of motion Neurologic: normal inspection, alert, oriented x3, responsive, leather coverer III-XII nml as tested, speech normal Psychiatric: normal inspection, judgement/insight normal, mood/affect normal Skin: normal inspection, normal color, no rash Medical Decision Making Diagnostic Impression: Primary Impression: Nephrostomy tube displaced ER Course Patient presented for nephrostomy tube dislodgment. Differential diagnosis include was not limited to infection, sepsis, dehydration among others. Because of complexity of patient's case laboratory testing and imaging studies were ordered. EKG interpreted by me showed normal sinus rhythm with a rate of 78 with some prolongation of the QT interval. Patient noted to have normal white blood count.Patient was noted to have some baseline elevation of his BUN and creatinine. Patient was noted to have no evident acidosis at this time. BUN and creatinine were noted to be mildly elevated but improved from previous visit. Patient was discussed with Dr. Najera for capitated facility transfer. Labs Test 12/02/18 03:33 White Blood Count 9.7 K/UL (4.8-10.8) Red Blood Count 4.39 M/UL (4.70-6.10) Hemoglobin 12.4 G/DL (14.2-18.0) Hematocrit 37.4 % (42.0-52.0) Mean Corpuscular Volume 85 FL (80-99) Mean Corpuscular Hemoglobin 28.2 PG (27.0-31.0) Mean Corpuscular Hemoglobin Concent 33.1 G/DL (32.0-36.0) Red Cell Distribution Width 12.6 % (11.6-14.8) Platelet Count 304 K/UL (150-450) Mean Platelet Volume 5.9 FL (6.5-10.1) Neutrophils (%) (Auto) 55.7 % (45.0-75.0) Lymphocytes (%) (Auto) 30.2 % (20.0-45.0) Monocytes (%) (Auto) 7.6 % (1.0-10.0) Eosinophils (%) (Auto) 6.0 % (0.0-3.0) Basophils (%) (Auto) 0.5 % (0.0-2.0) Prothrombin Time 10.6 SEC (9.30-11.50) Prothromb Time International Ratio 1.0 (0.9-1.1) Activated Partial Thromboplast Time 30 SEC (23-33) Sodium Level 137 MMOL/L (136-145) Potassium Level 5.0 MMOL/L (3.5-5.1) Chloride Level 103 MMOL/L (98-107) Carbon Dioxide Level 24 MMOL/L (21-32) Anion Gap 11 mmol/L (5-15) Blood Urea Nitrogen 40 mg/dL (7-18) Creatinine 3.5 MG/DL (0.55-1.30) Estimat Glomerular Filtration Rate mL/min (>60) Glucose Level 89 MG/DL (74-106) Calcium Level 9.3 MG/DL (8.5-10.1) Total Bilirubin 0.5 MG/DL (0.2-1.0) Aspartate Amino Transf (AST/SGOT) 23 U/L (15-37) Alanine Aminotransferase (ALT/SGPT) 19 U/L (12-78) Alkaline Phosphatase 112 U/L (46-116) Total Protein 8.8 G/DL (6.4-8.2) Albumin 3.1 G/DL (3.4-5.0) Globulin 5.7 g/dL Albumin/Globulin Ratio 0.5 (1.0-2.7) Status: improved Disposition: HOME, SELF-CARE Condition: Stable Rinku Novoa MD Dec 02, 2018 02:32
[2018-12-02] MEDS ORDERED: SENNA S TABLET1 EAC1 PO (02:35)
[2018-12-02] MEDS ORDERED: ROBITUSSIN AC5 ML ORAL (02:35)
[2018-12-02] MEDS ORDERED: MILK OF MA2400 MG/10 ORAL (02:35)
[2018-12-02] MEDS ORDERED: DOCUSATE SODIU100 MG ORAL (02:35)
[2018-12-02] MEDS ORDERED: BISACODYL5 MG ORAL (02:35)
[2018-12-02] MEDS ORDERED: ZOFRAN4 MG/5 ML ORAL (02:35)
[2018-12-02] MEDS ORDERED: NOVOLOG100 UNIT/4 SQ (02:35)
[2018-12-02] MEDS ORDERED: FLEET ENEMA133 ML RECTAL (02:35)
[2018-12-02] MEDS ORDERED: PROBIOTIC1 EAC5 PO (02:35)
[2018-12-02] MEDS ORDERED: ULTRAM50 MG ORAL (02:35)
[2018-12-02 03:05] VITALS: BP 125/81
[2018-12-02 03:42] LABS: BASOPHILS % (AUTO) 0.5 % (0.0-2.0); HEMATOCRIT 37.4 % (42.0-52.0); HEMOGLOBIN 12.4 G/DL (14.2-18.0); LYMPHOCYTES % (AUTO) 30.2 % (20.0-45.0); MEAN CORPUSCULAR VOLUME 85 FL (80-99); MONOCYTES % (AUTO) 7.6 % (1.0-10.0); NEUTROPHILS % (AUTO) 55.7 % (45.0-75.0); PLATELET COUNT 304 K/UL (150-450); RED BLOOD COUNT 4.39 M/UL (4.70-6.10); RED CELL DISTRIBUTION WIDTH 12.6 % (11.6-14.8); WHITE BLOOD COUNT 9.7 K/UL (4.8-10.8)
[2018-12-02 03:54] LABS: ANION GAP 11 mmol/L (5-15); BLOOD UREA NITROGEN 40 mg/dL (7-18); CALCIUM 9.3 MG/DL (8.5-10.1); CARBON DIOXIDE 24 MMOL/L (21-32); CHLORIDE 103 MMOL/L (98-107); CREATININE 3.5 MG/DL (0.55-1.30); SODIUM 137 MMOL/L (136-145)
[2018-12-02 03:55] VITALS: BP 146/79
--- NOTE | 2018-12-02 03:57 | NUR ---
ED Nurse Note: Patient resting comfortably o s/s of acute distress. vital signs stable.
[2018-12-02 03:58] LABS: ALANINE AMINOTRANSFERASE 19 U/L (12-78); ALBUMIN 3.1 G/DL (3.4-5.0); ALBUMIN/GLOBULIN RATIO 0.5 (1.0-2.7); ALKALINE PHOSPHATASE 112 U/L (46-116); ASPARTATE AMINO TRANSFERASE 23 U/L (15-37); BILIRUBIN,TOTAL 0.5 MG/DL (0.2-1.0)
--- NOTE | 2018-12-02 05:02 | NUR ---
ED Nurse Note: Patient resting comfortably with no s/s of acute discomfort. initial Vital signs and lab results given to intake at transfer location for possible transfer.
--- NOTE | 2018-12-02 05:58 | NUR ---
ED Nurse Note: Patient resting comfortably, requested that blood pressure cuff be taken off, request accomodated, will monitor accordingly.
--- NOTE | 2018-12-02 06:44 | NUR ---
ED Nurse Note: Tried to call into [facility] to give report to the charge nurse, there was no answer.
--- NOTE | 2018-12-02 06:55 | NUR ---
ED Nurse Note: Tried calling in report again, no answer.
--- NOTE | 2018-12-02 07:03 | NUR ---
ED Nurse Note: Corrected contact number in calls section. Charge not ready to receive report. Will call in 10 minutes.
--- NOTE | 2018-12-02 07:25 | NUR ---
ED Nurse Note: REport called into [facility]. ETA of transportation unknown.
--- NOTE | 2018-12-02 07:29 | NUR ---
HAND-OFF: Report given to Marj URRUTIA.
--- NOTE | 2018-12-02 07:30 | NUR ---
ED Nurse Note: received pt from GHADA Tolliver. Telephone report given to Lacy Ceballos by GHADA Tolliver. Pt is resting in bed, no s/s of distress. Waiting for transportation to arrive.
[2018-12-02 07:40] VITALS: BP 145/98
--- NOTE | 2018-12-02 09:00 | NUR ---
HAND-OFF: Report given to CN. Karolina
--- NOTE | 2018-12-02 09:03 | NUR ---
[facility]
[2018-12-02 10:58] VITALS: BP 138/80
--- NOTE | 2018-12-02 10:58 | NUR ---
report given to minal at [facility]
[2018-12-02 11:06] VITALS: BP 138/80
--- NOTE | 2018-12-02 22:30 | Consultation ---
DATE OF CONSULTATION: 12/02/2018 INTERNAL MEDICINE CONSULTATION HISTORY OF PRESENT ILLNESS: This is a 73-year-old male, who was brought from senior living after his nephrostomy tube had become dislodged. I was asked to evaluate and admit due to insurance reasons. The patient previously had sepsis and has nephrostomy tube placement. The patient is also a known diabetic. He has issues. ALLERGIES: To penicillin. PAST MEDICAL HISTORY: Hypertension and diabetes mellitus. REVIEW OF SYSTEMS: The patient denies any headaches, hematemesis, melena, and hematochezia. PHYSICAL EXAMINATION: GENERAL: Reveals a 73-year-old male. HEENT: Unremarkable. CHEST: Clear breath sounds bilaterally. HEART: Normal heart sounds. ABDOMEN: Soft. NEUROLOGIC: Nonfocal LABORATORY DATA: Lab testing is noncontributory. Normal CBC and BMP. Hemoglobin 12.4 and creatinine 3.5. IMPRESSION: Dislodged nephrostomy tube. DISCUSSION: At this point, I was asked to admit the patient, however, the patient is being transferred to [facility]. Initially, there was a delay in transfer and I was asked to admit, however, on my intervention, I was able to contact the ambulance company and showed the patient will be picked up in the next 45 minutes. Discussed with on-call porter sample case. The patient will be handled by Dr. Muse at outside hospital. Duglas Miles M.D. DR: DEB JOB#: [id number] CC:
--- NOTE | 2018-12-05 19:22 | Cardiology Report ---
APPROVED REPORT EKG Measurement Heart [id number] DC [id number] Normal sinus rhythm Left axis deviation Prolonged QT Abnormal ECG
== END 2018-12-02 11:31 | disposition home or self-care (01) ==
LOC: EDBD 02:25 → EMR 02:36 → EDBEDREQ 03:34 → CANBEDREQ 11:05 → EMR 11:31
DX: T83.022A Displacement of nephrostomy catheter, initial encounter (principal); R94.4 Abnormal results of kidney function studies; I10 Essential (primary) hypertension; E11.9 Type 2 diabetes mellitus without complications; N13.30 Unspecified hydronephrosis; Z88.0 Allergy status to penicillin; Z86.19 Personal history of other infectious and parasitic diseases
CPT/HCPCS: 36415; 80053; 82962; 85025; 85610; 85730; 86850; 86870; 86900; 86901; 93005; 99284

== ENCOUNTER 2019-04-05 20:54 | Inpatient (IN) | payer MEDICAID ==
[~2019-04-05] VITALS: Ht 165.1 cm; Wt 72.6 kg
[~2019-04-05 20:54] MED LIST changes: +BISACODYL5 MG ORAL; +DOCUSATE SODIU100 MG ORAL; +FLEET ENEMA133 ML RECTAL; +MILK OF MA2400 MG/10 ORAL; +NOVOLOG100 UNIT/4 SQ; +PROBIOTIC1 EAC5 PO; +ROBITUSSIN AC5 ML ORAL; +SENNA S TABLET1 EAC1 PO; +ULTRAM50 MG ORAL; +ZOFRAN4 MG/5 ML ORAL
--- NOTE | 2019-04-05 21:05 | NUR ---
ED Nurse Note: PT AMBULATED TO ED WITH CRUTCHES, C/O OF WEAKNESS, DIZZINESS, FEVER AND CHILLS. TEMP. @ TRIAGE 97.7 AO4. NAD. FAMILY AT BEDSIDE.
[2019-04-05] MEDS ORDERED: CATAPRES0.1 MG ORAL (21:10)
--- NOTE | 2019-04-05 21:20 | NUR ---
ED Nurse Note: BLOOD COLLECTED; SENT DOWN TO LAB.
--- NOTE | 2019-04-05 21:25 | Diagnostic Imaging Report ---
EXAM: XR Chest, 1 View CLINICAL HISTORY: CP TECHNIQUE: Frontal view of the chest. COMPARISON: 11/09/18 IMPRESSION: Unchanged heart size. No consolidation or pleural effusion.
[2019-04-05 21:44] LABS: BILIRUBIN, URINE NEGATIVE (NEGATIVE); COLOR,URINE PALE YELLOW; GLUCOSE, URINE (UA) NEGATIVE (NEGATIVE); KETONES,URINE NEGATIVE (NEGATIVE); LEUKOCYTE ESTERASE ,URINE 3+ (NEGATIVE); NITRITE,URINE NEGATIVE (NEGATIVE); PH,URINE 6 (4.5-8.0); PROTEIN,URINE 1+ (NEGATIVE); UROBILINOGEN,URINE NORMAL MG/DL (0.0-1.0)
[2019-04-05 21:45] LABS: APPEARANCE,URINE SLIGHTLY CLOUDY
--- NOTE | 2019-04-05 21:46 | Emergency Room Report ---
History of Present Illness General Chief Complaint: Generalized Weakness Source: Patient Present Illness HPI Patient presents with complaints of general weakness chills and shaking Patient called his family with these complaints and was brought to the ER he also complains of diffuse abdominal bloating increased urination Denies any chest pain or shortness of breath Denies any vomiting or diarrhea Questionable subjective fevers patient has a pertinent medical history with Obstructive uropathy requiring nephrostomy tube placement and replacements Denies any rash Allergies: Coded Allergies: PENICILLINS (Verified Allergy, Unknown, 12/02/18) Patient History Past Medical History: see triage record Pertinent Family History: none Reviewed Nursing Documentation: PMH: Agreed; PSxH: Agreed Nursing Documentation-PMH Past Medical History: No History, Except For Hx Cardiac Problems: Yes Hx Hypertension: Yes Hx Diabetes: Yes Hx Cancer: No Hx Gastrointestinal Problems: No Hx Neurological Problems: No Review of Systems All Other Systems: negative except mentioned in HPI Physical Exam Vital Signs Date Time Temp Pulse Resp B/P (MAP) Pulse Ox O2 Delivery O2 Flow Rate FiO2 04/05/19 21:03 97.7 89 15 154/101 (118) 97 Room Air Sp02 EP Interpretation: reviewed, normal General Appearance: no apparent distress Head: normocephalic, atraumatic Eyes: bilateral eye PERRL, bilateral eye EOMI ENT: hearing grossly normal, TMs + canals normal, uvula midline, dry mucus membranes Neck: full range of motion, supple, no meningismus, no bony tend Respiratory: lungs clear, normal breath sounds, no rhonchi, no respiratory distress, no retraction, no accessory muscle use Cardiovascular #1: normal peripheral pulses, regular rate, rhythm, no edema, no gallop, no JVD, no murmur Gastrointestinal: normal bowel sounds, soft, no mass, no organomegaly, non- distended, no guarding, no hernia, no pulsatile mass, no rebound, other - Mild discomfort to the right lower abdomen Genitourinary: no CVA tenderness Musculoskeletal: normal inspection Neurologic: oriented x3, responsive, mortgage advisor III-XII nml as tested, motor strength/ tone normal, sensory intact Psychiatric: mood/affect normal Skin: normal color, no rash, warm/dry, palpation normal Lymphatic: normal inspection, no adenopathy Medical Decision Making Diagnostic Impression: Primary Impression: Appendicitis Additional Impression: UTI (urinary tract infection) ER Course With the history exam and presentation, multiple differentials considered, including but not limited to appendicitis, gastritis, cholecystitis, diverticulitis Patient previously had nephrostomy tube however since then has had a stent placed at this time the CT imaging reveals concerning findings of possible early appendicitis Patient initiated on antibiotics Further hydration and requires further inpatient care Labs Test 04/05/19 21:20 White Blood Count 9.5 K/UL (4.8-10.8) Red Blood Count 5.24 M/UL (4.70-6.10) Hemoglobin 14.6 G/DL (14.2-18.0) Hematocrit 43.1 % (42.0-52.0) Mean Corpuscular Volume 82 FL (80-99) Mean Corpuscular Hemoglobin 27.8 PG (27.0-31.0) Mean Corpuscular Hemoglobin Concent 33.8 G/DL (32.0-36.0) Red Cell Distribution Width 12.9 % (11.6-14.8) Platelet Count 138 K/UL (150-450) Mean Platelet Volume 5.5 FL (6.5-10.1) Neutrophils (%) (Auto) 53.2 % (45.0-75.0) Lymphocytes (%) (Auto) 35.4 % (20.0-45.0) Monocytes (%) (Auto) 7.0 % (1.0-10.0) Eosinophils (%) (Auto) 4.2 % (0.0-3.0) Basophils (%) (Auto) 0.2 % (0.0-2.0) Urine Color Pale yellow Urine Appearance Slightly cloudy Urine pH 6 (4.5-8.0) Urine Specific [place] 1.005 (1.005-1.035) Urine Protein 1+ (NEGATIVE) Urine Glucose (UA) Negative (NEGATIVE) Urine Ketones Negative (NEGATIVE) Urine Blood 1+ (NEGATIVE) Urine Nitrite Negative (NEGATIVE) Urine Bilirubin Negative (NEGATIVE) Urine Urobilinogen Normal MG/DL (0.0-1.0) Urine Leukocyte Esterase 3+ (NEGATIVE) Urine RBC 0-2 /HPF (0 - 0) Urine WBC 15-20 /HPF (0 - 0) Urine Squamous Epithelial Cells Occasional /LPF Urine Bacteria Few /HPF (NONE) Sodium Level 138 MMOL/L (136-145) Potassium Level 4.3 MMOL/L (3.5-5.1) Chloride Level 103 MMOL/L (98-107) Carbon Dioxide Level 22 MMOL/L (21-32) Anion Gap 13 mmol/L (5-15) Blood Urea Nitrogen 41 mg/dL (7-18) Creatinine 2.9 MG/DL (0.55-1.30) Estimat Glomerular Filtration Rate mL/min (>60) Glucose Level 108 MG/DL (74-106) Lactic Acid Level 1.50 mmol/L (0.4-2.0) Calcium Level 9.0 MG/DL (8.5-10.1) Total Bilirubin 0.4 MG/DL (0.2-1.0) Aspartate Amino Transf (AST/SGOT) 31 U/L (15-37) Alanine Aminotransferase (ALT/SGPT) 16 U/L (12-78) Alkaline Phosphatase 167 U/L (46-116) Total Creatine Kinase 112 U/L (26-308) Creatine Kinase MB 2.0 NG/ML (0.0-3.6) Creatine Kinase MB Relative Index 1.7 Troponin I 0.731 ng/mL (0.000-0.056) Pro-B-Type Natriuretic Peptide 1143 pg/mL (0-125) Total Protein 8.6 G/DL (6.4-8.2) Albumin 4.0 G/DL (3.4-5.0) Globulin 4.6 g/dL Albumin/Globulin Ratio 0.9 (1.0-2.7) Lipase 365 U/L (73-393) Rhythm Strip Diag. Results EP Interpretation: yes Rate: 77 Rhythm: NSR, no PVC's, no ectopy Chest X-Ray Diagnostic Results Chest X-Ray Diagnostic Results : Chest X-Ray Ordered: Yes # of Views/Limited/Complete: 1 View Indication: Chest Pain EP Interpretation: Yes Interpretation: no consolidation, no effusion, no pneumothorax Impression: No acute disease Electronically Signed by: Froylan Jarrett, CT/MRI/US Diagnostic Results CT/MRI/US Diagnostic Results : Impression CT abdomen pelvisIMPRESSION: 1. Mildly dilated appendix, possibly early/mild appendicitis. No bowel obstruction, abscess or perforation. 2. Cholelithiasis. 3. Left ureteral stent is in place. No hydronephrosis. 4. Mild hiatal hernia. Last Vital Signs Date Time Temp Pulse Resp B/P (MAP) Pulse Ox O2 Delivery O2 Flow Rate FiO2 04/05/19 21:03 97.7 89 15 154/101 (118) 97 Room Air Status: improved Disposition: ADMITTED INPATIENT Condition: Serious Referrals: [facility],REFERRING (PCP) Froylan Jarrett DO Apr 05, 2019 21:46
[2019-04-05 21:47] LABS: BASOPHILS % (AUTO) 0.2 % (0.0-2.0); EOSINOPHILS % (AUTO) 4.2 % (0.0-3.0); HEMATOCRIT 43.1 % (42.0-52.0); HEMOGLOBIN 14.6 G/DL (14.2-18.0); LYMPHOCYTES % (AUTO) 35.4 % (20.0-45.0); MEAN CORPUSCULAR VOLUME 82 FL (80-99); NEUTROPHILS % (AUTO) 53.2 % (45.0-75.0); PLATELET COUNT 138 K/UL (150-450); RED BLOOD COUNT 5.24 M/UL (4.70-6.10); RED CELL DISTRIBUTION WIDTH 12.9 % (11.6-14.8); WHITE BLOOD COUNT 9.5 K/UL (4.8-10.8)
[2019-04-05 21:56] LABS: ANION GAP 13 mmol/L (5-15); BLOOD UREA NITROGEN 41 mg/dL (7-18); CARBON DIOXIDE 22 MMOL/L (21-32); CHLORIDE 103 MMOL/L (98-107); CREATININE 2.9 MG/DL (0.55-1.30); POTASSIUM 4.3 MMOL/L (3.5-5.1); SODIUM 138 MMOL/L (136-145)
[2019-04-05 21:59] VITALS: BP 154/101
[2019-04-05 22:11] LABS: ALANINE AMINOTRANSFERASE 16 U/L (12-78); ALBUMIN/GLOBULIN RATIO 0.9 (1.0-2.7); ALKALINE PHOSPHATASE 167 U/L (46-116); ASPARTATE AMINO TRANSFERASE 31 U/L (15-37); BILIRUBIN,TOTAL 0.4 MG/DL (0.2-1.0); CREATINE KINASE 112 U/L (26-308)
--- NOTE | 2019-04-05 22:30 | NUR ---
ED Nurse Note: IV ACCESS ESTABLISHED.
--- NOTE | 2019-04-05 22:31 | Diagnostic Imaging Report ---
EXAM: CT Abdomen and Pelvis Without Intravenous Contrast CLINICAL HISTORY: PAIN TECHNIQUE: Axial computed tomography images of the abdomen and pelvis without intravenous contrast. CTDI is 19 mGy and DLP is 1046 mGy-cm. One or more of the following dose reduction techniques were used: automated exposure control, adjustment of the mA and/or kV according to patient size, use of iterative reconstruction technique. COMPARISON: 11/09/18 CT abdomen FINDINGS: Lung bases: No mass. No consolidation. ABDOMEN: Liver: Unremarkable. Gallbladder and bile ducts: Few layering gallstones. Pancreas: No ductal dilation. Spleen: Unremarkable. Adrenals: Unremarkable. Kidneys and ureters: Atrophic bilaterally. No obstructing stones. No hydronephrosis. Left ureteral stent is in place. Stomach and bowel: No bowel obstruction. No bowel wall thickening. Mild hiatal hernia. PELVIS: Appendix: Dilated to 8 mm. Bladder: No stones. Reproductive: Unremarkable. ABDOMEN and PELVIS: Intraperitoneal space: Unremarkable. Bones/joints: No acute fractures. Unchanged mild wedging of T12. Right femoral hardware is unchanged. Old fracture deformities of the left Soft tissues: Unremarkable. Vasculature: No abdominal aortic aneurysm. Lymph nodes: No enlarged lymph nodes. IMPRESSION: 1. Mildly dilated appendix, possibly early/mild appendicitis. No bowel obstruction, abscess or perforation. 2. Cholelithiasis. 3. Left ureteral stent is in place. No hydronephrosis. 4. Mild hiatal hernia.
[2019-04-05 22:41] VITALS: BP 170/82
[2019-04-05] MEDS ORDERED: Tigecycline 50 MG in NS 110 ML IVPB ONE (23:00)
--- NOTE | 2019-04-05 23:15 | NUR ---
ED Nurse Note: CALLED FOR REPORT. RECEIVING RN UNABLE TO TAKE REPORT AT THIS TIME. WILL CALL BACK IN 15 MINUTES
--- NOTE | 2019-04-05 23:45 | NUR ---
TRANSFER TO FLOOR: Patient transferred to [facility] 212-2 as ordered, per MD TIFFANIE. Report given to GHADA WETZEL. PATIENT IN STABLE CONDITION. FAMILY MEMBER AT BEDSIDE. BELONGINGS LIST COMPLETED WITH RECEIVING RN.
[2019-04-06 00:30] VITALS: BP 170/104
--- NOTE | 2019-04-06 00:30 | NUR ---
NURSE NOTES: Received pt from GHADA Bashir. Pt awake, alert, and talkative. Speaking Ari only, Cyracom used. Skin intact. Pt has prior hx of C. Diff and asked to poop in the container provided in the bathroom. at bedside. IV site intact and patent. Bed in lowest position. Call light within reach. Pt stated that med recon is wrong, he only takes Clonidine daily, and something for pain as needed. Will continue to monitor.
[2019-04-06] MEDS ORDERED: traMADol 50mg tab ORAL PRN (01:00)
--- NOTE | 2019-04-06 01:07 | NUR ---
NURSE NOTES: Dr Dunlap gave the following orders: - levaquin 500 mg daily - tramadol 50 mg prn - clonidine 0.1 prn - clonidine 0.1 daily - heparin 5000 u q 12 - cont home meds - regular diet Will input orders and will continue to monitor.
[2019-04-06 04:00] VITALS: BP 130/53
--- NOTE | 2019-04-06 07:18 | NUR ---
HAND-OFF: Report given to Report GHADA Silveira. Pt stable.
--- NOTE | 2019-04-06 07:22 | NUR ---
NURSE NOTES: Received report from GHADA Barragan. Pt. Patient is sitting on bed, eating his breakfast. No sign of acute distress at this time. Breathing unlabored in room air. Bed in low position, with two side rails up, brake engaged. Call light and bed side table within reach. Will continue to monitor.
[2019-04-06 08:00] VITALS: BP 152/83
[2019-04-06 08:33] VITALS: BP 152/83
[2019-04-06] MEDS ORDERED: Heparin 5000 units/ml inj SUBQ SCH (09:00)
--- NOTE | 2019-04-06 10:03 | NUR ---
NURSE NOTES: Sent a massage to Dr. Dunlap for asking about any order and/or Regulator Inspector consult.
--- NOTE | 2019-04-06 11:45 | NUR ---
NURSE NOTES: Dr. Dunlap aware of abnormal lab values.
[2019-04-06 12:06] LABS: BASOPHILS % (AUTO) 0.4 % (0.0-2.0); EOSINOPHILS % (AUTO) 3.6 % (0.0-3.0); HEMATOCRIT 41.6 % (42.0-52.0); HEMOGLOBIN 13.6 G/DL (14.2-18.0); LYMPHOCYTES % (AUTO) 28.4 % (20.0-45.0); MEAN CORPUSCULAR VOLUME 85 FL (80-99); MONOCYTES % (AUTO) 7.8 % (1.0-10.0); NEUTROPHILS % (AUTO) 59.8 % (45.0-75.0); PLATELET COUNT 142 K/UL (150-450); WHITE BLOOD COUNT 8.8 K/UL (4.8-10.8)
[2019-04-06 12:10] LABS: ANION GAP 9 mmol/L (5-15); BLOOD UREA NITROGEN 41 mg/dL (7-18); CALCIUM 8.8 MG/DL (8.5-10.1); CARBON DIOXIDE 23 MMOL/L (21-32); CHLORIDE 104 MMOL/L (98-107); CREATININE 2.8 MG/DL (0.55-1.30); POTASSIUM 4.9 MMOL/L (3.5-5.1); SODIUM 136 MMOL/L (136-145)
[2019-04-06 12:15] LABS: ALANINE AMINOTRANSFERASE 15 U/L (12-78); ALBUMIN 3.4 G/DL (3.4-5.0); ALBUMIN/GLOBULIN RATIO 0.8 (1.0-2.7); ALKALINE PHOSPHATASE 141 U/L (46-116); ASPARTATE AMINO TRANSFERASE 20 U/L (15-37); BILIRUBIN,TOTAL 0.4 MG/DL (0.2-1.0)
[2019-04-06] MEDS ORDERED: Tubing IV Secondary IV ONE (12:24)
[2019-04-06] MEDS ORDERED: NS 275ml ONE (12:24)
--- NOTE | 2019-04-06 12:25 | NUR ---
NURSE NOTES: Patient discharged home, self care per Dr. Dunlap's order. All discharge instructions explained to patient and pt's family, verbalized understanding. Heart monitor removed and returned to air sampling and monitoring. ID band removed and placed in shredder , IV removed. Patient needs to continue home medications and follow up as out patient with Dr. Dunlap. Patient received a new prescription. Patient went home with private car and in stable condition.
--- NOTE | 2019-04-06 13:14 | NUR ---
CASE MANAGEMENT: INITIAL REVIEW 73 YO M PRESENTED TO ED FROM HOME CC: GEN WEAKNESS PMHx: HTN. DM. SI:WEAKNESS. SEPSIS. T 97.7 HR 89 RR 15 B/P 154/101 SATS 97% ON RA BU 41 CR 2.9 GLU 108 ALP 167 TROPONIN 0.731 BNP 1143 IS: LEVAQUIN IV X1 PATIENT ADMITTED TO TELE 04/05/2019 @ 8150 DCP: PATIENT TO BE DISCHARGED TO HOME ONCE MEDICALLY CLEARED. PLAN OF CARE: ID CONSULT 04/06/2019>>> PATIENT DC Addendum: 04/06/19 at 1903 by Dania Miller CM INTERQUAL MET
--- NOTE | 2019-04-06 13:22 | Consultation ---
History of Present Illness General Date patient seen: Apr 06, 2019 Reason for Hospitalization: Generalized Weakness Present Illness HPI This is a 73-year-old male who presented to the emergency department at [facility] with family complaining of generalized weakness and shivering with abdominal bloating and increased urination. Afebrile, hemodynamically stable, labs okay. CT abdomen pelvis demonstrated concerns for possible acute early appendicitis. Surgery called to evaluate. Patient seen, patient divided , chart reviewed. This morning patient states that symptoms have resolved and he feels well. Currently has no abdominal discomfort or pain. Tolerating diet. Ambulatory. Ready to go home as per patient and family. Allergies: Coded Allergies: PENICILLINS (Verified Allergy, Unknown, 12/02/18) Medication History Scheduled Benzonatate* (Tessalon Perle*), 100 MG ORAL THREE TIMES A DAY Bisacodyl* (Dulcolax*), 10 MG ORAL DAILY, (Reported) Clonidine Hcl* (Catapres*), 0.1 MG ORAL ONCE, (Reported) Docusate Sodium* (Docusate Sodium*), 100 MG ORAL THREE TIMES A DAY, (Reported) Levofloxacin* (Levaquin*), 500 MG ORAL DAILY Loratadine (Claritin), 10 MG ORAL DAILY Magnesium Hydroxide* (Milk Of Magnesia*), 30 ML ORAL DAILY, (Reported) Metronidazole* (Flagyl*), 500 MG ORAL Q8HR Na Phos,M-B/Na Phos,Di-Ba* (Fleet Enema*), 133 ML RECTAL DAILY, (Reported) Ondansetron Hcl (Zofran), 4 MG ORAL Q4H, (Reported) Oseltamivir Phosphate (Tamiflu), 75 MG ORAL TWICE A DAY Tramadol Hcl (Ultram*), 50 MG ORAL Q4H, (Reported) Scheduled PRN Acetaminophen* (Tylenol Extra Strength*), 500 MG ORAL Q8H PRN for Prn Headache/ Temp > 101 Guaifenesin/Codeine (Guaifenesin-Codeine Syrup), 10 ML ORAL Q4H PRN for For Cough, (Reported) Guaifenesin/Dextromethorphan (Guaifenesin Dm Syrup), 5 ML ORAL Q8H PRN Tramadol Hcl* (Ultram*), 50 MG ORAL Q6H PRN Miscellaneous Medications Insulin Aspart (Novolog), 100 UNIT SQ, (Reported) Lactobacillus Combo No.11 (Probiotic), 1 EACH PO, (Reported) Sennosides/Docusate Sodium (Senna S Tablet), 1 EACH PO, (Reported) Unable to Obtain Medications (Unable To Obtain Meds), (Reported) Patient History History Provided By: Patient, Family Member, Medical Record, PMD Healthcare decision maker children Resuscitation status Full Code Advanced Directive on File Past Medical/Surgical History Past Medical/Surgical History: (1) Creatinine elevation (2) Bronchitis (3) S/P right hip fracture (4) Cough (5) SOB (shortness of breath) (6) Urinary tract infection (7) Hypertension (8) Sepsis (9) Renal failure (10) Dehydration (11) Diarrhea (12) Electrolyte imbalance (13) Clostridium difficile colitis (14) Normocytic anemia (15) Episode of generalized weakness Review of Systems Review of Symptoms General ROS: no weight loss or fever Psychological ROS: no depression or mood changes, no memory loss Ophthalmic ROS: no visual changes or eye irritation ENT ROS: no nasal congestion, hearing loss, dizziness Allergy and Immunology ROS: no allergic symptoms or urticaria Hematological and Lymphatic ROS: no swollen glands, unusual bleeding or bruising Endocrine ROS: no polyuria, polydipsia, weight changes, temperature intolerance Respiratory ROS: no cough, shortness of breath, or wheezing Cardiovascular ROS: no chest pain or dyspnea on exertion Gastrointestinal ROS: denies abdominal pain, no bright red blood in stool. Musculoskeletal ROS: no myalgias or arthralgias Neurological ROS: no TIA or stroke symptoms Dermatological ROS: no new or changing skin lesions, rashes or pruritis Physical Exam Physical Exam General appearance: alert, cooperative, no distress, appears stated age Head: Normocephalic, without obvious abnormality, atraumatic Eyes: conjunctivae/corneas clear. PERRL, EOM's intact. Fundi benign Throat: Lips, mucosa, and tongue normal. Teeth and gums normal Neck: supple, symmetrical, trachea midline, no adenopathy, thyroid: not enlarged, symmetric, no tenderness/mass/nodules, no carotid bruit and no JVD Lungs: clear to auscultation bilaterally Heart: regular rate and rhythm, S1, S2 normal, no murmur, click, rub or gallop Abdomen: soft, non-tender. Bowel sounds normal. No masses, no organomegaly Extremities: extremities normal, atraumatic, no cyanosis or edema Pulses: 2+ and symmetric Skin: Skin color, texture, turgor normal. No rashes or lesions Neurologic: Grossly normal Last 24 Hour Vital Signs Date Time Temp Pulse Resp B/P (MAP) Pulse Ox O2 Delivery O2 Flow Rate FiO2 04/06/19 09:00 Room Air 04/06/19 08:33 152/83 04/06/19 08:00 99.1 84 20 152/83 (106) 99 04/06/19 08:00 71 04/06/19 04:00 74 04/06/19 04:00 98.3 76 18 130/53 (78) 99 04/06/19 00:58 101 04/06/19 00:32 Room Air 04/06/19 00:30 170/104 (126) 04/05/19 23:45 97.7 80 14 165/82 100 Room Air 04/05/19 22:41 97.7 80 14 170/82 100 Room Air 04/05/19 21:59 97.7 84 15 154/101 97 Room Air 04/05/19 21:59 89 15 Room Air 04/05/19 21:03 97.7 89 15 154/101 (118) 97 Room Air Intake and Output 04/05/19 04/06/19 19:00 07:00 # Voids 1 # Bowel Movements 2 Laboratory Tests Test 04/05/19 21:20 04/06/19 11:26 White Blood Count 9.5 K/UL (4.8-10.8) 8.8 K/UL (4.8-10.8) Red Blood Count 5.24 M/UL (4.70-6.10) 4.90 M/UL (4.70-6.10) Hemoglobin 14.6 G/DL (14.2-18.0) 13.6 G/DL (14.2-18.0) L Hematocrit 43.1 % (42.0-52.0) 41.6 % (42.0-52.0) L Mean Corpuscular Volume 82 FL (80-99) 85 FL (80-99) Mean Corpuscular Hemoglobin 27.8 PG (27.0-31.0) 27.8 PG (27.0-31.0) Mean Corpuscular Hemoglobin Concent 33.8 G/DL (32.0-36.0) 32.8 G/DL (32.0-36.0) Red Cell Distribution Width 12.9 % (11.6-14.8) 13.0 % (11.6-14.8) Platelet Count 138 K/UL (150-450) L 142 K/UL (150-450) L Mean Platelet Volume 5.5 FL (6.5-10.1) L 5.7 FL (6.5-10.1) L Neutrophils (%) (Auto) 53.2 % (45.0-75.0) 59.8 % (45.0-75.0) Lymphocytes (%) (Auto) 35.4 % (20.0-45.0) 28.4 % (20.0-45.0) Monocytes (%) (Auto) 7.0 % (1.0-10.0) 7.8 % (1.0-10.0) Eosinophils (%) (Auto) 4.2 % (0.0-3.0) H 3.6 % (0.0-3.0) H Basophils (%) (Auto) 0.2 % (0.0-2.0) 0.4 % (0.0-2.0) Urine Color Pale yellow Urine Appearance Slightly cloudy Urine pH 6 (4.5-8.0) Urine Specific [place] 1.005 (1.005-1.035) Urine Protein 1+ (NEGATIVE) H Urine Glucose (UA) Negative (NEGATIVE) Urine Ketones Negative (NEGATIVE) Urine Blood 1+ (NEGATIVE) H Urine Nitrite Negative (NEGATIVE) Urine Bilirubin Negative (NEGATIVE) Urine Urobilinogen Normal MG/DL (0.0-1.0) Urine Leukocyte Esterase 3+ (NEGATIVE) H Urine RBC 0-2 /HPF (0 - 0) H Urine WBC 15-20 /HPF (0 - 0) H Urine Squamous Epithelial Cells Occasional /LPF Urine Bacteria Few /HPF (NONE) Sodium Level 138 MMOL/L (136-145) 136 MMOL/L (136-145) Potassium Level 4.3 MMOL/L (3.5-5.1) 4.9 MMOL/L (3.5-5.1) Chloride Level 103 MMOL/L (98-107) 104 MMOL/L (98-107) Carbon Dioxide Level 22 MMOL/L (21-32) 23 MMOL/L (21-32) Anion Gap 13 mmol/L (5-15) 9 mmol/L (5-15) Blood Urea Nitrogen 41 mg/dL (7-18) H 41 mg/dL (7-18) H Creatinine 2.9 MG/DL (0.55-1.30) H 2.8 MG/DL (0.55-1.30) H Estimat Glomerular Filtration Rate mL/min (>60) mL/min (>60) Glucose Level 108 MG/DL (74-106) H 82 MG/DL (74-106) Lactic Acid Level 1.50 mmol/L (0.4-2.0) Calcium Level 9.0 MG/DL (8.5-10.1) 8.8 MG/DL (8.5-10.1) Total Bilirubin 0.4 MG/DL (0.2-1.0) 0.4 MG/DL (0.2-1.0) Aspartate Amino Transf (AST/SGOT) 31 U/L (15-37) 20 U/L (15-37) Alanine Aminotransferase (ALT/SGPT) 16 U/L (12-78) 15 U/L (12-78) Alkaline Phosphatase 167 U/L (46-116) H 141 U/L (46-116) H Total Creatine Kinase 112 U/L (26-308) Creatine Kinase MB 2.0 NG/ML (0.0-3.6) Creatine Kinase MB Relative Index 1.7 Troponin I 0.731 ng/mL (0.000-0.056) 0.401 ng/mL (0.000-0.056) Pro-B-Type Natriuretic Peptide 1143 pg/mL (0-125) H Total Protein 8.6 G/DL (6.4-8.2) H 7.6 G/DL (6.4-8.2) Albumin 4.0 G/DL (3.4-5.0) 3.4 G/DL (3.4-5.0) Globulin 4.6 g/dL 4.2 g/dL Albumin/Globulin Ratio 0.9 (1.0-2.7) L 0.8 (1.0-2.7) L Lipase 365 U/L (73-393) Height (Feet): 5 Height (Inches): 5.00 Weight (Pounds): 160 Assessment/Plan Problem List: (1) Abdominal pain Assessment & Plan: 73-year-old male presented with bloating, increased urination, generalized weakness, shivering. Labs okay. Vitals okay. CT with concerns for possible early acute appendicitis. On examination abdomen soft nontender nondistended patient without any complaints currently. Unlikely acute appendicitis given clinical course. CT reviewed and identified concern but does not seem clinically to have appendicitis. Patient and family want to go home given symptoms of resolved and he is significantly improved labs okay and otherwise well. Okay to discharge from surgical standpoint. Instructed to return if worsening condition. Follow-up with PCP. Thank you for this consultation ICD Codes: R10.9 - Unspecified abdominal pain SNOMED: [id number] Phill Barry Apr 06, 2019 13:22
--- NOTE | 2019-04-06 22:15 | History and Physical Report ---
DATE OF ADMISSION: 04/05/2019 HISTORY OF PRESENT ILLNESS: This is a 73-year-old male who my office, the patient came to the emergency room for having dizziness three days ago and also complaining some abdominal pain. The patient came to the emergency room where he was found to have mild UTI as well as has had BNP was high. The patient denies any short of breath. Denies any palpitation. Denies any nausea or vomiting. The patient is sitting in the bedside with family. He has no distress. PAST MEDICAL HISTORY: Significant for chronic renal insufficiency, hypertension, diabetes, and status post fracture of the knee. MEDICATIONS: See the list. ALLERGIES: NKA. FAMILY HISTORY: Noncontributory. SOCIAL HISTORY: The patient lives at home with the family. He denies any smoking or drinking. REVIEW OF SYSTEMS: Generalized weakness. PHYSICAL EXAMINATION: VITAL SIGNS: Blood pressure is 130/70, pulse 74, respirations 18. HEENT: NAD. CHEST: Bilaterally clear. CARDIOVASCULAR: Regular rhythm. No gallop. No murmur. ABDOMEN: Soft. Positive bowel sounds. Nontender. EXTREMITIES: No CCE. NEUROLOGICAL: The patient has no focal deficit. GENITOURINARY: Deferred. LABORATORY DATA: His troponin is slightly high, but is normal for him because of kidney failure. BNP was 1000 and his urine shows positive leukocyte esterase. ASSESSMENT: 1. Urinary tract infection. 2. CHF. 3. Hypertension. 4. Diabetes. 5. Fracture of the leg. PLAN: We will continue home medications with Lasix, given Levaquin. Cultures are so far negative. Discussed with the son, who was on bedside. Follow up as an outpatient. DISCHARGE DIAGNOSES: 1. UTI. 2. CHF. 3. Hypertension. 4. Diabetes. 5. Fracture of the leg. The patient was recommended to follow up as an outpatient. Paolo Dunlap M.D. DR: ANISHA JOB#: [id number] CC:
--- NOTE | 2019-04-07 10:06 | NUR ---
*-* INSURANCE *-* ALL CLINICALS AND REVIEWS HAVE BEEN FAXED TO: [facility] FERNANDO:DAVY P:[phone] F:[phone]
[2019-04-08] MEDS ORDERED: Levofloxacin 250mg/D5W 50ml IVPB SCH (02:00)
--- NOTE | 2019-04-08 13:36 | Discharge Summary ---
Discharge Summary Discharge Summary _ DATE OF ADMISSION: 04/05/2019 DATE OF DISCHARGE: 04/06/2019 DISCHARGED BY: Dr. Dunlap REASON FOR ADMISSION: 73 years old male with past medical history of chronic renal insufficiency, hypertension, diabetes mellitus, status post right hip fracture with repair, presented to emergency department with general weakness, chills and abdominal pain . Patient was found to have urinary tract infection infection . BUN 41 ,creatinine 2.9. Troponin - 0.731. pro BNP 1143. Urinalysis with evidence of pyuria and some bacteria, Chest x-ray demonstrated unchanged heart size, no consolidation or pleural effusion. Patient denied any shortness of breath, chest pain or palpitations. He denied nausea and vomiting CT of the abdomen pelvis demonstrated mildly dilated appendix , possibly early/ mild appendicitis. No bowel obstruction , abscess or perforation. Cholelithiasis. Left ureteral stent in place. No hydronephrosis. Mild hiatal hernia. Patient subsequently admitted for further management. CONSULTANTS: surgery Dr. Barry [facility] COURSE: Patient admitted to telemetry floor. Second troponin trending down -0.4 . Patient continued to deny chest pain or shortness of breath and remained hemodynamically stable Patient started on empiric antibiotic for urinary tract infection. Urine culture revealed gram-negative bacilli with colony count 40-50 K and gram- positive cocci with colony count more than 100 K. Blood cultures were negative. DVT prophylaxis provided. Blood pressure was managed with antihypertensive regimen and remained stable. Pain management was addressed. Surgery consult was requested due to questionable finding of possible early appendicitis on CT of the abdomen. According to surgeon , abdominal exam was benign. Acute appendicitis was highly unlikely , given clinical course, as per surgeon. All symptoms resolved . Surgeon cleared patient for discharge. Return to ED precautions were emphasized. Prescription for antibiotic for UTI provided. Supportive care provided. Antiemetic provided as needed. Patient was able to tolerate diet. Abdominal pain resolved. Patient clinically stabilized and was ready for discharge home. Outpatient follow-up with a primary care provider in 1 week. Due to rapid and unexpected improvement in patient condition , patient was discharged in 1 day. FINAL DIAGNOSES: Urinary tract infection Hypertension Diabetes Status post right hip fracture with repair Abdominal pain DISCHARGE MEDICATIONS: See Medication Reconciliation list. DISCHARGE INSTRUCTIONS: Patient was discharged home . Follow up with primary care provider in one week. I have been assigned to dictate discharge summary for this account. I was not involved in the patient's management. Martha Blount NP Apr 08, 2019 13:36
== END 2019-04-06 12:25 | disposition home or self-care (01) | DRG 463 ==
LOC: EMR 21:42 → EDBEDREQ 21:53 → 2E 22:50 → EDBEDREQ 23:15
DX: N39.0 Urinary tract infection, site not specified (principal); E11.22 Type 2 diabetes mellitus with diabetic chronic kidney disease; I13.0 Hypertensive heart and chronic kidney disease with heart failure and stage 1 through stage 4 chronic kidney disease, or unspecified chronic kidney disease; I50.9 Heart failure, unspecified; B96.89 Other specified bacterial agents as the cause of diseases classified elsewhere; K44.9 Diaphragmatic hernia without obstruction or gangrene; Z88.0 Allergy status to penicillin; K80.20 Calculus of gallbladder without cholecystitis without obstruction; S72.001D Fracture of unspecified part of neck of right femur, subsequent encounter for closed fracture with routine healing; X58.XXXD Exposure to other specified factors, subsequent encounter; N18.9 Chronic kidney disease, unspecified
CPT/HCPCS: 36415; 71045; 74176; 80053; 81003; 82550; 82553; 83605; 83690; 83880; 84484; 85025; 87040; 87086; 87181; 93005; 96365; 99285

== ENCOUNTER 2020-08-19 14:38 | Inpatient (IN) | payer MEDICAID ==
[~2020-08-19] VITALS: Ht 162.6 cm; Wt 82.1 kg
[~2020-08-19 14:38] MED LIST changes: +ALLOPURINOL100 M1 ORAL; +ASPIRIN325 MG ORAL; +CATAPRES0.1 MG ORAL; +Dronabinol ORAL; +PLAVIX75 MG ORAL; +[UNRECOGNIZED DRUG - REMARK]
[2020-08-19 14:45] VITALS: BP 105/69
--- NOTE | 2020-08-19 15:12 | Emergency Room Report ---
History of Present Illness General Chief Complaint: Altered Level of Consciousness Source: Family Member, Medical Record Present Illness HPI Disclaimer: Please note that this report is being documented using [employer] technology. This can lead to erroneous entry secondary to incorrect i nterpretation by the dictating instrument. HPI: 75-year-old male history of hypertension, diabetes, CVA with residual right-sided weakness, chronic renal failure presents for evaluation of abdominal and flank pain. The patient was recently admitted to this hospital with similar presentation and determined that if his creatinine were to worsen he would require dialysis. His son states his retention representative instructed him present to the ER for admission and dialysis catheter placement. He has been complaining of diffuse abdominal pain radiating to the flanks bilaterally since his discharge on 08/16. Son states he cannot sleep through the night. He also appears increasingly confused talking about events that occurred over 20 years ago into people that are not there. His son denies any diaphoresis, fevers, vomiting, diarrhea. PMH: Hypertension, CVA, diabetes, renal failure PSH: Reviewed Allergies: Penicillin Social Hx: Reviewed Allergies: Coded Allergies: PENICILLINS (Verified Allergy, Unknown, 12/02/18) COVID-19 Screening Contact w/high risk pt: No Experienced COVID-19 symptoms?: No COVID-19 Testing performed [employer]: No Nursing Documentation-PMH Past Medical History: No History, Except For Hx Cardiac Problems: Yes Hx Hypertension: Yes Hx Diabetes: Yes Hx Cancer: No Hx Gastrointestinal Problems: No Hx Neurological Problems: Yes Hx Cerebrovascular Accident: Yes - June 2020 Review of Systems All Other Systems: negative except mentioned in HPI Physical Exam Vital Signs Date Time Temp Pulse Resp B/P (MAP) Pulse Ox O2 Delivery O2 Flow Rate FiO2 08/19/20 14:44 98.8 98 15 105/69 (81) 95 Room Air General: Awake and alert, no acute distress HEENT: NC/AT. EOMI. Cardiovascular: RRR. S1 and S2 normal. No murmur appreciated Resp: Normal work of breathing. No cough, wheezing or crackles appreciated Abdomen: Abdomen is soft, nondistended. Moderately tender to palpation diffusely without focal tenderness. No guarding. Bilateral flank tenderness. Skin: Intact. No abrasions, laceration or rash over the exposed skin MSK: Normal tone and bulk. Moving all extremities. No obvious deformity. Neuro: Awake, not providing significant history due to language barrier. Son translates Medical Decision Making Diagnostic Impression: Primary Impression: Renal failure Additional Impressions: Pancreatitis Encephalopathy Urinary tract infection ER Course 75-year-old male presents for evaluation of abdominal and flank pain. Differential includes was not limited to worsening renal failure, electrolyte abnormality, ACS, gastritis, gastroenteritis, pancreatitis, cholecystitis, nephrolithiasis among others. Patient is had multiple abdominal imaging on his last visit 1 week ago that showed retained gallstones but no evidence of acute cholecystitis. There were no changes in the pancreatic head. Labs again demonstrate chronic renal failure creatinine of 4.1 elevated BUN in the 30s with a reduced creatinine clearance. These labs are unchanged from previous. Lipase level continues to increase. Another abdominal ultrasound was ordered. Patient is afebrile and stable vital signs otherwise. Potassium within normal limits. He has not yet provided urine to evaluate for urinary tract infection. Because of his fluctuating mental status his family and retention representative are considering starting hemodialysis. Patient also found to have a urinary tract infection. Multiple drug resistance during last sensitivities. Start with broad-spectrum and then await infectious disease recommendations. He will be admitted to his previous admitting physician, Dr. Trinidad, for further management of UTI, pancreatitis, encephalopathy, chronic renal failure. Laboratory Tests Test 08/19/20 15:15 White Blood Count 9.7 K/UL (4.8-10.8) Red Blood Count 4.96 M/UL (4.70-6.10) Hemoglobin 14.8 G/DL (14.2-18.0) Hematocrit 45.0 % (42.0-52.0) Mean Corpuscular Volume 91 FL (80-99) Mean Corpuscular Hemoglobin 29.7 PG (27.0-31.0) Mean Corpuscular Hemoglobin Concent 32.8 G/DL (32.0-36.0) Red Cell Distribution Width 13.8 % (11.6-14.8) Platelet Count 188 K/UL (150-450) Mean Platelet Volume 7.8 FL (6.5-10.1) Neutrophils (%) (Auto) 69.0 % (45.0-75.0) Lymphocytes (%) (Auto) 21.0 % (20.0-45.0) Monocytes (%) (Auto) 6.8 % (1.0-10.0) Eosinophils (%) (Auto) 2.7 % (0.0-3.0) Basophils (%) (Auto) 0.6 % (0.0-2.0) Prothrombin Time 11.2 SEC (9.30-11.50) Prothrombin Time INR 1.0 (0.9-1.1) Activated Partial Thromboplast Time 26 SEC (23-33) Sodium Level 138 MMOL/L (136-145) Potassium Level 3.8 MMOL/L (3.5-5.1) Chloride Level 103 MMOL/L (98-107) Carbon Dioxide Level 25 MMOL/L (21-32) Anion Gap 10 mmol/L (5-15) Blood Urea Nitrogen 33 mg/dL (7-18) H Creatinine 4.1 MG/DL (0.55-1.30) H Estimated Glomerular Filtration Rate 14.3 mL/min (>60) Glucose Level 109 MG/DL (74-106) H Calcium Level 8.9 MG/DL (8.5-10.1) Total Bilirubin 0.4 MG/DL (0.2-1.0) Aspartate Amino Transferase (AST) 28 U/L (15-37) Alanine Aminotransferase (ALT) 23 U/L (12-78) Alkaline Phosphatase 165 U/L (46-116) H Ammonia < 10 umol/L (11-32) L Troponin I 0.009 ng/mL (0.000-0.056) Total Protein 7.3 G/DL (6.4-8.2) Albumin 3.7 G/DL (3.4-5.0) Globulin 3.6 g/dL Albumin/Globulin Ratio 1.0 (1.0-2.7) Lipase 862 U/L (73-393) H Serum Alcohol < 3 mg/dL EKG Diagnostic Results Troponin ordered: Yes When was troponin ordered?: Aug 19, 2020 EKG Time: 15:14 Rate: normal Rhythm: NSR Other Impression Sinus rhythm, left axis, normal intervals, no acute ST segment changes. Rhythm Strip Diag. Results Rhythm Strip Time: 15:14 EP Interpretation: yes Rate: 80s Rhythm: NSR, no PVC's, no ectopy CT/MRI/US Diagnostic Results CT/MRI/US Diagnostic Results : Impression Final Report EXAM: US Abdomen Complete CLINICAL HISTORY: ABD PAIN TECHNIQUE: Real-time ultrasound of the abdomen with image documentation. COMPARISON: Ultrasound abdomen on 08/04/2020 FINDINGS: Liver: Liver measures 13.1 cm. No intrahepatic bile duct dilation. Gallbladder: No definite stones or sludge within the gallbladder. Evaluation is limited by overlying bowel gas. No gallbladder wall thickening or pericholecystic fluid. Negative sonographic Badillo's sign. Common bile duct: Normal common bile duct measuring 2.2 mm. No stones. No dilation. Pancreas: Pancreas is not visualized due to overlying bowel gas. Kidneys: Increased echogenicity of the left renal parenchyma could represent medical renal disease. Right kidney measures 8.1 cm in length. No hydronephrosis or stone. Left kidney measures 8.4 cm in length. No hydronephrosis or stone. Small left renal cyst measuring up to 9 mm. Spleen: Spleen measures 9.7 cm. No focal lesion. Aorta: Aorta is not visualized due to overlying bowel gas. Inferior vena cava: Unremarkable. Free fluid: No ascites. IMPRESSION: 1. No acute abnormality in the abdomen. 2. Increased echogenicity of the left renal parenchyma could represent medical renal disease. Radiologist: Kasi Rizvi M.D. Electronically Signed: 08/19/20 18:26 Study ready at 18:15 and initial results transmitted at 18:26 Last Vital Signs Date Time Temp Pulse Resp B/P (MAP) Pulse Ox O2 Delivery O2 Flow Rate FiO2 08/19/20 14:44 98.8 98 15 105/69 (81) 95 Room Air Disposition: ADMITTED INPATIENT Condition: Serious Scripts Unable to Obtain Active Prescriptions or Reported Meds Lorne Richardson MD Aug 19, 2020 15:12
[2020-08-19 15:57] LABS: BASOPHILS % (AUTO) 0.6 % (0.0-2.0); EOSINOPHILS % (AUTO) 2.7 % (0.0-3.0); HEMOGLOBIN 14.8 G/DL (14.2-18.0); MEAN CORPUSCULAR VOLUME 91 FL (80-99); MONOCYTES % (AUTO) 6.8 % (1.0-10.0); PLATELET COUNT 188 K/UL (150-450); RED BLOOD COUNT 4.96 M/UL (4.70-6.10); RED CELL DISTRIBUTION WIDTH 13.8 % (11.6-14.8); WHITE BLOOD COUNT 9.7 K/UL (4.8-10.8)
[2020-08-19 16:26] LABS: CALCIUM 8.9 MG/DL (8.5-10.1); CREATININE 4.1 MG/DL (0.55-1.30); POTASSIUM 3.8 MMOL/L (3.5-5.1)
[2020-08-19 16:31] LABS: ALBUMIN 3.7 G/DL (3.4-5.0); AMMONIA < 10 umol/L (11-32); BILIRUBIN,TOTAL 0.4 MG/DL (0.2-1.0)
[2020-08-19 17:00] VITALS: BP 125/71
[2020-08-19 17:22] LABS: APPEARANCE,URINE CLOUDY; BILIRUBIN, URINE NEGATIVE (NEGATIVE); COLOR,URINE PALE YELLOW; GLUCOSE, URINE (UA) NEGATIVE (NEGATIVE); KETONES,URINE NEGATIVE (NEGATIVE); LEUKOCYTE ESTERASE ,URINE 3+ (NEGATIVE); NITRITE,URINE NEGATIVE (NEGATIVE); PH,URINE 6 (4.5-8.0); PROTEIN,URINE 2+ (NEGATIVE); UROBILINOGEN,URINE NORMAL MG/DL (0.0-1.0)
--- NOTE | 2020-08-19 18:27 | Diagnostic Imaging Report ---
EXAM: US Abdomen Complete CLINICAL HISTORY: ABD PAIN TECHNIQUE: Real-time ultrasound of the abdomen with image documentation. COMPARISON: Ultrasound abdomen on 08/04/2020 FINDINGS: Liver: Liver measures 13.1 cm. No intrahepatic bile duct dilation. Gallbladder: No definite stones or sludge within the gallbladder. Evaluation is limited by overlying bowel gas. No gallbladder wall thickening or pericholecystic fluid. Negative sonographic Badillo's sign. Common bile duct: Normal common bile duct measuring 2.2 mm. No stones. No dilation. Pancreas: Pancreas is not visualized due to overlying bowel gas. Kidneys: Increased echogenicity of the left renal parenchyma could represent medical renal disease. Right kidney measures 8.1 cm in length. No hydronephrosis or stone. Left kidney measures 8.4 cm in length. No hydronephrosis or stone. Small left renal cyst measuring up to 9 mm. Spleen: Spleen measures 9.7 cm. No focal lesion. Aorta: Aorta is not visualized due to overlying bowel gas. Inferior vena cava: Unremarkable. Free fluid: No ascites. IMPRESSION: 1. No acute abnormality in the abdomen. 2. Increased echogenicity of the left renal parenchyma could represent medical renal disease.
--- NOTE | 2020-08-19 18:38 | Consultation ---
Consult Note Consult Note Asked to eval by Dr Trinidad Discussed with ER MD and Son full note to follow Assessment/Plan (1) Renal failure (ARF), acute on chronic ( HTN, DM) (2) NOEMÍ (acute kidney injury) (3) CVA (cerebral vascular accident) (4) Sepsis, UTI (5) Encephalopathy (6) Elevated lipase, Gallstone (7) Previous right hip arthroplasty, chronic left pelvic fracture NPO GI eval, High Lipase Initiate dialysis Per orders Silvio Reddy MD Aug 19, 2020 18:38
[2020-08-19] MEDS: D5NS 1,000 ML IV SCH (20:00)
[2020-08-19] MEDS ORDERED: LORazepam Inj 2mg/ml 1ml ONE (20:06)
[2020-08-19] MEDS ORDERED: LORazepam Inj 2mg/ml 1ml IM ONE (20:15)
[2020-08-19] MEDS: Heparin 5000 units/ml inj SUBQ SCH (22:59)
[2020-08-19] MEDS: Metoprolol Tartrate 12.5mg TAB ORAL SCH (23:08)
[2020-08-20] VITALS: BP 138/77
[2020-08-20 04:00] VITALS: BP 109/72
[2020-08-20 08:00] VITALS: BP 150/88
[2020-08-20] MEDS: Tamsulosin 0.4mg cap ORAL SCH ×3 (09:00→18:29)
[2020-08-20] MEDS: Heparin 5000 units/ml inj SUBQ SCH ×2 (09:00→21:00)
[2020-08-20 09:23] LABS: BASOPHILS % (AUTO) 0.7 % (0.0-2.0); EOSINOPHILS % (AUTO) 3.2 % (0.0-3.0); HEMATOCRIT 43.3 % (42.0-52.0); LYMPHOCYTES % (AUTO) 26.5 % (20.0-45.0); MEAN CORPUSCULAR VOLUME 93 FL (80-99); MONOCYTES % (AUTO) 7.1 % (1.0-10.0); NEUTROPHILS % (AUTO) 62.5 % (45.0-75.0); PLATELET COUNT 206 K/UL (150-450); RED BLOOD COUNT 4.66 M/UL (4.70-6.10); WHITE BLOOD COUNT 8.9 K/UL (4.8-10.8)
[2020-08-20] MEDS: Metoprolol Tartrate 12.5mg TAB ORAL SCH ×2 (09:34→21:03)
[2020-08-20 10:12] LABS: ALANINE AMINOTRANSFERASE 25 U/L (12-78); ALBUMIN 3.6 G/DL (3.4-5.0); ALBUMIN/GLOBULIN RATIO 0.9 (1.0-2.7); ALKALINE PHOSPHATASE 148 U/L (46-116); ANION GAP 11 mmol/L (5-15); ASPARTATE AMINO TRANSFERASE 31 U/L (15-37); BILIRUBIN,TOTAL 0.5 MG/DL (0.2-1.0); BLOOD UREA NITROGEN 29 mg/dL (7-18); CALCIUM 8.5 MG/DL (8.5-10.1); CARBON DIOXIDE 23 MMOL/L (21-32); CHLORIDE 109 MMOL/L (98-107); CHOLESTEROL 156 MG/DL (< 200); CREATINE KINASE 300 U/L (26-308); CREATININE 3.9 MG/DL (0.55-1.30); FERRITIN 377 NG/ML (8-388); GAMMA GLUTAMYL TRANSPEPTIDASE 18 U/L (5-85); HDL CHOLESTEROL 38 MG/DL (40-60); POTASSIUM 3.9 MMOL/L (3.5-5.1); SODIUM 143 MMOL/L (136-145); TRIGLYCERIDES 129 MG/DL (30-150)
[2020-08-20] MEDS: LORazepam Inj 2mg/ml 1ml IV PRN ×2 (10:27→20:02)
--- NOTE | 2020-08-20 11:48 | Nephrology Progress Note ---
Assessment/Plan Problem List: (1) Renal failure (ARF), acute on chronic (2) Pancreatitis (3) Urinary tract infection (4) Elevated lipase (5) CVA (cerebral vascular accident) Plan Continue n.p.o. pending GI evaluation for high lipase Proceed with placement of tunneled dialysis catheter, and initiate dialysis Keep the blood pressure in check Per orders Subjective ROS Limited/Unobtainable: Yes Objective Objective Last 24 Hour Vital Signs Date Time Temp Pulse Resp B/P (MAP) Pulse Ox O2 Delivery O2 Flow Rate FiO2 08/20/20 10:27 88 20 150/88 94 08/20/20 09:34 88 150/88 08/20/20 08:00 97.3 88 20 150/88 (108) 94 08/20/20 04:00 96.8 77 20 109/72 (84) 98 08/20/20 04:00 71 08/20/20 02:56 Room Air 08/20/20 00:00 98.1 74 20 138/77 (97) 97 08/19/20 23:08 97 162/70 08/19/20 22:05 98.8 81 18 128/72 98 Room Air 08/19/20 17:00 98.8 84 16 125/71 98 Room Air 08/19/20 14:45 98.8 98 15 105/69 95 Room Air 08/19/20 14:45 98 15 Room Air 08/19/20 14:44 98.8 98 15 105/69 (81) 95 Room Air Current Medications Medications (Trade) Dose Ordered Sig/Markus Route PRN Reason Start Time Stop Time Status Last Admin Dose Admin Allopurinol (allopurinoL) 300 mg DAILY ORAL 08/20/20 09:00 09/19/20 08:59 08/20/20 09:34 Aspirin (ASA) 325 mg DAILY ORAL 08/20/20 09:00 10/04/20 08:59 Dextrose/Sodium Chloride 1,000 ml @ 50 mls/hr Q20H IV 08/19/20 20:00 09/18/20 19:59 08/19/20 20:00 Heparin Sodium (Porcine) (Heparin 5000 units/ml) 5,000 units EVERY 12 HOURS SUBQ 08/19/20 21:00 10/03/20 20:59 Lorazepam (Ativan 2mg/ml 1ml) 1 mg QIDPRN PRN IV For Anxiety 08/20/20 10:00 08/27/20 09:59 08/20/20 10:27 Metoprolol Tartrate (Lopressor) 12.5 mg Q12HR ORAL 08/19/20 21:00 11/17/20 20:59 08/20/20 09:34 Pantoprazole (Protonix) 40 mg EVERY 12 HOURS ORAL 08/19/20 21:00 09/18/20 20:59 08/20/20 09:35 Quetiapine Fumarate (SEROqueL) 50 mg Q12HR ORAL 08/19/20 21:00 10/03/20 20:59 08/20/20 09:34 Tamsulosin HCl (Flomax) 0.4 mg BID ORAL 08/20/20 09:00 09/19/20 08:59 Laboratory Tests 08/19/20 15:15: White Blood Count 9.7, Red Blood Count 4.96, Hemoglobin 14.8, Hematocrit 45.0, Mean Corpuscular Volume 91, Mean Corpuscular Hemoglobin 29.7, Mean Corpuscular Hemoglobin Concent 32.8, Red Cell Distribution Width 13.8, Platelet Count 188, Mean Platelet Volume 7.8, Neutrophils (%) (Auto) 69.0, Lymphocytes (%) (Auto) 21.0, Monocytes (%) (Auto) 6.8, Eosinophils (%) (Auto) 2.7, Basophils (%) (Auto) 0.6, Prothrombin Time 11.2, Prothromb Time International Ratio 1.0, Activated Partial Thromboplast Time 26, Sodium Level 138, Potassium Level 3.8, Chloride Level 103, Carbon Dioxide Level 25, Anion Gap 10, Blood Urea Nitrogen 33H, Creatinine 4.1H, Estimat Glomerular Filtration Rate 14.3, Glucose Level 109H, Calcium Level 8.9, Total Bilirubin 0.4, Aspartate Amino Transf (AST/SGOT) 28, Alanine Aminotransferase (ALT/SGPT) 23, Alkaline Phosphatase 165H, Ammonia < 10L , Troponin I 0.009, Total Protein 7.3, Albumin 3.7, Globulin 3.6, Albumin/Globulin Ratio 1.0, Lipase 862H, Serum Alcohol < 3 08/19/20 16:17: Urine Color Pale yellow, Urine Appearance Cloudy, Urine pH 6, Urine Specific Gr avity 1.010, Urine Protein 2+H, Urine Glucose (UA) Negative, Urine Ketones Negative, Urine Blood 3+H, Urine Nitrite Negative, Urine Bilirubin Negative, Urine Urobilinogen Normal, Urine Leukocyte Esterase 3+H, Urine RBC 2-4H, Urine WBC TntcH, Urine Squamous Epithelial Cells Few, Urine Bacteria ManyH, Urine Opiates Screen Negative, Urine Barbiturates Screen Negative, Phencyclidine (PCP) Screen Negative, Urine Amphetamines Screen Negative, Urine Benzodiazepines Screen Negative, Urine Cocaine Screen Negative, Urine Marijuana (THC) Screen Negative 08/20/20 08:45: White Blood Count 8.9, Red Blood Count 4.66L, Hemoglobin 14.0L, Hematocrit 43.3, Mean Corpuscular Volume 93, Mean Corpuscular Hemoglobin 30.0, Mean Corpuscular Hemoglobin Concent 32.3, Red Cell Distribution Width 14.0, Platelet Count 206, Mean Platelet Volume 8.0, Neutrophils (%) (Auto) 62.5, Lymphocytes (%) (Auto) 26.5, Monocytes (%) (Auto) 7.1, Eosinophils (%) (Auto) 3.2H, Basophils (%) (Auto) 0.7, Prothrombin Time 11.1, Prothromb Time International Ratio 1.0, Activated Partial Thromboplast Time 26, Sodium Level 143, Potassium Level 3.9, Chloride Level 109H, Carbon Dioxide Level 23, Anion Gap 11, Blood Urea Nitrogen 29H, Creatinine 3.9H, Estimat Glomerular Filtration Rate 15.1, Glucose Level 101, Calcium Level 8.5, Total Bilirubin 0.5, Aspartate Amino Transf (AST/SGOT) 31, Alanine Aminotransferase (ALT/SGPT) 25, Alkaline Phosphatase 148H, Total Protein 7.6, Albumin 3.6, Globulin 4.0, Albumin/Globulin Ratio 0.9L, Lipase 743H , Hemoglobin A1c 5.8, Uric Acid 7.2, Phosphorus Level 3.0, Magnesium Level 2.4, Ferritin 377, Gamma Glutamyl Transpeptidase 18, Total Creatine Kinase 300, C- Reactive Protein, Quantitative 1.0H, Pro-B-Type Natriuretic Peptide 518H, Triglycerides Level 129, Cholesterol Level 156, LDL Cholesterol 92, HDL Cholesterol 38L, Cholesterol/HDL Ratio 4.1, Amylase Level 134H, Vitamin B12 L evel 389, Folate 7.5L, Thyroid Stimulating Hormone (TSH) 0.454, Hepatitis B Surface Antigen [Pending], Hepatitis B Surface Antibody, Quant [Pending], Hepatitis C Antibody [Pending] Height (Feet): 5 Height (Inches): 4.00 Weight (Pounds): 181 General Appearance: confused, mild distress Cardiovascular: tachycardia Respiratory/Chest: decreased breath sounds Abdomen: distended Silvio Reddy MD Aug 20, 2020 11:48
[2020-08-20 12:00] VITALS: BP 135/88
--- NOTE | 2020-08-20 14:08 | Consultation ---
History of Present Illness General Date patient seen: Aug 20, 2020 Chief Complaint: Altered Level of Consciousness Present Illness HPI 75 y/o M with hx of HTN, Dm2, CVA w/ residual R side weakness 06/2020, CKD, sp R hip arthroplasty, chronic left pelvic fracture, MDR ABC UTI and colonization presented to ED on 08/19/20 with abd and flank pain and confusing. Denied fevers, vomiting, diarrhea. Allergies: Coded Allergies: PENICILLINS (Verified Allergy, Unknown, 12/02/18) Medication History Unable to Obtain Active Prescriptions or Reported Meds Patient History Healthcare decision maker Resuscitation status Advanced Directive on File Patient History Narrative Pmhx: as above Shx: reviewed Fhx: no contributory Review of Systems All Other Systems: negative except mentioned in HPI Physical Exam Physical Exam Narrative General Appearance: confused, mild distress Cardiovascular: tachycardia Respiratory/Chest: decreased breath sounds Abdomen: distended Last 24 Hour Vital Signs Date Time Temp Pulse Resp B/P (MAP) Pulse Ox O2 Delivery O2 Flow Rate FiO2 08/20/20 12:00 69 08/20/20 10:57 88 19 148/85 95 08/20/20 10:27 88 20 150/88 94 08/20/20 09:34 88 150/88 08/20/20 08:00 97.3 88 20 150/88 (108) 94 08/20/20 08:00 85 08/20/20 04:00 96.8 77 20 109/72 (84) 98 08/20/20 04:00 71 08/20/20 02:56 Room Air 08/20/20 00:00 98.1 74 20 138/77 (97) 97 08/19/20 23:08 97 162/70 08/19/20 22:05 98.8 81 18 128/72 98 Room Air 08/19/20 17:00 98.8 84 16 125/71 98 Room Air 08/19/20 14:45 98.8 98 15 105/69 95 Room Air 08/19/20 14:45 98 15 Room Air 08/19/20 14:44 98.8 98 15 105/69 (81) 95 Room Air Laboratory Tests Test 08/19/20 15:15 08/19/20 16:17 08/20/20 08:45 White Blood Count 9.7 K/UL (4.8-10.8) 8.9 K/UL (4.8-10.8) Red Blood Count 4.96 M/UL (4.70-6.10) 4.66 M/UL (4.70-6.10) L Hemoglobin 14.8 G/DL (14.2-18.0) 14.0 G/DL (14.2-18.0) L Hematocrit 45.0 % (42.0-52.0) 43.3 % (42.0-52.0) Mean Corpuscular Volume 91 FL (80-99) 93 FL (80-99) Mean Corpuscular Hemoglobin 29.7 PG (27.0-31.0) 30.0 PG (27.0-31.0) Mean Corpuscular Hemoglobin Concent 32.8 G/DL (32.0-36.0) 32.3 G/DL (32.0-36.0) Red Cell Distribution Width 13.8 % (11.6-14.8) 14.0 % (11.6-14.8) Platelet Count 188 K/UL (150-450) 206 K/UL (150-450) Mean Platelet Volume 7.8 FL (6.5-10.1) 8.0 FL (6.5-10.1) Neutrophils (%) (Auto) 69.0 % (45.0-75.0) 62.5 % (45.0-75.0) Lymphocytes (%) (Auto) 21.0 % (20.0-45.0) 26.5 % (20.0-45.0) Monocytes (%) (Auto) 6.8 % (1.0-10.0) 7.1 % (1.0-10.0) Eosinophils (%) (Auto) 2.7 % (0.0-3.0) 3.2 % (0.0-3.0) H Basophils (%) (Auto) 0.6 % (0.0-2.0) 0.7 % (0.0-2.0) Prothrombin Time 11.2 SEC (9.30-11.50) 11.1 SEC (9.30-11.50) Prothromb Time International Ratio 1.0 (0.9-1.1) 1.0 (0.9-1.1) Activated Partial Thromboplast Time 26 SEC (23-33) 26 SEC (23-33) Sodium Level 138 MMOL/L (136-145) 143 MMOL/L (136-145) Potassium Level 3.8 MMOL/L (3.5-5.1) 3.9 MMOL/L (3.5-5.1) Chloride Level 103 MMOL/L (98-107) 109 MMOL/L (98-107) H Carbon Dioxide Level 25 MMOL/L (21-32) 23 MMOL/L (21-32) Anion Gap 10 mmol/L (5-15) 11 mmol/L (5-15) Blood Urea Nitrogen 33 mg/dL (7-18) H 29 mg/dL (7-18) H Creatinine 4.1 MG/DL (0.55-1.30) H 3.9 MG/DL (0.55-1.30) H Estimat Glomerular Filtration Rate 14.3 mL/min (>60) 15.1 mL/min (>60) Glucose Level 109 MG/DL (74-106) H 101 MG/DL (74-106) Calcium Level 8.9 MG/DL (8.5-10.1) 8.5 MG/DL (8.5-10.1) Total Bilirubin 0.4 MG/DL (0.2-1.0) 0.5 MG/DL (0.2-1.0) Aspartate Amino Transf (AST/SGOT) 28 U/L (15-37) 31 U/L (15-37) Alanine Aminotransferase (ALT/SGPT) 23 U/L (12-78) 25 U/L (12-78) Alkaline Phosphatase 165 U/L (46-116) H 148 U/L (46-116) H Ammonia < 10 umol/L (11-32) L Troponin I 0.009 ng/mL (0.000-0.056) Total Protein 7.3 G/DL (6.4-8.2) 7.6 G/DL (6.4-8.2) Albumin 3.7 G/DL (3.4-5.0) 3.6 G/DL (3.4-5.0) Globulin 3.6 g/dL 4.0 g/dL Albumin/Globulin Ratio 1.0 (1.0-2.7) 0.9 (1.0-2.7) L Lipase 862 U/L (73-393) H 743 U/L (73-393) H Serum Alcohol < 3 mg/dL Urine Color Pale yellow Urine Appearance Cloudy Urine pH 6 (4.5-8.0) Urine Specific [place] 1.010 (1.005-1.035) Urine Protein 2+ (NEGATIVE) H Urine Glucose (UA) Negative (NEGATIVE) Urine Ketones Negative (NEGATIVE) Urine Blood 3+ (NEGATIVE) H Urine Nitrite Negative (NEGATIVE) Urine Bilirubin Negative (NEGATIVE) Urine Urobilinogen Normal MG/DL (0.0-1.0) Urine Leukocyte Esterase 3+ (NEGATIVE) H Urine RBC 2-4 /HPF (0 - 0) H Urine WBC Tntc /HPF (0 - 0) H Urine Squamous Epithelial Cells Few /LPF (NONE/OCC) Urine Bacteria Many /HPF (NONE) H Urine Opiates Screen Negative (NEGATIVE) Urine Barbiturates Screen Negative (NEGATIVE) Phencyclidine (PCP) Screen Negative (NEGATIVE) Urine Amphetamines Screen Negative (NEGATIVE) Urine Benzodiazepines Screen Negative (NEGATIVE) Urine Cocaine Screen Negative (NEGATIVE) Urine Marijuana (THC) Screen Negative (NEGATIVE) Hemoglobin A1c 5.8 % (4.3-6.0) Uric Acid 7.2 MG/DL (2.6-7.2) Phosphorus Level 3.0 MG/DL (2.5-4.9) Magnesium Level 2.4 MG/DL (1.8-2.4) Ferritin 377 NG/ML (8-388) Gamma Glutamyl Transpeptidase 18 U/L (5-85) Total Creatine Kinase 300 U/L (26-308) C-Reactive Protein, Quantitative 1.0 mg/dL (0.00-0.90) H Pro-B-Type Natriuretic Peptide 518 pg/mL (0-125) H Triglycerides Level 129 MG/DL (30-150) Cholesterol Level 156 MG/DL (< 200) LDL Cholesterol 92 mg/dL (<100) HDL Cholesterol 38 MG/DL (40-60) L Cholesterol/HDL Ratio 4.1 (3.3-4.4) Amylase Level 134 U/L (25-115) H Vitamin B12 Level 389 PG/ML (193-986) Folate 7.5 NG/ML (8.6-58.9) L Thyroid Stimulating Hormone (TSH) 0.454 uiU/mL (0.358-3.740) Hepatitis B Surface Antigen Pending Hepatitis B Surface Antibody, Quant Pending Hepatitis C Antibody Pending Microbiology Date/Time Source Procedure Growth Status 08/19/20 16:17 Urine,Clean Catch Urine Culture - Preliminary NO GROWTH Resulted Height (Feet): 5 Height (Inches): 4.00 Weight (Pounds): 181 Medications Current Medications Medications (Trade) Dose Ordered Sig/Markus Route PRN Reason Start Time Stop Time Status Last Admin Dose Admin Allopurinol (allopurinoL) 300 mg DAILY ORAL 08/20/20 09:00 09/19/20 08:59 08/20/20 09:34 Aspirin (ASA) 325 mg DAILY ORAL 08/20/20 09:00 10/04/20 08:59 Dextrose/Sodium Chloride 1,000 ml @ 50 mls/hr Q20H IV 08/19/20 20:00 09/18/20 19:59 08/19/20 20:00 Heparin Sodium (Porcine) (Heparin 5000 units/ml) 5,000 units EVERY 12 HOURS SUBQ 08/19/20 21:00 10/03/20 20:59 Lorazepam (Ativan 2mg/ml 1ml) 1 mg QIDPRN PRN IV For Anxiety 08/20/20 10:00 08/27/20 09:59 08/20/20 10:27 Metoprolol Tartrate (Lopressor) 12.5 mg Q12HR ORAL 08/19/20 21:00 11/17/20 20:59 08/20/20 09:34 Pantoprazole (Protonix) 40 mg EVERY 12 HOURS ORAL 08/19/20 21:00 09/18/20 20:59 08/20/20 09:35 Quetiapine Fumarate (SEROqueL) 50 mg Q12HR ORAL 08/19/20 21:00 10/03/20 20:59 08/20/20 09:34 Tamsulosin HCl (Flomax) 0.4 mg BID ORAL 08/20/20 09:00 09/19/20 08:59 Assessment/Plan Assessment/Plan: Abx: None Assessment: Afebrile No leukocytosis Pyuria- likely colonization- have just been treated for UTI recently and 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 Increased echogenicity of the left renal parenchyma could represent medical renal disease. hx of MDR ABC UTI and colonization -07/2020 -u/a wbc tnct, nit neg, leuk +3; ucx 60-70k MDR ABC (S Gentamycin, bactrim; R meropenem), >100k E. 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 Will continue to follow along with you. Discussed with Ewa Mcfadden M.D. Aug 20, 2020 14:08
[2020-08-20 16:00] VITALS: BP 123/69
--- NOTE | 2020-08-20 18:15 | History and Physical Report ---
DATE OF ADMISSION: 08/19/2020 DATE AND TIME SEEN: 08/20/2020 at approximately 10 a.m. CONSULTANTS: 1. Silvio Reddy M.D. 2. Dany Swain M.D. 3. Pa Sandy M.D. 4. Vik Wright M.D. 5. Amrit Pacheco M.D. CHIEF COMPLAINT: Renal failure, abdominal pain, altered mental status, CVA, and UTI. BRIEF HISTORY: This is a 75-year-old male, presently hospitalized here with increasing renal failure, was sent in by Dr. Reddy for care and dialysis currently, actually slightly agitated in bed, confused, not talking much. REVIEW OF SYSTEMS: Unavailable. PAST MEDICAL HISTORY: As mentioned, renal failure, CVA, UTI, hypertension, and encephalopathy. PAST SURGICAL HISTORY: Unknown. MEDICATIONS: Lorazepam, aspirin, allopurinol, , quetiapine, pantoprazole. ALLERGIES: Penicillin. SOCIAL HISTORY: Unable to obtain secondary to the patient's confusional behavior. PHYSICAL EXAMINATION: GENERAL: Slightly agitated in bed, confused, not talking much. VITAL SIGNS: Temperature is 97, pulse 88, respirations 20, blood pressure 150/88. CARDIOVASCULAR: No murmur. LUNGS: Distant and clear. ABDOMEN: Bowel sounds positive. Nontender, nondistended. EXTREMITIES: No cyanosis or edema. NEUROLOGIC: The patient moves all extremities, slightly weak. LABORATORY AND DIAGNOSTIC DATA: Labs at this time show H and H 14 and 43, otherwise normal. BMP, chloride 109, BUN and creatinine 29 and 3.9, otherwise normal. Alk phos 148. BNP is 518. Amylase 134, lipase , pancreatitis. INR is 1.0. Tox is negative. Urinalysis, 3+ leukocyte esterase. ASSESSMENT: Renal failure, altered mental status, abdominal pain, pancreatitis, CVA history, UTI, hypertension, and encephalopathy. PLAN: 1. Blood pressure and pain control. 2. Antibiotics per Infectious Disease. 3. and dietary followup. 4. Nephrology followup. 5. CBC and BMP in the morning. Andrea Trinidad D.O. DR: BELÉN JOB#: [id number] CC:
[2020-08-20] MEDS: D5NS 1,000 ML IV SCH (18:29)
[2020-08-20 20:00] VITALS: BP 106/65
[2020-08-21] VITALS: BP 136/70
[2020-08-21] MEDS: LORazepam Inj 2mg/ml 1ml IV PRN (02:05)
[2020-08-21 04:00] VITALS: BP 138/64
[2020-08-21 07:37] LABS: BASOPHILS % (AUTO) 0.5 % (0.0-2.0); EOSINOPHILS % (AUTO) 4.5 % (0.0-3.0); HEMATOCRIT 43.8 % (42.0-52.0); HEMOGLOBIN 13.6 G/DL (14.2-18.0); LYMPHOCYTES % (AUTO) 27.4 % (20.0-45.0); MEAN CORPUSCULAR VOLUME 96 FL (80-99); MONOCYTES % (AUTO) 6.6 % (1.0-10.0); PLATELET COUNT 181 K/UL (150-450); RED BLOOD COUNT 4.56 M/UL (4.70-6.10); RED CELL DISTRIBUTION WIDTH 14.7 % (11.6-14.8); WHITE BLOOD COUNT 9.3 K/UL (4.8-10.8)
[2020-08-21 08:00] VITALS: BP 125/75
[2020-08-21 08:07] LABS: PHOSPHORUS 3.5 MG/DL (2.5-4.9)
[2020-08-21 08:11] LABS: ALBUMIN 3.5 G/DL (3.4-5.0); ALBUMIN/GLOBULIN RATIO 1.1 (1.0-2.7); BILIRUBIN,TOTAL 0.4 MG/DL (0.2-1.0); CALCIUM 8.5 MG/DL (8.5-10.1); POTASSIUM 4.2 MMOL/L (3.5-5.1)
[2020-08-21] MEDS: Metoprolol Tartrate 12.5mg TAB ORAL SCH ×2 (09:27→22:33)
[2020-08-21] MEDS: Tamsulosin 0.4mg cap ORAL SCH ×2 (09:27→18:00)
--- NOTE | 2020-08-21 10:01 | General Progress Note ---
Subjective Constitutional: Reports: weakness Allergies: Coded Allergies: PENICILLINS (Verified Allergy, Unknown, 12/02/18) All Systems: reviewed and negative except above Subjective sleepy calm Objective Last 24 Hour Vital Signs Date Time Temp Pulse Resp B/P (MAP) Pulse Ox O2 Delivery O2 Flow Rate FiO2 08/21/20 09:27 95 125/75 08/21/20 08:00 98 08/21/20 08:00 97.5 95 20 125/75 (92) 94 08/21/20 04:00 103 08/21/20 04:00 98.1 96 20 138/64 (88) 96 08/21/20 02:35 98 20 136/73 100 08/21/20 02:05 98 20 109/65 95 08/21/20 00:00 95 08/21/20 00:00 97.9 98 20 136/70 (92) 95 08/20/20 21:03 98 109/65 08/20/20 21:00 Room Air 08/20/20 20:32 83 20 123/69 95 08/20/20 20:02 83 20 123/69 95 08/20/20 20:00 90 08/20/20 20:00 99.3 95 22 106/65 (79) 94 08/20/20 16:00 97.7 87 20 123/69 (87) 95 08/20/20 16:00 83 08/20/20 12:00 97.7 87 20 135/88 (104) 95 08/20/20 12:00 69 08/20/20 10:57 88 19 148/85 95 08/20/20 10:27 88 20 150/88 94 Intake and Output 08/20/20 08/21/20 19:00 07:00 Intake Total 120 ml Balance 120 ml Intake Oral 120 ml # Voids 2 Laboratory Tests 08/21/20 06:20: White Blood Count 9.3, Red Blood Count 4.56L, Hemoglobin 13.6L, Hematocrit 43.8, Mean Corpuscular Volume 96, Mean Corpuscular Hemoglobin 29.8, Mean Corpuscular Hemoglobin Concent 31.1L, Red Cell Distribution Width 14.7, Platelet Count 181, Mean Platelet Volume 7.7, Neutrophils (%) (Auto) 61.0, Lymphocytes (%) (Auto) 27.4, Monocytes (%) (Auto) 6.6, Eosinophils (%) (Auto) 4.5H, Basophils (%) (Auto) 0.5, Sodium Level 145, Potassium Level 4.2, Chloride Level 111H, Carbon Dioxide Level 24, Anion Gap 10, Blood Urea Nitrogen 30H, Creatinine 4.0H, Estimat Glomerular Filtration Rate 14.7, Glucose Level 97, Uric Acid 6.9, Calcium Level 8.5, Phosphorus Level 3.5, Total Bilirubin 0.4, Aspartate Amino Transf (AST/SGOT) 26, Alanine Aminotransferase (ALT/SGPT) 18, Alkaline Phosphatase 155H, C-Reactive Protein, Quantitative < 0.4, Total Protein 6.7, Albumin 3.5, Globulin 3.2, Albumin/Globulin Ratio 1.1, Lipase 761H Height (Feet): 5 Height (Inches): 4.00 Weight (Pounds): 181 General Appearance: lethargic EENT: normal ENT inspection Neck: normal alignment Cardiovascular: normal peripheral pulses, normal rate, regular rhythm Respiratory/Chest: chest wall non-tender, lungs clear, normal breath sounds Abdomen: normal bowel sounds, soft Extremities: normal inspection Edema: no edema noted Arm (L), no edema noted Arm (R), no edema noted Leg (L), no edema noted Leg (R), no edema noted Pedal (L), no edema noted Pedal (R), no edema noted Generalized Neurologic: motor weakness Skin: normal pigmentation, warm/dry Assessment/Plan Problem List: (1) Episode of generalized weakness ICD Codes: R53.1 - Weakness SNOMED: 79935774 (2) Hypertension ICD Codes: I10 - Essential (primary) hypertension SNOMED: 02830967 (3) NOEMÍ (acute kidney injury) ICD Codes: N17.9 - Acute kidney failure, unspecified SNOMED: 41650399, 1887358 (4) Urinary tract infection ICD Codes: N39.0 - Urinary tract infection, site not specified SNOMED: 08429454 (5) Pancreatitis ICD Codes: K85.90 - Acute pancreatitis without necrosis or infection, unspecified SNOMED: 03581460 (6) Renal failure ICD Codes: N19 - Unspecified kidney failure SNOMED: 61379273 (7) Encephalopathy ICD Codes: G93.40 - Encephalopathy, unspecified SNOMED: 99004746 (8) CVA (cerebral vascular accident) ICD Codes: I63.9 - Cerebral infarction, unspecified SNOMED: 421342824 Status: unchanged Assessment/Plan: pt diet abx neph gi f/u cbc bmp am Andrea Trinidad DO Aug 21, 2020 10:01
[2020-08-21] MEDS: Heparin 5000 units/ml inj SUBQ SCH ×2 (11:13→22:38)
--- NOTE | 2020-08-21 11:49 | Nephrology Progress Note ---
Assessment/Plan Problem List: (1) Renal failure (ARF), acute on chronic (2) Pancreatitis (3) Urinary tract infection (4) Elevated lipase (5) CVA (cerebral vascular accident) Plan August 21: Dialysis catheter ordered to be placed yesterday was not done by radiology. Will wait for placement of the dialysis catheter prior to discharge. Meanwhile we will treat the urinary tract infection. Labs reviewed. Medication list reviewed. Discussed with son. Continue n.p.o. pending GI evaluation for high lipase Proceed with placement of tunneled dialysis catheter, and initiate dialysis Keep the blood pressure in check Per orders Subjective ROS Limited/Unobtainable: No Constitutional: Reports: malaise Objective Objective Last 24 Hour Vital Signs Date Time Temp Pulse Resp B/P (MAP) Pulse Ox O2 Delivery O2 Flow Rate FiO2 08/21/20 09:27 95 125/75 08/21/20 09:00 Room Air 08/21/20 08:00 98 08/21/20 08:00 97.5 95 20 125/75 (92) 94 08/21/20 04:00 103 08/21/20 04:00 98.1 96 20 138/64 (88) 96 08/21/20 02:35 98 20 136/73 100 08/21/20 02:05 98 20 109/65 95 08/21/20 00:00 95 08/21/20 00:00 97.9 98 20 136/70 (92) 95 08/20/20 21:03 98 109/65 08/20/20 21:00 Room Air 08/20/20 20:32 83 20 123/69 95 08/20/20 20:02 83 20 123/69 95 08/20/20 20:00 90 08/20/20 20:00 99.3 95 22 106/65 (79) 94 08/20/20 16:00 97.7 87 20 123/69 (87) 95 08/20/20 16:00 83 08/20/20 12:00 97.7 87 20 135/88 (104) 95 08/20/20 12:00 69 Intake and Output 08/20/20 08/21/20 19:00 07:00 Intake Total 120 ml Balance 120 ml Intake Oral 120 ml # Voids 2 Current Medications Medications (Trade) Dose Ordered Sig/Markus Route PRN Reason Start Time Stop Time Status Last Admin Dose Admin Allopurinol (allopurinoL) 300 mg DAILY ORAL 08/20/20 09:00 09/19/20 08:59 08/21/20 09:27 Aspirin (ASA) 325 mg DAILY ORAL 08/20/20 09:00 10/04/20 08:59 08/21/20 09:27 Dextrose/Sodium Chloride 1,000 ml @ 50 mls/hr Q20H IV 08/19/20 20:00 09/18/20 19:59 08/20/20 18:29 Heparin Sodium (Porcine) (Heparin 5000 units/ml) 5,000 units EVERY 12 HOURS SUBQ 08/19/20 21:00 10/03/20 20:59 08/21/20 11:13 Lorazepam (Ativan 2mg/ml 1ml) 1 mg QIDPRN PRN IV For Anxiety 08/20/20 10:00 08/27/20 09:59 08/21/20 02:05 Metoprolol Tartrate (Lopressor) 12.5 mg Q12HR ORAL 08/19/20 21:00 11/17/20 20:59 08/21/20 09:27 Pantoprazole (Protonix) 40 mg EVERY 12 HOURS ORAL 08/19/20 21:00 09/18/20 20:59 08/21/20 09:27 Quetiapine Fumarate (SEROqueL) 50 mg Q12HR ORAL 08/19/20 21:00 10/03/20 20:59 08/21/20 09:27 Tamsulosin HCl (Flomax) 0.4 mg BID ORAL 08/20/20 09:00 09/19/20 08:59 08/21/20 09:27 Laboratory Tests 08/21/20 06:20: White Blood Count 9.3, Red Blood Count 4.56L, Hemoglobin 13.6L, Hematocrit 43.8, Mean Corpuscular Volume 96, Mean Corpuscular Hemoglobin 29.8, Mean Corpuscular Hemoglobin Concent 31.1L, Red Cell Distribution Width 14.7, Platelet Count 181, Mean Platelet Volume 7.7, Neutrophils (%) (Auto) 61.0, Lymphocytes (%) (Auto) 27.4, Monocytes (%) (Auto) 6.6, Eosinophils (%) (Auto) 4.5H, Basophils (%) (Auto) 0.5, Sodium Level 145, Potassium Level 4.2, Chloride Level 111H, Carbon Dioxide Level 24, Anion Gap 10, Blood Urea Nitrogen 30H, Creatinine 4.0H, Estimat Glomerular Filtration Rate 14.7, Glucose Level 97, Uric Acid 6.9, C alcium Level 8.5, Phosphorus Level 3.5, Total Bilirubin 0.4, Aspartate Amino Transf (AST/SGOT) 26, Alanine Aminotransferase (ALT/SGPT) 18, Alkaline Phosphatase 155H, C-Reactive Protein, Quantitative < 0.4, Total Protein 6.7, Albumin 3.5, Globulin 3.2, Albumin/Globulin Ratio 1.1, Lipase 761H Height (Feet): 5 Height (Inches): 4.00 Weight (Pounds): 181 General Appearance: no apparent distress Respiratory/Chest: decreased breath sounds Abdomen: soft Silvio Reddy MD Aug 21, 2020 11:49
[2020-08-21 12:00] VITALS: BP 131/71
[2020-08-21 12:44] LABS: APPEARANCE,URINE SLIGHTLY CLOUDY; BILIRUBIN, URINE NEGATIVE (NEGATIVE); GLUCOSE, URINE (UA) NEGATIVE (NEGATIVE); KETONES,URINE NEGATIVE (NEGATIVE); LEUKOCYTE ESTERASE ,URINE 3+ (NEGATIVE); NITRITE,URINE NEGATIVE (NEGATIVE); PH,URINE 9 (4.5-8.0); PROTEIN,URINE 3+ (NEGATIVE); UROBILINOGEN,URINE NORMAL MG/DL (0.0-1.0)
[2020-08-21 12:48] LABS: COLOR,URINE PALE YELLOW
[2020-08-21] MEDS ORDERED: Gentamicin inj 120 MG in NS 110 ML IVPB SCH (13:00)
[2020-08-21] MEDS: D5NS 1,000 ML IV SCH (13:19)
--- NOTE | 2020-08-21 15:44 | Infectious Diseases Prog Note ---
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 Increased echogenicity of the left renal parenchyma could represent medical renal disease. hx of MDR ABC UTI and colonization -07/2020 -u/a wbc tnct, nit neg, leuk +3; ucx 60-70k MDR ABC (S Gentamycin, bactrim; R meropenem), >100k E. 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 Will continue to follow along with you. Discussed with RN. Subjective Allergies: Coded Allergies: PENICILLINS (Verified Allergy, Unknown, 12/02/18) afebrile no leukocytosis Objective Last 24 Hour Vital Signs Date Time Temp Pulse Resp B/P (MAP) Pulse Ox O2 Delivery O2 Flow Rate FiO2 08/21/20 12:00 97.7 68 20 131/71 (91) 95 08/21/20 12:00 64 08/21/20 09:27 95 125/75 08/21/20 09:00 Room Air 08/21/20 08:00 98 08/21/20 08:00 97.5 95 20 125/75 (92) 94 08/21/20 04:00 103 08/21/20 04:00 98.1 96 20 138/64 (88) 96 08/21/20 02:35 98 20 136/73 100 08/21/20 02:05 98 20 109/65 95 08/21/20 00:00 95 08/21/20 00:00 97.9 98 20 136/70 (92) 95 08/20/20 21:03 98 109/65 08/20/20 21:00 Room Air 08/20/20 20:32 83 123/69 95 08/20/20 20:02 83 20 123/69 95 08/20/20 20:00 90 08/20/20 20:00 99.3 95 22 106/65 (79) 94 08/20/20 16:00 97.7 87 20 123/69 (87) 95 08/20/20 16:00 83 Height (Feet): 5 Height (Inches): 4.00 Weight (Pounds): 181 General Appearance: confused, mild distress Cardiovascular: tachycardia Respiratory/Chest: decreased breath sounds Abdomen: distended Microbiology Date/Time Source Procedure Growth Status 08/19/20 16:17 Urine,Clean Catch Urine Culture - Preliminary Gram Negative Kit Gram Positive Cocci Resulted Laboratory Tests Test 08/21/20 06:20 08/21/20 12:20 White Blood Count 9.3 K/UL (4.8-10.8) Red Blood Count 4.56 M/UL (4.70-6.10) L Hemoglobin 13.6 G/DL (14.2-18.0) L Hematocrit 43.8 % (42.0-52.0) Mean Corpuscular Volume 96 FL (80-99) Mean Corpuscular Hemoglobin 29.8 PG (27.0-31.0) Mean Corpuscular Hemoglobin Concent 31.1 G/DL (32.0-36.0) L Red Cell Distribution Width 14.7 % (11.6-14.8) Platelet Count 181 K/UL (150-450) Mean Platelet Volume 7.7 FL (6.5-10.1) Neutrophils (%) (Auto) 61.0 % (45.0-75.0) Lymphocytes (%) (Auto) 27.4 % (20.0-45.0) Monocytes (%) (Auto) 6.6 % (1.0-10.0) Eosinophils (%) (Auto) 4.5 % (0.0-3.0) H Basophils (%) (Auto) 0.5 % (0.0-2.0) Sodium Level 145 MMOL/L (136-145) Potassium Level 4.2 MMOL/L (3.5-5.1) Chloride Level 111 MMOL/L (98-107) H Carbon Dioxide Level 24 MMOL/L (21-32) Anion Gap 10 mmol/L (5-15) Blood Urea Nitrogen 30 mg/dL (7-18) H Creatinine 4.0 MG/DL (0.55-1.30) H Estimat Glomerular Filtration Rate 14.7 mL/min (>60) Glucose Level 97 MG/DL (74-106) Uric Acid 6.9 MG/DL (2.6-7.2) Calcium Level 8.5 MG/DL (8.5-10.1) Phosphorus Level 3.5 MG/DL (2.5-4.9) Total Bilirubin 0.4 MG/DL (0.2-1.0) Aspartate Amino Transf (AST/SGOT) 26 U/L (15-37) Alanine Aminotransferase (ALT/SGPT) 18 U/L (12-78) Alkaline Phosphatase 155 U/L (46-116) H C-Reactive Protein, Quantitative < 0.4 mg/dL (0.00-0.90) Total Protein 6.7 G/DL (6.4-8.2) Albumin 3.5 G/DL (3.4-5.0) Globulin 3.2 g/dL Albumin/Globulin Ratio 1.1 (1.0-2.7) Lipase 761 U/L (73-393) H Urine Color Pale yellow Urine Appearance Slightly cloudy Urine pH 9 (4.5-8.0) Urine Specific [place] 1.015 (1.005-1.035) Urine Protein 3+ (NEGATIVE) H Urine Glucose (UA) Negative (NEGATIVE) Urine Ketones Negative (NEGATIVE) Urine Blood 3+ (NEGATIVE) H Urine Nitrite Negative (NEGATIVE) Urine Bilirubin Negative (NEGATIVE) Urine Urobilinogen Normal MG/DL (0.0-1.0) Urine Leukocyte Esterase 3+ (NEGATIVE) H Urine RBC 2-4 /HPF (0 - 0) H Urine WBC 20-30 /HPF (0 - 0) H Urine Squamous Epithelial Cells Occasional /LPF Urine Bacteria Many /HPF (NONE) H Current Medications Medications (Trade) Dose Ordered Sig/Markus Route PRN Reason Start Time Stop Time Status Last Admin Dose Admin Allopurinol (allopurinoL) 300 mg DAILY ORAL 08/20/20 09:00 09/19/20 08:59 08/21/20 09:27 Aspirin (ASA) 325 mg DAILY ORAL 08/20/20 09:00 10/04/20 08:59 11/7/20 09:27 Dextrose/Sodium Chloride 1,000 ml @ 50 mls/hr Q20H IV 08/19/20 20:00 09/18/20 19:59 08/21/20 13:19 Heparin Sodium (Porcine) (Heparin 5000 units/ml) 5,000 units EVERY 12 HOURS SUBQ 08/19/20 21:00 10/03/20 20:59 08/21/20 11:13 Lorazepam (Ativan 2mg/ml 1ml) 1 mg QIDPRN PRN IV For Anxiety 08/20/20 10:00 08/27/20 09:59 08/21/20 02:05 Metoprolol Tartrate (Lopressor) 12.5 mg Q12HR ORAL 08/19/20 21:00 11/17/20 20:59 08/21/20 09:27 Pantoprazole (Protonix) 40 mg EVERY 12 HOURS ORAL 08/19/20 21:00 09/18/20 20:59 08/21/20 09:27 Quetiapine Fumarate (SEROqueL) 50 mg Q12HR ORAL 08/19/20 21:00 10/03/20 20:59 08/21/20 09:27 Tamsulosin HCl (Flomax) 0.4 mg BID ORAL 08/20/20 09:00 09/19/20 08:59 08/21/20 09:27 Ewa Lin M.D. Aug 21, 2020 15:44
[2020-08-21 16:00] VITALS: BP 112/77
[2020-08-21 20:00] VITALS: BP 155/83
[2020-08-22] VITALS: BP 129/74
[2020-08-22 04:00] VITALS: BP 112/77
[2020-08-22 07:50] LABS: BASOPHILS % (AUTO) 0.7 % (0.0-2.0); EOSINOPHILS % (AUTO) 5.6 % (0.0-3.0); LYMPHOCYTES % (AUTO) 26.9 % (20.0-45.0); MEAN CORPUSCULAR VOLUME 97 FL (80-99); NEUTROPHILS % (AUTO) 60.9 % (45.0-75.0); PLATELET COUNT 195 K/UL (150-450); RED BLOOD COUNT 4.64 M/UL (4.70-6.10); RED CELL DISTRIBUTION WIDTH 15.5 % (11.6-14.8); WHITE BLOOD COUNT 9.3 K/UL (4.8-10.8)
[2020-08-22 08:00] VITALS: BP 141/84
[2020-08-22] MEDS: D5NS 1,000 ML IV SCH (08:00)
[2020-08-22 08:12] LABS: CREATININE 3.9 MG/DL (0.55-1.30); POTASSIUM 4.6 MMOL/L (3.5-5.1)
[2020-08-22] MEDS: Tamsulosin 0.4mg cap ORAL SCH ×2 (08:34→18:00)
[2020-08-22] MEDS: Metoprolol Tartrate 12.5mg TAB ORAL SCH ×2 (08:34→21:02)
[2020-08-22] MEDS: Heparin 5000 units/ml inj SUBQ SCH ×2 (08:36→21:00)
--- NOTE | 2020-08-22 08:43 | General Progress Note ---
Subjective Constitutional: Reports: weakness Allergies: Coded Allergies: PENICILLINS (Verified Allergy, Unknown, 12/02/18) All Systems: reviewed and negative except above Subjective sleepy calm Objective Last 24 Hour Vital Signs Date Time Temp Pulse Resp B/P (MAP) Pulse Ox O2 Delivery O2 Flow Rate FiO2 08/22/20 08:34 97 141/84 08/22/20 04:00 97.0 89 20 112/77 (89) 100 08/22/20 04:00 68 08/22/20 00:00 97.5 104 20 129/74 (92) 7 08/22/20 00:00 113 08/21/20 22:33 103 155/83 08/21/20 21:00 Room Air 08/21/20 21:00 115 08/21/20 20:00 97.5 103 20 155/83 (107) 97 08/21/20 16:00 68 08/21/20 16:00 97.7 69 20 112/77 (89) 95 08/21/20 12:00 97.7 68 20 131/71 (91) 95 08/21/20 12:00 64 08/21/20 09:27 95 125/75 08/21/20 09:00 Room Air Intake and Output 08/21/20 08/22/20 19:00 07:00 Intake Total 118 ml 240 ml Balance 118 ml 240 ml Intake Oral 118 ml 240 ml # Voids 1 1 Laboratory Tests 08/21/20 12:20: Urine Color Pale yellow, Urine Appearance Slightly cloudy, Urine pH 9, Urine Specific [place] 1.015, Urine Protein 3+H, Urine Glucose (UA) Negative, Urine Ketones Negative, Urine Blood 3+H, Urine Nitrite Negative, Urine Bilirubin Negative, Urine Urobilinogen Normal, Urine Leukocyte Esterase 3+H, Urine RBC 2- 4H, Urine WBC 20-30H, Urine Squamous Epithelial Cells Occasional, Urine Bacteria ManyH 08/22/20 07:00: White Blood Count 9.3, Red Blood Count 4.64L, Hemoglobin 14.0L, Hematocrit 45.0, Mean Corpuscular Volume 97, Mean Corpuscular Hemoglobin 30.1, Mean Corpuscular Hemoglobin Concent 31.0L, Red Cell Distribution Width 15.5H, Platelet Count 195, Mean Platelet Volume 7.0, Neutrophils (%) (Auto) 60.9, Lymphocytes (%) (Auto) 26.9, Monocytes (%) (Auto) 6.0, Eosinophils (%) (Auto) 5.6H, Basophils (%) (Auto) 0.7, Sodium Level 143, Potassium Level 4.6, Chloride Level 110H, Carbon Dioxide Level 22, Anion Gap 11, Blood Urea Nitrogen 30H, Creatinine 3.9H, Estimat Glomerular Filtration Rate 15.1, Glucose Level 80, Calcium Level 9.0, Random Gentamicin Level < 0.2 Height (Feet): 5 Height (Inches): 4.00 Weight (Pounds): 181 General Appearance: lethargic EENT: normal ENT inspection Neck: normal alignment Cardiovascular: normal peripheral pulses, normal rate, regular rhythm Respiratory/Chest: chest wall non-tender, lungs clear, normal breath sounds Abdomen: normal bowel sounds, non tender, soft Extremities: normal inspection Edema: no edema noted Arm (L), no edema noted Arm (R), no edema noted Leg (L), no edema noted Leg (R), no edema noted Pedal (L), no edema noted Pedal (R), no edema noted Generalized Neurologic: motor weakness Skin: normal pigmentation, warm/dry Assessment/Plan Problem List: (1) Episode of generalized weakness ICD Codes: R53.1 - Weakness SNOMED: 76790609 (2) Hypertension ICD Codes: I10 - Essential (primary) hypertension SNOMED: 16460439 (3) NOEMÍ (acute kidney injury) ICD Codes: N17.9 - Acute kidney failure, unspecified SNOMED: 98392048, 7680522 (4) Urinary tract infection ICD Codes: N39.0 - Urinary tract infection, site not specified SNOMED: 70706430 (5) Pancreatitis ICD Codes: K85.90 - Acute pancreatitis without necrosis or infection, unspecified SNOMED: 71013565 (6) Renal failure ICD Codes: N19 - Unspecified kidney failure SNOMED: 62215431 (7) Encephalopathy ICD Codes: G93.40 - Encephalopathy, unspecified SNOMED: 31283639 (8) CVA (cerebral vascular accident) ICD Codes: I63.9 - Cerebral infarction, unspecified SNOMED: 552781130 Status: unchanged Assessment/Plan: pt diet abx neph gi f/u cbc bmp am Andrea Trinidad DO Aug 22, 2020 08:43
--- NOTE | 2020-08-22 11:04 | Nephrology Progress Note ---
Assessment/Plan Problem List: (1) Renal failure (ARF), acute on chronic (2) Pancreatitis (3) Urinary tract infection (4) Elevated lipase (5) CVA (cerebral vascular accident) (6) Uremic encephalopathy Plan August 22: Patient status unchanged. Due for placement of tunneled dialysis catheter tomorrow. Treatment of UTI defer to ID. Labs and medications reviewed. August 21: Dialysis catheter ordered to be placed yesterday was not done by radiology. Will wait for placement of the dialysis catheter prior to discharge. Meanwhile we will treat the urinary tract infection. Labs reviewed. Medication list reviewed. Discussed with son. Continue n.p.o. pending GI evaluation for high lipase Proceed with placement of tunneled dialysis catheter, and initiate dialysis Keep the blood pressure in check Per orders Subjective ROS Limited/Unobtainable: No Constitutional: Reports: malaise, weakness Objective Objective Last 24 Hour Vital Signs Date Time Temp Pulse Resp B/P (MAP) Pulse Ox O2 Delivery O2 Flow Rate FiO2 08/22/20 08:34 97 141/84 08/22/20 08:00 101 08/22/20 08:00 97.6 101 20 141/84 (103) 97 08/22/20 04:00 97.0 89 20 112/77 (89) 100 08/22/20 04:00 68 08/22/20 00:00 97.5 104 20 129/74 (92) 7 08/22/20 00:00 113 08/21/20 22:33 103 155/83 08/21/20 21:00 Room Air 08/21/20 21:00 115 08/21/20 20:00 97.5 103 20 155/83 (107) 97 08/21/20 16:00 68 08/21/20 16:00 97.7 69 20 112/77 (89) 95 08/21/20 12:00 97.7 68 20 131/71 (91) 95 08/21/20 12:00 64 Intake and Output0 08/21/20 08/22/20 19:00 07:00 Intake Total 118 ml 240 ml Balance 118 ml 240 ml Intake Oral 118 ml 240 ml # Voids 1 1 Current Medications Medications (Trade) Dose Ordered Sig/Markus Route PRN Reason Start Time Stop Time Status Last Admin Dose Admin Allopurinol (allopurinoL) 300 mg DAILY ORAL 08/20/20 09:00 09/19/20 08:59 08/22/20 08:32 Aspirin (ASA) 325 mg DAILY ORAL 08/20/20 09:00 10/04/20 08:59 08/22/20 08:34 Dextrose/Sodium Chloride 1,000 ml @ 50 mls/hr Q20H IV 08/19/20 20:00 09/18/20 19:59 08/22/20 08:00 Heparin Sodium (Porcine) (Heparin 5000 units/ml) 5,000 units EVERY 12 HOURS SUBQ 08/19/20 21:00 10/03/20 20:59 08/22/20 08:36 Lorazepam (Ativan 2mg/ml 1ml) 1 mg QIDPRN PRN IV For Anxiety 08/20/20 10:00 08/27/20 09:59 08/21/20 02:05 Metoprolol Tartrate (Lopressor) 12.5 mg Q12HR ORAL 08/19/20 21:00 11/17/20 20:59 08/22/20 08:34 Pantoprazole (Protonix) 40 mg EVERY 12 HOURS ORAL 08/19/20 21:00 09/18/20 20:59 08/22/20 08:34 Quetiapine Fumarate (SEROqueL) 50 mg Q12HR ORAL 08/19/20 21:00 10/03/20 20:59 08/22/20 08:34 Tamsulosin HCl (Flomax) 0.4 mg BID ORAL 08/20/20 09:00 09/19/20 08:59 08/22/20 08:34 Laboratory Tests 08/21/20 12:20: Urine Color Pale yellow, Urine Appearance Slightly cloudy, Urine pH 9, Urine Specific [place] 1.015, Urine Protein 3+H, Urine Glucose (UA) Negative, Urine Ketones Negative, Urine Blood 3+H, Urine Nitrite Negative, Urine Bilirubin Negative, Urine Urobilinogen Normal, Urine Leukocyte Esterase 3+H, Urine RBC 2- 4H, Urine WBC 20-30H, Urine Squamous Epithelial Cells Occasional, Urine Bacteria ManyH 08/22/20 07:00: White Blood Count 9.3, Red Blood Count 4.64L, Hemoglobin 14.0L, Hematocrit 45.0, Mean Corpuscular Volume 97, Mean Corpuscular Hemoglobin 30.1, Mean Corpuscular Hemoglobin Concent 31.0L, Red Cell Distribution Width 15.5H, Platelet Count 195, Mean Platelet Volume 7.0, Neutrophils (%) (Auto) 60.9, Lymphocytes (%) (Auto) 26.9, Monocytes (%) (Auto) 6.0, Eosinophils (%) (Auto) 5.6H, Basophils (%) (Auto) 0.7, Sodium Level 143, Potassium Level 4.6, Chloride Level 110H, Carbon Dioxide Level 22, Anion Gap 11, Blood Urea Nitrogen 30H, Creatinine 3.9H, Estimat Glomerular Filtration Rate 15.1, Glucose Level 80, Calcium Level 9.0, Random Gentamicin Level < 0.2 Height (Feet): 5 Height (Inches): 4.00 Weight (Pounds): 181 General Appearance: no apparent distress, lethargic, confused Objective No change Silvio Reddy MD Aug 22, 2020 11:04
[2020-08-22 12:00] VITALS: BP 121/77
--- NOTE | 2020-08-22 14:57 | Cardiology Report ---
APPROVED REPORT EKG Measurement Heart [id number] <Conclusion> Normal sinus rhythm Left axis deviation Cannot rule out Anterior infarct, age undetermined Abnormal ECG
[2020-08-22 16:00] VITALS: BP 127/85
[2020-08-22 20:00] VITALS: BP 140/90
--- NOTE | 2020-08-22 20:59 | Consultation ---
DATE OF CONSULTATION: 08/22/2020 GASTROENTEROLOGY CONSULTATION CHIEF COMPLAINT: I was asked to see this patient by Dr. Andrea Triindad for evaluation of elevated lipase. HISTORY OF PRESENT ILLNESS: The patient is a 75-year-old man with renal failure, who was sent to the hospital due to worsening renal function. He appears confused and he is in restraints and there is no family at bedside. He speaks in a [place] language. There have been no reports of nausea or vomiting per nursing reports. His lipase has been elevated on this admission as it was on the previous admission. The patient has had a CT scan of the abdomen and pelvis on August 02, less than one month ago. The CT scan showed possible cholelithiasis, though there was no CT evidence of acute cholecystitis. The pancreas appeared to be unremarkable, although this is a noncontrast study. The patient also had an abdominal ultrasound done just a few days ago showing no significant abnormalities. common bile duct was normal in size without any stones and the gallbladder does not show any stones. The pancreas could not be seen. PAST MEDICAL HISTORY: History of renal failure, on dialysis, history of stroke, urinary tract infection, hypertension, history of encephalopathy. FAMILY HISTORY: Noncontributory. SOCIAL HISTORY: Patient is . Discussion will be held with the patient's family when they arrive. ALLERGIES: Penicillin. MEDICATIONS: See the chart list for details. PHYSICAL EXAMINATION: GENERAL: Confused man, restrained in bed, in no distress. HEENT: He is normocephalic and atraumatic. NECK: Appeared supple. CHEST: Coarse breath sounds. CARDIAC: Revealed a regular rate. ABDOMEN: Soft. Seemingly non tender. EXTREMITIES: Revealed no edema. LABORATORY DATA: Noted. ASSESSMENT: This patient presents with elevated lipase of unclear etiology. The patient has had a negative workup but MRI to be done at this juncture to better evaluate the pancreatic parenchyma. Endoscopicultrasound can be considered. In the meantime, the patient's swallow study can be obtained. A full liquid diet can be tried. RECOMMENDATIONS: Per above discussion and per orders written in the chart. Thank you for asking me to participate in the care of this patient. Karen Siddiqui M.D. DR: Hannah JOB#: [id number] CC: EMI
[2020-08-22] MEDS: LORazepam Inj 2mg/ml 1ml IV PRN (21:02)
[2020-08-23] VITALS (7 sets, daily range): BP systolic 106–157; BP diastolic 69–103
[2020-08-23] MEDS: D5NS 1,000 ML IV SCH (05:05)
[2020-08-23 07:34] LABS: BASOPHILS % (AUTO) 0.9 % (0.0-2.0); HEMATOCRIT 45.5 % (42.0-52.0); HEMOGLOBIN 13.9 G/DL (14.2-18.0); LYMPHOCYTES % (AUTO) 25.2 % (20.0-45.0); MEAN CORPUSCULAR VOLUME 97 FL (80-99); MONOCYTES % (AUTO) 7.9 % (1.0-10.0); PLATELET COUNT 161 K/UL (150-450); RED BLOOD COUNT 4.71 M/UL (4.70-6.10); RED CELL DISTRIBUTION WIDTH 15.7 % (11.6-14.8); WHITE BLOOD COUNT 7.6 K/UL (4.8-10.8)
[2020-08-23 08:15] LABS: ALBUMIN 3.3 G/DL (3.4-5.0); ALBUMIN/GLOBULIN RATIO 0.9 (1.0-2.7); BILIRUBIN,TOTAL 0.6 MG/DL (0.2-1.0); CALCIUM 8.6 MG/DL (8.5-10.1); CREATININE 3.8 MG/DL (0.55-1.30); PHOSPHORUS 3.3 MG/DL (2.5-4.9); POTASSIUM 4.9 MMOL/L (3.5-5.1)
[2020-08-23] MEDS: Metoprolol Tartrate 12.5mg TAB ORAL SCH ×2 (08:58→21:14)
[2020-08-23] MEDS: Tamsulosin 0.4mg cap ORAL SCH (08:58)
[2020-08-23] MEDS: Heparin 5000 units/ml inj SUBQ SCH ×2 (09:00→21:00)
[2020-08-23] MEDS: LORazepam Inj 2mg/ml 1ml IV PRN ×2 (09:14→17:18)
--- NOTE | 2020-08-23 09:42 | General Progress Note ---
Subjective ROS Limited/Unobtainable: Yes Allergies: Coded Allergies: PENICILLINS (Verified Allergy, Unknown, 12/02/18) Objective Last 24 Hour Vital Signs Date Time Temp Pulse Resp B/P (MAP) Pulse Ox O2 Delivery O2 Flow Rate FiO2 08/23/20 09:14 99 20 157/90 97 08/23/20 08:58 99 157/90 08/23/20 08:00 97.9 99 20 157/90 (112) 97 08/23/20 04:00 92 08/23/20 04:00 97.5 103 20 133/94 (107) 95 08/23/20 00:00 96 08/23/20 00:00 97.9 103 20 137/82 (100) 95 08/22/20 21:32 94 20 135/89 94 08/22/20 21:02 108 20 140/90 95 08/22/20 21:02 108 140/90 08/22/20 21:00 Room Air 08/22/20 20:00 97.9 108 20 140/90 (107) 95 08/22/20 20:00 131 08/22/20 16:00 94 08/22/20 16:00 97.5 94 20 127/85 (99) 99 08/22/20 12:00 90 08/22/20 12:00 97.7 95 20 121/77 (92) 96 Intake and Output 08/22/20 08/23/20 19:00 07:00 Intake Total 210 ml Balance 210 ml Intake Oral 210 ml # Voids 2 2 Laboratory Tests 08/23/20 07:00: White Blood Count 7.6, Red Blood Count 4.71, Hemoglobin 13.9L, Hematocrit 45.5, Mean Corpuscular Volume 97, Mean Corpuscular Hemoglobin 29.6, Mean Corpuscular Hemoglobin Concent 30.6L, Red Cell Distribution Width 15.7H, Platelet Count 161, Mean Platelet Volume 7.1, Neutrophils (%) (Auto) 60.0, Lymphocytes (%) (Auto) 25.2, Monocytes (%) (Auto) 7.9, Eosinophils (%) (Auto) 6.0H, Basophils (%) (Auto) 0.9, Sodium Level 143, Potassium Level 4.9, Chloride Level 112H, Carbon Dioxide Level 21, Anion Gap 11, Blood Urea Nitrogen 29H, Creatinine 3.8H, Estimat Glomerular Filtration Rate 15.6, Glucose Level 91, Calcium Level 8.6, Phosphorus Level 3.3, Magnesium Level 2.1, Total Bilirubin 0.6, Aspartate Amino Transf (AST/SGOT) 33, Alanine Aminotransferase (ALT/SGPT) 9L, Alkaline Phosphatase 151H, Total Protein 7.0, Albumin 3.3L, Globulin 3.7, Albumin/Globulin Ratio 0.9L, Lipase 399H Height (Feet): 5 Height (Inches): 4.00 Weight (Pounds): 181 General Appearance: alert EENT: PERRL/EOMI Neck: supple Cardiovascular: normal rate Respiratory/Chest: decreased breath sounds Abdomen: normal bowel sounds, non tender, soft Extremities: non-tender Assessment/Plan Status: unchanged Assessment/Plan: Assessment/Plan: dysphagia AMS recent CVA elevate lipase elevated ALP gallstone [place] UTI improving lipase on oral diet with 50% po intake ct and us from prior admission reviewed add marinol repeat labs may need EUS check lipid panel check MRCP Dany Swain MD Aug 23, 2020 09:42
--- NOTE | 2020-08-23 09:51 | General Progress Note ---
Subjective Constitutional: Reports: weakness Allergies: Coded Allergies: PENICILLINS (Verified Allergy, Unknown, 12/02/18) All Systems: reviewed and negative except above Subjective sleepy calm Objective Last 24 Hour Vital Signs Date Time Temp Pulse Resp B/P (MAP) Pulse Ox O2 Delivery O2 Flow Rate FiO2 08/23/20 09:14 99 20 157/90 97 08/23/20 08:58 99 157/90 08/23/20 08:00 97.9 99 20 157/90 (112) 97 08/23/20 04:00 92 08/23/20 04:00 97.5 103 20 133/94 (107) 95 08/23/20 00:00 96 08/23/20 00:00 97.9 103 20 137/82 (100) 95 08/22/20 21:32 94 20 135/89 94 08/22/20 21:02 108 20 140/90 95 08/22/20 21:02 108 140/90 08/22/20 21:00 Room Air 08/22/20 20:00 97.9 108 20 140/90 (107) 95 08/22/20 20:00 131 08/22/20 16:00 94 08/22/20 16:00 97.5 94 20 127/85 (99) 99 08/22/20 12:00 90 08/22/20 12:00 97.7 95 20 121/77 (92) 96 Intake and Output 08/22/20 08/23/20 19:00 07:00 Intake Total 210 ml Balance 210 ml Intake Oral 210 ml # Voids 2 2 Laboratory Tests 08/23/20 07:00: White Blood Count 7.6, Red Blood Count 4.71, Hemoglobin 13.9L, Hematocrit 45.5, Mean Corpuscular Volume 97, Mean Corpuscular Hemoglobin 29.6, Mean Corpuscular Hemoglobin Concent 30.6L, Red Cell Distribution Width 15.7H, Platelet Count 161, Mean Platelet Volume 7.1, Neutrophils (%) (Auto) 60.0, Lymphocytes (%) (Auto) 25.2, Monocytes (%) (Auto) 7.9, Eosinophils (%) (Auto) 6.0H, Basophils (%) (Auto) 0.9, Sodium Level 143, Potassium Level 4.9, Chloride Level 112H, Carbon Dioxide Level 21, Anion Gap 11, Blood Urea Nitrogen 29H, Creatinine 3.8H, Estimat Glomerular Filtration Rate 15.6, Glucose Level 91, Calcium Level 8.6, Phosphorus Level 3.3, Magnesium Level 2.1, Total Bilirubin 0.6, Aspartate Amino Transf (AST/SGOT) 33, Alanine Aminotransferase (ALT/SGPT) 9L, Alkaline Phosphatase 151H, Total Protein 7.0, Albumin 3.3L, Globulin 3.7, Albumin/Globulin Ratio 0.9L, Lipase 399H Height (Feet): 5 Height (Inches): 4.00 Weight (Pounds): 181 General Appearance: lethargic EENT: normal ENT inspection Neck: normal alignment Cardiovascular: normal peripheral pulses, normal rate, regular rhythm Respiratory/Chest: chest wall non-tender, lungs clear, normal breath sounds Abdomen: normal bowel sounds, non tender, soft Extremities: normal inspection Edema: no edema noted Arm (L), no edema noted Arm (R), no edema noted Leg (L), no edema noted Leg (R), no edema noted Pedal (L), no edema noted Pedal (R), no edema noted Generalized Neurologic: motor weakness Skin: normal pigmentation, warm/dry Assessment/Plan Problem List: (1) Episode of generalized weakness ICD Codes: R53.1 - Weakness SNOMED: 44283530 (2) Hypertension ICD Codes: I10 - Essential (primary) hypertension SNOMED: 77280368 (3) NOEMÍ (acute kidney injury) ICD Codes: N17.9 - Acute kidney failure, unspecified SNOMED: 82279504, 2587796 (4) Urinary tract infection ICD Codes: N39.0 - Urinary tract infection, site not specified SNOMED: 97417711 (5) Pancreatitis ICD Codes: K85.90 - Acute pancreatitis without necrosis or infection, unspecified SNOMED: 98120388 (6) Renal failure ICD Codes: N19 - Unspecified kidney failure SNOMED: 53133583 (7) Encephalopathy ICD Codes: G93.40 - Encephalopathy, unspecified SNOMED: 71461256 (8) CVA (cerebral vascular accident) ICD Codes: I63.9 - Cerebral infarction, unspecified SNOMED: 482494666 Status: unchanged Assessment/Plan: pt diet abx neph gi f/u cbc bmp am dc plan w Andrea Mari DO Aug 23, 2020 09:51
[2020-08-23] MEDS ORDERED: DiphenhydrAMINE 50mg/ml Inj IM SCH ×2 (11:30→15:00)
[2020-08-23] MEDS ORDERED: Haloperidol 5mg/ml Inj IM SCH ×2 (11:30→15:00)
[2020-08-23] MEDS ORDERED: LORazepam Inj 2mg/ml 1ml IM SCH ×2 (11:30→15:00)
--- NOTE | 2020-08-23 13:26 | Infectious Diseases Prog Note ---
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 RX M.I.C. RX --------- --- --------- --- AMPICILLIN >=32 R AMPICILLIN/SULBACTAM >=32 R CEFAZOLIN >=64 R CEFTAZIDIME R CEFTRIAXONE >=64 R CEFEPIME >=64 R CIPROFLOXACIN >=8 R GENTAMICIN >=16 R LEVOFLOXACIN >=8 R * MEROPENEM >=16 R NITROFURANTOIN 256 R TRIMETHOPRIM/SULFA >=320 R VANCOMYCIN <=0.5 S PIPERACILLIN/TAZOBACTAM >=128 R CKD Abd pain Acute pancreatitis -Abd US: No acute abnormality in the abdomen. Increased echogenicity of the left renal parenchyma could represent medical renal disease. hx of MDR ABC UTI and colonization -07/2020 -u/a wbc tnct, nit neg, leuk +3; ucx 60-70k MDR ABC (S Gentamycin, bactrim; R meropenem), >100k E. 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 Will continue to follow along with you. Discussed with RN. Subjective Allergies: Coded Allergies: PENICILLINS (Verified Allergy, Unknown, 12/02/18) afebrile no leukocytosis awaiting HD cath placement Objective Last 24 Hour Vital Signs Date Time Temp Pulse Resp B/P (MAP) Pulse Ox O2 Delivery O2 Flow Rate FiO2 08/23/20 12:00 97.5 87 18 134/78 (96) 95 08/23/20 11:36 74 08/23/20 09:44 80 20 133/82 97 08/23/20 09:14 99 20 157/90 97 08/23/20 09:00 Room Air 08/23/20 08:58 99 157/90 08/23/20 08:00 97.9 99 20 157/90 (112) 97 08/23/20 07:29 92 08/23/20 04:00 92 08/23/20 04:00 97.5 103 20 133/94 (107) 95 08/23/20 00:00 96 08/23/20 00:00 97.9 103 20 137/82 (100) 95 08/22/20 21:32 94 20 135/89 94 08/22/20 21:02 108 20 140/90 95 08/22/20 21:02 108 140/90 08/22/20 21:00 Room Air 08/22/20 20:00 97.9 108 20 140/90 (107) 95 08/22/20 20:00 131 08/22/20 16:00 94 08/22/20 16:00 97.5 94 20 127/85 (99) 99 Height (Feet): 5 Height (Inches): 4.00 Weight (Pounds): 181 General Appearance: confused, mild distress Cardiovascular: tachycardia Respiratory/Chest: decreased breath sounds Abdomen: distended Microbiology Date/Time Source Procedure Growth Status 08/21/20 12:20 Urine,Clean Catch Urine Culture - Preliminary Gram Negative Kit Resulted Laboratory Tests Test 08/23/20 07:00 White Blood Count 7.6 K/UL (4.8-10.8) Red Blood Count 4.71 M/UL (4.70-6.10) Hemoglobin 13.9 G/DL (14.2-18.0) L Hematocrit 45.5 % (42.0-52.0) Mean Corpuscular Volume 97 FL (80-99) Mean Corpuscular Hemoglobin 29.6 PG (27.0-31.0) Mean Corpuscular Hemoglobin Concent 30.6 G/DL (32.0-36.0) L Red Cell Distribution Width 15.7 % (11.6-14.8) H Platelet Count 161 K/UL (150-450) Mean Platelet Volume 7.1 FL (6.5-10.1) Neutrophils (%) (Auto) 60.0 % (45.0-75.0) Lymphocytes (%) (Auto) 25.2 % (20.0-45.0) Monocytes (%) (Auto) 7.9 % (1.0-10.0) Eosinophils (%) (Auto) 6.0 % (0.0-3.0) H Basophils (%) (Auto) 0.9 % (0.0-2.0) Sodium Level 143 MMOL/L (136-145) Potassium Level 4.9 MMOL/L (3.5-5.1) Chloride Level 112 MMOL/L (98-107) H Carbon Dioxide Level 21 MMOL/L (21-32) Anion Gap 11 mmol/L (5-15) Blood Urea Nitrogen 29 mg/dL (7-18) H Creatinine 3.8 MG/DL (0.55-1.30) H Estimat Glomerular Filtration Rate 15.6 mL/min (>60) Glucose Level 91 MG/DL (74-106) Calcium Level 8.6 MG/DL (8.5-10.1) Phosphorus Level 3.3 MG/DL (2.5-4.9) Magnesium Level 2.1 MG/DL (1.8-2.4) Total Bilirubin 0.6 MG/DL (0.2-1.0) Aspartate Amino Transf (AST/SGOT) 33 U/L (15-37) Alanine Aminotransferase (ALT/SGPT) 9 U/L (12-78) L Alkaline Phosphatase 151 U/L (46-116) H Total Protein 7.0 G/DL (6.4-8.2) Albumin 3.3 G/DL (3.4-5.0) L Globulin 3.7 g/dL Albumin/Globulin Ratio 0.9 (1.0-2.7) L Lipase 399 U/L (73-393) H Current Medications Medications (Trade) Dose Ordered Sig/Markus Route PRN Reason Start Time Stop Time Status Last Admin Dose Admin Allopurinol (allopurinoL) 300 mg DAILY ORAL 08/20/20 09:00 09/19/20 08:59 08/23/20 09:14 Aspirin (ASA) 325 mg DAILY ORAL 08/20/20 09:00 10/04/20 08:59 08/23/20 08:58 Dextrose/Sodium Chloride 1,000 ml @ 50 mls/hr Q20H IV 08/19/20 20:00 09/18/20 19:59 08/23/20 05:05 Dronabinol (Marinol) 2.5 mg BID ORAL 08/23/20 18:00 11/21/20 17:59 Heparin Sodium (Porcine) (Heparin 5000 units/ml) 5,000 units EVERY 12 HOURS SUBQ 08/19/20 21:00 10/03/20 20:59 08/22/20 08:36 Lorazepam (Ativan 2mg/ml 1ml) 1 mg QIDPRN PRN IV For Anxiety 08/20/20 10:00 08/27/20 09:59 08/23/20 09:14 Metoprolol Tartrate (Lopressor) 12.5 mg Q12HR ORAL 08/19/20 21:00 11/17/20 20:59 08/23/20 08:58 Pantoprazole (Protonix) 40 mg EVERY 12 HOURS ORAL 08/19/20 21:00 09/18/20 20:59 08/23/20 08:58 Quetiapine Fumarate (SEROqueL) 50 mg Q12HR ORAL 08/19/20 21:00 10/03/20 20:59 08/23/20 08:58 Tamsulosin HCl (Flomax) 0.4 mg BID ORAL 08/20/20 09:00 09/19/20 08:59 08/23/20 08:58 Ewa Lin M.D. Aug 23, 2020 13:26
--- NOTE | 2020-08-23 13:43 | Nephrology Progress Note ---
Assessment/Plan Problem List: (1) Renal failure (ARF), acute on chronic (2) Pancreatitis (3) Urinary tract infection (4) Elevated lipase (5) CVA (cerebral vascular accident) (6) Uremic encephalopathy Plan August 23: Remains encephalopathic. Due for dialysis catheter and initiation of hemodialysis. August 22: Patient status unchanged. Due for placement of tunneled dialysis catheter tomorrow. Treatment of UTI defer to ID. Labs and medications revi ewed. August 21: Dialysis catheter ordered to be placed yesterday was not done by radiology. Will wait for placement of the dialysis catheter prior to discharge. Meanwhile we will treat the urinary tract infection. Labs reviewed. Medication list reviewed. Discussed with son. Continue n.p.o. pending GI evaluation for high lipase Proceed with placement of tunneled dialysis catheter, and initiate dialysis Keep the blood pressure in check Per orders Subjective ROS Limited/Unobtainable: No Constitutional: Reports: malaise, weakness Objective Objective Last 24 Hour Vital Signs Date Time Temp Pulse Resp B/P (MAP) Pulse Ox O2 Delivery O2 Flow Rate FiO2 08/23/20 12:00 97.5 87 18 134/78 (96) 95 08/23/20 11:36 74 08/23/20 09:44 80 20 133/82 97 08/23/20 09:14 99 20 157/90 97 08/23/20 09:00 Room Air 08/23/20 08:58 99 157/90 08/23/20 08:00 97.9 99 20 157/90 (112) 97 08/23/20 07:29 92 08/23/20 04:00 92 08/23/20 04:00 97.5 103 20 133/94 (107) 95 08/23/20 00:00 96 08/23/20 00:00 97.9 103 20 137/82 (100) 95 08/22/20 21:32 94 20 135/89 94 08/22/20 21:02 108 20 140/90 95 08/22/20 21:02 108 140/90 08/22/20 21:00 Room Air 08/22/20 20:00 97.9 108 20 140/90 (107) 95 08/22/20 20:00 131 08/22/20 16:00 94 08/22/20 16:00 97.5 94 20 127/85 (99) 99 Intake and Output 08/22/20 08/23/20 19:00 07:00 Intake Total 210 ml Balance 210 ml Intake Oral 210 ml # Voids 2 2 Laboratory Tests 08/23/20 07:00: White Blood Count 7.6, Red Blood Count 4.71, Hemoglobin 13.9L, Hematocrit 45.5, Mean Corpuscular Volume 97, Mean Corpuscular Hemoglobin 29.6, Mean Corpuscular Hemoglobin Concent 30.6L, Red Cell Distribution Width 15.7H, Platelet Count 161, Mean Platelet Volume 7.1, Neutrophils (%) (Auto) 60.0, Lymphocytes (%) (Auto) 25.2, Monocytes (%) (Auto) 7.9, Eosinophils (%) (Auto) 6.0H, Basophils (%) (Auto) 0.9, Sodium Level 143, Potassium Level 4.9, Chloride Level 112H, Carbon Dioxide Level 21, Anion Gap 11, Blood Urea Nitrogen 29H, Creatinine 3.8H, Estimat Glomerular Filtration Rate 15.6, Glucose Level 91, Calcium Level 8.6, Phosphorus Level 3.3, Magnesium Level 2.1, Total Bilirubin 0.6, Aspartate Amino Transf (AST/SGOT) 33, Alanine Aminotransferase (ALT/SGPT) 9L, Alkaline Phosphatase 151H, Total Protein 7.0, Albumin 3.3L, Globulin 3.7, Albumin/Globuli n Ratio 0.9L, Lipase 399H Height (Feet): 5 Height (Inches): 4.00 Weight (Pounds): 181 General Appearance: no apparent distress, lethargic Cardiovascular: normal rate Respiratory/Chest: decreased breath sounds Abdomen: soft Objective No change Silvio Reddy MD Aug 23, 2020 13:43
[2020-08-23] MEDS ORDERED: Lidocaine 1% 10mg/ml/Epi 0.005mg/ml 10ml INJ SCH (15:21)
[2020-08-23] MEDS ORDERED: Heparin1,000 units/500ml Premix(Conc:2 units/ml) IV PRN ×2 (15:30→17:00)
[2020-08-23] MEDS ORDERED: LORazepam Inj 2mg/ml 1ml IV SCH (16:15)
[2020-08-23] MEDS ORDERED: Midazolam 2mg/2ml Inj IVP SCH (17:00)
[2020-08-23] MEDS ORDERED: fentaNYL 100 mcg/2 mL IV SCH (17:00)
--- NOTE | 2020-08-23 17:35 | Pre-Procedure Note/Attestation ---
Pre-Procedure Note/Attestation Complete Prior to Procedure Planned Procedure: not applicable Procedure Narrative: permacath Indications for Procedure Pre-Operative Diagnosis: renal failure Attestation I attest that I discussed the nature of the procedure; its benefits; risks and complications; and alternatives (and the risks and benefits of such alternatives), prior to the procedure, with the patient (or the patient's legal regional sales representative). I attest that, if there was a reasonable possibility of needing a blood t ransfusion, the patient (or the patient's legal regional sales representative) was given the [facility] standardized written summary, pursuant to the Donnell Malik Blood Safety Act ([place] Health and Safety Code # 1645, as amended). I attest that I re-evaluated the patient just prior to the surgery and that there has been no change in the patient's H&P, except as documented below: discussed by phone with pt's. son earlier today Harsha Brown MD Aug 23, 2020 17:35
--- NOTE | 2020-08-23 17:35 | Brief Operative Note ---
Immediate Post Operative Note Operative Note Pre-op Diagnosis: renal failure Procedure: R IJV permacath Post-op Diagnosis: same as pre-op Surgeon: Helio BROWN Anesthesia: local Specimen: none Complications: none Fluids: none Implant(s) used?: No Harsha Brown MD Aug 23, 2020 17:35
[2020-08-23] MEDS ORDERED: Dronabinol 2.5mg Cap ORAL SCH (18:00)
[2020-08-24] VITALS: BP 136/78
[2020-08-24 04:00] VITALS: BP 134/75
[2020-08-24 06:55] LABS: BASOPHILS % (AUTO) 0.6 % (0.0-2.0); EOSINOPHILS % (AUTO) 3.9 % (0.0-3.0); HEMATOCRIT 44.5 % (42.0-52.0); HEMOGLOBIN 14.7 G/DL (14.2-18.0); LYMPHOCYTES % (AUTO) 14.2 % (20.0-45.0); MEAN CORPUSCULAR VOLUME 92 FL (80-99); MONOCYTES % (AUTO) 4.2 % (1.0-10.0); NEUTROPHILS % (AUTO) 77.2 % (45.0-75.0); PLATELET COUNT 136 K/UL (150-450); RED BLOOD COUNT 4.86 M/UL (4.70-6.10); RED CELL DISTRIBUTION WIDTH 14.9 % (11.6-14.8); WHITE BLOOD COUNT 14.1 K/UL (4.8-10.8)
[2020-08-24 07:17] LABS: ALANINE AMINOTRANSFERASE 18 U/L (12-78); ALBUMIN 3.7 G/DL (3.4-5.0); ALBUMIN/GLOBULIN RATIO 0.8 (1.0-2.7); ALKALINE PHOSPHATASE 164 U/L (46-116); AMYLASE 122 U/L (25-115); ANION GAP 10 mmol/L (5-15); ASPARTATE AMINO TRANSFERASE 29 U/L (15-37); BILIRUBIN,TOTAL 0.7 MG/DL (0.2-1.0); BLOOD UREA NITROGEN 29 mg/dL (7-18); CALCIUM 9.1 MG/DL (8.5-10.1); CARBON DIOXIDE 20 MMOL/L (21-32); CHLORIDE 113 MMOL/L (98-107); CHOLESTEROL 173 MG/DL (< 200); HDL CHOLESTEROL 45 MG/DL (40-60); POTASSIUM 4.9 MMOL/L (3.5-5.1); SODIUM 143 MMOL/L (136-145); TRIGLYCERIDES 123 MG/DL (30-150)
--- NOTE | 2020-08-24 07:59 | General Progress Note ---
Subjective ROS Limited/Unobtainable: No Allergies: Coded Allergies: PENICILLINS (Verified Allergy, Unknown, 12/02/18) Objective Last 24 Hour Vital Signs Date Time Temp Pulse Resp B/P (MAP) Pulse Ox O2 Delivery O2 Flow Rate FiO2 08/24/20 04:00 98.2 97 18 134/75 (94) 96 08/24/20 00:00 97.8 98 19 136/78 (97) 95 08/23/20 21:14 100 135/83 08/23/20 21:00 Room Air 08/23/20 20:00 93 08/23/20 20:00 98.1 101 20 135/83 (100) 94 08/23/20 17:32 94 19 2.0 08/23/20 16:45 96 20 123/84 100 08/23/20 16:15 74 20 106/69 95 08/23/20 16:00 96.3 74 20 106/69 (81) 95 08/23/20 16:00 72 08/23/20 15:46 92 20 136/66 95 08/23/20 15:16 74 20 110/69 95 08/23/20 12:00 97.5 87 18 134/78 (96) 95 08/23/20 11:36 74 08/23/20 09:44 80 20 133/82 97 08/23/20 09:14 99 20 157/90 97 08/23/20 09:00 Room Air 08/23/20 08:58 99 157/90 08/23/20 08:00 97.9 99 20 157/90 (112) 97 Intake and Output 08/23/20 08/24/20 19:00 07:00 Intake Total 640 ml Balance 640 ml Intake Oral 240 ml IV Total 400 ml # Voids 2 Laboratory Tests 08/24/20 06:00: White Blood Count 14.1#H, Red Blood Count 4.86, Hemoglobin 14.7, Hematocrit 44.5, Mean Corpuscular Volume 92, Mean Corpuscular Hemoglobin 30.3, Mean Corpuscular Hemoglobin Concent 33.1, Red Cell Distribution Width 14.9H, Platelet Count 136L, Mean Platelet Volume 7.5, Neutrophils (%) (Auto) 77.2H, Lymphocytes (%) (Auto) 14.2L, Monocytes (%) (Auto) 4.2, Eosinophils (%) (Auto) 3.9H, Basophils (%) (Auto) 0.6, Sodium Level 143, Potassium Level 4.9, Chloride Level 113H, Carbon Dioxide Level 20L, Anion Gap 10, Blood Urea Nitrogen 29H, Creatinine 4.0H, Estimat Glomerular Filtration Rate 14.7, Glucose Level 106, Calcium Level 9.1, Total Bilirubin 0.7, Aspartate Amino Transf (AST/SGOT) 29, Alanine Aminotransferase (ALT/SGPT) 18, Alkaline Phosphatase 164H, Total Protein 8.1, Albumin 3.7, Globulin 4.4, Albumin/Globulin Ratio 0.8L, Triglycerides Level 123, Cholesterol Level 173, LDL Cholesterol 101H, HDL Cholesterol 45, Cholesterol/HDL Ratio 3.8, Amylase Level 122H, Lipase 378 Height (Feet): 5 Height (Inches): 4.00 Weight (Pounds): 181 General Appearance: lethargic EENT: normal ENT inspection Neck: supple Cardiovascular: normal rate Respiratory/Chest: decreased breath sounds Abdomen: normal bowel sounds, non tender, soft Extremities: non-tender Assessment/Plan Status: unchanged Assessment/Plan: Assessment/Plan: dysphagia AMS recent CVA elevate lipase elevated ALP gallstone [place] UTI improving lipase on oral diet ct and us from prior admission reviewed marinol repeat labs may need EUS check lipid panel change ppi to daily patient on restrains and not able to get MRCP Dany Swain MD Aug 24, 2020 07:59
[2020-08-24 08:00] VITALS: BP 139/81
[2020-08-24] MEDS: Heparin 5000 units/ml inj SUBQ SCH ×2 (09:00→20:57)
[2020-08-24] MEDS: Metoprolol Tartrate 12.5mg TAB ORAL SCH ×2 (09:00→20:57)
[2020-08-24] MEDS: Dronabinol 2.5mg Cap ORAL SCH ×2 (09:20→17:59)
--- NOTE | 2020-08-24 10:25 | Nephrology Progress Note ---
Assessment/Plan Problem List: (1) Renal failure (ARF), acute on chronic (2) Pancreatitis (3) Urinary tract infection (4) Elevated lipase (5) CVA (cerebral vascular accident) (6) Uremic encephalopathy Plan August 24: Patient has right chest permacath. Due for dialysis today. Labs reviewed. August 23: Remains encephalopathic. Due for dialysis catheter and initiation of hemodialysis. August 22: Patient status unchanged. Due for placement of tunneled dialysis catheter tomorrow. Treatment of UTI defer to ID. Labs and medications reviewed. August 21: Dialysis catheter ordered to be placed yesterday was not done by radiology. Will wait for placement of the dialysis catheter prior to discharge. Meanwhile we will treat the urinary tract infection. Labs reviewed. Medication list reviewed. Discussed with son. Continue n.p.o. pending GI evaluation for high lipase Proceed with placement of tunneled dialysis catheter, and initiate dialysis Keep the blood pressure in check Per orders Subjective ROS Limited/Unobtainable: No Constitutional: Reports: malaise, weakness Objective Objective Last 24 Hour Vital Signs Date Time Temp Pulse Resp B/P (MAP) Pulse Ox O2 Delivery O2 Flow Rate FiO2 08/24/20 09:00 Room Air 08/24/20 09:00 106 139/81 08/24/20 08:00 97.2 106 20 139/81 (100) 95 08/24/20 04:00 98.2 97 18 134/75 (94) 96 08/24/20 00:00 97.8 98 19 136/78 (97) 95 08/23/20 21:14 100 135/83 08/23/20 21:00 Room Air 08/23/20 20:00 93 08/23/20 20:00 98.1 101 20 135/83 (100) 94 08/23/20 17:32 94 19 2.0 08/23/20 16:45 96 20 123/84 100 08/23/20 16:15 74 20 106/69 95 08/23/20 16:00 96.3 74 20 106/69 (81) 95 08/23/20 16:00 72 08/23/20 15:46 92 20 136/66 95 08/23/20 15:16 74 20 110/69 95 08/23/20 12:00 97.5 87 18 134/78 (96) 95 08/23/20 11:36 74 Intake and Output 11/9/20 11/10/20 19:00 07:00 Intake Total 640 ml Balance 640 ml Intake Oral 240 ml IV Total 400 ml # Voids 2 Current Medications Medications (Trade) Dose Ordered Sig/Markus Route PRN Reason Start Time Stop Time Status Last Admin Dose Admin Allopurinol (allopurinoL) 300 mg DAILY ORAL 08/20/20 09:00 09/19/20 08:59 08/24/20 09:20 Aspirin (ASA) 325 mg DAILY ORAL 08/20/20 09:00 10/04/20 08:59 08/24/20 09:19 Dronabinol (Marinol) 5 mg BID ORAL 08/24/20 09:00 11/22/20 08:59 08/24/20 09:20 Heparin Sodium (Porcine) (Heparin 5000 units/ml) 5,000 units EVERY 12 HOURS SUBQ 08/19/20 21:00 10/03/20 20:59 08/22/20 08:36 Heparin Sodium/ Sodium Chloride (Heparin 1000 units/500ml Premix) 1,000 unit ONCE PRN IV permacath placement 08/23/20 15:30 08/24/20 23:59 Lorazepam (Ativan 2mg/ml 1ml) 1 mg QIDPRN PRN IV For Anxiety 08/20/20 10:00 08/27/20 09:59 08/23/20 09:14 Metoprolol Tartrate (Lopressor) 12.5 mg Q12HR ORAL 08/19/20 21:00 11/17/20 20:59 08/23/20 21:14 Pantoprazole (Protonix) 40 mg DAILY ORAL 08/24/20 09:00 09/18/20 20:59 08/24/20 09:19 Quetiapine Fumarate (SEROqueL) 50 mg Q12HR ORAL 08/19/20 21:00 10/03/20 20:59 08/24/20 09:19 Laboratory Tests 08/24/20 06:00: White Blood Count 14.1#H, Red Blood Count 4.86, Hemoglobin 14.7, Hematocrit 44.5, Mean Corpuscular Volume 92, Mean Corpuscular Hemoglobin 30.3, Mean Corpuscular Hemoglobin Concent 33.1, Red Cell Distribution Width 14.9H, Platelet Count 136L, Mean Platelet Volume 7.5, Neutrophils (%) (Auto) 77.2H, Lymphocytes (%) (Auto) 14.2L, Monocytes (%) (Auto) 4.2, Eosinophils (%) (Auto) 3.9H, Basophils (%) (Auto) 0.6, Sodium Level 143, Potassium Level 4.9, Chloride Level 113H, Carbon Dioxide Level 20L, Anion Gap 10, Blood Urea Nitrogen 29H, Creatinine 4.0H, Estimat Glomerular Filtration Rate 14.7, Glucose Level 106, Calcium Level 9.1, Total Bilirubin 0.7, Aspartate Amino Transf (AST/SGOT) 29, Alanine Aminotransferase (ALT/SGPT) 18, Alkaline Phosphatase 164H, Total Protein 8.1, Albumin 3.7, Globulin 4.4, Albumin/Globulin Ratio 0.8L, Triglycerides Level 123, Cholesterol Level 173, LDL Cholesterol 101H, HDL Cholesterol 45, Cholesterol/HDL Ratio 3.8, Amylase Level 122H, Lipase 378 Height (Feet): 5 Height (Inches): 4.00 Weight (Pounds): 181 General Appearance: no apparent distress, confused Respiratory/Chest: decreased breath sounds Abdomen: soft Objective No change Silvio Reddy MD Aug 24, 2020 10:25
--- NOTE | 2020-08-24 11:54 | Infectious Diseases Prog Note ---
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 mirabilis -u/a wbc tnct, nit neg, leuk +1; ucx colonizers at this point URINE CULTURE Preliminary COMMENTS: KNOWN MULTIPLE DRUG RESISTANT Organism 1 A.BAUMANII COMPLX - MDR COLONY COUNT: 20,000 - 30,000 CFU/ML Organism 2 ENTEROCOCCUS FAECIUM COLONY COUNT: >100,000 CFU/ML ACIBCX-MDR ENT FAECIU M.I.C. RX M.I.C. RX --------- --- --------- --- AMPICILLIN >=32 R AMPICILLIN/SULBACTAM >=32 R CEFAZOLIN >=64 R CEFTAZIDIME R CEFTRIAXONE >=64 R CEFEPIME >=64 R CIPROFLOXACIN >=8 R GENTAMICIN >=16 R LEVOFLOXACIN >=8 R * MEROPENEM >=16 R NITROFURANTOIN 256 R TRIMETHOPRIM/SULFA >=320 R VANCOMYCIN <=0.5 S PIPERACILLIN/TAZOBACTAM >=128 R CKD Abd pain Acute pancreatitis -Abd US: No acute abnormality in the abdomen. Increased echogenicity of the left renal parenchyma could represent medical renal disease. hx of MDR ABC UTI and colonization -07/2020 -u/a wbc tnct, nit neg, leuk +3; ucx 60-70k MDR ABC (S Gentamycin, bactrim; R meropenem), >100k E. 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 Will continue to follow along with you. Discussed with RN. Subjective Allergies: Coded Allergies: PENICILLINS (Verified Allergy, Unknown, 12/02/18) afebrile sp perma cath yesterday mild leukocytosis Objective Last 24 Hour Vital Signs Date Time Temp Pulse Resp B/P (MAP) Pulse Ox O2 Delivery O2 Flow Rate FiO2 08/24/20 09:00 Room Air 08/24/20 09:00 106 139/81 08/24/20 08:00 97.2 106 20 139/81 (100) 95 08/24/20 04:00 98.2 97 18 134/75 (94) 96 08/24/20 00:00 97.8 98 19 136/78 (97) 95 08/23/20 21:14 100 135/83 08/23/20 21:00 Room Air 08/23/20 20:00 93 08/23/20 20:00 98.1 101 20 135/83 (100) 94 08/23/20 17:32 94 19 2.0 08/23/20 16:45 96 20 123/84 100 08/23/20 16:15 74 20 106/69 95 08/23/20 16:00 96.3 74 20 106/69 (81) 95 08/23/20 16:00 72 08/23/20 15:46 92 20 136/66 95 08/23/20 15:16 74 20 110/69 95 08/23/20 12:00 97.5 87 18 134/78 (96) 95 Height (Feet): 5 Height (Inches): 4.00 Weight (Pounds): 181 General Appearance: confused, mild distress Cardiovascular: tachycardia Respiratory/Chest: decreased breath sounds Abdomen: distended Microbiology Date/Time Source Procedure Growth Status 08/21/20 12:20 Urine,Clean Catch Urine Culture - Final Proteus Mirabilis Esbl Complete Laboratory Tests Test 08/24/20 06:00 White Blood Count 14.1 K/UL (4.8-10.8) #H Red Blood Count 4.86 M/UL (4.70-6.10) Hemoglobin 14.7 G/DL (14.2-18.0) Hematocrit 44.5 % (42.0-52.0) Mean Corpuscular Volume 92 FL (80-99) Mean Corpuscular Hemoglobin 30.3 PG (27.0-31.0) Mean Corpuscular Hemoglobin Concent 33.1 G/DL (32.0-36.0) Red Cell Distribution Width 14.9 % (11.6-14.8) H Platelet Count 136 K/UL (150-450) L Mean Platelet Volume 7.5 FL (6.5-10.1) Neutrophils (%) (Auto) 77.2 % (45.0-75.0) H Lymphocytes (%) (Auto) 14.2 % (20.0-45.0) L Monocytes (%) (Auto) 4.2 % (1.0-10.0) Eosinophils (%) (Auto) 3.9 % (0.0-3.0) H Basophils (%) (Auto) 0.6 % (0.0-2.0) Sodium Level 143 MMOL/L (136-145) Potassium Level 4.9 MMOL/L (3.5-5.1) Chloride Level 113 MMOL/L (98-107) H Carbon Dioxide Level 20 MMOL/L (21-32) L Anion Gap 10 mmol/L (5-15) Blood Urea Nitrogen 29 mg/dL (7-18) H Creatinine 4.0 MG/DL (0.55-1.30) H Estimat Glomerular Filtration Rate 14.7 mL/min (>60) Glucose Level 106 MG/DL (74-106) Calcium Level 9.1 MG/DL (8.5-10.1) Total Bilirubin 0.7 MG/DL (0.2-1.0) Aspartate Amino Transf (AST/SGOT) 29 U/L (15-37) Alanine Aminotransferase (ALT/SGPT) 18 U/L (12-78) Alkaline Phosphatase 164 U/L (46-116) H Total Protein 8.1 G/DL (6.4-8.2) Albumin 3.7 G/DL (3.4-5.0) Globulin 4.4 g/dL Albumin/Globulin Ratio 0.8 (1.0-2.7) L Triglycerides Level 123 MG/DL (30-150) Cholesterol Level 173 MG/DL (< 200) LDL Cholesterol 101 mg/dL (<100) H HDL Cholesterol 45 MG/DL (40-60) Cholesterol/HDL Ratio 3.8 (3.3-4.4) Amylase Level 122 U/L (25-115) H Lipase 378 U/L (73-393) Current Medications Medications (Trade) Dose Ordered Sig/Markus Route PRN Reason Start Time Stop Time Status Last Admin Dose Admin Aspirin (ASA) 325 mg DAILY ORAL 08/20/20 09:00 10/04/20 08:59 08/24/20 09:19 Dronabinol (Marinol) 5 mg BID ORAL 08/24/20 09:00 11/22/20 08:59 08/24/20 09:20 Heparin Sodium (Porcine) (Heparin 5000 units/ml) 5,000 units EVERY 12 HOURS SUBQ 08/19/20 21:00 10/03/20 20:59 08/22/20 08:36 Heparin Sodium/ Sodium Chloride (Heparin 1000 units/500ml Premix) 1,000 unit ONCE PRN IV permacath placement 08/23/20 15:30 08/24/20 23:59 Lorazepam (Ativan 2mg/ml 1ml) 1 mg QIDPRN PRN IV For Anxiety 08/20/20 10:00 08/27/20 09:59 08/23/20 09:14 Metoprolol Tartrate (Lopressor) 12.5 mg Q12HR ORAL 08/19/20 21:00 11/17/20 20:59 08/23/20 21:14 Pantoprazole (Protonix) 40 mg DAILY ORAL 08/24/20 09:00 09/18/20 20:59 08/24/20 09:19 Quetiapine Fumarate (SEROqueL) 50 mg Q12HR ORAL 08/19/20 21:00 10/03/20 20:59 08/24/20 09:19 Ewa Lin M.D. Aug 24, 2020 11:54
[2020-08-24 12:00] VITALS: BP 144/85
--- NOTE | 2020-08-24 13:13 | General Progress Note ---
Subjective Constitutional: Reports: weakness Allergies: Coded Allergies: PENICILLINS (Verified Allergy, Unknown, 12/02/18) All Systems: reviewed and negative except above Subjective sleepy calm Objective Last 24 Hour Vital Signs Date Time Temp Pulse Resp B/P (MAP) Pulse Ox O2 Delivery O2 Flow Rate FiO2 08/24/20 12:00 97.7 108 19 144/85 (104) 93 08/24/20 09:00 Room Air 08/24/20 09:00 106 139/81 08/24/20 08:00 97.2 106 20 139/81 (100) 95 08/24/20 04:00 98.2 97 18 134/75 (94) 96 08/24/20 00:00 97.8 98 19 136/78 (97) 95 08/23/20 21:14 100 135/83 08/23/20 21:00 Room Air 08/23/20 20:00 93 08/23/20 20:00 98.1 101 20 135/83 (100) 94 08/23/20 17:32 94 19 2.0 08/23/20 16:45 96 20 123/84 100 08/23/20 16:15 74 20 106/69 95 08/23/20 16:00 96.3 74 20 106/69 (81) 95 08/23/20 16:00 72 08/23/20 15:46 92 20 136/66 95 08/23/20 15:16 74 20 110/69 95 Intake and Output 08/23/20 08/24/20 19:00 07:00 Intake Total 640 ml Balance 640 ml Intake Oral 240 ml IV Total 400 ml # Voids 2 Laboratory Tests 08/24/20 06:00: White Blood Count 14.1#H, Red Blood Count 4.86, Hemoglobin 14.7, Hematocrit 44.5, Mean Corpuscular Volume 92, Mean Corpuscular Hemoglobin 30.3, Mean Corpuscular Hemoglobin Concent 33.1, Red Cell Distribution Width 14.9H, Platelet Count 136L, Mean Platelet Volume 7.5, Neutrophils (%) (Auto) 77.2H, Lymphocytes (%) (Auto) 14.2L, Monocytes (%) (Auto) 4.2, Eosinophils (%) (Auto) 3.9H, Basophils (%) (Auto) 0.6, Sodium Level 143, Potassium Level 4.9, Chloride Level 113H, Carbon Dioxide Level 20L, Anion Gap 10, Blood Urea Nitrogen 29H, Creatinine 4.0H, Estimat Glomerular Filtration Rate 14.7, Glucose Level 106, Calcium Level 9.1, Total Bilirubin 0.7, Aspartate Amino Transf (AST/SGOT) 29, Alanine Aminotransferase (ALT/SGPT) 18, Alkaline Phosphatase 164H, Total Protein 8.1, Albumin 3.7, Globulin 4.4, Albumin/Globulin Ratio 0.8L, Triglycerides Level 123, Cholesterol Level 173, LDL Cholesterol 101H, HDL Cholesterol 45, Cholesterol/HDL Ratio 3.8, Amylase Level 122H, Lipase 378 Height (Feet): 5 Height (Inches): 4.00 Weight (Pounds): 181 General Appearance: lethargic EENT: normal ENT inspection Neck: normal alignment Cardiovascular: normal peripheral pulses, normal rate, regular rhythm Respiratory/Chest: chest wall non-tender, lungs clear, normal breath sounds Abdomen: normal bowel sounds, non tender, soft Extremities: normal inspection Edema: no edema noted Arm (L), no edema noted Arm (R), no edema noted Leg (L), no edema noted Leg (R), no edema noted Pedal (L), no edema noted Pedal (R), no edema noted Generalized Neurologic: motor weakness Skin: normal pigmentation, warm/dry Assessment/Plan Problem List: (1) Episode of generalized weakness ICD Codes: R53.1 - Weakness SNOMED: 46872850 (2) Hypertension ICD Codes: I10 - Essential (primary) hypertension SNOMED: 87714120 (3) NOEMÍ (acute kidney injury) ICD Codes: N17.9 - Acute kidney failure, unspecified SNOMED: 93449400, 2789285 (4) Urinary tract infection ICD Codes: N39.0 - Urinary tract infection, site not specified SNOMED: 57914188 (5) Pancreatitis ICD Codes: K85.90 - Acute pancreatitis without necrosis or infection, unspecified SNOMED: 33681260 (6) Renal failure ICD Codes: N19 - Unspecified kidney failure SNOMED: 71536078 (7) Encephalopathy ICD Codes: G93.40 - Encephalopathy, unspecified SNOMED: 79239546 (8) CVA (cerebral vascular accident) ICD Codes: I63.9 - Cerebral infarction, unspecified SNOMED: 619033627 Status: unchanged Assessment/Plan: pt diet abx neph gi f/u cbc bmp am dc plan w Andrea Mari DO Aug 24, 2020 13:13
--- NOTE | 2020-08-24 15:51 | Diagnostic Imaging Report ---
Indications: Needs long-term dialysis access Technique: Patient given IV clindamycin. Total sterile technique, including sterile probe cover and sterile gel, sterile gloves, hand hygiene, hat, mask,, sterile gown, large sterile drape, and preparation with 2% chlorhexidine utilized. Local anesthesia with 1% lidocaine. Ultrasound demonstrated patent compressible right internal jugular vein. Under real-time ultrasound guidance and with real-time visualization of the needle entering the vein lumen, puncture right internal jugular vein using 21-gauge micropuncture needle, passage 0.018 guidewire, exchange for 4 Malian micropuncture introducer. The guidewire was used to measure the appropriate catheter length, and was removed. The sheath was left in place. The subcutaneous tract was then anesthetized with 1% lidocaine. A chest dermatotomy was made . The tunneling device was used to pull a 14.5 Malian 23 cm Bio Flow catheter through the subcutaneous tunnel to the neck dermatotomy. A guidewire was passed through the neck introducer into the inferior vena cava, and serial dilators were passed over it, followed by the introduction of a 14.5 Malian AirGuard peel-away sheath. The catheter was then introduced into the sheath, the peel-away sheath was removed. Digital radiograph documents satisfactory catheter tip position in the high right atrium, no kinking at the insertion site. Both catheter ports aspirated and flushed. Catheter was fixed to the skin. Patient tolerated procedure well without immediate complication. Total fluoroscopy time 35.3 minutes. Total dose area product 0.43474 mGym2 Total number of images-1 Comparison: None. Findings: Completion radiograph documents satisfactory position and course of the catheter, catheter tip at the high right atrium. Impression: Successful placement of right transjugular tunneled dialysis catheter, as described above
[2020-08-24 16:00] VITALS: BP 127/79
[2020-08-24] MEDS: Ertapenem 0.5 GM in NS 55 ML IV SCH (18:19)
[2020-08-24 20:00] VITALS: BP 124/74
[2020-08-25] VITALS (7 sets, daily range): BP systolic 76–128; BP diastolic 46–84
[2020-08-25 05:44] LABS: BASOPHILS % (AUTO) 0.4 % (0.0-2.0); EOSINOPHILS % (AUTO) 4.9 % (0.0-3.0); HEMATOCRIT 48.6 % (42.0-52.0); LYMPHOCYTES % (AUTO) 23.7 % (20.0-45.0); MEAN CORPUSCULAR VOLUME 96 FL (80-99); MONOCYTES % (AUTO) 6.7 % (1.0-10.0); NEUTROPHILS % (AUTO) 64.2 % (45.0-75.0); PLATELET COUNT 148 K/UL (150-450); RED BLOOD COUNT 5.07 M/UL (4.70-6.10); RED CELL DISTRIBUTION WIDTH 15.1 % (11.6-14.8); WHITE BLOOD COUNT 11.5 K/UL (4.8-10.8)
[2020-08-25 06:17] LABS: ALBUMIN 3.6 G/DL (3.4-5.0); ALBUMIN/GLOBULIN RATIO 0.8 (1.0-2.7); BILIRUBIN,TOTAL 0.7 MG/DL (0.2-1.0); CALCIUM 8.7 MG/DL (8.5-10.1); CREATININE 3.5 MG/DL (0.55-1.30); POTASSIUM 4.3 MMOL/L (3.5-5.1)
[2020-08-25 08:05] LABS: PHOSPHORUS 2.9 MG/DL (2.5-4.9)
[2020-08-25] MEDS: Dronabinol 2.5mg Cap ORAL SCH ×2 (08:42→18:00)
[2020-08-25] MEDS: Heparin 5000 units/ml inj SUBQ SCH ×2 (08:43→20:34)
[2020-08-25] MEDS: Metoprolol Tartrate 12.5mg TAB ORAL SCH ×3 (08:43→20:51)
--- NOTE | 2020-08-25 09:14 | General Progress Note ---
Subjective Constitutional: Reports: weakness Allergies: Coded Allergies: PENICILLINS (Verified Allergy, Unknown, 12/02/18) All Systems: reviewed and negative except above Subjective sleepy calm Objective Last 24 Hour Vital Signs Date Time Temp Pulse Resp B/P (MAP) Pulse Ox O2 Delivery O2 Flow Rate FiO2 08/25/20 04:00 98.1 100 20 128/74 (92) 95 08/25/20 00:00 98.1 104 20 126/79 (95) 95 08/24/20 21:00 Room Air 08/24/20 20:57 111 124/59 08/24/20 20:00 97.8 111 20 124/74 (91) 95 08/24/20 16:00 97.2 102 18 127/79 (95) 95 08/24/20 12:00 97.7 108 19 144/85 (104) 93 Intake and Output 08/24/20 08/25/20 19:00 07:00 Intake Total 360 ml 200 ml Balance 360 ml 200 ml Intake Oral 360 ml 200 ml # Voids 1 2 Laboratory Tests 08/25/20 05:15: Phosphorus Level 2.9, Magnesium Level 2.0 08/25/20 05:16: White Blood Count 11.5H, Red Blood Count 5.07, Hemoglobin 15.0, Hematocrit 48.6, Mean Corpuscular Volume 96, Mean Corpuscular Hemoglobin 29.7, Mean Corpuscular Hemoglobin Concent 31.0L, Red Cell Distribution Width 15.1H, Platelet Count 148L , Mean Platelet Volume 7.4, Neutrophils (%) (Auto) 64.2, Lymphocytes (%) (Auto) 23.7, Monocytes (%) (Auto) 6.7, Eosinophils (%) (Auto) 4.9H, Basophils (%) (Auto) 0.4, Sodium Level 138, Potassium Level 4.3, Chloride Level 102, Carbon Dioxide Level 29, Anion Gap 7, Blood Urea Nitrogen 18, Creatinine 3.5H, Estimat Glomerular Filtration Rate 17.2, Glucose Level 106, Calcium Level 8.7, Total Bilirubin 0.7, Aspartate Amino Transf (AST/SGOT) 26, Alanine Aminotransferase (ALT/SGPT) 17, Alkaline Phosphatase 157H, Total Protein 7.9, Albumin 3.6, Globulin 4.3, Albumin/Globulin Ratio 0.8L, Amylase Level 108, Lipase 280 Height (Feet): 5 Height (Inches): 4.00 Weight (Pounds): 181 General Appearance: lethargic EENT: normal ENT inspection Neck: normal alignment Cardiovascular: normal peripheral pulses, normal rate, regular rhythm Respiratory/Chest: chest wall non-tender, lungs clear, normal breath sounds Abdomen: normal bowel sounds, non tender, soft Extremities: normal inspection Edema: no edema noted Arm (L), no edema noted Arm (R), no edema noted Leg (L), no edema noted Leg (R), no edema noted Pedal (L), no edema noted Pedal (R), no edema noted Generalized Neurologic: motor weakness Skin: normal pigmentation, warm/dry Assessment/Plan Problem List: (1) Episode of generalized weakness ICD Codes: R53.1 - Weakness SNOMED: 13406294 (2) Hypertension ICD Codes: I10 - Essential (primary) hypertension SNOMED: 43356030 (3) NOEMÍ (acute kidney injury) ICD Codes: N17.9 - Acute kidney failure, unspecified SNOMED: 54249986, 2810049 (4) Urinary tract infection ICD Codes: N39.0 - Urinary tract infection, site not specified SNOMED: 08286613 (5) Pancreatitis ICD Codes: K85.90 - Acute pancreatitis without necrosis or infection, unspecified SNOMED: 01725827 (6) Renal failure ICD Codes: N19 - Unspecified kidney failure SNOMED: 22917429 (7) Encephalopathy ICD Codes: G93.40 - Encephalopathy, unspecified SNOMED: 43822142 (8) CVA (cerebral vascular accident) ICD Codes: I63.9 - Cerebral infarction, unspecified SNOMED: 576541518 Status: unchanged Assessment/Plan: pt diet abx neph gi f/u cbc bmp am dc plan w hh if neph clear Andrea Trinidad DO Aug 25, 2020 09:14
--- NOTE | 2020-08-25 10:09 | General Progress Note ---
Subjective ROS Limited/Unobtainable: No Allergies: Coded Allergies: PENICILLINS (Verified Allergy, Unknown, 12/02/18) Objective Last 24 Hour Vital Signs Date Time Temp Pulse Resp B/P (MAP) Pulse Ox O2 Delivery O2 Flow Rate FiO2 08/25/20 04:00 98.1 100 20 128/74 (92) 95 08/25/20 00:00 98.1 104 20 126/79 (95) 95 08/24/20 21:00 Room Air 08/24/20 20:57 111 124/59 08/24/20 20:00 97.8 111 20 124/74 (91) 95 08/24/20 16:00 97.2 102 18 127/79 (95) 95 08/24/20 12:00 97.7 108 19 144/85 (104) 93 Intake and Output 08/24/20 08/25/20 19:00 07:00 Intake Total 360 ml 200 ml Balance 360 ml 200 ml Intake Oral 360 ml 200 ml # Voids 1 2 Laboratory Tests 08/25/20 05:15: Phosphorus Level 2.9, Magnesium Level 2.0 08/25/20 05:16: White Blood Count 11.5H, Red Blood Count 5.07, Hemoglobin 15.0, Hematocrit 48.6, Mean Corpuscular Volume 96, Mean Corpuscular Hemoglobin 29.7, Mean Corpuscular Hemoglobin Concent 31.0L, Red Cell Distribution Width 15.1H, Platelet Count 148L , Mean Platelet Volume 7.4, Neutrophils (%) (Auto) 64.2, Lymphocytes (%) (Auto) 23.7, Monocytes (%) (Auto) 6.7, Eosinophils (%) (Auto) 4.9H, Basophils (%) (Auto) 0.4, Sodium Level 138, Potassium Level 4.3, Chloride Level 102, Carbon Dioxide Level 29, Anion Gap 7, Blood Urea Nitrogen 18, Creatinine 3.5H, Estimat Glomerular Filtration Rate 17.2, Glucose Level 106, Calcium Level 8.7, Total Bilirubin 0.7, Aspartate Amino Transf (AST/SGOT) 26, Alanine Aminotransferase (ALT/SGPT) 17, Alkaline Phosphatase 157H, Total Protein 7.9, Albumin 3.6, Globulin 4.3, Albumin/Globulin Ratio 0.8L, Amylase Level 108, Lipase 280 Height (Feet): 5 Height (Inches): 4.00 Weight (Pounds): 181 General Appearance: no apparent distress EENT: normal ENT inspection Neck: supple Cardiovascular: normal rate Respiratory/Chest: decreased breath sounds Abdomen: normal bowel sounds, non tender, soft Extremities: non-tender Assessment/Plan Status: unchanged Assessment/Plan: Assessment/Plan: dysphagia AMS recent CVA elevate lipase elevated ALP gallstone [place] UTI improving lipase on oral diet ct and us from prior admission reviewed marinol ppi daily Dany Swain MD Aug 25, 2020 10:09
--- NOTE | 2020-08-25 10:34 | Infectious Diseases Prog Note ---
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 mirabilis -u/a wbc tnct, nit neg, leuk +1; ucx colonizers at this point URINE CULTURE Preliminary COMMENTS: KNOWN MULTIPLE DRUG RESISTANT Organism 1 A.BAUMANII COMPLX - MDR COLONY COUNT: 20,000 - 30,000 CFU/ML Organism 2 ENTEROCOCCUS FAECIUM COLONY COUNT: >100,000 CFU/ML ACIBCX-MDR ENT FAECIU M.I.C. RX M.I.C. RX --------- --- --------- --- AMPICILLIN >=32 R AMPICILLIN/SULBACTAM >=32 R CEFAZOLIN >=64 R CEFTAZIDIME R CEFTRIAXONE >=64 R CEFEPIME >=64 R CIPROFLOXACIN >=8 R GENTAMICIN >=16 R LEVOFLOXACIN >=8 R * MEROPENEM >=16 R NITROFURANTOIN 256 R TRIMETHOPRIM/SULFA >=320 R VANCOMYCIN <=0.5 S PIPERACILLIN/TAZOBACTAM >=128 R CKD Abd pain Acute pancreatitis -Abd US: No acute abnormality in the abdomen. Increased echogenicity of the left renal parenchyma could represent medical renal disease. hx of MDR ABC UTI and colonization -07/2020 -u/a wbc tnct, nit neg, leuk +3; ucx 60-70k MDR ABC (S Gentamycin, bactrim; R meropenem), >100k E. 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 Will continue to follow along with you. Discussed with RN. Subjective Allergies: Coded Allergies: PENICILLINS (Verified Allergy, Unknown, 12/02/18) afebrile leukocytosis improving Objective Last 24 Hour Vital Signs Date Time Temp Pulse Resp B/P (MAP) Pulse Ox O2 Delivery O2 Flow Rate FiO2 08/25/20 04:00 98.1 100 20 128/74 (92) 95 08/25/20 00:00 98.1 104 20 126/79 (95) 95 08/24/20 21:00 Room Air 08/24/20 20:57 111 124/59 08/24/20 20:00 97.8 111 20 124/74 (91) 95 08/24/20 16:00 97.2 102 18 127/79 (95) 95 08/24/20 12:00 97.7 108 19 144/85 (104) 93 Height (Feet): 5 Height (Inches): 4.00 Weight (Pounds): 181 General Appearance: confused, mild distress Cardiovascular: tachycardia Respiratory/Chest: decreased breath sounds Abdomen: distended Laboratory Tests Test 08/25/20 05:15 08/25/20 05:16 Phosphorus Level 2.9 MG/DL (2.5-4.9) Magnesium Level 2.0 MG/DL (1.8-2.4) White Blood Count 11.5 K/UL (4.8-10.8) H Red Blood Count 5.07 M/UL (4.70-6.10) Hemoglobin 15.0 G/DL (14.2-18.0) Hematocrit 48.6 % (42.0-52.0) Mean Corpuscular Volume 96 FL (80-99) Mean Corpuscular Hemoglobin 29.7 PG (27.0-31.0) Mean Corpuscular Hemoglobin Concent 31.0 G/DL (32.0-36.0) L Red Cell Distribution Width 15.1 % (11.6-14.8) H Platelet Count 148 K/UL (150-450) L Mean Platelet Volume 7.4 FL (6.5-10.1) Neutrophils (%) (Auto) 64.2 % (45.0-75.0) Lymphocytes (%) (Auto) 23.7 % (20.0-45.0) Monocytes (%) (Auto) 6.7 % (1.0-10.0) Eosinophils (%) (Auto) 4.9 % (0.0-3.0) H Basophils (%) (Auto) 0.4 % (0.0-2.0) Sodium Level 138 MMOL/L (136-145) Potassium Level 4.3 MMOL/L (3.5-5.1) Chloride Level 102 MMOL/L (98-107) Carbon Dioxide Level 29 MMOL/L (21-32) Anion Gap 7 mmol/L (5-15) Blood Urea Nitrogen 18 mg/dL (7-18) Creatinine 3.5 MG/DL (0.55-1.30) H Estimat Glomerular Filtration Rate 17.2 mL/min (>60) Glucose Level 106 MG/DL (74-106) Calcium Level 8.7 MG/DL (8.5-10.1) Total Bilirubin 0.7 MG/DL (0.2-1.0) Aspartate Amino Transf (AST/SGOT) 26 U/L (15-37) Alanine Aminotransferase (ALT/SGPT) 17 U/L (12-78) Alkaline Phosphatase 157 U/L (46-116) H Total Protein 7.9 G/DL (6.4-8.2) Albumin 3.6 G/DL (3.4-5.0) Globulin 4.3 g/dL Albumin/Globulin Ratio 0.8 (1.0-2.7) L Amylase Level 108 U/L (25-115) Lipase 280 U/L (73-393) Current Medications Medications (Trade) Dose Ordered Sig/Markus Route PRN Reason Start Time Stop Time Status Last Admin Dose Admin Aspirin (ASA) 325 mg DAILY ORAL 08/20/20 09:00 10/04/20 08:59 08/25/20 08:42 Dronabinol (Marinol) 5 mg BID ORAL 08/24/20 09:00 11/22/20 08:59 08/25/20 08:42 Ertapenem 0.5 gm/ Sodium Chloride 55 ml @ 110 mls/hr Q24H IV 08/24/20 14:00 08/26/20 15:00 08/24/20 18:19 Heparin Sodium (Porcine) (Heparin 5000 units/ml) 5,000 units EVERY 12 HOURS SUBQ 08/19/20 21:00 10/03/20 20:59 08/22/20 08:36 Linezolid (Zyvox) 600 mg EVERY 12 HOURS ORAL 08/24/20 13:36 08/29/20 13:35 08/25/20 08:42 Lorazepam (Ativan 2mg/ml 1ml) 1 mg QIDPRN PRN IV For Anxiety 08/20/20 10:00 08/27/20 09:59 08/23/20 09:14 Metoprolol Tartrate (Lopressor) 12.5 mg Q12HR ORAL 08/19/20 21:00 11/17/20 20:59 08/24/20 20:57 Pantoprazole (Protonix) 40 mg DAILY ORAL 08/24/20 09:00 09/18/20 20:59 08/25/20 08:42 Quetiapine Fumarate (SEROqueL) 50 mg Q12HR ORAL 08/19/20 21:00 10/03/20 20:59 08/25/20 08:42 Ewa Lin M.D. Aug 25, 2020 10:34
--- NOTE | 2020-08-25 10:44 | Nephrology Progress Note ---
Assessment/Plan Problem List: (1) Renal failure (ARF), acute on chronic (2) Pancreatitis (3) Urinary tract infection (4) Elevated lipase (5) CVA (cerebral vascular accident) (6) Uremic encephalopathy Plan August 25: Patient dialyzed yesterday. Will dialyze tomorrow. Remains encephalopathic. Consider neuro evaluation CT Head Jul 2019 Subtle focal asymmetric hypodensity in the right parieto-occipital region concerning for ischemia, age indeterminate but possibly acute. Correlate clinically. Recommend MRI for further evaluation as clinically indicated. No acute intracranial hemorrhage or shift of the midline structures. Atrophy and nonspecific periventricular hypoattenuation suggestive of chronic ischemic microvascular changes. August 24: Patient has right chest permacath. Due for dialysis today. Labs reviewed. August 23: Remains encephalopathic. Due for dialysis catheter and initiation of hemodialysis. August 22: Patient status unchanged. Due for placement of tunneled dialysis catheter tomorrow. Treatment of UTI defer to ID. Labs and medications reviewed. August 21: Dialysis catheter ordered to be placed yesterday was not done by radiology. Will wait for placement of the dialysis catheter prior to discharge. Meanwhile we will treat the urinary tract infection. Labs reviewed. Medication list reviewed. Discussed with son. Continue n.p.o. pending GI evaluation for high lipase Proceed with placement of tunneled dialysis catheter, and initiate dialysis Keep the blood pressure in check Per orders Subjective ROS Limited/Unobtainable: No Constitutional: Reports: malaise Objective Objective Last 24 Hour Vital Signs Date Time Temp Pulse Resp B/P (MAP) Pulse Ox O2 Delivery O2 Flow Rate FiO2 08/25/20 04:00 98.1 100 20 128/74 (92) 95 08/25/20 00:00 98.1 104 20 126/79 (95) 95 08/24/20 21:00 Room Air 08/24/20 20:57 111 124/59 08/24/20 20:00 97.8 111 20 124/74 (91) 95 08/24/20 16:00 97.2 102 18 127/79 (95) 95 08/24/20 12:00 97.7 108 19 144/85 (104) 93 Intake and Output 08/24/20 08/25/20 19:00 07:00 Intake Total 360 ml 200 ml Balance 360 ml 200 ml Intake Oral 360 ml 200 ml # Voids 1 2 Laboratory Tests 08/25/20 05:15: Phosphorus Level 2.9, Magnesium Level 2.0 08/25/20 05:16: White Blood Count 11.5H, Red Blood Count 5.07, Hemoglobin 15.0, Hematocrit 48.6, Mean Corpuscular Volume 96, Mean Corpuscular Hemoglobin 29.7, Mean Corpuscular Hemoglobin Concent 31.0L, Red Cell Distribution Width 15.1H, Platelet Count 148L , Mean Platelet Volume 7.4, Neutrophils (%) (Auto) 64.2, Lymphocytes (%) (Auto) 23.7, Monocytes (%) (Auto) 6.7, Eosinophils (%) (Auto) 4.9H, Basophils (%) (Auto) 0.4, Sodium Level 138, Potassium Level 4.3, Chloride Level 102, Carbon Dioxide Level 29, Anion Gap 7, Blood Urea Nitrogen 18, Creatinine 3.5H, Estimat Glomerular Filtration Rate 17.2, Glucose Level 106, Calcium Level 8.7, Total Bilirubin 0.7, Aspartate Amino Transf (AST/SGOT) 26, Alanine Aminotransferase (ALT/SGPT) 17, Alkaline Phosphatase 157H, Total Protein 7.9, Albumin 3.6, Globulin 4.3, Albumin/Globulin Ratio 0.8L, Amylase Level 108, Lipase 280 Height (Feet): 5 Height (Inches): 4.00 Weight (Pounds): 181 General Appearance: confused Objective No change Silvio Reddy MD Aug 25, 2020 10:44
[2020-08-25] MEDS ORDERED: Albumin Human 5% 500ml IV ONE (12:30)
[2020-08-25] MEDS: Ertapenem 0.5 GM in NS 55 ML IV SCH (15:18)
[2020-08-25] MEDS ORDERED: D5NS 1000ml IV ONE (21:44)
[2020-08-26] VITALS: BP 114/76
[2020-08-26 04:00] VITALS: BP 99/68
[2020-08-26 08:00] VITALS: BP 109/66
[2020-08-26 08:38] LABS: BASOPHILS % (AUTO) 0.6 % (0.0-2.0); EOSINOPHILS % (AUTO) 7.4 % (0.0-3.0); HEMATOCRIT 42.7 % (42.0-52.0); HEMOGLOBIN 13.8 G/DL (14.2-18.0); LYMPHOCYTES % (AUTO) 13.3 % (20.0-45.0); MEAN CORPUSCULAR VOLUME 92 FL (80-99); MONOCYTES % (AUTO) 6.7 % (1.0-10.0); PLATELET COUNT 138 K/UL (150-450); RED BLOOD COUNT 4.61 M/UL (4.70-6.10); RED CELL DISTRIBUTION WIDTH 14.7 % (11.6-14.8); WHITE BLOOD COUNT 9.5 K/UL (4.8-10.8)
--- NOTE | 2020-08-26 08:41 | Nephrology Progress Note ---
Assessment/Plan Problem List: (1) Renal failure (ARF), acute on chronic (2) Pancreatitis (3) Urinary tract infection (4) Elevated lipase (5) CVA (cerebral vascular accident) (6) Uremic encephalopathy Plan August 26: Patient dialyzed August 24. Today's labs pending. Mental status somewhat unchanged. Hemodialysis as needed. Neuro/psych eval would be helpful. August 25: Patient dialyzed yesterday. Will dialyze tomorrow. Remains encephalopathic. Consider neuro evaluation CT Head Jul 2019 Subtle focal asymmetric hypodensity in the right parieto-occipital region concerning for ischemia, age indeterminate but possibly acute. Correlate clinically. Recommend MRI for further evaluation as clinically indicated. No acute intracranial hemorrhage or shift of the midline structures. Atrophy and nonspecific periventricular hypoattenuation suggestive of chronic ischemic microvascular changes. August 24: Patient has right chest permacath. Due for dialysis today. Labs reviewed. August 23: Remains encephalopathic. Due for dialysis catheter and initiation of hemodialysis. August 22: Patient status unchanged. Due for placement of tunneled dialysis catheter tomorrow. Treatment of UTI defer to ID. Labs and medications reviewed. August 21: Dialysis catheter ordered to be placed yesterday was not done by [facility]. Will wait for placement of the dialysis catheter prior to discharge. Meanwhile we will treat the urinary tract infection. Labs reviewed. Medication list reviewed. Discussed with son. Continue n.p.o. pending GI evaluation for high lipase Proceed with placement of tunneled dialysis catheter, and initiate dialysis Keep the blood pressure in check Per orders Subjective ROS Limited/Unobtainable: Yes Objective Objective Last 24 Hour Vital Signs Date Time Temp Pulse Resp B/P (MAP) Pulse Ox O2 Delivery O2 Flow Rate FiO2 08/26/20 04:00 98.2 102 20 99/68 (78) 94 08/26/20 00:00 98.2 72 16 114/76 (89) 95 08/25/20 21:00 Room Air 08/25/20 20:51 100 116/76 08/25/20 20:00 97.2 100 18 116/76 (89) 100 08/25/20 16:00 97.2 94 20 127/68 (87) 96 08/25/20 12:30 89 101/63 (76) 08/25/20 12:00 97.3 97 20 76/46 (56) 95 08/25/20 09:00 Room Air Intake and Output 08/25/20 08/26/20 19:00 07:00 Intake Total 480 ml 600 ml Balance 480 ml 600 ml Intake Oral 480 ml 600 ml # Voids 1 3 # Bowel Movements 1 2 Current Medications Medications (Trade) Dose Ordered Sig/Markus Route PRN Reason Start Time Stop Time Status Last Admin Dose Admin Aspirin (ASA) 325 mg DAILY ORAL 08/20/20 09:00 10/04/20 08:59 08/25/20 08:42 Dronabinol (Marinol) 5 mg BID ORAL 08/24/20 09:00 11/22/20 08:59 08/25/20 08:42 Ertapenem 0.5 gm/ Sodium Chloride 55 ml @ 110 mls/hr Q24H IV 08/24/20 14:00 08/26/20 15:00 08/25/20 15:18 Heparin Sodium (Porcine) (Heparin 5000 units/ml) 5,000 units EVERY 12 HOURS SUBQ 08/19/20 21:00 10/03/20 20:59 08/22/20 08:36 Linezolid (Zyvox) 600 mg EVERY 12 HOURS ORAL 08/24/20 13:36 08/29/20 13:35 08/25/20 08:42 Lorazepam (Ativan 2mg/ml 1ml) 1 mg QIDPRN PRN IV For Anxiety 08/20/20 10:00 08/27/20 09:59 08/23/20 09:14 Metoprolol Tartrate (Lopressor) 12.5 mg Q12HR ORAL 08/19/20 21:00 11/17/20 20:59 08/24/20 20:57 Pantoprazole (Protonix) 40 mg DAILY ORAL 08/24/20 09:00 09/18/20 20:59 08/25/20 08:42 Quetiapine Fumarate (SEROqueL) 50 mg Q12HR ORAL 08/19/20 21:00 10/03/20 20:59 08/25/20 08:42 Laboratory Tests 08/26/20 07:55: White Blood Count 9.5, Red Blood Count 4.61L, Hemoglobin 13.8L, Hematocrit 42.7, Mean Corpuscular Volume 92, Mean Corpuscular Hemoglobin 29.8, Mean Corpuscular Hemoglobin Concent 32.3, Red Cell Distribution Width 14.7, Platelet Count 138L, Mean Platelet Volume 7.8, Neutrophils (%) (Auto) 72.0, Lymphocytes (%) (Auto) 13.3L, Monocytes (%) (Auto) 6.7, Eosinophils (%) (Auto) 7.4H, Basophils (%) (Auto) 0.6, Sodium Level [Pending], Potassium Level [Pending], Chloride Level [Pending], Carbon Dioxide Level [Pending], Blood Urea Nitrogen [Pending], Creatinine [Pending], Estimat Glomerular Filtration Rate [Pending], Glucose Level [Pending], Calcium Level [Pending], Phosphorus Level [Pending], Total Bilirubin [Pending], Aspartate Amino Transf (AST/SGOT) [Pending], Alanine Aminotransferase (ALT/SGPT) [Pending], Alkaline Phosphatase [Pending], C- Reactive Protein, Quantitative [Pending], Total Protein [Pending], Albumin [Pending], Globulin [Pending] Height (Feet): 5 Height (Inches): 4.00 Weight (Pounds): 181 General Appearance: no apparent distress, confused Cardiovascular: tachycardia Respiratory/Chest: decreased breath sounds Abdomen: soft Objective No change Silvio Reddy MD Aug 26, 2020 08:41
[2020-08-26 08:51] LABS: CALCIUM 8.2 MG/DL (8.5-10.1); CREATININE 4.4 MG/DL (0.55-1.30); POTASSIUM 3.6 MMOL/L (3.5-5.1)
[2020-08-26 08:55] LABS: ALBUMIN 3.3 G/DL (3.4-5.0); ALBUMIN/GLOBULIN RATIO 0.8 (1.0-2.7); BILIRUBIN,TOTAL 0.5 MG/DL (0.2-1.0); PHOSPHORUS 3.2 MG/DL (2.5-4.9)
[2020-08-26] MEDS: Heparin 5000 units/ml inj SUBQ SCH ×2 (09:00→21:00)
[2020-08-26] MEDS: Metoprolol Tartrate 12.5mg TAB ORAL SCH ×2 (09:00→21:00)
[2020-08-26] MEDS: Dronabinol 2.5mg Cap ORAL SCH ×2 (10:20→18:00)
[2020-08-26 12:00] VITALS: BP 108/69
--- NOTE | 2020-08-26 13:17 | General Progress Note ---
Subjective Constitutional: Reports: weakness Allergies: Coded Allergies: PENICILLINS (Verified Allergy, Unknown, 12/02/18) All Systems: reviewed and negative except above Subjective sleepy calm Objective Last 24 Hour Vital Signs Date Time Temp Pulse Resp B/P (MAP) Pulse Ox O2 Delivery O2 Flow Rate FiO2 08/26/20 09:00 102 99/68 08/26/20 04:00 98.2 102 20 99/68 (78) 94 08/26/20 00:00 98.2 72 16 114/76 (89) 95 08/25/20 21:00 Room Air 08/25/20 20:51 100 116/76 08/25/20 20:00 97.2 100 18 116/76 (89) 100 08/25/20 16:00 97.2 94 20 127/68 (87) 96 Intake and Output 08/25/20 08/26/20 19:00 07:00 Intake Total 480 ml 600 ml Balance 480 ml 600 ml Intake Oral 480 ml 600 ml # Voids 1 3 # Bowel Movements 1 2 Laboratory Tests 08/26/20 07:55: White Blood Count 9.5, Red Blood Count 4.61L, Hemoglobin 13.8L, Hematocrit 42.7, Mean Corpuscular Volume 92, Mean Corpuscular Hemoglobin 29.8, Mean Corpuscular Hemoglobin Concent 32.3, Red Cell Distribution Width 14.7, Platelet Count 138L, Mean Platelet Volume 7.8, Neutrophils (%) (Auto) 72.0, Lymphocytes (%) (Auto) 1 3.3L, Monocytes (%) (Auto) 6.7, Eosinophils (%) (Auto) 7.4H, Basophils (%) (Auto) 0.6, Sodium Level 138, Potassium Level 3.6, Chloride Level 102, Carbon Dioxide Level 26, Anion Gap 10, Blood Urea Nitrogen 27H, Creatinine 4.4H, Estimat Glomerular Filtration Rate 13.2, Glucose Level 96, Calcium Level 8.2L, Phosphorus Level 3.2, Total Bilirubin 0.5, Aspartate Amino Transf (AST/SGOT) 25, Alanine Aminotransferase (ALT/SGPT) 15, Alkaline Phosphatase 137H, C-Reactive Protein, Quantitative 6.2H, Total Protein 7.3, Albumin 3.3L, Globulin 4.0, Albumin/Globulin Ratio 0.8L Height (Feet): 5 Height (Inches): 4.00 Weight (Pounds): 181 General Appearance: lethargic EENT: normal ENT inspection Neck: normal alignment Cardiovascular: normal peripheral pulses, normal rate, regular rhythm Respiratory/Chest: chest wall non-tender, lungs clear, normal breath sounds Abdomen: normal bowel sounds, non tender, soft Extremities: normal inspection Edema: no edema noted Arm (L), no edema noted Arm (R), no edema noted Leg (L), no edema noted Leg (R), no edema noted Pedal (L), no edema noted Pedal (R), no edema noted Generalized Neurologic: motor weakness Skin: normal pigmentation, warm/dry Assessment/Plan Problem List: (1) Episode of generalized weakness ICD Codes: R53.1 - Weakness SNOMED: 79557100 (2) Hypertension ICD Codes: I10 - Essential (primary) hypertension SNOMED: 37833103 (3) NOEMÍ (acute kidney injury) ICD Codes: N17.9 - Acute kidney failure, unspecified SNOMED: 86433966, 0200642 (4) Urinary tract infection ICD Codes: N39.0 - Urinary tract infection, site not specified SNOMED: 43018790 (5) Pancreatitis ICD Codes: K85.90 - Acute pancreatitis without necrosis or infection, unspecified SNOMED: 27719193 (6) Renal failure ICD Codes: N19 - Unspecified kidney failure SNOMED: 42183872 (7) Encephalopathy ICD Codes: G93.40 - Encephalopathy, unspecified SNOMED: 02570733 (8) CVA (cerebral vascular accident) ICD Codes: I63.9 - Cerebral infarction, unspecified SNOMED: 287965517 Status: unchanged Assessment/Plan: pt diet abx neph gi f/u cbc bmp am dc plan w hh if neph clear Andrea Trinidad DO Aug 26, 2020 13:17
--- NOTE | 2020-08-26 13:38 | Infectious Diseases Prog Note ---
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 mirabilis -u/a wbc tnct, nit neg, leuk +1; ucx colonizers at this point URINE CULTURE Preliminary COMMENTS: KNOWN MULTIPLE DRUG RESISTANT Organism 1 A.BAUMANII COMPLX - MDR COLONY COUNT: 20,000 - 30,000 CFU/ML Organism 2 ENTEROCOCCUS FAECIUM COLONY COUNT: >100,000 CFU/ML ACIBCX-MDR ENT FAECIU M.I.C. RX M.I.C. RX --------- --- --------- --- AMPICILLIN >=32 R AMPICILLIN/SULBACTAM >=32 R CEFAZOLIN >=64 R CEFTAZIDIME R CEFTRIAXONE >=64 R CEFEPIME >=64 R CIPROFLOXACIN >=8 R GENTAMICIN >=16 R LEVOFLOXACIN >=8 R * MEROPENEM >=16 R NITROFURANTOIN 256 R TRIMETHOPRIM/SULFA >=320 R VANCOMYCIN <=0.5 S PIPERACILLIN/TAZOBACTAM >=128 R CKD Abd pain Acute pancreatitis -Abd US: No acute abnormality in the abdomen. Increased echogenicity of the left renal parenchyma could represent medical renal disease. hx of MDR ABC UTI and colonization -07/2020 -u/a wbc tnct, nit neg, leuk +3; ucx 60-70k MDR ABC (S Gentamycin, bactrim; R meropenem), >100k E. 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 Will continue to follow along with you. Discussed with RN. Subjective Allergies: Coded Allergies: PENICILLINS (Verified Allergy, Unknown, 12/02/18) afebrile leukocytosis resolved Objective Last 24 Hour Vital Signs Date Time Temp Pulse Resp B/P (MAP) Pulse Ox O2 Delivery O2 Flow Rate FiO2 08/26/20 09:00 102 99/68 08/26/20 04:00 98.2 102 20 99/68 (78) 94 08/26/20 00:00 98.2 72 16 114/76 (89) 95 08/25/20 21:00 Room Air 08/25/20 20:51 100 116/76 08/25/20 20:00 97.2 100 18 116/76 (89) 100 08/25/20 16:00 97.2 94 20 127/68 (87) 96 Height (Feet): 5 Height (Inches): 4.00 Weight (Pounds): 181 General Appearance: confused, mild distress Cardiovascular: tachycardia Respiratory/Chest: decreased breath sounds Abdomen: distended Laboratory Tests Test 08/26/20 07:55 White Blood Count 9.5 K/UL (4.8-10.8) Red Blood Count 4.61 M/UL (4.70-6.10) L Hemoglobin 13.8 G/DL (14.2-18.0) L Hematocrit 42.7 % (42.0-52.0) Mean Corpuscular Volume 92 FL (80-99) Mean Corpuscular Hemoglobin 29.8 PG (27.0-31.0) Mean Corpuscular Hemoglobin Concent 32.3 G/DL (32.0-36.0) Red Cell Distribution Width 14.7 % (11.6-14.8) Platelet Count 138 K/UL (150-450) L Mean Platelet Volume 7.8 FL (6.5-10.1) Neutrophils (%) (Auto) 72.0 % (45.0-75.0) Lymphocytes (%) (Auto) 13.3 % (20.0-45.0) L Monocytes (%) (Auto) 6.7 % (1.0-10.0) Eosinophils (%) (Auto) 7.4 % (0.0-3.0) H Basophils (%) (Auto) 0.6 % (0.0-2.0) Sodium Level 138 MMOL/L (136-145) Potassium Level 3.6 MMOL/L (3.5-5.1) Chloride Level 102 MMOL/L (98-107) Carbon Dioxide Level 26 MMOL/L (21-32) Anion Gap 10 mmol/L (5-15) Blood Urea Nitrogen 27 mg/dL (7-18) H Creatinine 4.4 MG/DL (0.55-1.30) H Estimat Glomerular Filtration Rate 13.2 mL/min (>60) Glucose Level 96 MG/DL (74-106) Calcium Level 8.2 MG/DL (8.5-10.1) L Phosphorus Level 3.2 MG/DL (2.5-4.9) Total Bilirubin 0.5 MG/DL (0.2-1.0) Aspartate Amino Transf (AST/SGOT) 25 U/L (15-37) Alanine Aminotransferase (ALT/SGPT) 15 U/L (12-78) Alkaline Phosphatase 137 U/L (46-116) H C-Reactive Protein, Quantitative 6.2 mg/dL (0.00-0.90) H Total Protein 7.3 G/DL (6.4-8.2) Albumin 3.3 G/DL (3.4-5.0) L Globulin 4.0 g/dL Albumin/Globulin Ratio 0.8 (1.0-2.7) L Current Medications Medications (Trade) Dose Ordered Sig/Markus Route PRN Reason Start Time Stop Time Status Last Admin Dose Admin Aspirin (ASA) 325 mg DAILY ORAL 08/20/20 09:00 10/04/20 08:59 08/26/20 10:20 Dronabinol (Marinol) 5 mg BID ORAL 08/24/20 09:00 11/22/20 08:59 08/26/20 10:20 Ertapenem 0.5 gm/ Sodium Chloride 55 ml @ 110 mls/hr Q24H IV 08/24/20 14:00 08/26/20 15:00 08/25/20 15:18 Heparin Sodium (Porcine) (Heparin 5000 units/ml) 5,000 units EVERY 12 HOURS SUBQ 08/19/20 21:00 10/03/20 20:59 08/22/20 08:36 Linezolid (Zyvox) 600 mg EVERY 12 HOURS ORAL 08/24/20 13:36 08/29/20 13:35 08/26/20 10:22 Lorazepam (Ativan 2mg/ml 1ml) 1 mg QIDPRN PRN IV For Anxiety 08/20/20 10:00 08/27/20 09:59 08/23/20 09:14 Metoprolol Tartrate (Lopressor) 12.5 mg Q12HR ORAL 08/19/20 21:00 11/17/20 20:59 08/24/20 20:57 Pantoprazole (Protonix) 40 mg DAILY ORAL 08/24/20 09:00 09/18/20 20:59 08/26/20 10:20 Quetiapine Fumarate (SEROqueL) 50 mg Q12HR ORAL 08/19/20 21:00 10/03/20 20:59 08/26/20 10:20 Ewa Lin M.D. Aug 26, 2020 13:38
[2020-08-26] MEDS: Ertapenem 0.5 GM in NS 55 ML IV SCH (13:56)
--- NOTE | 2020-08-26 15:17 | General Progress Note ---
Subjective ROS Limited/Unobtainable: No Allergies: Coded Allergies: PENICILLINS (Verified Allergy, Unknown, 12/02/18) Objective Last 24 Hour Vital Signs Date Time Temp Pulse Resp B/P (MAP) Pulse Ox O2 Delivery O2 Flow Rate FiO2 08/26/20 09:00 102 99/68 08/26/20 04:00 98.2 102 20 99/68 (78) 94 08/26/20 00:00 98.2 72 16 114/76 (89) 95 08/25/20 21:00 Room Air 08/25/20 20:51 100 116/76 08/25/20 20:00 97.2 100 18 116/76 (89) 100 08/25/20 16:00 97.2 94 20 127/68 (87) 96 Intake and Output 08/25/20 08/26/20 19:00 07:00 Intake Total 480 ml 600 ml Balance 480 ml 600 ml Intake Oral 480 ml 600 ml # Voids 1 3 # Bowel Movements 1 2 Laboratory Tests 08/26/20 07:55: White Blood Count 9.5, Red Blood Count 4.61L, Hemoglobin 13.8L, Hematocrit 42.7, Mean Corpuscular Volume 92, Mean Corpuscular Hemoglobin 29.8, Mean Corpuscular Hemoglobin Concent 32.3, Red Cell Distribution Width 14.7, Platelet Count 138L, Mean Platelet Volume 7.8, Neutrophils (%) (Auto) 72.0, Lymphocytes (%) (Auto) 13.3L, Monocytes (%) (Auto) 6.7, Eosinophils (%) (Auto) 7.4H, Basophils (%) (Auto) 0.6, Sodium Level 138, Potassium Level 3.6, Chloride Level 102, Carbon Dioxide Level 26, Anion Gap 10, Blood Urea Nitrogen 27H, Creatinine 4.4H, Estimat Glomerular Filtration Rate 13.2, Glucose Level 96, Calcium Level 8.2L, Phosphorus Level 3.2, Total Bilirubin 0.5, Aspartate Amino Transf (AST/SGOT) 25, Alanine Aminotransferase (ALT/SGPT) 15, Alkaline Phosphatase 137H, C-Reactive Protein, Quantitative 6.2H, Total Protein 7.3, Albumin 3.3L, Globulin 4.0, Albumin/Globulin Ratio 0.8L Height (Feet): 5 Height (Inches): 4.00 Weight (Pounds): 181 General Appearance: no apparent distress EENT: normal ENT inspection Neck: supple Cardiovascular: normal rate Respiratory/Chest: decreased breath sounds Abdomen: normal bowel sounds, non tender, soft Extremities: non-tender Assessment/Plan Status: unchanged Assessment/Plan: Assessment/Plan: dysphagia AMS recent CVA elevate lipase elevated ALP gallstone RI UTI improving lipase on oral diet ct and us from prior admission reviewed marinol ppi daily Dany Swain MD Aug 26, 2020 15:17
[2020-08-26 16:00] VITALS: BP 99/72
[2020-08-26 20:00] VITALS: BP 114/50
[2020-08-26] MEDS: LORazepam Inj 2mg/ml 1ml IV PRN (23:01)
[2020-08-27] VITALS: BP 130/82
[2020-08-27 04:00] VITALS: BP 104/70
[2020-08-27 06:00] LABS: BASOPHILS % (AUTO) 0.6 % (0.0-2.0); EOSINOPHILS % (AUTO) 7.6 % (0.0-3.0); HEMATOCRIT 45.3 % (42.0-52.0); HEMOGLOBIN 14.3 G/DL (14.2-18.0); LYMPHOCYTES % (AUTO) 22.7 % (20.0-45.0); MEAN CORPUSCULAR VOLUME 96 FL (80-99); MONOCYTES % (AUTO) 7.8 % (1.0-10.0); NEUTROPHILS % (AUTO) 61.4 % (45.0-75.0); PLATELET COUNT 129 K/UL (150-450); RED BLOOD COUNT 4.74 M/UL (4.70-6.10); RED CELL DISTRIBUTION WIDTH 15.1 % (11.6-14.8); WHITE BLOOD COUNT 11.4 K/UL (4.8-10.8)
[2020-08-27] MEDS: LORazepam Inj 2mg/ml 1ml IV PRN (06:26)
[2020-08-27 06:39] LABS: CALCIUM 8.8 MG/DL (8.5-10.1); CREATININE 3.7 MG/DL (0.55-1.30); POTASSIUM 4.1 MMOL/L (3.5-5.1)
[2020-08-27 08:00] VITALS: BP 139/78
--- NOTE | 2020-08-27 08:30 | General Progress Note ---
Subjective Constitutional: Reports: weakness Allergies: Coded Allergies: PENICILLINS (Verified Allergy, Unknown, 12/02/18) All Systems: reviewed and negative except above Subjective sleepy calm Objective Last 24 Hour Vital Signs Date Time Temp Pulse Resp B/P (MAP) Pulse Ox O2 Delivery O2 Flow Rate FiO2 08/27/20 06:56 108 20 104/70 93 08/27/20 06:26 108 20 104/70 93 08/27/20 04:00 98.1 108 20 104/70 (81) 93 08/27/20 00:00 98.2 100 18 130/82 (98) 95 08/26/20 23:31 100 18 130/82 95 08/26/20 23:01 97 20 114/50 96 08/26/20 21:00 Room Air 08/26/20 21:00 97 114/50 08/26/20 20:00 97.7 97 18 114/50 (71) 98 08/26/20 16:00 97.7 100 20 99/72 (81) 96 08/26/20 12:00 97.9 105 18 108/69 (82) 20 08/26/20 09:00 Room Air 08/26/20 09:00 102 99/68 Intake and Output 08/26/20 08/27/20 19:00 07:00 Intake Total 480 ml Balance 480 ml Intake Oral 480 ml # Voids 2 1 # Bowel Movements 1 1 Laboratory Tests 08/27/20 04:44: White Blood Count 11.4H, Red Blood Count 4.74, Hemoglobin 14.3, Hematocrit 45.3, Mean Corpuscular Volume 96, Mean Corpuscular Hemoglobin 30.1, Mean Corpuscular Hemoglobin Concent 31.5L, Red Cell Distribution Width 15.1H, Platelet Count 129L , Mean Platelet Volume 7.8, Neutrophils (%) (Auto) 61.4, Lymphocytes (%) (Auto) 22.7, Monocytes (%) (Auto) 7.8, Eosinophils (%) (Auto) 7.6H, Basophils (%) (Auto) 0.6, Sodium Level 139, Potassium Level 4.1, Chloride Level 102, Carbon Dioxide Level 28, Anion Gap 9, Blood Urea Nitrogen 21H, Creatinine 3.7H, Estimat Glomerular Filtration Rate 16.1, Glucose Level 85, Calcium Level 8.8 Height (Feet): 5 Height (Inches): 4.00 Weight (Pounds): 181 General Appearance: lethargic EENT: normal ENT inspection Neck: normal alignment Cardiovascular: normal peripheral pulses, normal rate, regular rhythm Respiratory/Chest: chest wall non-tender, lungs clear, normal breath sounds Abdomen: normal bowel sounds, non tender, soft Extremities: normal inspection Edema: no edema noted Arm (L), no edema noted Arm (R), no edema noted Leg (L), no edema noted Leg (R), no edema noted Pedal (L), no edema noted Pedal (R), no edema noted Generalized Neurologic: motor weakness Skin: normal pigmentation, warm/dry Assessment/Plan Problem List: (1) Episode of generalized weakness ICD Codes: R53.1 - Weakness SNOMED: 09990275 (2) Hypertension ICD Codes: I10 - Essential (primary) hypertension SNOMED: 61356411 (3) NOEMÍ (acute kidney injury) ICD Codes: N17.9 - Acute kidney failure, unspecified SNOMED: 40130857, 9318570 (4) Urinary tract infection ICD Codes: N39.0 - Urinary tract infection, site not specified SNOMED: 58490571 (5) Pancreatitis ICD Codes: K85.90 - Acute pancreatitis without necrosis or infection, unspecified SNOMED: 45137507 (6) Renal failure ICD Codes: N19 - Unspecified kidney failure SNOMED: 13752671 (7) Encephalopathy ICD Codes: G93.40 - Encephalopathy, unspecified SNOMED: 32399705 (8) CVA (cerebral vascular accident) ICD Codes: I63.9 - Cerebral infarction, unspecified SNOMED: 455140500 Status: unchanged Assessment/Plan: pt diet abx neph gi f/u cbc bmp am dc plan w hh if neph clear Andrea Trinidad DO Aug 27, 2020 08:30
--- NOTE | 2020-08-27 08:34 | General Progress Note ---
Subjective ROS Limited/Unobtainable: No Allergies: Coded Allergies: PENICILLINS (Verified Allergy, Unknown, 12/02/18) Objective Last 24 Hour Vital Signs Date Time Temp Pulse Resp B/P (MAP) Pulse Ox O2 Delivery O2 Flow Rate FiO2 08/27/20 06:56 108 20 104/70 93 08/27/20 06:26 108 20 104/70 93 08/27/20 04:00 98.1 108 20 104/70 (81) 93 08/27/20 00:00 98.2 100 18 130/82 (98) 95 08/26/20 23:31 100 18 130/82 95 08/26/20 23:01 97 20 114/50 96 08/26/20 21:00 Room Air 08/26/20 21:00 97 114/50 08/26/20 20:00 97.7 97 18 114/50 (71) 98 08/26/20 16:00 97.7 100 20 99/72 (81) 96 08/26/20 12:00 97.9 105 18 108/69 (82) 20 08/26/20 09:00 Room Air 08/26/20 09:00 102 99/68 Intake and Output 08/26/20 08/27/20 19:00 07:00 Intake Total 480 ml Balance 480 ml Intake Oral 480 ml # Voids 2 1 # Bowel Movements 1 1 Laboratory Tests 08/27/20 04:44: White Blood Count 11.4H, Red Blood Count 4.74, Hemoglobin 14.3, Hematocrit 45.3, Mean Corpuscular Volume 96, Mean Corpuscular Hemoglobin 30.1, Mean Corpuscular H emoglobin Concent 31.5L, Red Cell Distribution Width 15.1H, Platelet Count 129L, Mean Platelet Volume 7.8, Neutrophils (%) (Auto) 61.4, Lymphocytes (%) (Auto) 22.7, Monocytes (%) (Auto) 7.8, Eosinophils (%) (Auto) 7.6H, Basophils (%) (Auto) 0.6, Sodium Level 139, Potassium Level 4.1, Chloride Level 102, Carbon Dioxide Level 28, Anion Gap 9, Blood Urea Nitrogen 21H, Creatinine 3.7H, Estimat Glomerular Filtration Rate 16.1, Glucose Level 85, Calcium Level 8.8 Height (Feet): 5 Height (Inches): 4.00 Weight (Pounds): 181 General Appearance: no apparent distress EENT: normal ENT inspection Neck: supple Cardiovascular: normal rate Respiratory/Chest: decreased breath sounds Abdomen: normal bowel sounds, non tender, soft Extremities: non-tender Assessment/Plan Status: unchanged Assessment/Plan: Assessment/Plan: dysphagia AMS recent CVA elevate lipase elevated ALP gallstone RI UTI improving lipase on oral diet ct and us from prior admission reviewed marinol ppi daily Dany Swain MD Aug 27, 2020 08:34
[2020-08-27] MEDS: Heparin 5000 units/ml inj SUBQ SCH ×2 (08:46→21:00)
[2020-08-27] MEDS: Metoprolol Tartrate 12.5mg TAB ORAL SCH ×2 (08:56→21:53)
[2020-08-27] MEDS: Dronabinol 2.5mg Cap ORAL SCH ×2 (08:56→17:31)
--- NOTE | 2020-08-27 09:12 | Nephrology Progress Note ---
Assessment/Plan Problem List: (1) Renal failure (ARF), acute on chronic (2) Pancreatitis (3) Urinary tract infection (4) Elevated lipase (5) CVA (cerebral vascular accident) (6) Uremic encephalopathy Plan August 27: Dialyzed August 26. CRP adam. On antibiotics. Remains encephalopathic. Continue dialysis as needed. Neurology and psychiatry evaluation pending. August 26: Patient dialyzed August 24. Today's labs pending. Mental status somewhat unchanged. Hemodialysis as needed. Neuro/psych eval would be helpful. August 25: Patient dialyzed yesterday. Will dialyze tomorrow. Remains encephalopathic. Consider neuro evaluation CT Head Jul 2019 Subtle focal asymmetric hypodensity in the right parieto-occipital region concerning for ischemia, age indeterminate but possibly acute. Correlate clinically. Recommend MRI for further evaluation as clinically indicated. No acute intracranial hemorrhage or shift of the midline structures. Atrophy and nonspecific periventricular hypoattenuation suggestive of chronic ischemic microvascular changes. August 24: Patient has right chest permacath. Due for dialysis today. Labs reviewed. August 23: Remains encephalopathic. Due for dialysis catheter and initiation of hemodialysis. August 22: Patient status unchanged. Due for placement of tunneled dialysis catheter tomorrow. Treatment of UTI defer to ID. Labs and medications reviewed. August 21: Dialysis catheter ordered to be placed yesterday was not done by radiology. Will wait for placement of the dialysis catheter prior to discharge. Meanwhile we will treat the urinary tract infection. Labs reviewed. Medication list reviewed. Discussed with son. Continue n.p.o. pending GI evaluation for high lipase Proceed with placement of tunneled dialysis catheter, and initiate dialysis Keep the blood pressure in check Per orders Subjective ROS Limited/Unobtainable: Yes Objective Objective Last 24 Hour Vital Signs Date Time Temp Pulse Resp B/P (MAP) Pulse Ox O2 Delivery O2 Flow Rate FiO2 08/27/20 08:56 103 139/78 08/27/20 08:00 97.4 103 20 139/78 (98) 95 08/27/20 06:56 108 20 104/70 93 08/27/20 06:26 108 20 104/70 93 08/27/20 04:00 98.1 108 20 104/70 (81) 93 08/27/20 00:00 98.2 100 18 130/82 (98) 95 08/26/20 23:31 100 18 130/82 95 08/26/20 23:01 97 20 114/50 96 08/26/20 21:00 Room Air 08/26/20 21:00 97 114/50 08/26/20 20:00 97.7 97 18 114/50 (71) 98 08/26/20 16:00 97.7 100 20 99/72 (81) 96 08/26/20 12:00 97.9 105 18 108/69 (82) 20 Intake and Output 08/26/20 08/27/20 19:00 07:00 Intake Total 480 ml Balance 480 ml Intake Oral 480 ml # Voids 2 1 # Bowel Movements 1 1 Laboratory Tests 08/27/20 04:44: White Blood Count 11.4H, Red Blood Count 4.74, Hemoglobin 14.3, Hematocrit 45.3, Mean Corpuscular Volume 96, Mean Corpuscular Hemoglobin 30.1, Mean Corpuscular Hemoglobin Concent 31.5L, Red Cell Distribution Width 15.1H, Platelet Count 129L , Mean Platelet Volume 7.8, Neutrophils (%) (Auto) 61.4, Lymphocytes (%) (Auto) 22.7, Monocytes (%) (Auto) 7.8, Eosinophils (%) (Auto) 7.6H, Basophils (%) (Auto) 0.6, Sodium Level 139, Potassium Level 4.1, Chloride Level 102, Carbon Dioxide Level 28, Anion Gap 9, Blood Urea Nitrogen 21H, Creatinine 3.7H, Estimat Glomerular Filtration Rate 16.1, Glucose Level 85, Calcium Level 8.8 Height (Feet): 5 Height (Inches): 4.00 Weight (Pounds): 181 General Appearance: lethargic, confused Cardiovascular: tachycardia Respiratory/Chest: decreased breath sounds Abdomen: soft Objective No change Silvio Reddy MD Aug 27, 2020 09:12
[2020-08-27 11:55] VITALS: BP 115/75
--- NOTE | 2020-08-27 12:50 | Infectious Diseases Prog Note ---
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 mirabilis -u/a wbc tnct, nit neg, leuk +1; ucx colonizers at this point URINE CULTURE Preliminary COMMENTS: KNOWN MULTIPLE DRUG RESISTANT Organism 1 A.BAUMANII COMPLX - MDR COLONY COUNT: 20,000 - 30,000 CFU/ML Organism 2 ENTEROCOCCUS FAECIUM COLONY COUNT: >100,000 CFU/ML ACIBCX-MDR ENT FAECIU M.I.C. RX M.I.C. RX --------- --- --------- --- AMPICILLIN >=32 R AMPICILLIN/SULBACTAM >=32 R CEFAZOLIN >=64 R CEFTAZIDIME R CEFTRIAXONE >=64 R CEFEPIME >=64 R CIPROFLOXACIN >=8 R GENTAMICIN >=16 R LEVOFLOXACIN >=8 R * MEROPENEM >=16 R NITROFURANTOIN 256 R TRIMETHOPRIM/SULFA >=320 R VANCOMYCIN <=0.5 S PIPERACILLIN/TAZOBACTAM >=128 R CKD Abd pain Acute pancreatitis -Abd US: No acute abnormality in the abdomen. Increased echogenicity of the left renal parenchyma could represent medical renal disease. hx of MDR ABC UTI and colonization -07/2020 -u/a wbc tnct, nit neg, leuk +3; ucx 60-70k MDR ABC (S Gentamycin, bactrim; R meropenem), >100k E. 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 Will continue to follow along with you. Discussed with RN. Subjective Allergies: Coded Allergies: PENICILLINS (Verified Allergy, Unknown, 12/02/18) afebrile mild leukocytosis Objective Last 24 Hour Vital Signs Date Time Temp Pulse Resp B/P (MAP) Pulse Ox O2 Delivery O2 Flow Rate FiO2 08/27/20 11:55 98.0 99 20 115/75 (88) 96 08/27/20 08:56 103 139/78 08/27/20 08:00 97.4 103 20 139/78 (98) 95 08/27/20 08:00 Room Air 08/27/20 06:56 108 20 104/70 93 08/27/20 06:26 108 20 104/70 93 08/27/20 04:00 98.1 108 20 104/70 (81) 93 08/27/20 00:00 98.2 100 18 130/82 (98) 95 08/26/20 23:31 100 18 130/82 95 08/26/20 23:01 97 20 114/50 96 08/26/20 21:00 Room Air 08/26/20 21:00 97 114/50 08/26/20 20:00 97.7 97 18 114/50 (71) 98 08/26/20 16:00 97.7 100 20 99/72 (81) 96 Height (Feet): 5 Height (Inches): 4.00 Weight (Pounds): 181 General Appearance: confused, mild distress Cardiovascular: tachycardia Respiratory/Chest: decreased breath sounds Abdomen: distended Laboratory Tests Test 08/27/20 04:44 White Blood Count 11.4 K/UL (4.8-10.8) H Red Blood Count 4.74 M/UL (4.70-6.10) Hemoglobin 14.3 G/DL (14.2-18.0) Hematocrit 45.3 % (42.0-52.0) Mean Corpuscular Volume 96 FL (80-99) Mean Corpuscular Hemoglobin 30.1 PG (27.0-31.0) Mean Corpuscular Hemoglobin Concent 31.5 G/DL (32.0-36.0) L Red Cell Distribution Width 15.1 % (11.6-14.8) H Platelet Count 129 K/UL (150-450) L Mean Platelet Volume 7.8 FL (6.5-10.1) Neutrophils (%) (Auto) 61.4 % (45.0-75.0) Lymphocytes (%) (Auto) 22.7 % (20.0-45.0) Monocytes (%) (Auto) 7.8 % (1.0-10.0) Eosinophils (%) (Auto) 7.6 % (0.0-3.0) H Basophils (%) (Auto) 0.6 % (0.0-2.0) Sodium Level 139 MMOL/L (136-145) Potassium Level 4.1 MMOL/L (3.5-5.1) Chloride Level 102 MMOL/L (98-107) Carbon Dioxide Level 28 MMOL/L (21-32) Anion Gap 9 mmol/L (5-15) Blood Urea Nitrogen 21 mg/dL (7-18) H Creatinine 3.7 MG/DL (0.55-1.30) H Estimat Glomerular Filtration Rate 16.1 mL/min (>60) Glucose Level 85 MG/DL (74-106) Calcium Level 8.8 MG/DL (8.5-10.1) Current Medications Medications (Trade) Dose Ordered Sig/Markus Route PRN Reason Start Time Stop Time Status Last Admin Dose Admin Aspirin (ASA) 325 mg DAILY ORAL 08/20/20 09:00 10/04/20 08:59 08/27/20 08:56 Dronabinol (Marinol) 5 mg BID ORAL 08/24/20 09:00 11/22/20 08:59 08/27/20 08:56 Heparin Sodium (Porcine) (Heparin 5000 units/ml) 5,000 units EVERY 12 HOURS SUBQ 08/19/20 21:00 10/03/20 20:59 08/22/20 08:36 Linezolid (Zyvox) 600 mg EVERY 12 HOURS ORAL 08/24/20 13:36 08/29/20 13:35 08/27/20 08:56 Metoprolol Tartrate (Lopressor) 12.5 mg Q12HR ORAL 08/19/20 21:00 11/17/20 20:59 08/27/20 08:56 Pantoprazole (Protonix) 40 mg DAILY ORAL 08/24/20 09:00 09/18/20 20:59 08/27/20 08:56 Quetiapine Fumarate (SEROqueL) 50 mg Q12HR ORAL 08/19/20 21:00 10/03/20 20:59 08/27/20 08:55 Ewa Lin M.D. Aug 27, 2020 12:50
[2020-08-27] MEDS: Ertapenem 0.5 GM in NS 55 ML IV SCH (14:30)
[2020-08-27 15:29] VITALS: BP 124/82
[2020-08-27 20:00] VITALS: BP 141/88
[2020-08-28] VITALS: BP 121/79
[2020-08-28 04:00] VITALS: BP 134/97
[2020-08-28 08:00] VITALS: BP 140/84
[2020-08-28 08:37] LABS: BASOPHILS % (AUTO) 0.6 % (0.0-2.0); EOSINOPHILS % (AUTO) 10.2 % (0.0-3.0); HEMATOCRIT 44.1 % (42.0-52.0); HEMOGLOBIN 13.5 G/DL (14.2-18.0); LYMPHOCYTES % (AUTO) 18.3 % (20.0-45.0); MEAN CORPUSCULAR VOLUME 98 FL (80-99); MONOCYTES % (AUTO) 8.4 % (1.0-10.0); NEUTROPHILS % (AUTO) 62.5 % (45.0-75.0); PLATELET COUNT 131 K/UL (150-450); RED BLOOD COUNT 4.52 M/UL (4.70-6.10); RED CELL DISTRIBUTION WIDTH 14.8 % (11.6-14.8); WHITE BLOOD COUNT 8.3 K/UL (4.8-10.8)
--- NOTE | 2020-08-28 08:44 | General Progress Note ---
Subjective ROS Limited/Unobtainable: No Allergies: Coded Allergies: PENICILLINS (Verified Allergy, Unknown, 12/02/18) Objective Last 24 Hour Vital Signs Date Time Temp Pulse Resp B/P (MAP) Pulse Ox O2 Delivery O2 Flow Rate FiO2 08/28/20 04:00 99.0 99 20 134/97 (109) 95 08/28/20 00:00 99.6 101 22 121/79 (93) 95 08/27/20 21:53 98 137/83 08/27/20 21:00 Room Air 08/27/20 20:00 99.0 108 22 141/88 (105) 94 08/27/20 15:29 98.4 101 20 124/82 (96) 98 08/27/20 11:55 98.0 99 20 115/75 (88) 96 08/27/20 08:56 103 139/78 Intake and Output 08/27/20 08/28/20 19:00 07:00 Intake Total 600 ml 360 ml Balance 600 ml 360 ml Intake Oral 600 ml 360 ml # Voids 4 2 # Bowel Movements 2 Laboratory Tests 08/28/20 08:10: White Blood Count [Pending], Red Blood Count [Pending], Hemoglobin [Pending], He matocrit [Pending], Mean Corpuscular Volume [Pending], Mean Corpuscular Hemoglobin [Pending], Mean Corpuscular Hemoglobin Concent [Pending], Red Cell Distribution Width [Pending], Platelet Count [Pending], Mean Platelet Volume [Pending], Neutrophils (%) (Auto) [Pending], Lymphocytes (%) (Auto) [Pending], Monocytes (%) (Auto) [Pending], Eosinophils (%) (Auto) [Pending], Basophils (%) (Auto) [Pending], Sodium Level [Pending], Potassium Level [Pending], Chloride Level [Pending], Carbon Dioxide Level [Pending], Blood Urea Nitrogen [Pending], Creatinine [Pending], Estimat Glomerular Filtration Rate [Pending], Glucose Level [Pending], Calcium Level [Pending], Phosphorus Level [Pending], Total Bilirubin [Pending], Aspartate Amino Transf (AST/SGOT) [Pending], Alanine Aminotransferase (ALT/SGPT) [Pending], Alkaline Phosphatase [Pending], C- Reactive Protein, Quantitative [Pending], Total Protein [Pending], Albumin [Pending], Globulin [Pending] Height (Feet): 5 Height (Inches): 4.00 Weight (Pounds): 181 General Appearance: no apparent distress EENT: PERRL/EOMI Neck: supple Cardiovascular: normal rate Respiratory/Chest: decreased breath sounds Abdomen: normal bowel sounds, non tender, soft Extremities: non-tender Assessment/Plan Status: unchanged Assessment/Plan: Assessment/Plan: dysphagia AMS recent CVA elevate lipase elevated ALP gallstone RI UTI improving lipase on oral diet ct and us from prior admission reviewed marinol ppi daily dietitian in put appreciated will add nephrovit change diet to renal Dany Swain MD Aug 28, 2020 08:43
[2020-08-28] MEDS: Heparin 5000 units/ml inj SUBQ SCH ×2 (09:00→21:00)
[2020-08-28 09:10] LABS: ALBUMIN 3.4 G/DL (3.4-5.0); ALBUMIN/GLOBULIN RATIO 0.9 (1.0-2.7); BILIRUBIN,TOTAL 0.6 MG/DL (0.2-1.0); CALCIUM 8.6 MG/DL (8.5-10.1); CREATININE 4.2 MG/DL (0.55-1.30); PHOSPHORUS 2.9 MG/DL (2.5-4.9); POTASSIUM 3.4 MMOL/L (3.5-5.1)
[2020-08-28] MEDS: Dronabinol 2.5mg Cap ORAL SCH ×2 (09:28→17:38)
[2020-08-28] MEDS: Metoprolol Tartrate 12.5mg TAB ORAL SCH ×2 (09:29→22:46)
[2020-08-28] MEDS: Nephrovite tab (Rena-Vite) ORAL SCH (09:29)
[2020-08-28 12:00] VITALS: BP 130/81
--- NOTE | 2020-08-28 12:47 | Nephrology Progress Note ---
Assessment/Plan Problem List: (1) Renal failure (ARF), acute on chronic (2) Pancreatitis (3) Urinary tract infection (4) Elevated lipase (5) CVA (cerebral vascular accident) (6) Uremic encephalopathy Plan August 28: and grandson in the room. When family present patient is calm. Patient is due for dialysis today. Medications and labs reviewed. Continue per consultants. August 27: Dialyzed August 26. CRP adam. On antibiotics. Remains e ncephalopathic. Continue dialysis as needed. Neurology and psychiatry evaluation pending. August 26: Patient dialyzed August 24. Today's labs pending. Mental status somewhat unchanged. Hemodialysis as needed. Neuro/psych eval would be helpful. August 25: Patient dialyzed yesterday. Will dialyze tomorrow. Remains encephalopathic. Consider neuro evaluation CT Head Jul 2019 Subtle focal asymmetric hypodensity in the right parieto-occipital region concerning for ischemia, age indeterminate but possibly acute. Correlate clinically. Recommend MRI for further evaluation as clinically indicated. No acute intracranial hemorrhage or shift of the midline structures. Atrophy and nonspecific periventricular hypoattenuation suggestive of chronic ischemic microvascular changes. August 24: Patient has right chest permacath. Due for dialysis today. Labs reviewed. August 23: Remains encephalopathic. Due for dialysis catheter and initiation of hemodialysis. August 22: Patient status unchanged. Due for placement of tunneled dialysis catheter tomorrow. Treatment of UTI defer to ID. Labs and medications rev iewed. August 21: Dialysis catheter ordered to be placed yesterday was not done by radiology. Will wait for placement of the dialysis catheter prior to discharge. Meanwhile we will treat the urinary tract infection. Labs reviewed. Medication list reviewed. Discussed with son. Continue n.p.o. pending GI evaluation for high lipase Proceed with placement of tunneled dialysis catheter, and initiate dialysis Keep the blood pressure in check Per orders Subjective ROS Limited/Unobtainable: No Constitutional: Reports: malaise Objective Objective Last 24 Hour Vital Signs Date Time Temp Pulse Resp B/P (MAP) Pulse Ox O2 Delivery O2 Flow Rate FiO2 08/28/20 12:00 98.8 99 19 130/81 (97) 97 08/28/20 09:29 100 140/84 08/28/20 09:00 Room Air 08/28/20 08:00 98.7 100 20 140/84 (102) 96 08/28/20 04:00 99.0 99 20 134/97 (109) 95 08/28/20 00:00 99.6 101 22 121/79 (93) 95 08/27/20 21:53 98 137/83 08/27/20 21:00 Room Air 08/27/20 20:00 99.0 108 22 141/88 (105) 94 08/27/20 15:29 98.4 101 20 124/82 (96) 98 Intake and Output 08/27/20 08/28/20 19:00 07:00 Intake Total 600 ml 360 ml Balance 600 ml 360 ml Intake Oral 600 ml 360 ml # Voids 4 2 # Bowel Movements 2 Current Medications Medications (Trade) Dose Ordered Sig/Markus Route PRN Reason Start Time Stop Time Status Last Admin Dose Admin Aspirin (ASA) 325 mg DAILY ORAL 08/20/20 09:00 10/04/20 08:59 08/28/20 09:29 Dronabinol (Marinol) 5 mg BID ORAL 08/24/20 09:00 11/22/20 08:59 08/28/20 09:28 Ertapenem 0.5 gm/ Sodium Chloride 55 ml @ 110 mls/hr Q24H IV 08/27/20 14:00 09/01/20 13:59 08/27/20 14:30 Heparin Sodium (Porcine) (Heparin 5000 units/ml) 5,000 units EVERY 12 HOURS SUBQ 08/19/20 21:00 10/03/20 20:59 08/22/20 08:36 Linezolid (Zyvox) 600 mg EVERY 12 HOURS ORAL 08/24/20 13:36 08/29/20 23:59 08/28/20 09:29 Metoprolol Tartrate (Lopressor) 12.5 mg Q12HR ORAL 08/19/20 21:00 11/17/20 20:59 08/28/20 09:29 Pantoprazole (Protonix) 40 mg DAILY ORAL 08/24/20 09:00 09/18/20 20:59 08/28/20 09:29 Quetiapine Fumarate (SEROqueL) 50 mg Q12HR ORAL 08/19/20 21:00 10/03/20 20:59 08/28/20 09:29 Vitamin B Complex/ Vit C/Folic Acid (Nephrovite) 1 tab DAILY ORAL 08/28/20 09:00 09/27/20 08:59 08/28/20 09:29 Laboratory Tests 08/28/20 08:10: White Blood Count 8.3, Red Blood Count 4.52L, Hemoglobin 13.5L, Hematocrit 44.1, Mean Corpuscular Volume 98, Mean Corpuscular Hemoglobin 30.0, Mean Corpuscular Hemoglobin Concent 30.7L, Red Cell Distribution Width 14.8, Platelet Count 131L, Mean Platelet Volume 9.9, Neutrophils (%) (Auto) 62.5, Lymphocytes (%) (Auto) 18.3L, Monocytes (%) (Auto) 8.4, Eosinophils (%) (Auto) 10.2H, Basophils (%) (Auto) 0.6, Sodium Level 142, Potassium Level 3.4L, Chloride Level 106, Carbon Dioxide Level 26, Anion Gap 10, Blood Urea Nitrogen 26H, Creatinine 4.2H, Estimat Glomerular Filtration Rate 13.9, Glucose Level 91, Calcium Level 8.6, Phosphorus Level 2.9, Total Bilirubin 0.6, Aspartate Amino Transf (AST/SGOT) 31, Alanine Aminotransferase (ALT/SGPT) 14, Alkaline Phosphatase 129H, C-Reactive Protein, Quantitative 3.2H, Total Protein 7.2, Albumin 3.4, Globulin 3.8, Albumin/Globulin Ratio 0.9L Height (Feet): 5 Height (Inches): 4.00 Weight (Pounds): 181 General Appearance: no apparent distress, confused Objective No change Silvio Reddy MD Aug 28, 2020 12:47
--- NOTE | 2020-08-28 13:18 | Infectious Diseases Prog Note ---
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 mirabilis -u/a wbc tnct, nit neg, leuk +1; ucx colonizers at this point URINE CULTURE Preliminary COMMENTS: KNOWN MULTIPLE DRUG RESISTANT Organism 1 A.BAUMANII COMPLX - MDR COLONY COUNT: 20,000 - 30,000 CFU/ML Organism 2 ENTEROCOCCUS FAECIUM COLONY COUNT: >100,000 CFU/ML ACIBCX-MDR ENT FAECIU M.I.C. RX M.I.C. RX --------- --- --------- --- AMPICILLIN >=32 R AMPICILLIN/SULBACTAM >=32 R CEFAZOLIN >=64 R CEFTAZIDIME R CEFTRIAXONE >=64 R CEFEPIME >=64 R CIPROFLOXACIN >=8 R GENTAMICIN >=16 R LEVOFLOXACIN >=8 R * MEROPENEM >=16 R NITROFURANTOIN 256 R TRIMETHOPRIM/SULFA >=320 R VANCOMYCIN <=0.5 S PIPERACILLIN/TAZOBACTAM >=128 R CKD Abd pain Acute pancreatitis -Abd US: No acute abnormality in the abdomen. Increased echogenicity of the left renal parenchyma could represent medical renal disease. hx of MDR ABC UTI and colonization -07/2020 -u/a wbc tnct, nit neg, leuk +3; ucx 60-70k MDR ABC (S Gentamycin, bactrim; R meropenem), >100k E. 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 Will continue to follow along with you. Discussed with RN. Subjective Allergies: Coded Allergies: PENICILLINS (Verified Allergy, Unknown, 12/02/18) afebrile Objective Last 24 Hour Vital Signs Date Time Temp Pulse Resp B/P (MAP) Pulse Ox O2 Delivery O2 Flow Rate FiO2 08/28/20 12:00 98.8 99 19 130/81 (97) 97 08/28/20 09:29 100 140/84 08/28/20 09:00 Room Air 08/28/20 08:00 98.7 100 20 140/84 (102) 96 08/28/20 04:00 99.0 99 20 134/97 (109) 95 08/28/20 00:00 99.6 101 22 121/79 (93) 95 08/27/20 21:53 98 137/83 08/27/20 21:00 Room Air 08/27/20 20:00 99.0 108 22 141/88 (105) 94 08/27/20 15:29 98.4 101 20 124/82 (96) 98 Height (Feet): 5 Height (Inches): 4.00 Weight (Pounds): 181 HEENT: anicteric Respiratory/Chest: normal breath sounds Cardiovascular: normal rate Abdomen: normal bowel sounds Laboratory Tests Test 08/28/20 08:10 White Blood Count 8.3 K/UL (4.8-10.8) Red Blood Count 4.52 M/UL (4.70-6.10) L Hemoglobin 13.5 G/DL (14.2-18.0) L Hematocrit 44.1 % (42.0-52.0) Mean Corpuscular Volume 98 FL (80-99) Mean Corpuscular Hemoglobin 30.0 PG (27.0-31.0) Mean Corpuscular Hemoglobin Concent 30.7 G/DL (32.0-36.0) L Red Cell Distribution Width 14.8 % (11.6-14.8) Platelet Count 131 K/UL (150-450) L Mean Platelet Volume 9.9 FL (6.5-10.1) Neutrophils (%) (Auto) 62.5 % (45.0-75.0) Lymphocytes (%) (Auto) 18.3 % (20.0-45.0) L Monocytes (%) (Auto) 8.4 % (1.0-10.0) Eosinophils (%) (Auto) 10.2 % (0.0-3.0) H Basophils (%) (Auto) 0.6 % (0.0-2.0) Sodium Level 142 MMOL/L (136-145) Potassium Level 3.4 MMOL/L (3.5-5.1) L Chloride Level 106 MMOL/L (98-107) Carbon Dioxide Level 26 MMOL/L (21-32) Anion Gap 10 mmol/L (5-15) Blood Urea Nitrogen 26 mg/dL (7-18) H Creatinine 4.2 MG/DL (0.55-1.30) H Estimat Glomerular Filtration Rate 13.9 mL/min (>60) Glucose Level 91 MG/DL (74-106) Calcium Level 8.6 MG/DL (8.5-10.1) Phosphorus Level 2.9 MG/DL (2.5-4.9) Total Bilirubin 0.6 MG/DL (0.2-1.0) Aspartate Amino Transf (AST/SGOT) 31 U/L (15-37) Alanine Aminotransferase (ALT/SGPT) 14 U/L (12-78) Alkaline Phosphatase 129 U/L (46-116) H C-Reactive Protein, Quantitative 3.2 mg/dL (0.00-0.90) H Total Protein 7.2 G/DL (6.4-8.2) Albumin 3.4 G/DL (3.4-5.0) Globulin 3.8 g/dL Albumin/Globulin Ratio 0.9 (1.0-2.7) L Current Medications Medications (Trade) Dose Ordered Sig/Markus Route PRN Reason Start Time Stop Time Status Last Admin Dose Admin Aspirin (ASA) 325 mg DAILY ORAL 08/20/20 09:00 10/04/20 08:59 08/28/20 09:29 Docusate Sodium (Colace) 100 mg THREE TIMES A DAY ORAL 08/28/20 13:00 09/27/20 12:59 Dronabinol (Marinol) 5 mg BID ORAL 08/24/20 09:00 11/22/20 08:59 08/28/20 09:28 Ertapenem 0.5 gm/ Sodium Chloride 55 ml @ 110 mls/hr Q24H IV 08/27/20 14:00 09/01/20 13:59 08/27/20 14:30 Heparin Sodium (Porcine) (Heparin 5000 units/ml) 5,000 units EVERY 12 HOURS SUBQ 08/19/20 21:00 10/03/20 20:59 08/22/20 08:36 Linezolid (Zyvox) 600 mg EVERY 12 HOURS ORAL 08/24/20 13:36 08/29/20 23:59 08/28/20 09:29 Metoprolol Tartrate (Lopressor) 12.5 mg Q12HR ORAL 08/19/20 21:00 11/17/20 20:59 08/28/20 09:29 Pantoprazole (Protonix) 40 mg DAILY ORAL 08/24/20 09:00 09/18/20 20:59 08/28/20 09:29 Quetiapine Fumarate (SEROqueL) 50 mg Q12HR ORAL 08/19/20 21:00 10/03/20 20:59 08/28/20 09:29 Vitamin B Complex/ Vit C/Folic Acid (Nephrovite) 1 tab DAILY ORAL 08/28/20 09:00 09/27/20 08:59 08/28/20 09:29 Amrit Pacheco MD Aug 28, 2020 13:18
[2020-08-28] MEDS: Docusate 100mg cap ORAL SCH ×2 (13:36→17:38)
[2020-08-28] MEDS: Ertapenem 0.5 GM in NS 55 ML IV SCH (13:36)
[2020-08-28 16:00] VITALS: BP 102/76
[2020-08-28 20:00] VITALS: BP 158/80
--- NOTE | 2020-08-28 21:29 | General Progress Note ---
Subjective ROS Limited/Unobtainable: Yes Allergies: Coded Allergies: PENICILLINS (Verified Allergy, Unknown, 12/02/18) Objective Last 24 Hour Vital Signs Date Time Temp Pulse Resp B/P (MAP) Pulse Ox O2 Delivery O2 Flow Rate FiO2 08/28/20 16:00 98.0 103 21 102/76 (85) 96 08/28/20 12:00 98.8 99 19 130/81 (97) 97 08/28/20 09:29 100 140/84 08/28/20 09:00 Room Air 08/28/20 08:00 98.7 100 20 140/84 (102) 96 08/28/20 04:00 99.0 99 20 134/97 (109) 95 08/28/20 00:00 99.6 101 22 121/79 (93) 95 08/27/20 21:53 98 137/83 Intake and Output 08/27/20 08/28/20 19:00 07:00 Intake Total 600 ml 360 ml Balance 600 ml 360 ml Intake Oral 600 ml 360 ml # Voids 4 2 # Bowel Movements 2 Laboratory Tests 08/28/20 08:10: White Blood Count 8.3, Red Blood Count 4.52L, Hemoglobin 13.5L, Hematocrit 44.1, Mean Corpuscular Volume 98, Mean Corpuscular Hemoglobin 30.0, Mean Corpuscular Hemoglobin Concent 30.7L, Red Cell Distribution Width 14.8, Platelet Count 131L, Mean Platelet Volume 9.9, Neutrophils (%) (Auto) 62.5, Lymphocytes (%) (Auto) 18.3L, Monocytes (%) (Auto) 8.4, Eosinophils (%) (Auto) 10.2H, Basophils (%) (Auto) 0.6, Sodium Level 142, Potassium Level 3.4L, Chloride Level 106, Carbon Dioxide Level 26, Anion Gap 10, Blood Urea Nitrogen 26H, Creatinine 4.2H, Estimat Glomerular Filtration Rate 13.9, Glucose Level 91, Calcium Level 8.6, Phosphorus Level 2.9, Total Bilirubin 0.6, Aspartate Amino Transf (AST/SGOT) 31, Alanine Aminotransferase (ALT/SGPT) 14, Alkaline Phosphatase 129H, C-Reactive Protein, Quantitative 3.2H, Total Protein 7.2, Albumin 3.4, Globulin 3.8, A lbumin/Globulin Ratio 0.9L Height (Feet): 5 Height (Inches): 4.00 Weight (Pounds): 181 Assessment/Plan Problem List: (1) Cough ICD Codes: R05 - Cough SNOMED: 42100820 (2) SOB (shortness of breath) ICD Codes: R06.02 - Shortness of breath SNOMED: 084302503 (3) Dehydration ICD Codes: E86.0 - Dehydration SNOMED: 70579781 (4) Diarrhea ICD Codes: R19.7 - Diarrhea, unspecified SNOMED: 30922276 (5) Normocytic anemia ICD Codes: D64.9 - Anemia, unspecified SNOMED: 325184452 (6) Abdominal pain ICD Codes: R10.9 - Unspecified abdominal pain SNOMED: 09768914 (7) Sepsis ICD Codes: A41.9 - Sepsis, unspecified organism SNOMED: 55397382 (8) Urinary tract infection ICD Codes: N39.0 - Urinary tract infection, site not specified SNOMED: 33128641 (9) Encephalopathy ICD Codes: G93.40 - Encephalopathy, unspecified SNOMED: 50146941 (10) Renal failure ICD Codes: N19 - Unspecified kidney failure SNOMED: 94494461 (11) CVA (cerebral vascular accident) ICD Codes: I63.9 - Cerebral infarction, unspecified SNOMED: 463211680 (12) Elevated lipase ICD Codes: R74.8 - Abnormal levels of other serum enzymes SNOMED: 218754300 Status: progressing, unchanged Assessment/Plan: afebrile uti renal failure encephalopathy abx per id reviewed chart and labs Froylan Balderas MD Aug 28, 2020 21:29
[2020-08-29] VITALS: BP 133/66
[2020-08-29 04:00] VITALS: BP 121/77
[2020-08-29 06:44] LABS: HEMATOCRIT 46.6 % (42.0-52.0); HEMOGLOBIN 14.6 G/DL (14.2-18.0); MEAN CORPUSCULAR VOLUME 95 FL (80-99); PLATELET COUNT 96 K/UL (150-450); RED BLOOD COUNT 4.88 M/UL (4.70-6.10); WHITE BLOOD COUNT 9.6 K/UL (4.8-10.8)
--- NOTE | 2020-08-29 07:09 | General Progress Note ---
Subjective ROS Limited/Unobtainable: No Allergies: Coded Allergies: PENICILLINS (Verified Allergy, Unknown, 12/02/18) Objective Last 24 Hour Vital Signs Date Time Temp Pulse Resp B/P (MAP) Pulse Ox O2 Delivery O2 Flow Rate FiO2 08/29/20 00:00 97.5 97 20 133/66 (88) 94 08/28/20 22:46 82 160/87 08/28/20 21:00 Room Air 08/28/20 20:00 97.7 86 18 158/80 (106) 97 08/28/20 16:00 98.0 103 21 102/76 (85) 96 08/28/20 12:00 98.8 99 19 130/81 (97) 97 08/28/20 09:29 100 140/84 08/28/20 09:00 Room Air 08/28/20 08:00 98.7 100 20 140/84 (102) 96 Intake and Output 08/28/20 08/29/20 19:00 07:00 Intake Total 800 ml 120 ml Balance 800 ml 120 ml Intake Oral 200 ml 120 ml Other 600 ml # Voids 1 2 # Bowel Movements 1 Laboratory Tests 08/28/20 08:10: White Blood Count 8.3, Red Blood Count 4.52L, Hemoglobin 13.5L, Hematocrit 44.1, Mean Corpuscular Volume 98, Mean Corpuscular Hemoglobin 30.0, Mean Corpuscular Hemoglobin Concent 30.7L, Red Cell Distribution Width 14.8, Platelet Count 131L, Mean Platelet Volume 9.9, Neutrophils (%) (Auto) 62.5, Lymphocytes (%) (Auto) 18 .3L, Monocytes (%) (Auto) 8.4, Eosinophils (%) (Auto) 10.2H, Basophils (%) (Auto) 0.6, Sodium Level 142, Potassium Level 3.4L, Chloride Level 106, Carbon Dioxide Level 26, Anion Gap 10, Blood Urea Nitrogen 26H, Creatinine 4.2H, Estimat Glomerular Filtration Rate 13.9, Glucose Level 91, Calcium Level 8.6, Phosphorus Level 2.9, Total Bilirubin 0.6, Aspartate Amino Transf (AST/SGOT) 31, Alanine Aminotransferase (ALT/SGPT) 14, Alkaline Phosphatase 129H, C-Reactive Protein, Quantitative 3.2H, Total Protein 7.2, Albumin 3.4, Globulin 3.8, Albumin/Globulin Ratio 0.9L 08/29/20 05:45: White Blood Count 9.6, Red Blood Count 4.88, Hemoglobin 14.6, Hematocrit 46.6, Mean Corpuscular Volume 95, Mean Corpuscular Hemoglobin 30.0, Mean Corpuscular Hemoglobin Concent 31.4L, Red Cell Distribution Width 15.0H, Platelet Count 96L, Mean Platelet Volume 8.6, Neutrophils (%) (Auto) , Lymphocytes (%) (Auto) , Monocytes (%) (Auto) , Eosinophils (%) (Auto) , Basophils (%) (Auto) , Sodium Level [Pending], Potassium Level [Pending], Chloride Level [Pending], Carbon Dioxide Level [Pending], Blood Urea Nitrogen [Pending], Creatinine [Pending], Estimat Glomerular Filtration Rate [Pending], Glucose Level [Pending], Calcium Level [Pending], Phosphorus Level [Pending], Total Bilirubin [Pending], Aspartate Amino Transf (AST/SGOT) [Pending], Alanine Aminotransferase (ALT/SGPT) [Pending], Alkaline Phosphatase [Pending], Total Protein [Pending], Albumin [Pending], Globulin [Pending], Neutrophils % (Manual) [Pending], Lymphocytes % (Manual) [Pending], Platelet Estimate [Pending], Platelet Morphology [Pending], Magnesium Level [Pending], Amylase Level [Pending], Lipase [Pending] Height (Feet): 5 Height (Inches): 4.00 Weight (Pounds): 181 General Appearance: no apparent distress EENT: normal ENT inspection Neck: supple Cardiovascular: normal rate Respiratory/Chest: decreased breath sounds Abdomen: normal bowel sounds, non tender, soft Extremities: non-tender Assessment/Plan Status: progressing, unchanged Assessment/Plan: Assessment/Plan: dysphagia AMS recent CVA elevate lipase elevated ALP gallstone [place] UTI improving lipase on oral diet ct and us from prior admission reviewed marinol ppi daily dietitian in put appreciated nephrovit fu nephrology recs push po's Dany Swain MD Aug 29, 2020 07:09
[2020-08-29 07:10] LABS: ALBUMIN 3.4 G/DL (3.4-5.0); ALBUMIN/GLOBULIN RATIO 0.9 (1.0-2.7); BILIRUBIN,TOTAL 0.7 MG/DL (0.2-1.0); CALCIUM 8.7 MG/DL (8.5-10.1); CREATININE 3.2 MG/DL (0.55-1.30)
[2020-08-29 07:13] LABS: PHOSPHORUS 2.7 MG/DL (2.5-4.9)
[2020-08-29 08:00] VITALS: BP 137/64
[2020-08-29] MEDS: Docusate 100mg cap ORAL SCH ×3 (09:00→16:59)
[2020-08-29] MEDS: Heparin 5000 units/ml inj SUBQ SCH ×2 (09:00→21:00)
[2020-08-29] MEDS: Dronabinol 2.5mg Cap ORAL SCH ×2 (09:00→16:59)
[2020-08-29] MEDS: Metoprolol Tartrate 12.5mg TAB ORAL SCH ×2 (09:00→21:27)
[2020-08-29] MEDS: Nephrovite tab (Rena-Vite) ORAL SCH (09:00)
[2020-08-29] MEDS ORDERED: Lidocaine 1% MPF 10mg/ml 5ml INJ SCH ×2 (11:15→14:00)
[2020-08-29] MEDS ORDERED: Ertapenem (INVanz) 1gm Inj IM SCH ×2 (11:30→14:00)
[2020-08-29 12:04] VITALS: BP 131/61
--- NOTE | 2020-08-29 13:46 | General Progress Note ---
Subjective ROS Limited/Unobtainable: Yes Allergies: Coded Allergies: PENICILLINS (Verified Allergy, Unknown, 12/02/18) Objective Last 24 Hour Vital Signs Date Time Temp Pulse Resp B/P (MAP) Pulse Ox O2 Delivery O2 Flow Rate FiO2 08/29/20 12:04 98.4 63 18 131/61 (84) 98 08/29/20 09:00 62 137/64 08/29/20 09:00 Room Air 08/29/20 08:00 98.5 62 18 137/64 (88) 96 08/29/20 04:00 98.1 90 20 121/77 (92) 95 08/29/20 00:00 97.5 97 20 133/66 (88) 94 08/28/20 22:46 82 160/87 08/28/20 21:00 Room Air 08/28/20 20:00 97.7 86 18 158/80 (106) 97 08/28/20 16:00 98.0 103 21 102/76 (85) 96 Intake and Output 08/28/20 08/29/20 19:00 07:00 Intake Total 800 ml 120 ml Balance 800 ml 120 ml Intake Oral 200 ml 120 ml Other 600 ml # Voids 1 2 # Bowel Movements 1 Laboratory Tests 08/29/20 05:45: White Blood Count 9.6, Red Blood Count 4.88, Hemoglobin 14.6, Hematocrit 46.6, Mean Corpuscular Volume 95, Mean Corpuscular Hemoglobin 30.0, Mean Corpuscular Hemoglobin Concent 31.4L, Red Cell Distribution Width 15.0H, Platelet Count 96L, Mean Platelet Volume 8.6, Neutrophils (%) (Auto) , Lymphocytes (%) (Auto) , Monocytes (%) (Auto) , Eosinophils (%) (Auto) , Basophils (%) (Auto) , Differential Total Cells Counted 100, Neutrophils % (Manual) 63, Lymphocytes % (Manual) 27, Monocytes % (Manual) 5, Eosinophils % (Manual) 5H, Basophils % (Ma nual) 0, Band Neutrophils 0, Platelet Estimate DecreasedL, Platelet Morphology Normal, Anisocytosis 1+, Sodium Level 136, Potassium Level 4.0, Chloride Level 100, Carbon Dioxide Level 25, Anion Gap 11, Blood Urea Nitrogen 15, Creatinine 3.2H, Estimat Glomerular Filtration Rate 19.0, Glucose Level 88, Calcium Level 8.7, Phosphorus Level 2.7, Magnesium Level 2.0, Total Bilirubin 0.7, Aspartate Amino Transf (AST/SGOT) 32, Alanine Aminotransferase (ALT/SGPT) 15, Alkaline Phosphatase 132H, Total Protein 7.2, Albumin 3.4, Globulin 3.8, Albumin/Globulin Ratio 0.9L, Amylase Level 100, Lipase 389 Height (Feet): 5 Height (Inches): 4.00 Weight (Pounds): 181 Assessment/Plan Problem List: (1) Cough ICD Codes: R05 - Cough SNOMED: 13781080 (2) SOB (shortness of breath) ICD Codes: R06.02 - Shortness of breath SNOMED: 729475768 (3) Dehydration ICD Codes: E86.0 - Dehydration SNOMED: 14675794 (4) Diarrhea ICD Codes: R19.7 - Diarrhea, unspecified SNOMED: 55290245 (5) Normocytic anemia ICD Codes: D64.9 - Anemia, unspecified SNOMED: 544381074 (6) Abdominal pain ICD Codes: R10.9 - Unspecified abdominal pain SNOMED: 10622568 (7) Sepsis ICD Codes: A41.9 - Sepsis, unspecified organism SNOMED: 85422397 (8) Urinary tract infection ICD Codes: N39.0 - Urinary tract infection, site not specified SNOMED: 98492426 (9) Encephalopathy ICD Codes: G93.40 - Encephalopathy, unspecified SNOMED: 26617059 (10) Renal failure ICD Codes: N19 - Unspecified kidney failure SNOMED: 97104027 (11) CVA (cerebral vascular accident) ICD Codes: I63.9 - Cerebral infarction, unspecified SNOMED: 807016845 (12) Elevated lipase ICD Codes: R74.8 - Abnormal levels of other serum enzymes SNOMED: 486449240 Status: progressing, unchanged Assessment/Plan: dehydration check lytes uti improving renal failure encephalopathy abx per id reviewed chart and labs Froylan Balderas MD Aug 29, 2020 13:46
--- NOTE | 2020-08-29 14:15 | Nephrology Progress Note ---
Assessment/Plan Problem List: (1) Renal failure (ARF), acute on chronic (2) Pancreatitis (3) Urinary tract infection (4) Elevated lipase (5) CVA (cerebral vascular accident) (6) Uremic encephalopathy Plan August 29: Labs reviewed. Dialyzed yesterday. Will dialyze tomorrow. Continue per consultants. Outpatient dialysis placement upon discharge. August 28: and grandson in the room. When family present patient is calm. Patient is due for dialysis today. Medications and labs reviewed. Continue per consultants. August 27: Dialyzed August 26. CRP adam. On antibiotics. Remains encephalopathic. Continue dialysis as needed. Neurology and psychiatry evaluation pending. August 26: Patient dialyzed August 24. Today's labs pending. Mental status somewhat unchanged. Hemodialysis as needed. Neuro/psych eval would be helpful. August 25: Patient dialyzed yesterday. Will dialyze tomorrow. Remains encephalopathic. Consider neuro evaluation CT Head Jul 2019 Subtle focal asymmetric hypodensity in the right parieto-occipital region concerning for ischemia, age indeterminate but possibly acute. Correlate clinically. Recommend MRI for further evaluation as clinically indicated. No acute intracranial hemorrhage or shift of the midline structures. Atrophy and nonspecific periventricular hypoattenuation suggestive of chronic ischemic microvascular changes. August 24: Patient has right chest permacath. Due for dialysis today. Labs reviewed. August 23: Remains encephalopathic. Due for dialysis catheter and initiation of hemodialysis. August 22: Patient status unchanged. Due for placement of tunneled dialysis catheter tomorrow. Treatment of UTI defer to ID. Labs and medications reviewed. August 21: Dialysis catheter ordered to be placed yesterday was not done by radiology. Will wait for placement of the dialysis catheter prior to discharge. Meanwhile we will treat the urinary tract infection. Labs reviewed. M edication list reviewed. Discussed with son. Continue n.p.o. pending GI evaluation for high lipase Proceed with placement of tunneled dialysis catheter, and initiate dialysis Keep the blood pressure in check Per orders Subjective ROS Limited/Unobtainable: No Constitutional: Reports: malaise, weakness Objective Objective Last 24 Hour Vital Signs Date Time Temp Pulse Resp B/P (MAP) Pulse Ox O2 Delivery O2 Flow Rate FiO2 08/29/20 12:04 98.4 63 18 131/61 (84) 98 08/29/20 09:00 62 137/64 08/29/20 09:00 Room Air 11/15/20 08:00 98.5 62 18 137/64 (88) 96 08/29/20 04:00 98.1 90 20 121/77 (92) 95 08/29/20 00:00 97.5 97 20 133/66 (88) 94 08/28/20 22:46 82 160/87 08/28/20 21:00 Room Air 08/28/20 20:00 97.7 86 18 158/80 (106) 97 08/28/20 16:00 98.0 103 21 102/76 (85) 96 Intake and Output 08/28/20 08/29/20 19:00 07:00 Intake Total 800 ml 120 ml Balance 800 ml 120 ml Intake Oral 200 ml 120 ml Other 600 ml # Voids 1 2 # Bowel Movements 1 Current Medications Medications (Trade) Dose Ordered Sig/Markus Route PRN Reason Start Time Stop Time Status Last Admin Dose Admin Aspirin (ASA) 325 mg DAILY ORAL 08/20/20 09:00 10/04/20 08:59 08/29/20 09:01 Docusate Sodium (Colace) 100 mg THREE TIMES A DAY ORAL 08/28/20 13:00 09/27/20 12:59 08/29/20 09:00 Dronabinol (Marinol) 5 mg BID ORAL 08/24/20 09:00 11/22/20 08:59 08/29/20 09:00 Ertapenem (INVanz) 0.5 gm ONCE IM 08/29/20 14:00 08/29/20 15:00 08/29/20 13:50 Heparin Sodium (Porcine) (Heparin 5000 units/ml) 5,000 units EVERY 12 HOURS SUBQ 08/19/20 21:00 10/03/20 20:59 08/22/20 08:36 Lidocaine (Xylocaine 1% MPF 5ml) 3.2 ml ONCE INJ 08/29/20 14:00 08/29/20 15:00 08/29/20 13:51 Linezolid (Zyvox) 600 mg EVERY 12 HOURS ORAL 08/24/20 13:36 08/29/20 23:59 08/29/20 09:00 Metoprolol Tartrate (Lopressor) 12.5 mg Q12HR ORAL 08/19/20 21:00 11/17/20 20:59 08/29/20 09:00 Pantoprazole (Protonix) 40 mg DAILY ORAL 08/24/20 09:00 09/18/20 20:59 08/29/20 09:01 Quetiapine Fumarate (SEROqueL) 50 mg Q12HR ORAL 08/19/20 21:00 10/03/20 20:59 08/29/20 09:01 Vitamin B Complex/ Vit C/Folic Acid (Nephrovite) 1 tab DAILY ORAL 08/28/20 09:00 09/27/20 08:59 08/29/20 09:00 Laboratory Tests 08/29/20 05:45: White Blood Count 9.6, Red Blood Count 4.88, Hemoglobin 14.6, Hematocrit 46.6, Mean Corpuscular Volume 95, Mean Corpuscular Hemoglobin 30.0, Mean Corpuscular Hemoglobin Concent 31.4L, Red Cell Distribution Width 15.0H, Platelet Count 96L, Mean Platelet Volume 8.6, Neutrophils (%) (Auto) , Lymphocytes (%) (Auto) , Monocytes (%) (Auto) , Eosinophils (%) (Auto) , Basophils (%) (Auto) , Differen tial Total Cells Counted 100, Neutrophils % (Manual) 63, Lymphocytes % (Manual) 27, Monocytes % (Manual) 5, Eosinophils % (Manual) 5H, Basophils % (Manual) 0, Band Neutrophils 0, Platelet Estimate DecreasedL, Platelet Morphology Normal, Anisocytosis 1+, Sodium Level 136, Potassium Level 4.0, Chloride Level 100, Carbon Dioxide Level 25, Anion Gap 11, Blood Urea Nitrogen 15, Creatinine 3.2H, Estimat Glomerular Filtration Rate 19.0, Glucose Level 88, Calcium Level 8.7, Phosphorus Level 2.7, Magnesium Level 2.0, Total Bilirubin 0.7, Aspartate Amino Transf (AST/SGOT) 32, Alanine Aminotransferase (ALT/SGPT) 15, Alkaline Phosphatase 132H, Total Protein 7.2, Albumin 3.4, Globulin 3.8, Albumin/Globulin Ratio 0.9L, Amylase Level 100, Lipase 389 Height (Feet): 5 Height (Inches): 4.00 Weight (Pounds): 181 General Appearance: no apparent distress Objective No change Silvio Reddy MD Aug 29, 2020 14:15
[2020-08-29 16:00] VITALS: BP 129/67
[2020-08-29 21:00] VITALS: BP 124/64
[2020-08-30] VITALS (7 sets, daily range): BP systolic 102–139; BP diastolic 64–87
--- NOTE | 2020-08-30 08:26 | Infectious Diseases Prog Note ---
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 mirabilis -u/a wbc tnct, nit neg, leuk +1; ucx colonizers at this point Organism 1 A.BAUMANII COMPLX - MDR COLONY COUNT: 20,000 - 30,000 CFU/ML Organism 2 ENTEROCOCCUS FAECIUM COLONY COUNT: >100,000 CFU/ML ACIBCX-MDR ENT FAECIU M.I.C. RX M.I.C. RX --------- --- --------- --- AMPICILLIN >=32 R AMPICILLIN/SULBACTAM >=32 R CEFAZOLIN >=64 R CEFTAZIDIME R CEFTRIAXONE >=64 R CEFEPIME >=64 R CIPROFLOXACIN >=8 R GENTAMICIN >=16 R LEVOFLOXACIN >=8 R * MEROPENEM >=16 R NITROFURANTOIN 256 R TRIMETHOPRIM/SULFA >=320 R VANCOMYCIN <=0.5 S PIPERACILLIN/TAZOBACTAM >=128 R CKD Abd pain Acute pancreatitis -Abd US: No acute abnormality in the abdomen. Increased echogenicity of the left renal parenchyma could represent medical renal disease. hx of MDR ABC UTI and colonization -07/2020 -u/a wbc tnct, nit neg, leuk +3; ucx 60-70k MDR ABC (S Gentamycin, bactrim; R meropenem), >100k E. 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 We will continue to follow. Subjective Allergies: Coded Allergies: PENICILLINS (Verified Allergy, Unknown, 12/02/18) AF No new labs NAD in bed Objective Last 24 Hour Vital Signs Date Time Temp Pulse Resp B/P (MAP) Pulse Ox O2 Delivery O2 Flow Rate FiO2 11/16/20 04:00 98.6 92 20 111/72 (85) 94 08/30/20 00:00 98.2 89 20 129/68 (88) 94 08/29/20 21:27 57 124/64 08/29/20 21:00 97.8 65 19 124/64 (84) 97 08/29/20 21:00 Room Air 08/29/20 16:00 98.1 71 19 129/67 (87) 97 08/29/20 12:04 98.4 63 18 131/61 (84) 98 08/29/20 09:00 62 137/64 08/29/20 09:00 Room Air Height (Feet): 5 Height (Inches): 4.00 Weight (Pounds): 181 Gen: NAD in bed HEENT: NCAT CV: RRR Pulm: CTAB Abd: Soft, NTND Ext: No c/c/e Neuro: Sleeping calmly Current Medications Medications (Trade) Dose Ordered Sig/Markus Route PRN Reason Start Time Stop Time Status Last Admin Dose Admin Aspirin (ASA) 325 mg DAILY ORAL 08/20/20 09:00 10/04/20 08:59 08/29/20 09:01 Docusate Sodium (Colace) 100 mg THREE TIMES A DAY ORAL 08/28/20 13:00 09/27/20 12:59 08/29/20 16:59 Dronabinol (Marinol) 5 mg BID ORAL 08/24/20 09:00 11/22/20 08:59 08/29/20 16:59 Heparin Sodium (Porcine) (Heparin 5000 units/ml) 5,000 units EVERY 12 HOURS SUBQ 08/19/20 21:00 10/03/20 20:59 08/22/20 08:36 Metoprolol Tartrate (Lopressor) 12.5 mg Q12HR ORAL 08/19/20 21:00 11/17/20 20:59 08/29/20 21:27 Pantoprazole (Protonix) 40 mg DAILY ORAL 08/24/20 09:00 09/18/20 20:59 08/29/20 09:01 Quetiapine Fumarate (SEROqueL) 50 mg Q12HR ORAL 08/19/20 21:00 10/03/20 20:59 08/29/20 21:23 Vitamin B Complex/ Vit C/Folic Acid (Nephrovite) 1 tab DAILY ORAL 08/28/20 09:00 09/27/20 08:59 08/29/20 09:00 Maira Shepherd M.D. Aug 30, 2020 08:26
[2020-08-30] MEDS: Nephrovite tab (Rena-Vite) ORAL SCH (08:41)
[2020-08-30] MEDS: Metoprolol Tartrate 12.5mg TAB ORAL SCH ×2 (08:41→20:50)
[2020-08-30] MEDS: Dronabinol 2.5mg Cap ORAL SCH ×2 (08:41→17:02)
[2020-08-30] MEDS: Docusate 100mg cap ORAL SCH ×3 (08:41→17:02)
[2020-08-30] MEDS: Heparin 5000 units/ml inj SUBQ SCH ×2 (08:43→20:50)
--- NOTE | 2020-08-30 10:14 | Nephrology Progress Note ---
Assessment/Plan Problem List: (1) Renal failure (ARF), acute on chronic (2) Pancreatitis (3) Urinary tract infection (4) Elevated lipase (5) CVA (cerebral vascular accident) (6) Uremic encephalopathy Plan August 30: No labs drawn today. Due for dialysis today. Remains encephalopathic. Partly due to language barrier. Continue per consultants. August 29: Labs reviewed. Dialyzed yesterday. Will dialyze tomorrow. Continue per consultants. Outpatient dialysis placement upon discharge. August 28: and grandson in the room. When family present patient is calm. Patient is due for dialysis today. Medications and labs reviewed. Continue per consultants. August 27: Dialyzed August 26. CRP adam. On antibiotics. Remains encephalopathic. Continue dialysis as needed. Neurology and psychiatry evaluation pending. August 26: Patient dialyzed August 24. Today's labs pending. Mental status somewhat unchanged. Hemodialysis as needed. Neuro/psych eval would be helpful. August 25: Patient dialyzed yesterday. Will dialyze tomorrow. Remains encephalopathic. Consider neuro evaluation CT Head Jul 2019 Subtle focal asymmetric hypodensity in the right parieto-occipital region concerning for ischemia, age indeterminate but possibly acute. Correlate clinically. Recommend MRI for further evaluation as clinically indicated. No acute intracranial hemorrhage or shift of the midline structures. Atrophy and nonspecific periventricular hypoattenuation suggestive of chronic ischemic microvascular changes. August 24: Patient has right chest permacath. Due for dialysis today. Labs reviewed. August 23: Remains encephalopathic. Due for dialysis catheter and initiation of hemodialysis. August 22: Patient status unchanged. Due for placement of tunneled dialysis catheter tomorrow. Treatment of UTI defer to ID. Labs and medications reviewed. August 21: Dialysis catheter ordered to be placed yesterday was not done by radiology. Will wait for placement of the dialysis catheter prior to discharge. Meanwhile we will treat the urinary tract infection. Labs reviewed. Medication list reviewed. Discussed with son. Continue n.p.o. pending GI evaluation for high lipase Proceed with placement of tunneled dialysis catheter, and initiate dialysis Keep the blood pressure in check Per orders Subjective ROS Limited/Unobtainable: No Constitutional: Reports: malaise Objective Objective Last 24 Hour Vital Signs Date Time Temp Pulse Resp B/P (MAP) Pulse Ox O2 Delivery O2 Flow Rate FiO2 08/30/20 08:00 98.0 91 20 139/87 (104) 96 08/30/20 04:00 98.6 92 20 111/72 (85) 94 08/30/20 00:00 98.2 89 20 129/68 (88) 94 08/29/20 21:27 57 124/64 08/29/20 21:00 97.8 65 19 124/64 (84) 97 08/29/20 21:00 Room Air 08/29/20 16:00 98.1 71 19 129/67 (87) 97 08/29/20 12:04 98.4 63 18 131/61 (84) 98 Intake and Output 08/29/20 08/30/20 19:00 07:00 # Voids 1 2 # Bowel Movements 3 3 No chemistry panel drawn today Height (Feet): 5 Height (Inches): 4.00 Weight (Pounds): 181 General Appearance: no apparent distress, confused Cardiovascular: normal rate Respiratory/Chest: decreased breath sounds Abdomen: soft Objective No change Silvio Reddy MD Aug 30, 2020 10:14
--- NOTE | 2020-08-30 10:20 | General Progress Note ---
Subjective Constitutional: Reports: weakness Allergies: Coded Allergies: PENICILLINS (Verified Allergy, Unknown, 12/02/18) All Systems: reviewed and negative except above Subjective sleepy calm Objective Last 24 Hour Vital Signs Date Time Temp Pulse Resp B/P (MAP) Pulse Ox O2 Delivery O2 Flow Rate FiO2 08/30/20 09:00 Room Air 08/30/20 08:00 98.0 91 20 139/87 (104) 96 08/30/20 04:00 98.6 92 20 111/72 (85) 94 08/30/20 00:00 98.2 89 20 129/68 (88) 94 08/29/20 21:27 57 124/64 08/29/20 21:00 97.8 65 19 124/64 (84) 97 08/29/20 21:00 Room Air 08/29/20 16:00 98.1 71 19 129/67 (87) 97 08/29/20 12:04 98.4 63 18 131/61 (84) 98 Intake and Output 08/29/20 08/30/20 19:00 07:00 # Voids 1 2 # Bowel Movements 3 3 Height (Feet): 5 Height (Inches): 4.00 Weight (Pounds): 181 General Appearance: lethargic EENT: normal ENT inspection Neck: normal alignment Cardiovascular: normal peripheral pulses, normal rate, regular rhythm Respiratory/Chest: chest wall non-tender, lungs clear, normal breath sounds Abdomen: normal bowel sounds, non tender, soft Extremities: normal inspection Edema: no edema noted Arm (L), no edema noted Arm (R), no edema noted Leg (L), no edema noted Leg (R), no edema noted Pedal (L), no edema noted Pedal (R), no edema noted Generalized Neurologic: motor weakness Skin: normal pigmentation, warm/dry Assessment/Plan Problem List: (1) Episode of generalized weakness ICD Codes: R53.1 - Weakness SNOMED: 16977908 (2) Hypertension ICD Codes: I10 - Essential (primary) hypertension SNOMED: 98717855 (3) NOEMÍ (acute kidney injury) ICD Codes: N17.9 - Acute kidney failure, unspecified SNOMED: 22064018, 2553655 (4) Urinary tract infection ICD Codes: N39.0 - Urinary tract infection, site not specified SNOMED: 19331330 (5) Pancreatitis ICD Codes: K85.90 - Acute pancreatitis without necrosis or infection, unspecified SNOMED: 69618724 (6) Renal failure ICD Codes: N19 - Unspecified kidney failure SNOMED: 51334867 (7) Encephalopathy ICD Codes: G93.40 - Encephalopathy, unspecified SNOMED: 65615552 (8) CVA (cerebral vascular accident) ICD Codes: I63.9 - Cerebral infarction, unspecified SNOMED: 737249195 Status: unchanged Assessment/Plan: pt diet abx neph gi f/u cbc bmp am dc plan w hh if neph clear Andrea Trinidad DO Aug 30, 2020 10:20
--- NOTE | 2020-08-30 11:36 | General Progress Note ---
Subjective ROS Limited/Unobtainable: No Allergies: Coded Allergies: PENICILLINS (Verified Allergy, Unknown, 12/02/18) Objective Last 24 Hour Vital Signs Date Time Temp Pulse Resp B/P (MAP) Pulse Ox O2 Delivery O2 Flow Rate FiO2 08/30/20 09:00 Room Air 08/30/20 08:00 98.0 91 20 139/87 (104) 96 08/30/20 04:00 98.6 92 20 111/72 (85) 94 08/30/20 00:00 98.2 89 20 129/68 (88) 94 08/29/20 21:27 57 124/64 08/29/20 21:00 97.8 65 19 124/64 (84) 97 08/29/20 21:00 Room Air 08/29/20 16:00 98.1 71 19 129/67 (87) 97 08/29/20 12:04 98.4 63 18 131/61 (84) 98 Intake and Output 08/29/20 08/30/20 19:00 07:00 # Voids 1 2 # Bowel Movements 3 3 Height (Feet): 5 Height (Inches): 4.00 Weight (Pounds): 181 General Appearance: no apparent distress EENT: normal ENT inspection Neck: supple Cardiovascular: normal rate Respiratory/Chest: decreased breath sounds Abdomen: normal bowel sounds, non tender, soft Extremities: non-tender Assessment/Plan Status: unchanged Assessment/Plan: Assessment/Plan: dysphagia AMS recent CVA elevate lipase elevated ALP gallstone RI UTI improving lipase on oral diet ct and us from prior admission reviewed marinol ppi daily dietitian in put appreciated nephrovit fu nephrology recs push po's Dany Swain MD Aug 30, 2020 11:36
[2020-08-31 04:08] VITALS: BP 121/55
--- NOTE | 2020-08-31 06:56 | Consultation ---
History of Present Illness General Chief Complaint: Altered Level of Consciousness Present Illness Allergies: Coded Allergies: PENICILLINS (Verified Allergy, Unknown, 12/02/18) Medication History Unable to Obtain Active Prescriptions or Reported Meds Patient History Healthcare decision maker Resuscitation status Advanced Directive on File Physical Exam Last 24 Hour Vital Signs Date Time Temp Pulse Resp B/P (MAP) Pulse Ox O2 Delivery O2 Flow Rate FiO2 08/31/20 04:08 98.1 76 16 121/55 (77) 91 08/30/20 23:55 98.6 83 17 102/64 (77) 95 08/30/20 20:50 97 113/68 08/30/20 20:12 Room Air 08/30/20 20:00 98.4 97 19 113/68 (83) 94 08/30/20 18:56 Room Air 08/30/20 17:10 Room Air 08/30/20 16:00 97.1 81 18 127/81 (96) 96 08/30/20 12:09 98.3 87 19 129/74 (92) 97 08/30/20 09:00 Room Air 08/30/20 08:00 98.0 91 20 139/87 (104) 96 Intake and Output 08/30/20 08/31/20 19:00 07:00 Intake Total 360 ml 60 ml Output Total 300 ml Balance 60 ml 60 ml Intake Oral 360 ml Other 60 ml Output Urine Total 300 ml # Voids 3 1 # Bowel Movements 2 1 Laboratory Tests Test 08/31/20 05:58 White Blood Count Pending Red Blood Count Pending Hemoglobin Pending Hematocrit Pending Mean Corpuscular Volume Pending Mean Corpuscular Hemoglobin Pending Mean Corpuscular Hemoglobin Concent Pending Red Cell Distribution Width Pending Platelet Count Pending Mean Platelet Volume Pending Neutrophils (%) (Auto) Pending Lymphocytes (%) (Auto) Pending Monocytes (%) (Auto) Pending Eosinophils (%) (Auto) Pending Basophils (%) (Auto) Pending Sodium Level Pending Potassium Level Pending Chloride Level Pending Carbon Dioxide Level Pending Blood Urea Nitrogen Pending Creatinine Pending Estimat Glomerular Filtration Rate Pending Glucose Level Pending Uric Acid Pending Calcium Level Pending Phosphorus Level Pending Magnesium Level Pending Total Bilirubin Pending Aspartate Amino Transf (AST/SGOT) Pending Alanine Aminotransferase (ALT/SGPT) Pending Alkaline Phosphatase Pending C-Reactive Protein, Quantitative Pending Total Protein Pending Albumin Pending Globulin Pending Height (Feet): 5 Height (Inches): 4.00 Weight (Pounds): 181 Medications Current Medications Medications (Trade) Dose Ordered Sig/Markus Route PRN Reason Start Time Stop Time Status Last Admin Dose Admin Aspirin (ASA) 325 mg DAILY ORAL 08/20/20 09:00 10/04/20 08:59 08/29/20 09:01 Docusate Sodium (Colace) 100 mg THREE TIMES A DAY ORAL 08/28/20 13:00 09/27/20 12:59 08/29/20 16:59 Dronabinol (Marinol) 5 mg BID ORAL 08/24/20 09:00 11/22/20 08:59 08/29/20 16:59 Heparin Sodium (Porcine) (Heparin 5000 units/ml) 5,000 units EVERY 12 HOURS SUBQ 08/19/20 21:00 10/03/20 20:59 08/22/20 08:36 Metoprolol Tartrate (Lopressor) 12.5 mg Q12HR ORAL 08/19/20 21:00 11/17/20 20:59 08/30/20 20:50 Pantoprazole (Protonix) 40 mg DAILY ORAL 08/24/20 09:00 09/18/20 20:59 08/29/20 09:01 Quetiapine Fumarate (SEROqueL) 50 mg Q12HR ORAL 08/19/20 21:00 10/03/20 20:59 08/30/20 20:49 Vitamin B Complex/ Vit C/Folic Acid (Nephrovite) 1 tab DAILY ORAL 08/28/20 09:00 09/27/20 08:59 08/29/20 09:00 Assessment/Plan Assessment/Plan: Cancel note Travon Jo MD Aug 31, 2020 06:56
[2020-08-31 07:17] LABS: HEMATOCRIT 45.1 % (42.0-52.0); HEMOGLOBIN 13.9 G/DL (14.2-18.0); MEAN CORPUSCULAR VOLUME 97 FL (80-99); PLATELET COUNT 82 K/UL (150-450); RED BLOOD COUNT 4.66 M/UL (4.70-6.10); RED CELL DISTRIBUTION WIDTH 15.3 % (11.6-14.8); WHITE BLOOD COUNT 8.1 K/UL (4.8-10.8)
--- NOTE | 2020-08-31 07:31 | Infectious Diseases Prog Note ---
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 mirabilis -u/a wbc tnct, nit neg, leuk +1; ucx colonizers at this point Organism 1 A.BAUMANII COMPLX - MDR COLONY COUNT: 20,000 - 30,000 CFU/ML Organism 2 ENTEROCOCCUS FAECIUM COLONY COUNT: >100,000 CFU/ML ACIBCX-MDR ENT FAECIU M.I.C. RX M.I.C. RX --------- --- --------- --- AMPICILLIN >=32 R AMPICILLIN/SULBACTAM >=32 R CEFAZOLIN >=64 R CEFTAZIDIME R CEFTRIAXONE >=64 R CEFEPIME >=64 R CIPROFLOXACIN >=8 R GENTAMICIN >=16 R LEVOFLOXACIN >=8 R * MEROPENEM >=16 R NITROFURANTOIN 256 R TRIMETHOPRIM/SULFA >=320 R VANCOMYCIN <=0.5 S PIPERACILLIN/TAZOBACTAM >=128 R CKD Abd pain Acute pancreatitis -Abd US: No acute abnormality in the abdomen. Increased echogenicity of the left renal parenchyma could represent medical renal disease. hx of MDR ABC UTI and colonization -07/2020 -u/a wbc tnct, nit neg, leuk +3; ucx 60-70k MDR ABC (S Gentamycin, bactrim; R meropenem), >100k E. 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 We will continue to follow. Subjective Allergies: Coded Allergies: PENICILLINS (Verified Allergy, Unknown, 12/02/18) AF WBC 8.1 HIV screen neg Somewhat agitated in bed, in restraints, on RA Objective Last 24 Hour Vital Signs Date Time Temp Pulse Resp B/P (MAP) Pulse Ox O2 Delivery O2 Flow Rate FiO2 08/31/20 04:08 98.1 76 16 121/55 (77) 91 08/30/20 23:55 98.6 83 17 102/64 (77) 95 08/30/20 20:50 97 113/68 08/30/20 20:12 Room Air 08/30/20 20:00 98.4 97 19 113/68 (83) 94 08/30/20 18:56 Room Air 08/30/20 17:10 Room Air 08/30/20 16:00 97.1 81 18 127/81 (96) 96 08/30/20 12:09 98.3 87 19 129/74 (92) 97 08/30/20 09:00 Room Air 08/30/20 08:00 98.0 91 20 139/87 (104) 96 Height (Feet): 5 Height (Inches): 4.00 Weight (Pounds): 181 Gen: NAD in bed HEENT: NCAT CV: RRR Pulm: CTAB Abd: Soft, NTND Ext: No c/c/e Neuro: Slightly agitated, awake, moving all extremities Laboratory Tests Test 08/31/20 05:58 White Blood Count Pending Red Blood Count Pending Hemoglobin Pending Hematocrit Pending Mean Corpuscular Volume Pending Mean Corpuscular Hemoglobin Pending Mean Corpuscular Hemoglobin Concent Pending Red Cell Distribution Width Pending Platelet Count Pending Mean Platelet Volume Pending Neutrophils (%) (Auto) Pending Lymphocytes (%) (Auto) Pending Monocytes (%) (Auto) Pending Eosinophils (%) (Auto) Pending Basophils (%) (Auto) Pending Sodium Level Pending Potassium Level Pending Chloride Level Pending Carbon Dioxide Level Pending Blood Urea Nitrogen Pending Creatinine Pending Estimat Glomerular Filtration Rate Pending Glucose Level Pending Uric Acid Pending Calcium Level Pending Phosphorus Level Pending Magnesium Level Pending Total Bilirubin Pending Aspartate Amino Transf (AST/SGOT) Pending Alanine Aminotransferase (ALT/SGPT) Pending Alkaline Phosphatase Pending C-Reactive Protein, Quantitative Pending Total Protein Pending Albumin Pending Globulin Pending HIV (1&2) Antibody Rapid Pending Current Medications Medications (Trade) Dose Ordered Sig/Markus Route PRN Reason Start Time Stop Time Status Last Admin Dose Admin Aspirin (ASA) 325 mg DAILY ORAL 08/20/20 09:00 10/04/20 08:59 08/29/20 09:01 Docusate Sodium (Colace) 100 mg THREE TIMES A DAY ORAL 08/28/20 13:00 09/27/20 12:59 08/29/20 16:59 Dronabinol (Marinol) 5 mg BID ORAL 08/24/20 09:00 11/22/20 08:59 08/29/20 16:59 Heparin Sodium (Porcine) (Heparin 5000 units/ml) 5,000 units EVERY 12 HOURS SUBQ 08/19/20 21:00 10/03/20 20:59 08/22/20 08:36 Metoprolol Tartrate (Lopressor) 12.5 mg Q12HR ORAL 08/19/20 21:00 11/17/20 20:59 08/30/20 20:50 Pantoprazole (Protonix) 40 mg DAILY ORAL 08/24/20 09:00 09/18/20 20:59 08/29/20 09:01 Quetiapine Fumarate (SEROqueL) 50 mg Q12HR ORAL 08/19/20 21:00 10/03/20 20:59 08/30/20 20:49 Vitamin B Complex/ Vit C/Folic Acid (Nephrovite) 1 tab DAILY ORAL 08/28/20 09:00 09/27/20 08:59 08/29/20 09:00 Maira Shepherd M.D. Aug 31, 2020 07:31
[2020-08-31 07:39] LABS: ALBUMIN 3.5 G/DL (3.4-5.0); ALBUMIN/GLOBULIN RATIO 0.9 (1.0-2.7); BILIRUBIN,TOTAL 0.6 MG/DL (0.2-1.0); CALCIUM 8.6 MG/DL (8.5-10.1); CREATININE 3.5 MG/DL (0.55-1.30); PHOSPHORUS 3.3 MG/DL (2.5-4.9); POTASSIUM 3.6 MMOL/L (3.5-5.1)
[2020-08-31 08:00] VITALS: BP 153/68
[2020-08-31] MEDS: Heparin 5000 units/ml inj SUBQ SCH ×2 (09:00→21:00)
[2020-08-31] MEDS: Docusate 100mg cap ORAL SCH ×3 (09:28→17:06)
[2020-08-31] MEDS: Metoprolol Tartrate 12.5mg TAB ORAL SCH ×2 (09:29→20:42)
[2020-08-31] MEDS: Nephrovite tab (Rena-Vite) ORAL SCH (09:29)
[2020-08-31] MEDS: Dronabinol 2.5mg Cap ORAL SCH ×2 (09:29→17:06)
[2020-08-31 12:00] VITALS: BP 100/56
--- NOTE | 2020-08-31 12:08 | Nephrology Progress Note ---
Assessment/Plan Problem List: (1) Renal failure (ARF), acute on chronic (2) Pancreatitis (3) Urinary tract infection (4) Elevated lipase (5) CVA (cerebral vascular accident) (6) Uremic encephalopathy Plan August 31: Labs reviewed. Dialyzed yesterday. Sitting up in chair with the aid of his and face timing with his children and grandchildren. Mental status improving. Hemodialysis in a.m. Continue placement and outpatient dialysis management. Discussed with case management social worker. August 30: No labs drawn today. Due for dialysis today. Remains encephalopathic. Partly due to language barrier. Continue per consultants. August 29: Labs reviewed. Dialyzed yesterday. Will dialyze tomorrow. Cont inue per consultants. Outpatient dialysis placement upon discharge. August 28: and grandson in the room. When family present patient is calm. Patient is due for dialysis today. Medications and labs reviewed. Continue per consultants. August 27: Dialyzed August 26. CRP adam. On antibiotics. Remains encephalopathic. Continue dialysis as needed. Neurology and psychiatry evaluation pending. August 26: Patient dialyzed August 24. Today's labs pending. Mental status somewhat unchanged. Hemodialysis as needed. Neuro/psych eval would be helpful. August 25: Patient dialyzed yesterday. Will dialyze tomorrow. Remains encephalopathic. Consider neuro evaluation CT Head Jul 2019 Subtle focal asymmetric hypodensity in the right parieto-occipital region concerning for ischemia, age indeterminate but possibly acute. Correlate clinically. Recommend MRI for further evaluation as clinically indicated. No acute intracranial hemorrhage or shift of the midline structures. Atrophy and nonspecific periventricular hypoattenuation suggestive of chronic ischemic microvascular changes. August 24: Patient has right chest permacath. Due for dialysis today. Labs reviewed. August 23: Remains encephalopathic. Due for dialysis catheter and initiation of hemodialysis. August 22: Patient status unchanged. Due for placement of tunneled dialysis catheter tomorrow. Treatment of UTI defer to ID. Labs and medications reviewed. August 21: Dialysis catheter ordered to be placed yesterday was not done by radiology. Will wait for placement of the dialysis catheter prior to discharge. Meanwhile we will treat the urinary tract infection. Labs reviewed. Medication list reviewed. Discussed with son. Continue n.p.o. pending GI evaluation for high lipase Proceed with placement of tunneled dialysis catheter, and initiate dialysis Keep the blood pressure in check Per orders Subjective ROS Limited/Unobtainable: No Constitutional: Reports: malaise Objective Objective Last 24 Hour Vital Signs Date Time Temp Pulse Resp B/P (MAP) Pulse Ox O2 Delivery O2 Flow Rate FiO2 08/31/20 09:29 77 153/68 08/31/20 09:00 Room Air 08/31/20 08:00 98.0 77 20 153/68 (96) 95 08/31/20 04:08 98.1 76 16 121/55 (77) 91 08/30/20 23:55 98.6 83 17 102/64 (77) 95 08/30/20 20:50 97 113/68 08/30/20 20:12 Room Air 08/30/20 20:00 98.4 97 19 113/68 (83) 94 08/30/20 18:56 Room Air 08/30/20 17:10 Room Air 08/30/20 16:00 97.1 81 18 127/81 (96) 96 08/30/20 12:09 98.3 87 19 129/74 (92) 97 Intake and Output 08/30/20 08/31/20 19:00 07:00 Intake Total 360 ml 60 ml Output Total 300 ml Balance 60 ml 60 ml Intake Oral 360 ml Other 60 ml Output Urine Total 300 ml # Voids 3 1 # Bowel Movements 2 1 Current Medications Medications (Trade) Dose Ordered Sig/Markus Route PRN Reason Start Time Stop Time Status Last Admin Dose Admin Aspirin (ASA) 325 mg DAILY ORAL 08/20/20 09:00 10/04/20 08:59 08/31/20 09:28 Docusate Sodium (Colace) 100 mg THREE TIMES A DAY ORAL 08/28/20 13:00 09/27/20 12:59 08/31/20 09:28 Dronabinol (Marinol) 5 mg BID ORAL 08/24/20 09:00 11/22/20 08:59 08/31/20 09:29 Heparin Sodium (Porcine) (Heparin 5000 units/ml) 5,000 units EVERY 12 HOURS SUBQ 08/19/20 21:00 10/03/20 20:59 08/22/20 08:36 Metoprolol Tartrate (Lopressor) 12.5 mg Q12HR ORAL 08/19/20 21:00 11/17/20 20:59 11/17/20 09:29 Pantoprazole (Protonix) 40 mg DAILY ORAL 08/24/20 09:00 09/18/20 20:59 08/31/20 09:29 Quetiapine Fumarate (SEROqueL) 50 mg Q12HR ORAL 08/19/20 21:00 10/03/20 20:59 08/31/20 09:29 Vitamin B Complex/ Vit C/Folic Acid (Nephrovite) 1 tab DAILY ORAL 08/28/20 09:00 09/27/20 08:59 08/31/20 09:29 Laboratory Tests 08/31/20 05:58: White Blood Count 8.1, Red Blood Count 4.66L, Hemoglobin 13.9L, Hematocrit 45.1, Mean Corpuscular Volume 97, Mean Corpuscular Hemoglobin 29.9, Mean Corpuscular Hemoglobin Concent 30.9L, Red Cell Distribution Width 15.3H, Platelet Count 82L, Mean Platelet Volume 9.7, Neutrophils (%) (Auto) , Lymphocytes (%) (Auto) , Monocytes (%) (Auto) , Eosinophils (%) (Auto) , Basophils (%) (Auto) , Differential Total Cells Counted 100, Neutrophils % (Manual) 57, Lymphocytes % (Manual) 25, Monocytes % (Manual) 11H, Eosinophils % (Manual) 7H, Basophils % (Manual) 0, Band Neutrophils 0, Platelet Estimate DecreasedL, Platelet Morphology Normal, Hypochromasia 1+, Anisocytosis 1+, Macrocytosis 1+, Sodium Level 142, Potassium Level 3.6, Chloride Level 105, Carbon Dioxide Level 29, Anion Gap 9, Blood Urea Nitrogen 19H, Creatinine 3.5H, Estimat Glomerular Filtration Rate 17.2, Glucose Level 80, Uric Acid 4.2, Calcium Level 8.6, Phosphorus Level 3.3, Magnesium Level 2.4, Total Bilirubin 0.6, Aspartate Amino Transf (AST/SGOT) 24, Alanine Aminotransferase (ALT/SGPT) 17, Alkaline Phosphatase 141H, C-Reactive Protein, Quantitative 2.1H, Total Protein 7.3, Albumin 3.5, Globulin 3.8, Albumin/Globulin Ratio 0.9L, HIV (1&2) Antibody Rapid Negative Height (Feet): 5 Height (Inches): 4.00 Weight (Pounds): 181 General Appearance: no apparent distress Cardiovascular: normal rate Respiratory/Chest: chest wall non-tender Abdomen: soft Objective No change Silvio Reddy MD Aug 31, 2020 12:08
--- NOTE | 2020-08-31 12:55 | General Progress Note ---
Subjective ROS Limited/Unobtainable: No Allergies: Coded Allergies: PENICILLINS (Verified Allergy, Unknown, 12/02/18) Objective Last 24 Hour Vital Signs Date Time Temp Pulse Resp B/P (MAP) Pulse Ox O2 Delivery O2 Flow Rate FiO2 08/31/20 12:00 97.8 85 20 100/56 (71) 95 08/31/20 09:29 77 153/68 08/31/20 09:00 Room Air 08/31/20 08:00 98.0 77 20 153/68 (96) 95 08/31/20 04:08 98.1 76 16 121/55 (77) 91 08/30/20 23:55 98.6 83 17 102/64 (77) 95 08/30/20 20:50 97 113/68 08/30/20 20:12 Room Air 08/30/20 20:00 98.4 97 19 113/68 (83) 94 08/30/20 18:56 Room Air 08/30/20 17:10 Room Air 08/30/20 16:00 97.1 81 18 127/81 (96) 96 Intake and Output 08/30/20 08/31/20 19:00 07:00 Intake Total 360 ml 60 ml Output Total 300 ml Balance 60 ml 60 ml Intake Oral 360 ml Other 60 ml Output Urine Total 300 ml # Voids 3 1 # Bowel Movements 2 1 Laboratory Tests 08/31/20 05:58: White Blood Count 8.1, Red Blood Count 4.66L, Hemoglobin 13.9L, Hematocrit 45.1, Mean Corpuscular Volume 97, Mean Corpuscular Hemoglobin 29.9, Mean Corpuscular Hemoglobin Concent 30.9L, Red Cell Distribution Width 15.3H, Platelet Count 82L, Mean Platelet Volume 9.7, Neutrophils (%) (Auto) , Lymphocytes (%) (Auto) , Monocytes (%) (Auto) , Eosinophils (%) (Auto) , Basophils (%) (Auto) , Differential Total Cells Counted 100, Neutrophils % (Manual) 57, Lymphocytes % (Manual) 25, Monocytes % (Manual) 11H, Eosinophils % (Manual) 7H, Basophils % (Manual) 0, Band Neutrophils 0, Platelet Estimate DecreasedL, Platelet Morphology Normal, Hypochromasia 1+, Anisocytosis 1+, Macrocytosis 1+, Sodium Level 142, Potassium Level 3.6, Chloride Level 105, Carbon Dioxide Level 29, Anion Gap 9, Blood Urea Nitrogen 19H, Creatinine 3.5H, Estimat Glomerular Filtration Rate 17.2, Glucose Level 80, Uric Acid 4.2, Calcium Level 8.6, Phosphorus Level 3.3, Magnesium Level 2.4, Total Bilirubin 0.6, Aspartate Amino Transf (AST/SGOT) 24, Alanine Aminotransferase (ALT/SGPT) 17, Alkaline Phosphatase 141H, C-Reactive Protein, Quantitative 2.1H, Total Protein 7.3, Albumin 3.5, Globulin 3.8, Albumin/Globulin Ratio 0.9L, HIV (1&2) Antibody Rapid Negative Height (Feet): 5 Height (Inches): 4.00 Weight (Pounds): 181 General Appearance: alert EENT: normal ENT inspection Neck: supple Cardiovascular: normal rate Respiratory/Chest: decreased breath sounds Abdomen: normal bowel sounds, non tender, soft Extremities: non-tender Assessment/Plan Status: unchanged Assessment/Plan: Assessment/Plan: dysphagia AMS recent CVA elevate lipase elevated ALP gallstone [place] UTI improving lipase on oral diet ct and us from prior admission reviewed marinol ppi daily dietitian in put appreciated nephrovit fu nephrology recs push po's Dany Swain MD Aug 31, 2020 12:55
--- NOTE | 2020-08-31 13:06 | General Progress Note ---
Subjective Constitutional: Reports: weakness Allergies: Coded Allergies: PENICILLINS (Verified Allergy, Unknown, 12/02/18) All Systems: reviewed and negative except above Subjective sleepy calm Objective Last 24 Hour Vital Signs Date Time Temp Pulse Resp B/P (MAP) Pulse Ox O2 Delivery O2 Flow Rate FiO2 08/31/20 12:00 97.8 85 20 100/56 (71) 95 08/31/20 09:29 77 153/68 08/31/20 09:00 Room Air 08/31/20 08:00 98.0 77 20 153/68 (96) 95 08/31/20 04:08 98.1 76 16 121/55 (77) 91 08/30/20 23:55 98.6 83 17 102/64 (77) 95 08/30/20 20:50 97 113/68 08/30/20 20:12 Room Air 08/30/20 20:00 98.4 97 19 113/68 (83) 94 08/30/20 18:56 Room Air 08/30/20 17:10 Room Air 08/30/20 16:00 97.1 81 18 127/81 (96) 96 Intake and Output 08/30/20 08/31/20 19:00 07:00 Intake Total 360 ml 60 ml Output Total 300 ml Balance 60 ml 60 ml Intake Oral 360 ml Other 60 ml Output Urine Total 300 ml # Voids 3 1 # Bowel Movements 2 1 Laboratory Tests 08/31/20 05:58: White Blood Count 8.1, Red Blood Count 4.66L, Hemoglobin 13.9L, Hematocrit 45.1, Mean Corpuscular Volume 97, Mean Corpuscular Hemoglobin 29.9, Mean Corpuscular Hemoglobin Concent 30.9L, Red Cell Distribution Width 15.3H, Platelet Count 82L, Mean Platelet Volume 9.7, Neutrophils (%) (Auto) , Lymphocytes (%) (Auto) , Monocytes (%) (Auto) , Eosinophils (%) (Auto) , Basophils (%) (Auto) , Differential Total Cells Counted 100, Neutrophils % (Manual) 57, Lymphocytes % (Manual) 25, Monocytes % (Manual) 11H, Eosinophils % (Manual) 7H, Basophils % (Manual) 0, Band Neutrophils 0, Platelet Estimate DecreasedL, Platelet Mor phology Normal, Hypochromasia 1+, Anisocytosis 1+, Macrocytosis 1+, Sodium Level 142, Potassium Level 3.6, Chloride Level 105, Carbon Dioxide Level 29, Anion Gap 9, Blood Urea Nitrogen 19H, Creatinine 3.5H, Estimat Glomerular Filtration Rate 17.2, Glucose Level 80, Uric Acid 4.2, Calcium Level 8.6, Phosphorus Level 3.3, Magnesium Level 2.4, Total Bilirubin 0.6, Aspartate Amino Transf (AST/SGOT) 24, Alanine Aminotransferase (ALT/SGPT) 17, Alkaline Phosphatase 141H, C-Reactive Protein, Quantitative 2.1H, Total Protein 7.3, Albumin 3.5, Globulin 3.8, Albumin/Globulin Ratio 0.9L, HIV (1&2) Antibody Rapid Negative Height (Feet): 5 Height (Inches): 4.00 Weight (Pounds): 181 General Appearance: lethargic EENT: normal ENT inspection Neck: normal alignment Cardiovascular: normal peripheral pulses, normal rate, regular rhythm Respiratory/Chest: chest wall non-tender, lungs clear, normal breath sounds Abdomen: normal bowel sounds, non tender, soft Extremities: normal inspection Edema: no edema noted Arm (L), no edema noted Arm (R), no edema noted Leg (L), no edema noted Leg (R), no edema noted Pedal (L), no edema noted Pedal (R), no edema noted Generalized Neurologic: motor weakness Skin: normal pigmentation, warm/dry Assessment/Plan Problem List: (1) Episode of generalized weakness ICD Codes: R53.1 - Weakness SNOMED: 86073455 (2) Hypertension ICD Codes: I10 - Essential (primary) hypertension SNOMED: 34126213 (3) NOEMÍ (acute kidney injury) ICD Codes: N17.9 - Acute kidney failure, unspecified SNOMED: 81904834, 5743744 (4) Urinary tract infection ICD Codes: N39.0 - Urinary tract infection, site not specified SNOMED: 90086641 (5) Pancreatitis ICD Codes: K85.90 - Acute pancreatitis without necrosis or infection, unspecified SNOMED: 98175766 (6) Renal failure ICD Codes: N19 - Unspecified kidney failure SNOMED: 41100999 (7) Encephalopathy ICD Codes: G93.40 - Encephalopathy, unspecified SNOMED: 42615787 (8) CVA (cerebral vascular accident) ICD Codes: I63.9 - Cerebral infarction, unspecified SNOMED: 489191303 Status: unchanged Assessment/Plan: pt diet abx neph gi f/u cbc bmp am dc to snf if neph clear Andrea Trinidad DO Aug 31, 2020 13:05
[2020-08-31 16:00] VITALS: BP 106/68
[2020-08-31 20:00] VITALS: BP 115/70
[2020-09-01] VITALS (7 sets, daily range): BP systolic 101–130; BP diastolic 58–83
--- NOTE | 2020-09-01 07:54 | Infectious Diseases Prog Note ---
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 mirabilis -u/a wbc tnct, nit neg, leuk +1; ucx colonizers at this point Organism 1 A.BAUMANII COMPLX - MDR COLONY COUNT: 20,000 - 30,000 CFU/ML Organism 2 ENTEROCOCCUS FAECIUM COLONY COUNT: >100,000 CFU/ML ACIBCX-MDR ENT FAECIU M.I.C. RX M.I.C. RX --------- --- --------- --- AMPICILLIN >=32 R AMPICILLIN/SULBACTAM >=32 R CEFAZOLIN >=64 R CEFTAZIDIME R CEFTRIAXONE >=64 R CEFEPIME >=64 R CIPROFLOXACIN >=8 R GENTAMICIN >=16 R LEVOFLOXACIN >=8 R * MEROPENEM >=16 R NITROFURANTOIN 256 R TRIMETHOPRIM/SULFA >=320 R VANCOMYCIN <=0.5 S PIPERACILLIN/TAZOBACTAM >=128 R CKD Abd pain Acute pancreatitis -Abd US: No acute abnormality in the abdomen. Increased echogenicity of the left renal parenchyma could represent medical renal disease. hx of MDR ABC UTI and colonization -07/2020 -u/a wbc tnct, nit neg, leuk +3; ucx 60-70k MDR ABC (S Gentamycin, bactrim; R meropenem), >100k E. 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 We will continue to follow. Subjective Allergies: Coded Allergies: PENICILLINS (Verified Allergy, Unknown, 12/02/18) AF Off abx NAD in bed WBC 9.0 Objective Last 24 Hour Vital Signs Date Time Temp Pulse Resp B/P (MAP) Pulse Ox O2 Delivery O2 Flow Rate FiO2 09/01/20 04:00 97.5 82 20 105/58 (74) 97 09/01/20 00:00 97.7 84 20 130/60 (83) 98 08/31/20 21:00 Room Air 08/31/20 20:42 88 120/76 08/31/20 20:00 98.4 88 20 115/70 (85) 100 08/31/20 16:00 98.2 88 20 106/68 (81) 97 08/31/20 12:00 97.8 85 20 100/56 (71) 95 08/31/20 09:29 77 153/68 08/31/20 09:00 Room Air 08/31/20 08:00 98.0 77 20 153/68 (96) 95 Height (Feet): 5 Height (Inches): 4.00 Weight (Pounds): 181 Gen: NAD in bed HEENT: NCAT CV: RRR Pulm: CTAB Abd: Soft, NTND Ext: No c/c/e Neuro: Slightly agitated, awake, moving all extremities Current Medications Medications (Trade) Dose Ordered Sig/Markus Route PRN Reason Start Time Stop Time Status Last Admin Dose Admin Aspirin (ASA) 325 mg DAILY ORAL 08/20/20 09:00 10/04/20 08:59 08/31/20 09:28 Docusate Sodium (Colace) 100 mg THREE TIMES A DAY ORAL 08/28/20 13:00 09/27/20 12:59 08/31/20 17:06 Dronabinol (Marinol) 5 mg BID ORAL 08/24/20 09:00 11/22/20 08:59 08/31/20 17:06 Heparin Sodium (Porcine) (Heparin 5000 units/ml) 5,000 units EVERY 12 HOURS SUBQ 08/19/20 21:00 10/03/20 20:59 08/22/20 08:36 Metoprolol Tartrate (Lopressor) 12.5 mg Q12HR ORAL 08/19/20 21:00 11/17/20 20:59 08/31/20 20:42 Pantoprazole (Protonix) 40 mg DAILY ORAL 08/24/20 09:00 09/18/20 20:59 08/31/20 09:29 Quetiapine Fumarate (SEROqueL) 50 mg Q12HR ORAL 08/19/20 21:00 10/03/20 20:59 08/31/20 20:41 Vitamin B Complex/ Vit C/Folic Acid (Nephrovite) 1 tab DAILY ORAL 08/28/20 09:00 09/27/20 08:59 08/31/20 09:29 Maira Shepherd M.D. Sep 01, 2020 07:54
--- NOTE | 2020-09-01 07:59 | General Progress Note ---
Subjective ROS Limited/Unobtainable: No Allergies: Coded Allergies: PENICILLINS (Verified Allergy, Unknown, 12/02/18) Objective Last 24 Hour Vital Signs Date Time Temp Pulse Resp B/P (MAP) Pulse Ox O2 Delivery O2 Flow Rate FiO2 09/01/20 04:00 97.5 82 20 105/58 (74) 97 09/01/20 00:00 97.7 84 20 130/60 (83) 98 08/31/20 21:00 Room Air 08/31/20 20:42 88 120/76 08/31/20 20:00 98.4 88 20 115/70 (85) 100 08/31/20 16:00 98.2 88 20 106/68 (81) 97 08/31/20 12:00 97.8 85 20 100/56 (71) 95 08/31/20 09:29 77 153/68 08/31/20 09:00 Room Air 08/31/20 08:00 98.0 77 20 153/68 (96) 95 Intake and Output 08/31/20 09/01/20 19:00 07:00 Intake Total 320 ml 250 ml Balance 320 ml 250 ml Intake Oral 320 ml 250 ml # Voids 2 Height (Feet): 5 Height (Inches): 4.00 Weight (Pounds): 181 General Appearance: no apparent distress EENT: normal ENT inspection Neck: non-tender Cardiovascular: normal rate Respiratory/Chest: decreased breath sounds Abdomen: normal bowel sounds, non tender, soft Extremities: non-tender Assessment/Plan Status: unchanged Assessment/Plan: Assessment/Plan: dysphagia AMS recent CVA elevate lipase elevated ALP gallstone [place] UTI improving lipase on oral diet ct and us from prior admission reviewed marinol ppi daily dietitian in [facility] appreciated nephrovit fu nephrology recs push po's Dany Swain MD Sep 01, 2020 07:59
[2020-09-01] MEDS: Docusate 100mg cap ORAL SCH ×3 (08:06→17:10)
[2020-09-01] MEDS: Dronabinol 2.5mg Cap ORAL SCH ×2 (08:06→17:09)
[2020-09-01] MEDS: Nephrovite tab (Rena-Vite) ORAL SCH (08:06)
[2020-09-01] MEDS: Heparin 5000 units/ml inj SUBQ SCH ×2 (08:07→21:00)
[2020-09-01] MEDS: Metoprolol Tartrate 12.5mg TAB ORAL SCH ×2 (08:07→21:10)
[2020-09-01 09:31] LABS: HEMATOCRIT 45.7 % (42.0-52.0); MEAN CORPUSCULAR VOLUME 98 FL (80-99); PLATELET COUNT 80 K/UL (150-450); RED BLOOD COUNT 4.68 M/UL (4.70-6.10); RED CELL DISTRIBUTION WIDTH 14.7 % (11.6-14.8)
[2020-09-01 10:15] LABS: CALCIUM 8.5 MG/DL (8.5-10.1); CREATININE 3.8 MG/DL (0.55-1.30); POTASSIUM 3.9 MMOL/L (3.5-5.1)
--- NOTE | 2020-09-01 10:48 | General Progress Note ---
Subjective Constitutional: Reports: weakness Allergies: Coded Allergies: PENICILLINS (Verified Allergy, Unknown, 12/02/18) All Systems: reviewed and negative except above Subjective sleepy calm Objective Last 24 Hour Vital Signs Date Time Temp Pulse Resp B/P (MAP) Pulse Ox O2 Delivery O2 Flow Rate FiO2 09/01/20 09:00 Room Air 09/01/20 08:07 82 105/58 09/01/20 08:00 97.5 82 19 123/83 (96) 96 09/01/20 04:00 97.5 82 20 105/58 (74) 97 09/01/20 00:00 97.7 84 20 130/60 (83) 98 08/31/20 21:00 Room Air 08/31/20 20:42 88 120/76 08/31/20 20:00 98.4 88 20 115/70 (85) 100 08/31/20 16:00 98.2 88 20 106/68 (81) 97 08/31/20 12:00 97.8 85 20 100/56 (71) 95 Intake and Output 08/31/20 09/01/20 18:59 06:59 Intake Total 320 ml 250 ml Balance 320 ml 250 ml Intake Oral 320 ml 250 ml # Voids 2 Laboratory Tests 09/01/20 08:30: White Blood Count 9.0, Red Blood Count 4.68L, Hemoglobin 14.0L, Hematocrit 45.7, Mean Corpuscular Volume 98, Mean Corpuscular Hemoglobin 30.0, Mean Corpuscular Hemoglobin Concent 30.7L, Red Cell Distribution Width 14.7, Platelet Count 80L, Mean Platelet Volume 7.9, Neutrophils (%) (Auto) , Lymphocytes (%) (Auto) , Monocytes (%) (Auto) , Eosinophils (%) (Auto) , Basophils (%) (Auto) , Differential Total Cells Counted 100, Neutrophils % (Manual) 55, Lymphocytes % ( Manual) 30, Monocytes % (Manual) 8, Eosinophils % (Manual) 7H, Basophils % (Manual) 0, Band Neutrophils 0, Platelet Estimate DecreasedL, Platelet Morphology Normal, Red Blood Cell Morphology Normal, Sodium Level 139, Potassium Level 3.9, Chloride Level 104, Carbon Dioxide Level 26, Anion Gap 9, Blood Urea Nitrogen 28H, Creatinine 3.8H, Estimat Glomerular Filtration Rate 15.6, Glucose Level 87, Calcium Level 8.5 Height (Feet): 5 Height (Inches): 4.00 Weight (Pounds): 181 General Appearance: lethargic EENT: normal ENT inspection Neck: normal alignment Cardiovascular: normal peripheral pulses, normal rate, regular rhythm Respiratory/Chest: chest wall non-tender, lungs clear, normal breath sounds Abdomen: normal bowel sounds, non tender, soft Extremities: normal inspection Edema: no edema noted Arm (L), no edema noted Arm (R), no edema noted Leg (L), no edema noted Leg (R), no edema noted Pedal (L), no edema noted Pedal (R), no edema noted Generalized Neurologic: motor weakness Skin: normal pigmentation, warm/dry Assessment/Plan Problem List: (1) Episode of generalized weakness ICD Codes: R53.1 - Weakness SNOMED: 85173512 (2) Hypertension ICD Codes: I10 - Essential (primary) hypertension SNOMED: 96802001 (3) NOEMÍ (acute kidney injury) ICD Codes: N17.9 - Acute kidney failure, unspecified SNOMED: 14709870, 8974857 (4) Urinary tract infection ICD Codes: N39.0 - Urinary tract infection, site not specified SNOMED: 26037533 (5) Pancreatitis ICD Codes: K85.90 - Acute pancreatitis without necrosis or infection, uns pecified SNOMED: 93660873 (6) Renal failure ICD Codes: N19 - Unspecified kidney failure SNOMED: 24265036 (7) Encephalopathy ICD Codes: G93.40 - Encephalopathy, unspecified SNOMED: 26492689 (8) CVA (cerebral vascular accident) ICD Codes: I63.9 - Cerebral infarction, unspecified SNOMED: 213379984 Status: unchanged Assessment/Plan: pt diet abx neph gi f/u cbc bmp am dc to snf if neph clear Andrea Trinidad DO Sep 01, 2020 10:48
--- NOTE | 2020-09-01 13:07 | Nephrology Progress Note ---
Assessment/Plan Problem List: (1) Renal failure (ARF), acute on chronic (2) Pancreatitis (3) Urinary tract infection (4) Elevated lipase (5) CVA (cerebral vascular accident) (6) Uremic encephalopathy Plan September 01: Labs reviewed. Due for dialysis today. Mental status appeared to have improved. Continue per current management. August 31: Labs reviewed. Dialyzed yesterday. Sitting up in chair with the aid of his and face timing with his children and grandchildren. Mental status improving. Hemodialysis in a.m. Continue placement and outpatient dialysis management. Discussed with caser up. August 30: No labs drawn today. Due for dialysis today. Remains encephalopathic. Partly due to language barrier. Continue per consultants. August 29: Labs reviewed. Dialyzed yesterday. Will dialyze tomorrow. Guru fu per consultants. Outpatient dialysis placement upon discharge. August 28: and grandson in the room. When family present patient is calm. Patient is due for dialysis today. Medications and labs reviewed. Continue per consultants. August 27: Dialyzed August 26. CRP adam. On antibiotics. Remains encephalopathic. Continue dialysis as needed. Neurology and psychiatry evaluation pending. August 26: Patient dialyzed August 24. Today's labs pending. Mental status somewhat unchanged. Hemodialysis as needed. Neuro/psych eval would be helpful. August 25: Patient dialyzed yesterday. Will dialyze tomorrow. Remains encephalopathic. Consider neuro evaluation CT Head Jul 2019 Subtle focal asymmetric hypodensity in the right parieto-occipital region concerning for ischemia, age indeterminate but possibly acute. Correlate clinically. Recommend MRI for further evaluation as clinically indicated. No acute intracranial hemorrhage or shift of the midline structures. Atrophy and nonspecific periventricular hypoattenuation suggestive of chronic ischemic microvascular changes. August 24: Patient has right chest permacath. Due for dialysis today. Labs reviewed. August 23: Remains encephalopathic. Due for dialysis catheter and initiation of hemodialysis. August 22: Patient status unchanged. Due for placement of tunneled dialysis catheter tomorrow. Treatment of UTI defer to ID. Labs and medications reviewed. August 21: Dialysis catheter ordered to be placed yesterday was not done by radiology. Will wait for placement of the dialysis catheter prior to discharge. Meanwhile we will treat the urinary tract infection. Labs reviewed. Medication list reviewed. Discussed with son. Continue n.p.o. pending GI evaluation for high lipase Proceed with placement of tunneled dialysis catheter, and initiate dialysis Keep the blood pressure in check Per orders Subjective ROS Limited/Unobtainable: No Constitutional: Reports: malaise, weakness Objective Objective Last 24 Hour Vital Signs Date Time Temp Pulse Resp B/P (MAP) Pulse Ox O2 Delivery O2 Flow Rate FiO2 09/01/20 12:00 98.4 90 18 101/60 (74) 95 09/01/20 09:00 Room Air 09/01/20 08:07 82 105/58 09/01/20 08:00 97.5 82 19 123/83 (96) 96 09/01/20 04:00 97.5 82 20 105/58 (74) 97 09/01/20 00:00 97.7 84 20 130/60 (83) 98 08/31/20 21:00 Room Air 08/31/20 20:42 88 120/76 08/31/20 20:00 98.4 88 20 115/70 (85) 100 08/31/20 16:00 98.2 88 20 106/68 (81) 97 Intake and Output 08/31/20 09/01/20 19:00 07:00 Intake Total 320 ml 250 ml Balance 320 ml 250 ml Intake Oral 320 ml 250 ml # Voids 2 Current Medications Medications (Trade) Dose Ordered Sig/Markus Route PRN Reason Start Time Stop Time Status Last Admin Dose Admin Aspirin (ASA) 325 mg DAILY ORAL 08/20/20 09:00 10/04/20 08:59 09/01/20 08:06 Docusate Sodium (Colace) 100 mg THREE TIMES A DAY ORAL 08/28/20 13:00 09/27/20 12:59 09/01/20 12:14 Dronabinol (Marinol) 5 mg BID ORAL 08/24/20 09:00 11/22/20 08:59 09/01/20 08:06 Heparin Sodium (Porcine) (Heparin 5000 units/ml) 5,000 units EVERY 12 HOURS SUBQ 08/19/20 21:00 10/03/20 20:59 08/22/20 08:36 Metoprolol Tartrate (Lopressor) 12.5 mg Q12HR ORAL 08/19/20 21:00 11/17/20 20:59 08/31/20 20:42 Pantoprazole (Protonix) 40 mg DAILY ORAL 08/24/20 09:00 09/18/20 20:59 09/01/20 08:07 Quetiapine Fumarate (SEROqueL) 50 mg Q12HR ORAL 08/19/20 21:00 10/03/20 20:59 09/01/20 08:06 Vitamin B Complex/ Vit C/Folic Acid (Nephrovite) 1 tab DAILY ORAL 08/28/20 09:00 09/27/20 08:59 09/01/20 08:06 Laboratory Tests 09/01/20 08:30: White Blood Count 9.0, Red Blood Count 4.68L, Hemoglobin 14.0L, Hematocrit 45.7, Mean Corpuscular Volume 98, Mean Corpuscular Hemoglobin 30.0, Mean Corpuscular Hemoglobin Concent 30.7L, Red Cell Distribution Width 14.7, Platelet Count 80L, Mean Platelet Volume 7.9, Neutrophils (%) (Auto) , Lymphocytes (%) (Auto) , Monocytes (%) (Auto) , Eosinophils (%) (Auto) , Basophils (%) (Auto) , Differential Total Cells Counted 100, Neutrophils % (Manual) 55, Lymphocytes % (Manual) 30, Monocytes % (Manual) 8, Eosinophils % (Manual) 7H, Basophils % (Manual) 0, Band Neutrophils 0, Platelet Estimate DecreasedL, Platelet Morphology Normal, Red Blood Cell Morphology Normal, Sodium Level 139, Potassium Level 3.9, Chloride Level 104, Carbon Dioxide Level 26, Anion Gap 9, Blood Urea Nitrogen 28H, Creatinine 3.8H, Estimat Glomerular Filtration Rate 15.6, Glucose Level 87, Calcium Level 8.5 Height (Feet): 5 Height (Inches): 4.00 Weight (Pounds): 181 General Appearance: no apparent distress Cardiovascular: normal rate Respiratory/Chest: decreased breath sounds Abdomen: soft Objective No change Silvio Reddy MD Sep 01, 2020 13:07
[2020-09-02] VITALS: BP 122/65
[2020-09-02 04:00] VITALS: BP 127/60
--- NOTE | 2020-09-02 07:09 | Infectious Diseases Prog Note ---
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 mirabilis -u/a wbc tnct, nit neg, leuk +1; ucx colonizers at this point Organism 1 A.BAUMANII COMPLX - MDR COLONY COUNT: 20,000 - 30,000 CFU/ML Organism 2 ENTEROCOCCUS FAECIUM COLONY COUNT: >100,000 CFU/ML ACIBCX-MDR ENT FAECIU M.I.C. RX M.I.C. RX --------- --- --------- --- AMPICILLIN >=32 R AMPICILLIN/SULBACTAM >=32 R CEFAZOLIN >=64 R CEFTAZIDIME R CEFTRIAXONE >=64 R CEFEPIME >=64 R CIPROFLOXACIN >=8 R GENTAMICIN >=16 R LEVOFLOXACIN >=8 R * MEROPENEM >=16 R NITROFURANTOIN 256 R TRIMETHOPRIM/SULFA >=320 R VANCOMYCIN <=0.5 S PIPERACILLIN/TAZOBACTAM >=128 R CKD Abd pain Acute pancreatitis -Abd US: No acute abnormality in the abdomen. Increased echogenicity of the left renal parenchyma could represent medical renal disease. hx of MDR ABC UTI and colonization -07/2020 -u/a wbc tnct, nit neg, leuk +3; ucx 60-70k MDR ABC (S Gentamycin, bactrim; R meropenem), >100k E. 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 We will continue to follow. Subjective Allergies: Coded Allergies: PENICILLINS (Verified Allergy, Unknown, 12/02/18) AF Off abx NAD in bed WBC 9.9, Cr 3.2, improving Objective Last 24 Hour Vital Signs Date Time Temp Pulse Resp B/P (MAP) Pulse Ox O2 Delivery O2 Flow Rate FiO2 09/02/20 04:00 98.0 80 20 127/60 (82) 97 09/02/20 04:00 83 09/02/20 00:00 98.5 76 18 122/65 (84) 95 09/02/20 00:00 89 09/01/20 22:10 98.1 84 18 112/70 (84) 97 09/01/20 22:10 89 09/01/20 21:10 89 125/76 09/01/20 21:00 Room Air 09/01/20 20:00 98.5 89 18 111/64 (80) 96 09/01/20 16:00 97.7 88 18 109/70 (83) 97 09/01/20 12:00 98.4 90 18 101/60 (74) 95 09/01/20 09:00 Room Air 09/01/20 08:07 82 105/58 09/01/20 08:00 97.5 82 19 123/83 (96) 96 Height (Feet): 5 Height (Inches): 4.00 Weight (Pounds): 181 Gen: NAD in bed HEENT: NCAT Pulm: BL chest rise on RA Abd: Soft, NTND Ext: No c/c/e Neuro: Slightly agitated, awake, moving all extremities Laboratory Tests Test 09/01/20 08:30 09/02/20 06:10 White Blood Count 9.0 K/UL (4.8-10.8) Pending Red Blood Count 4.68 M/UL (4.70-6.10) L Pending Hemoglobin 14.0 G/DL (14.2-18.0) L Pending Hematocrit 45.7 % (42.0-52.0) Pending Mean Corpuscular Volume 98 FL (80-99) Pending Mean Corpuscular Hemoglobin 30.0 PG (27.0-31.0) Pending Mean Corpuscular Hemoglobin Concent 30.7 G/DL (32.0-36.0) L Pending Red Cell Distribution Width 14.7 % (11.6-14.8) Pending Platelet Count 80 K/UL (150-450) L Pending Mean Platelet Volume 7.9 FL (6.5-10.1) Pending Neutrophils (%) (Auto) % (45.0-75.0) Pending Lymphocytes (%) (Auto) % (20.0-45.0) Pending Monocytes (%) (Auto) % (1.0-10.0) Pending Eosinophils (%) (Auto) % (0.0-3.0) Pending Basophils (%) (Auto) % (0.0-2.0) Pending Differential Total Cells Counted 100 Neutrophils % (Manual) 55 % (45-75) Lymphocytes % (Manual) 30 % (20-45) Monocytes % (Manual) 8 % (1-10) Eosinophils % (Manual) 7 % (0-3) H Basophils % (Manual) 0 % (0-2) Band Neutrophils 0 % (0-8) Platelet Estimate Decreased L Platelet Morphology Normal Red Blood Cell Morphology Normal Sodium Level 139 MMOL/L (136-145) Pending Potassium Level 3.9 MMOL/L (3.5-5.1) Pending Chloride Level 104 MMOL/L (98-107) Pending Carbon Dioxide Level 26 MMOL/L (21-32) Pending Anion Gap 9 mmol/L (5-15) Blood Urea Nitrogen 28 mg/dL (7-18) H Pending Creatinine 3.8 MG/DL (0.55-1.30) H Pending Estimat Glomerular Filtration Rate 15.6 mL/min (>60) Pending Glucose Level 87 MG/DL (74-106) Pending Calcium Level 8.5 MG/DL (8.5-10.1) Pending Phosphorus Level Pending Magnesium Level Pending Total Bilirubin Pending Aspartate Amino Transf (AST/SGOT) Pending Alanine Aminotransferase (ALT/SGPT) Pending Alkaline Phosphatase Pending Troponin I Pending C-Reactive Protein, Quantitative Pending Pro-B-Type Natriuretic Peptide Pending Total Protein Pending Albumin Pending Globulin Pending Current Medications Medications (Trade) Dose Ordered Sig/Markus Route PRN Reason Start Time Stop Time Status Last Admin Dose Admin Aspirin (ASA) 325 mg DAILY ORAL 08/20/20 09:00 10/04/20 08:59 09/01/20 08:06 Docusate Sodium (Colace) 100 mg THREE TIMES A DAY ORAL 08/28/20 13:00 09/27/20 12:59 09/01/20 17:10 Dronabinol (Marinol) 5 mg BID ORAL 08/24/20 09:00 11/22/20 08:59 09/01/20 17:09 Heparin Sodium (Porcine) (Heparin 5000 units/ml) 5,000 units EVERY 12 HOURS SUBQ 08/19/20 21:00 10/03/20 20:59 08/22/20 08:36 Metoprolol Tartrate (Lopressor) 12.5 mg Q12HR ORAL 08/19/20 21:00 11/17/20 20:59 09/01/20 21:10 Pantoprazole (Protonix) 40 mg DAILY ORAL 08/24/20 09:00 09/18/20 20:59 09/01/20 08:07 Quetiapine Fumarate (SEROqueL) 50 mg Q12HR ORAL 08/19/20 21:00 10/03/20 20:59 09/01/20 21:09 Vitamin B Complex/ Vit C/Folic Acid (Nephrovite) 1 tab DAILY ORAL 08/28/20 09:00 09/27/20 08:59 09/01/20 08:06 Maira Shepherd M.D. Sep 02, 2020 07:09
[2020-09-02 07:34] LABS: HEMATOCRIT 40.6 % (42.0-52.0); HEMOGLOBIN 13.3 G/DL (14.2-18.0); MEAN CORPUSCULAR VOLUME 91 FL (80-99); PLATELET COUNT 50 K/UL (150-450); RED BLOOD COUNT 4.45 M/UL (4.70-6.10); RED CELL DISTRIBUTION WIDTH 15.3 % (11.6-14.8); WHITE BLOOD COUNT 9.9 K/UL (4.8-10.8)
[2020-09-02 08:00] VITALS: BP 105/64
[2020-09-02 08:14] LABS: ALBUMIN 3.2 G/DL (3.4-5.0); ALBUMIN/GLOBULIN RATIO 0.8 (1.0-2.7); BILIRUBIN,TOTAL 0.4 MG/DL (0.2-1.0); CALCIUM 8.7 MG/DL (8.5-10.1); CREATININE 3.2 MG/DL (0.55-1.30); PHOSPHORUS 3.6 MG/DL (2.5-4.9)
[2020-09-02] MEDS: Heparin 5000 units/ml inj SUBQ SCH ×2 (08:54→20:07)
[2020-09-02] MEDS: Dronabinol 2.5mg Cap ORAL SCH ×2 (09:00→16:59)
[2020-09-02] MEDS: Nephrovite tab (Rena-Vite) ORAL SCH (09:00)
[2020-09-02] MEDS: Docusate 100mg cap ORAL SCH ×3 (09:00→16:58)
[2020-09-02] MEDS: Metoprolol Tartrate 12.5mg TAB ORAL SCH (09:00)
--- NOTE | 2020-09-02 10:30 | Nephrology Progress Note ---
Assessment/Plan Problem List: (1) Renal failure (ARF), acute on chronic (2) Pancreatitis (3) Urinary tract infection (4) Elevated lipase (5) CVA (cerebral vascular accident) (6) Uremic encephalopathy Plan September 02: Patient now in telemetry unit. Complains of chest pain yesterday during dialysis. It appears that chest pain relates to the site where the dialysis catheter is inserted. Patient stable at this time with no distress. Labs reviewed. Medication list reviewed. Due for dialysis tomorrow. Continue per consultants. September 01: Labs reviewed. Due for dialysis today. Mental status appeared to have improved. Continue per current management. August 31: Labs reviewed. Dialyzed yesterday. Sitting up in chair with the aid of his and face timing with his children and grandchildren. Mental status improving. Hemodialysis in a.m. Continue placement and outpatient dialysis management. Discussed with case management manager. August 30: No labs drawn today. Due for dialysis today. Remains encephalopathic. Partly due to language barrier. Continue per consultants. August 29: Labs reviewed. Dialyzed yesterday. Will dialyze tomorrow. Continue per consultants. Outpatient dialysis placement upon discharge. August 28: and grandson in the room. When family present patient is calm. Patient is due for dialysis today. Medications and labs reviewed. Continue per consultants. August 27: Dialyzed August 26. CRP adam. On antibiotics. Remains encephalopathic. Continue dialysis as needed. Neurology and psychiatry evaluation pending. August 26: Patient dialyzed August 24. Today's labs pending. Mental status somewhat unchanged. Hemodialysis as needed. Neuro/psych eval would be helpful. August 25: Patient dialyzed yesterday. Will dialyze tomorrow. Remains encephalopathic. Consider neuro evaluation CT Head Jul 2019 Subtle focal asymmetric hypodensity in the right parieto-occipital region concerning for ischemia, age indeterminate but possibly acute. Correlate clinically. Recommend MRI for further evaluation as clinically indicated. No acute intracranial hemorrhage or shift of the midline structures. Atrophy and nonspecific periventricular hypoattenuation suggestive of chronic ischemic microvascular changes. August 24: Patient has right chest permacath. Due for dialysis today. Labs reviewed. August 23: Remains encephalopathic. Due for dialysis catheter and initiation of hemodialysis. August 22: Patient status unchanged. Due for placement of tunneled dialysis catheter tomorrow. Treatment of UTI defer to ID. Labs and medications reviewed. August 21: Dialysis catheter ordered to be placed yesterday was not done by radiology. Will wait for placement of the dialysis catheter prior to discharge. Meanwhile we will treat the urinary tract infection. Labs reviewed. Medication list reviewed. Discussed with son. Continue n.p.o. pending GI evaluation for high lipase Proceed with placement of tunneled dialysis catheter, and initiate dialysis Keep the blood pressure in check Per orders Subjective ROS Limited/Unobtainable: No Constitutional: Reports: malaise Objective Objective Last 24 Hour Vital Signs Date Time Temp Pulse Resp B/P (MAP) Pulse Ox O2 Delivery O2 Flow Rate FiO2 09/02/20 09:30 Room Air 09/02/20 09:00 77 105/64 09/02/20 08:00 97.9 86 20 105/64 (78) 93 09/02/20 08:00 77 09/02/20 04:00 98.0 80 20 127/60 (82) 97 09/02/20 04:00 83 09/02/20 00:00 98.5 76 18 122/65 (84) 95 09/02/20 00:00 89 09/01/20 22:10 98.1 84 18 112/70 (84) 97 09/01/20 22:10 89 09/01/20 21:10 89 125/76 09/01/20 21:00 Room Air 09/01/20 20:00 98.5 89 18 111/64 (80) 96 09/01/20 16:00 97.7 88 18 109/70 (83) 97 09/01/20 12:00 98.4 90 18 101/60 (74) 95 Intake and Output 09/01/20 09/02/20 19:00 07:00 Intake Total 360 ml 200 ml Balance 360 ml 200 ml Intake Oral 360 ml 200 ml # Voids 3 1 Current Medications Medications (Trade) Dose Ordered Sig/Markus Route PRN Reason Start Time Stop Time Status Last Admin Dose Admin Aspirin (ASA) 325 mg DAILY ORAL 08/20/20 09:00 10/04/20 08:59 09/02/20 09:00 Docusate Sodium (Colace) 100 mg THREE TIMES A DAY ORAL 08/28/20 13:00 09/27/20 12:59 09/02/20 09:00 Dronabinol (Marinol) 5 mg BID ORAL 08/24/20 09:00 2/8/21 08:59 09/02/20 09:00 Heparin Sodium (Porcine) (Heparin 5000 units/ml) 5,000 units EVERY 12 HOURS SUBQ 08/19/20 21:00 10/03/20 20:59 08/22/20 08:36 Metoprolol Tartrate (Lopressor) 12.5 mg Q12HR ORAL 08/19/20 21:00 11/17/20 20:59 09/02/20 09:00 Pantoprazole (Protonix) 40 mg DAILY ORAL 08/24/20 09:00 09/18/20 20:59 09/02/20 09:00 Quetiapine Fumarate (SEROqueL) 50 mg Q12HR ORAL 08/19/20 21:00 10/03/20 20:59 09/02/20 09:00 Vitamin B Complex/ Vit C/Folic Acid (Nephrovite) 1 tab DAILY ORAL 08/28/20 09:00 09/27/20 08:59 09/02/20 09:00 Laboratory Tests 09/02/20 06:10: White Blood Count 9.9, Red Blood Count 4.45L, Hemoglobin 13.3L, Hematocrit 40.6L , Mean Corpuscular Volume 91, Mean Corpuscular Hemoglobin 29.9, Mean Corpuscular Hemoglobin Concent 32.8, Red Cell Distribution Width 15.3H, Platelet Count 50L, Mean Platelet Volume 9.5, Neutrophils (%) (Auto) , Lymphocytes (%) (Auto) , Monocytes (%) (Auto) , Eosinophils (%) (Auto) , Basophils (%) (Auto) , Neutrophils % (Manual) [Pending], Lymphocytes % (Manual) [Pending], Platelet Estimate [Pending], Platelet Morphology [Pending], Sodium Level 138, Potassium Level 4.0, Chloride Level 103, Carbon Dioxide Level 24, Anion Gap 11, Blood Urea Nitrogen 25H, Creatinine 3.2H, Estimat Glomerular Filtration Rate 19.0, Glucose Level 96, Calcium Level 8.7, Phosphorus Level 3.6, Magnesium Level 2.4, Total Bilirubin 0.4, Aspartate Amino Transf (AST/SGOT) 23, Alanine Aminotransferase (ALT/SGPT) 11L, Alkaline Phosphatase 148H, Troponin I 0.013, C-Reactive Protein, Quantitative 1.8H, Pro-B-Type Natriuretic Peptide 180H, Total Protein 7.1, Albumin 3.2L, Globulin 3.9, Albumin/Globulin Ratio 0.8L Height (Feet): 5 Height (Inches): 4.00 Weight (Pounds): 181 General Appearance: no apparent distress Cardiovascular: normal rate Respiratory/Chest: decreased breath sounds Abdomen: soft Objective No change Silvio Reddy MD Sep 02, 2020 10:30
[2020-09-02 12:05] VITALS: BP 90/57
--- NOTE | 2020-09-02 12:50 | General Progress Note ---
Subjective Constitutional: Reports: weakness Allergies: Coded Allergies: PENICILLINS (Verified Allergy, Unknown, 12/02/18) All Systems: reviewed and negative except above Subjective sleepy calm Objective Last 24 Hour Vital Signs Date Time Temp Pulse Resp B/P (MAP) Pulse Ox O2 Delivery O2 Flow Rate FiO2 09/02/20 12:05 96.9 78 20 90/57 (68) 95 09/02/20 09:30 Room Air 09/02/20 09:00 77 105/64 09/02/20 08:00 97.9 86 20 105/64 (78) 93 09/02/20 08:00 77 09/02/20 04:00 98.0 80 20 127/60 (82) 97 09/02/20 04:00 83 09/02/20 00:00 98.5 76 18 122/65 (84) 95 09/02/20 00:00 89 09/01/20 22:10 98.1 84 18 112/70 (84) 97 09/01/20 22:10 89 09/01/20 21:10 89 125/76 09/01/20 21:00 Room Air 09/01/20 20:00 98.5 89 18 111/64 (80) 96 09/01/20 16:00 97.7 88 18 109/70 (83) 97 Intake and Output 09/01/20 09/02/20 19:00 07:00 Intake Total 360 ml 200 ml Balance 360 ml 200 ml Intake Oral 360 ml 200 ml # Voids 3 1 Laboratory Tests 09/02/20 06:10: White Blood Count 9.9, Red Blood Count 4.45L, Hemoglobin 13.3L, Hematocrit 40.6L , Mean Corpuscular Volume 91, Mean Corpuscular Hemoglobin 29.9, Mean Corpuscular Hemoglobin Concent 32.8, Red Cell Distribution Width 15.3H, Platelet Count 50L, Mean Platelet Volume 9.5, Neutrophils (%) (Auto) , Lymphocytes (%) (Auto) , Monocytes (%) (Auto) , Eosinophils (%) (Auto) , Basophils (%) (Auto) , Differential Total Cells Counted 100, Neutrophils % (Manual) 55, Lymphocytes % (Manual) 31, Monocytes % (Manual) 6, Eosinophils % (Manual) 8H, Basophils % (Manual) 0, Band Neutrophils 0, Platelet Estimate DecreasedL, Platelet Morphology Normal, Anisocytosis 1+, Sodium Level 138, Potassium Level 4.0, Chloride Level 103, Carbon Dioxide Level 24, Anion Gap 11, Blood Urea Nitrogen 25H, Creatinine 3.2H, Estimat Glomerular Filtration Rate 19.0, Glucose Level 96, Calcium Level 8.7, Phosphorus Level 3.6, Magnesium Level 2.4, Total Bilirubin 0.4, Aspartate Amino Transf (AST/SGOT) 23, Alanine Aminotransferase (ALT/SGPT) 11L, Alkaline Phosphatase 148H, Troponin I 0.013, C-Reactive Protein, Quantitative 1.8H, Pro-B-Type Natriuretic Peptide 180H, Total Protein 7.1, Albumin 3.2L, Globulin 3.9, Albumin/Globulin Ratio 0.8L Height (Feet): 5 Height (Inches): 4.00 Weight (Pounds): 181 General Appearance: lethargic EENT: normal ENT inspection Neck: normal alignment Cardiovascular: normal peripheral pulses, normal rate, regular rhythm Respiratory/Chest: chest wall non-tender, lungs clear, normal breath sounds Abdomen: normal bowel sounds, non tender, soft Extremities: normal inspection Edema: no edema noted Arm (L), no edema noted Arm (R), no edema noted Leg (L), no edema noted Leg (R), no edema noted Pedal (L), no edema noted Pedal (R), no edema noted Generalized Neurologic: motor weakness Skin: normal pigmentation, warm/dry Assessment/Plan Problem List: (1) Episode of generalized weakness ICD Codes: R53.1 - Weakness SNOMED: 27464494 (2) Hypertension ICD Codes: I10 - Essential (primary) hypertension SNOMED: 00090178 (3) NOEMÍ (acute kidney injury) ICD Codes: N17.9 - Acute kidney failure, unspecified SNOMED: 58405610, 8265058 (4) Urinary tract infection ICD Codes: N39.0 - Urinary tract infection, site not specified SNOMED: 76065027 (5) Pancreatitis ICD Codes: K85.90 - Acute pancreatitis without necrosis or infection, unspecified SNOMED: 05650801 (6) Renal failure ICD Codes: N19 - Unspecified kidney failure SNOMED: 25823301 (7) Encephalopathy ICD Codes: G93.40 - Encephalopathy, unspecified SNOMED: 82930467 (8) CVA (cerebral vascular accident) ICD Codes: I63.9 - Cerebral infarction, unspecified SNOMED: 877495031 Status: unchanged Assessment/Plan: pt diet abx neph gi f/u cbc bmp am dc to snf if neph clear Andrea Trinidad DO Sep 02, 2020 12:50
--- NOTE | 2020-09-02 13:16 | General Progress Note ---
Subjective ROS Limited/Unobtainable: No Allergies: Coded Allergies: PENICILLINS (Verified Allergy, Unknown, 12/02/18) Objective Last 24 Hour Vital Signs Date Time Temp Pulse Resp B/P (MAP) Pulse Ox O2 Delivery O2 Flow Rate FiO2 09/02/20 12:05 96.9 78 20 90/57 (68) 95 09/02/20 12:00 79 09/02/20 09:30 Room Air 09/02/20 09:00 77 105/64 09/02/20 08:00 97.9 86 20 105/64 (78) 93 09/02/20 08:00 77 09/02/20 04:00 98.0 80 20 127/60 (82) 97 09/02/20 04:00 83 09/02/20 00:00 98.5 76 18 122/65 (84) 95 09/02/20 00:00 89 09/01/20 22:10 98.1 84 18 112/70 (84) 97 09/01/20 22:10 89 09/01/20 21:10 89 125/76 09/01/20 21:00 Room Air 09/01/20 20:00 98.5 89 18 111/64 (80) 96 09/01/20 16:00 97.7 88 18 109/70 (83) 97 Intake and Output 09/01/20 09/02/20 19:00 07:00 Intake Total 360 ml 200 ml Balance 360 ml 200 ml Intake Oral 360 ml 200 ml # Voids 3 1 Laboratory Tests 09/02/20 06:10: White Blood Count 9.9, Red Blood Count 4.45L, Hemoglobin 13.3L, Hematocrit 40.6L , Mean Corpuscular Volume 91, Mean Corpuscular Hemoglobin 29.9, Mean Corpuscular Hemoglobin Concent 32.8, Red Cell Distribution Width 15.3H, Platelet Count 50L, Mean Platelet Volume 9.5, Neutrophils (%) (Auto) , Lymphocytes (%) (Auto) , Monocytes (%) (Auto) , Eosinophils (%) (Auto) , Basophils (%) (Auto) , Differential Total Cells Counted 100, Neutrophils % (Manual) 55, Lymphocytes % (Manual) 31, Monocytes % (Manual) 6, Eosinophils % (Manual) 8H, Basophils % (Manual) 0, Band Neutrophils 0, Platelet Estimate DecreasedL, Platelet Morphology Normal, Anisocytosis 1+, Sodium Level 138, Potassium Level 4.0, Chloride Level 103, Carbon Dioxide Level 24, Anion Gap 11, Blood Urea Nitrogen 25H, Creatinine 3.2H, Estimat Glomerular Filtration Rate 19.0, Glucose Level 96, Calcium Level 8.7, Phosphorus Level 3.6, Magnesium Level 2.4, Total Bilirubin 0.4, Aspartate Amino Transf (AST/SGOT) 23, Alanine Aminotransferase (ALT/SGPT) 11L, Alkaline Phosphatase 148H, Troponin I 0.013, C-Reactive Protein, Quantitative 1.8H, Pro-B-Type Natriuretic Peptide 180H, Total Protein 7.1, Albumin 3.2L, Globulin 3.9, Albumin/Globulin Ratio 0.8L Height (Feet): 5 Height (Inches): 4.00 Weight (Pounds): 181 General Appearance: no apparent distress EENT: normal ENT inspection Neck: supple Cardiovascular: normal rate Respiratory/Chest: decreased breath sounds Abdomen: normal bowel sounds, non tender, soft Extremities: non-tender Assessment/Plan Status: unchanged Assessment/Plan: Assessment/Plan: dysphagia AMS recent CVA elevate lipase elevated ALP gallstone RI UTI on oral diet ct and us from prior admission reviewed marinol ppi daily dietitian in put appreciated nephrovit fu nephrology recs push po's Dany Swain MD Sep 02, 2020 13:16
[2020-09-02 16:00] VITALS: BP 98/56
--- NOTE | 2020-09-02 16:17 | Cardiac Electrophysiology PN ---
Subjective Subjective [id number] Objective Last 24 Hour Vital Signs Date Time Temp Pulse Resp B/P (MAP) Pulse Ox O2 Delivery O2 Flow Rate FiO2 09/02/20 12:05 96.9 78 20 90/57 (68) 95 09/02/20 12:00 79 09/02/20 09:30 Room Air 09/02/20 09:00 77 105/64 09/02/20 08:00 97.9 86 20 105/64 (78) 93 09/02/20 08:00 77 09/02/20 04:00 98.0 80 20 127/60 (82) 97 09/02/20 04:00 83 09/02/20 00:00 98.5 76 18 122/65 (84) 95 09/02/20 00:00 89 09/01/20 22:10 98.1 84 18 112/70 (84) 97 09/01/20 22:10 89 09/01/20 21:10 89 125/76 09/01/20 21:00 Room Air 09/01/20 20:00 98.5 89 18 111/64 (80) 96 Intake and Output 09/01/20 09/02/20 19:00 07:00 Intake Total 360 ml 200 ml Balance 360 ml 200 ml Intake Oral 360 ml 200 ml # Voids 3 1 Laboratory Tests Test 09/02/20 06:10 White Blood Count 9.9 K/UL (4.8-10.8) Red Blood Count 4.45 M/UL (4.70-6.10) L Hemoglobin 13.3 G/DL (14.2-18.0) L Hematocrit 40.6 % (42.0-52.0) L Mean Corpuscular Volume 91 FL (80-99) Mean Corpuscular Hemoglobin 29.9 PG (27.0-31.0) Mean Corpuscular Hemoglobin Concent 32.8 G/DL (32.0-36.0) Red Cell Distribution Width 15.3 % (11.6-14.8) H Platelet Count 50 K/UL (150-450) L Mean Platelet Volume 9.5 FL (6.5-10.1) Neutrophils (%) (Auto) % (45.0-75.0) Lymphocytes (%) (Auto) % (20.0-45.0) Monocytes (%) (Auto) % (1.0-10.0) Eosinophils (%) (Auto) % (0.0-3.0) Basophils (%) (Auto) % (0.0-2.0) Differential Total Cells Counted 100 Neutrophils % (Manual) 55 % (45-75) Lymphocytes % (Manual) 31 % (20-45) Monocytes % (Manual) 6 % (1-10) Eosinophils % (Manual) 8 % (0-3) H Basophils % (Manual) 0 % (0-2) Band Neutrophils 0 % (0-8) Platelet Estimate Decreased L Platelet Morphology Normal Anisocytosis 1+ Sodium Level 138 MMOL/L (136-145) Potassium Level 4.0 MMOL/L (3.5-5.1) Chloride Level 103 MMOL/L (98-107) Carbon Dioxide Level 24 MMOL/L (21-32) Anion Gap 11 mmol/L (5-15) Blood Urea Nitrogen 25 mg/dL (7-18) H Creatinine 3.2 MG/DL (0.55-1.30) H Estimat Glomerular Filtration Rate 19.0 mL/min (>60) Glucose Level 96 MG/DL (74-106) Calcium Level 8.7 MG/DL (8.5-10.1) Phosphorus Level 3.6 MG/DL (2.5-4.9) Magnesium Level 2.4 MG/DL (1.8-2.4) Total Bilirubin 0.4 MG/DL (0.2-1.0) Aspartate Amino Transf (AST/SGOT) 23 U/L (15-37) Alanine Aminotransferase (ALT/SGPT) 11 U/L (12-78) L Alkaline Phosphatase 148 U/L (46-116) H Troponin I 0.013 ng/mL (0.000-0.056) C-Reactive Protein, Quantitative 1.8 mg/dL (0.00-0.90) H Pro-B-Type Natriuretic Peptide 180 pg/mL (0-125) H Total Protein 7.1 G/DL (6.4-8.2) Albumin 3.2 G/DL (3.4-5.0) L Globulin 3.9 g/dL Albumin/Globulin Ratio 0.8 (1.0-2.7) Kory Shine MD Sep 02, 2020 16:17
[2020-09-02 20:00] VITALS: BP 107/55
--- NOTE | 2020-09-02 21:15 | Consultation ---
DATE OF CONSULTATION: 09/02/2020 CARDIOLOGY CONSULTATION CONSULTING PHYSICIAN: Kory Glez M.D. REFERRING PHYSICIAN: Andrea Trinidad D.O. REASON FOR CONSULTATION: Hypotension and bradycardia. HISTORY OF PRESENT ILLNESS: The patient is a 75-year-old gentleman, who I am familiar with from previous admission just about a couple of weeks ago. The patient has history of hypertension and renal failure as well as history of stroke, urinary tract infection, and encephalopathy, who was just recently discharged and was readmitted for worsening renal failure as well as elevated lipase. The patient eventually underwent a PermCath placement on August 23, 2020 and is on hemodialysis under the management of Dr. Reddy. The patient was hypotensive and bradycardic and was transferred to telemetry floor for close observation. EKG shows sinus rhythm with nonspecific ST-T wave abnormalities. At the time of my evaluation, the patient is confused, in the restraints, and is unable to provide any information. REVIEW OF SYSTEMS: Cannot be obtained. PAST MEDICAL HISTORY: As mentioned above. MEDICATIONS: Per reconciliation. ALLERGIES: He is allergic to penicillin. PHYSICAL EXAMINATION: VITAL SIGNS: Blood pressure is 90/57, pulse is 70, respirations 18, and temperature is 97. HEAD AND NECK: Showed no JVD. LUNGS: Coarse rhonchi. CARDIOVASCULAR: Shows regular S1 and S2 with no gallop. ABDOMEN: Soft. EXTREMITIES: No pitting edema. LABORATORY AND DIAGNOSTIC DATA: His labs show white count of 9.9, hemoglobin 13.2, hematocrit of 40.6, and platelet count of only 50,000. Sodium is 138, potassium 4.0, BUN of 25, creatinine 3.2, and glucose of 96. Troponin is 0.013. ASSESSMENT AND PLAN: 1. Hypertension. The initial troponin was 0.09 and second troponin is also negative. The patient does not have any chest pain. His echocardiogram was on August 03, 2020 and that showed ejection fraction of 55 to 60 percent. 2. Hypotension. I would discontinue the patient's metoprolol. 3. End-stage renal disease, on hemodialysis via PermCath. Under the management of Dr. Redyd. 4. Acute pancreatitis. 5. History of MDR UTI and colonization. 6. CVA with right-sided weakness. History of . 7. Status post right hip arthroplasty. 8. Chronic left cardiac fracture. 9. Diabetes. Thank you very much for allowing me to participate in the care of this patient. Please do not hesitate to contact me for any questions regarding my evaluation. Kory Glez M.D. DR: TIARRA JOB#: [id number] CC:
[2020-09-03] VITALS: BP 98/62
[2020-09-03 04:00] VITALS: BP 110/60
[2020-09-03 07:17] LABS: HEMATOCRIT 45.7 % (42.0-52.0); HEMOGLOBIN 14.1 G/DL (14.2-18.0); MEAN CORPUSCULAR VOLUME 97 FL (80-99); PLATELET COUNT 64 K/UL (150-450); RED BLOOD COUNT 4.69 M/UL (4.70-6.10); RED CELL DISTRIBUTION WIDTH 15.5 % (11.6-14.8)
--- NOTE | 2020-09-03 07:20 | Infectious Diseases Prog Note ---
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 mirabilis -u/a wbc tnct, nit neg, leuk +1; ucx colonizers at this point Organism 1 A.BAUMANII COMPLX - MDR COLONY COUNT: 20,000 - 30,000 CFU/ML Organism 2 ENTEROCOCCUS FAECIUM COLONY COUNT: >100,000 CFU/ML ACIBCX-MDR ENT FAECIU M.I.C. RX M.I.C. RX --------- --- --------- --- AMPICILLIN >=32 R AMPICILLIN/SULBACTAM >=32 R CEFAZOLIN >=64 R CEFTAZIDIME R CEFTRIAXONE >=64 R CEFEPIME >=64 R CIPROFLOXACIN >=8 R GENTAMICIN >=16 R LEVOFLOXACIN >=8 R * MEROPENEM >=16 R NITROFURANTOIN 256 R TRIMETHOPRIM/SULFA >=320 R VANCOMYCIN <=0.5 S PIPERACILLIN/TAZOBACTAM >=128 R CKD Abd pain Acute pancreatitis -Abd US: No acute abnormality in the abdomen. Increased echogenicity of the left renal parenchyma could represent medical renal disease. hx of MDR ABC UTI and colonization -07/2020 -u/a wbc tnct, nit neg, leuk +3; ucx 60-70k MDR ABC (S Gentamycin, bactrim; R meropenem), >100k E. 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 We will continue to follow. Subjective Allergies: Coded Allergies: PENICILLINS (Verified Allergy, Unknown, 12/02/18) AF Off abx WBC up to 12 Objective Last 24 Hour Vital Signs Date Time Temp Pulse Resp B/P (MAP) Pulse Ox O2 Delivery O2 Flow Rate FiO2 09/03/20 04:00 83 09/03/20 04:00 96.5 83 20 110/60 (77) 99 09/03/20 00:00 97.7 80 18 98/62 (74) 98 09/03/20 00:00 81 09/02/20 21:00 Room Air 09/02/20 20:00 82 09/02/20 20:00 97.5 80 20 107/55 (72) 98 09/02/20 16:00 97.9 80 18 98/56 (70) 96 09/02/20 16:00 81 09/02/20 12:05 96.9 78 20 90/57 (68) 95 09/02/20 12:00 79 09/02/20 09:30 Room Air 09/02/20 09:00 77 105/64 09/02/20 08:00 97.9 86 20 105/64 (78) 93 09/02/20 08:00 77 Height (Feet): 5 Height (Inches): 4.00 Weight (Pounds): 181 Gen: NAD in bed HEENT: NCAT Pulm: BL chest rise on RA Abd: Soft, NTND Ext: No c/c/e Neuro: Slightly agitated, awake, moving all extremities Laboratory Tests Test 09/03/20 06:30 White Blood Count Pending Red Blood Count Pending Hemoglobin Pending Hematocrit Pending Mean Corpuscular Volume Pending Mean Corpuscular Hemoglobin Pending Mean Corpuscular Hemoglobin Concent Pending Red Cell Distribution Width Pending Platelet Count Pending Mean Platelet Volume Pending Neutrophils (%) (Auto) Pending Lymphocytes (%) (Auto) Pending Monocytes (%) (Auto) Pending Eosinophils (%) (Auto) Pending Basophils (%) (Auto) Pending Sodium Level Pending Potassium Level Pending Chloride Level Pending Carbon Dioxide Level Pending Blood Urea Nitrogen Pending Creatinine Pending Estimat Glomerular Filtration Rate Pending Glucose Level Pending Calcium Level Pending Amylase Level Pending Lipase Pending Current Medications Medications (Trade) Dose Ordered Sig/Markus Route PRN Reason Start Time Stop Time Status Last Admin Dose Admin Aspirin (ASA) 325 mg DAILY ORAL 08/20/20 09:00 10/04/20 08:59 09/02/20 09:00 Docusate Sodium (Colace) 100 mg THREE TIMES A DAY ORAL 08/28/20 13:00 09/27/20 12:59 09/02/20 16:58 Dronabinol (Marinol) 5 mg BID ORAL 08/24/20 09:00 11/22/20 08:59 09/02/20 16:59 Heparin Sodium (Porcine) (Heparin 5000 units/ml) 5,000 units EVERY 12 HOURS SUBQ 08/19/20 21:00 10/03/20 20:59 08/22/20 08:36 Pantoprazole (Protonix) 40 mg DAILY ORAL 08/24/20 09:00 09/18/20 20:59 09/02/20 09:00 Quetiapine Fumarate (SEROqueL) 50 mg Q12HR ORAL 08/19/20 21:00 10/03/20 20:59 09/02/20 20:07 Vitamin B Complex/ Vit C/Folic Acid (Nephrovite) 1 tab DAILY ORAL 08/28/20 09:00 09/27/20 08:59 09/02/20 09:00 Maira Shepherd M.D. Sep 03, 2020 07:20
[2020-09-03 07:36] LABS: CALCIUM 8.5 MG/DL (8.5-10.1); POTASSIUM 3.5 MMOL/L (3.5-5.1)
[2020-09-03 07:47] LABS: AMYLASE 139 U/L (25-115)
[2020-09-03 08:00] VITALS: BP 114/71
[2020-09-03] MEDS: Heparin 5000 units/ml inj SUBQ SCH ×2 (08:22→21:00)
[2020-09-03] MEDS: Dronabinol 2.5mg Cap ORAL SCH ×2 (08:36→16:59)
[2020-09-03] MEDS: Nephrovite tab (Rena-Vite) ORAL SCH (08:36)
[2020-09-03] MEDS: Docusate 100mg cap ORAL SCH ×3 (08:36→16:59)
--- NOTE | 2020-09-03 08:53 | General Progress Note ---
Subjective Constitutional: Reports: weakness Allergies: Coded Allergies: PENICILLINS (Verified Allergy, Unknown, 12/02/18) All Systems: reviewed and negative except above Subjective sleepy calm Objective Last 24 Hour Vital Signs Date Time Temp Pulse Resp B/P (MAP) Pulse Ox O2 Delivery O2 Flow Rate FiO2 09/03/20 08:00 98.1 94 20 114/71 (85) 96 09/03/20 04:00 83 09/03/20 04:00 96.5 83 20 110/60 (77) 99 09/03/20 00:00 97.7 80 18 98/62 (74) 98 09/03/20 00:00 81 09/02/20 21:00 Room Air 09/02/20 20:00 82 09/02/20 20:00 97.5 80 20 107/55 (72) 98 09/02/20 16:00 97.9 80 18 98/56 (70) 96 09/02/20 16:00 81 09/02/20 12:05 96.9 78 20 90/57 (68) 95 09/02/20 12:00 79 09/02/20 09:30 Room Air 09/02/20 09:00 77 105/64 Intake and Output 09/02/20 09/03/20 19:00 07:00 Intake Total 360 ml Output Total 400 ml 250 ml Balance -40 ml -250 ml Intake Oral 360 ml Output Urine Total 400 ml 250 ml # Voids 1 1 Laboratory Tests 09/03/20 06:30: White Blood Count 12.0H, Red Blood Count 4.69L, Hemoglobin 14.1L, Hematocrit 45.7, Mean Corpuscular Volume 97, Mean Corpuscular Hemoglobin 30.0, Mean Corpuscular Hemoglobin Concent 30.8L, Red Cell Distribution Width 15.5H, Platelet Count 64L, Mean Platelet Volume 9.3, Neutrophils (%) (Auto) , Lymphocytes (%) (Auto) , Monocytes (%) (Auto) , Eosinophils (%) (Auto) , Basophils (%) (Auto) , Neutrophils % (Manual) [Pending], Lymphocytes % (Manual) [Pending], Platelet Estimate [Pending], Platelet Morphology [Pending], Sodium Level 140, Potassium Level 3.5, Chloride Level 103, Carbon Dioxide Level 27, Anion Gap 10, Blood Urea Nitrogen 41H, Creatinine 4.0H, Estimat Glomerular Filtration Rate 14.7, Glucose Level 88, Calcium Level 8.5, Amylase Level 139H, Lipase 451H Height (Feet): 5 Height (Inches): 4.00 Weight (Pounds): 181 General Appearance: lethargic EENT: normal ENT inspection Neck: normal alignment Cardiovascular: normal peripheral pulses, normal rate, regular rhythm Respiratory/Chest: chest wall non-tender, lungs clear, normal breath sounds Abdomen: normal bowel sounds, non tender, soft Extremities: normal inspection Edema: no edema noted Arm (L), no edema noted Arm (R), no edema noted Leg (L), no edema noted Leg (R), no edema noted Pedal (L), no edema noted Pedal (R), no edema noted Generalized Neurologic: motor weakness Skin: normal pigmentation, warm/dry Assessment/Plan Problem List: (1) Episode of generalized weakness ICD Codes: R53.1 - Weakness SNOMED: 90722988 (2) Hypertension ICD Codes: I10 - Essential (primary) hypertension SNOMED: 93170470 (3) NOEMÍ (acute kidney injury) ICD Codes: N17.9 - Acute kidney failure, unspecified SNOMED: 59699628, 7132619 (4) Urinary tract infection ICD Codes: N39.0 - Urinary tract infection, site not specified SNOMED: 25114094 (5) Pancreatitis ICD Codes: K85.90 - Acute pancreatitis without necrosis or infection, unspecified SNOMED: 56787997 (6) Renal failure ICD Codes: N19 - Unspecified kidney failure SNOMED: 26558002 (7) Encephalopathy ICD Codes: G93.40 - Encephalopathy, unspecified SNOMED: 65165742 (8) CVA (cerebral vascular accident) ICD Codes: I63.9 - Cerebral infarction, unspecified SNOMED: 787240349 Status: unchanged Assessment/Plan: pt diet abx neph gi f/u cbc bmp am dc to snf if neph clear Andrea Trinidad DO Sep 03, 2020 08:53
--- NOTE | 2020-09-03 10:27 | General Progress Note ---
Subjective ROS Limited/Unobtainable: No Allergies: Coded Allergies: PENICILLINS (Verified Allergy, Unknown, 12/02/18) Objective Last 24 Hour Vital Signs Date Time Temp Pulse Resp B/P (MAP) Pulse Ox O2 Delivery O2 Flow Rate FiO2 09/03/20 08:00 98.1 94 20 114/71 (85) 96 09/03/20 04:00 83 09/03/20 04:00 96.5 83 20 110/60 (77) 99 09/03/20 00:00 97.7 80 18 98/62 (74) 98 09/03/20 00:00 81 09/02/20 21:00 Room Air 09/02/20 20:00 82 09/02/20 20:00 97.5 80 20 107/55 (72) 98 09/02/20 16:00 97.9 80 18 98/56 (70) 96 09/02/20 16:00 81 09/02/20 12:05 96.9 78 20 90/57 (68) 95 09/02/20 12:00 79 Intake and Output 09/02/20 09/03/20 19:00 07:00 Intake Total 360 ml Output Total 400 ml 250 ml Balance -40 ml -250 ml Intake Oral 360 ml Output Urine Total 400 ml 250 ml # Voids 1 1 Laboratory Tests 09/03/20 06:30: White Blood Count 12.0H, Red Blood Count 4.69L, Hemoglobin 14.1L, Hematocrit 45.7, Mean Corpuscular Volume 97, Mean Corpuscular Hemoglobin 30.0, Mean Corpuscular Hemoglobin Concent 30.8L, Red Cell Distribution Width 15.5H, Platelet Count 64L, Mean Platelet Volume 9.3, Neutrophils (%) (Auto) , Lymphocytes (%) (Auto) , Monocytes (%) (Auto) , Eosinophils (%) (Auto) , Basophils (%) (Auto) , Differential Total Cells Counted 100, Neutrophils % (Manual) 58, Lymphocytes % (Manual) 23, Monocytes % (Manual) 7, Eosinophils % (Manual) 12H, Basophils % (Manual) 0, Band Neutrophils 0, Platelet Estimate DecreasedL, Platelet Morphology Normal, Anisocytosis 1+, Sodium Level 140, Potassium Level 3.5, Chloride Level 103, Carbon Dioxide Level 27, Anion Gap 10, Blood Urea Nitrogen 41H, Creatinine 4.0H, Estimat Glomerular Filtration Rate 14.7, Glucose Level 88, Calcium Level 8.5, Amylase Level 139H, Lipase 451H Height (Feet): 5 Height (Inches): 4.00 Weight (Pounds): 181 General Appearance: no apparent distress EENT: normal ENT inspection Neck: supple Cardiovascular: normal rate Respiratory/Chest: decreased breath sounds Abdomen: normal bowel sounds, non tender, soft Extremities: non-tender Assessment/Plan Status: unchanged Assessment/Plan: Assessment/Plan: dysphagia AMS recent CVA elevate lipase elevated ALP gallstone RI UTI on oral diet ct and us from prior admission reviewed marinol ppi daily nephrovit fu nephrology recs push po's still on restrains mild elevated lipase again Dany Swain MD Sep 03, 2020 10:27
--- NOTE | 2020-09-03 11:40 | Cardiac Electrophysiology PN ---
Assessment/Plan Assessment/Plan 1. AMS. Ruled out for SD. The patient does not have any chest pain. His echocardiogram was on August 03, 2020 and that showed ejection fraction of 55 to 60 percent. 2. Hypotension. Now off metoprolol. 3. End-stage renal disease, on hemodialysis via Right chest PermCath. Under the management of Dr. Reddy. AV shunt pending? 4. Acute pancreatitis. 5. History of MDR UTI and colonization. 6. CVA with right-sided weakness. 7. Status post right hip arthroplasty. 8. Chronic left cardiac fracture. 9. Diabetes. Subjective Subjective Confused in restraints.Will be getting HD via Right chest Permcath. Objective Last 24 Hour Vital Signs Date Time Temp Pulse Resp B/P (MAP) Pulse Ox O2 Delivery O2 Flow Rate FiO2 09/03/20 08:00 98.1 94 20 114/71 (85) 96 09/03/20 04:00 83 09/03/20 04:00 96.5 83 20 110/60 (77) 99 09/03/20 00:00 97.7 80 18 98/62 (74) 98 09/03/20 00:00 81 09/02/20 21:00 Room Air 09/02/20 20:00 82 09/02/20 20:00 97.5 80 20 107/55 (72) 98 09/02/20 16:00 97.9 80 18 98/56 (70) 96 09/02/20 16:00 81 09/02/20 12:05 96.9 78 20 90/57 (68) 95 09/02/20 12:00 79 Intake and Output 09/02/20 09/03/20 19:00 07:00 Intake Total 360 ml Output Total 400 ml 250 ml Balance -40 ml -250 ml Intake Oral 360 ml Output Urine Total 400 ml 250 ml # Voids 1 1 Laboratory Tests Test 09/03/20 06:30 White Blood Count 12.0 K/UL (4.8-10.8) H Red Blood Count 4.69 M/UL (4.70-6.10) L Hemoglobin 14.1 G/DL (14.2-18.0) L Hematocrit 45.7 % (42.0-52.0) Mean Corpuscular Volume 97 FL (80-99) Mean Corpuscular Hemoglobin 30.0 PG (27.0-31.0) Mean Corpuscular Hemoglobin Concent 30.8 G/DL (32.0-36.0) L Red Cell Distribution Width 15.5 % (11.6-14.8) H Platelet Count 64 K/UL (150-450) L Mean Platelet Volume 9.3 FL (6.5-10.1) Neutrophils (%) (Auto) % (45.0-75.0) Lymphocytes (%) (Auto) % (20.0-45.0) Monocytes (%) (Auto) % (1.0-10.0) Eosinophils (%) (Auto) % (0.0-3.0) Basophils (%) (Auto) % (0.0-2.0) Differential Total Cells Counted 100 Neutrophils % (Manual) 58 % (45-75) Lymphocytes % (Manual) 23 % (20-45) Monocytes % (Manual) 7 % (1-10) Eosinophils % (Manual) 12 % (0-3) H Basophils % (Manual) 0 % (0-2) Band Neutrophils 0 % (0-8) Platelet Estimate Decreased L Platelet Morphology Normal Anisocytosis 1+ Sodium Level 140 MMOL/L (136-145) Potassium Level 3.5 MMOL/L (3.5-5.1) Chloride Level 103 MMOL/L (98-107) Carbon Dioxide Level 27 MMOL/L (21-32) Anion Gap 10 mmol/L (5-15) Blood Urea Nitrogen 41 mg/dL (7-18) H Creatinine 4.0 MG/DL (0.55-1.30) H Estimat Glomerular Filtration Rate 14.7 mL/min (>60) Glucose Level 88 MG/DL (74-106) Calcium Level 8.5 MG/DL (8.5-10.1) Amylase Level 139 U/L (25-115) H Lipase 451 U/L (73-393) H Objective HEAD AND NECK: No JVD. LUNGS: Coarse rhonchi.Right chest PermCath CARDIOVASCULAR: Regular S1 and S2 with no gallop. ABDOMEN: Soft. EXTREMITIES: No pitting edema. Kory Glez MD Sep 03, 2020 11:40
[2020-09-03 12:00] VITALS: BP 126/78
--- NOTE | 2020-09-03 13:18 | Nephrology Progress Note ---
Assessment/Plan Problem List: (1) Renal failure (ARF), acute on chronic (2) Pancreatitis (3) Urinary tract infection (4) Elevated lipase (5) CVA (cerebral vascular accident) (6) Uremic encephalopathy Plan September 03: Labs reviewed. Due for dialysis today. Medication list reviewed. Clinically appears stable. Will check labs tomorrow. Continue per consultants. September 02: Patient now in telemetry unit. Complains of chest pain yesterday during dialysis. It appears that chest pain relates to the site where the dialysis catheter is inserted. Patient stable at this time with no distress. Labs reviewed. Medication list reviewed. Due for dialysis tomorrow. Continue per consultants. September 01: Labs reviewed. Due for dialysis today. Mental status appeared to have improved. Continue per current management. August 31: Labs reviewed. Dialyzed yesterday. Sitting up in chair with the aid of his and face timing with his children and grandchildren. Mental status improving. Hemodialysis in a.m. Continue placement and outpatient dialysis management. Discussed with pillowcase cutter. August 30: No labs drawn today. Due for dialysis today. Remains encephalopathic. Partly due to language barrier. Continue per consultants. August 29: Labs reviewed. Dialyzed yesterday. Will dialyze tomorrow. Continue per consultants. Outpatient dialysis placement upon discharge. August 28: and grandson in the room. When family present patient is ca lm. Patient is due for dialysis today. Medications and labs reviewed. Continue per consultants. August 27: Dialyzed August 26. CRP adam. On antibiotics. Remains encephalopathic. Continue dialysis as needed. Neurology and psychiatry evaluation pending. August 26: Patient dialyzed August 24. Today's labs pending. Mental status somewhat unchanged. Hemodialysis as needed. Neuro/psych eval would be helpful. August 25: Patient dialyzed yesterday. Will dialyze tomorrow. Remains encephalopathic. Consider neuro evaluation CT Head Jul 2019 Subtle focal asymmetric hypodensity in the right parieto-occipital region concerning for ischemia, age indeterminate but possibly acute. Correlate clinically. Recommend MRI for further evaluation as clinically indicated. No acute intracranial hemorrhage or shift of the midline structures. Atrophy and nonspecific periventricular hypoattenuation suggestive of chronic ischemic microvascular changes. August 24: Patient has right chest permacath. Due for dialysis today. Labs reviewed. August 23: Remains encephalopathic. Due for dialysis catheter and initiation of hemodialysis. August 22: Patient status unchanged. Due for placement of tunneled dialysis catheter tomorrow. Treatment of UTI defer to ID. Labs and medications reviewed. August 21: Dialysis catheter ordered to be placed yesterday was not done by radiology. Will wait for placement of the dialysis catheter prior to discharge. Meanwhile we will treat the urinary tract infection. Labs reviewed. Medication list reviewed. Discussed with son. Continue n.p.o. pending GI evaluation for high lipase Proceed with placement of tunneled dialysis catheter, and initiate dialysis Keep the blood pressure in check Per orders Subjective ROS Limited/Unobtainable: No Constitutional: Reports: malaise Objective Objective Last 24 Hour Vital Signs Date Time Temp Pulse Resp B/P (MAP) Pulse Ox O2 Delivery O2 Flow Rate FiO2 09/03/20 12:00 96.6 87 18 126/78 (94) 97 09/03/20 09:00 Room Air 09/03/20 08:00 98.1 94 20 114/71 (85) 96 09/03/20 08:00 84 09/03/20 04:00 83 09/03/20 04:00 96.5 83 20 110/60 (77) 99 09/03/20 00:00 97.7 80 18 98/62 (74) 98 09/03/20 00:00 81 09/02/20 21:00 Room Air 09/02/20 20:00 82 09/02/20 20:00 97.5 80 20 107/55 (72) 98 09/02/20 16:00 97.9 80 18 98/56 (70) 96 09/02/20 16:00 81 Intake and Output 09/02/20 09/03/20 19:00 07:00 Intake Total 360 ml Output Total 400 ml 250 ml Balance -40 ml -250 ml Intake Oral 360 ml Output Urine Total 400 ml 250 ml # Voids 1 1 Current Medications Medications (Trade) Dose Ordered Sig/Markus Route PRN Reason Start Time Stop Time Status Last Admin Dose Admin Aspirin (ASA) 325 mg DAILY ORAL 08/20/20 09:00 10/04/20 08:59 09/02/20 09:00 Docusate Sodium (Colace) 100 mg THREE TIMES A DAY ORAL 08/28/20 13:00 09/27/20 12:59 09/03/20 08:36 Dronabinol (Marinol) 5 mg BID ORAL 08/24/20 09:00 11/22/20 08:59 09/03/20 08:36 Heparin Sodium (Porcine) (Heparin 5000 units/ml) 5,000 units EVERY 12 HOURS SUBQ 08/19/20 21:00 10/03/20 20:59 08/22/20 08:36 Pantoprazole (Protonix) 40 mg DAILY ORAL 08/24/20 09:00 09/18/20 20:59 09/03/20 08:35 Quetiapine Fumarate (SEROqueL) 50 mg Q12HR ORAL 08/19/20 21:00 10/03/20 20:59 09/03/20 08:36 Vitamin B Complex/ Vit C/Folic Acid (Nephrovite) 1 tab DAILY ORAL 08/28/20 09:00 09/27/20 08:59 09/03/20 08:36 Laboratory Tests 09/03/20 06:30: White Blood Count 12.0H, Red Blood Count 4.69L, Hemoglobin 14.1L, Hematocrit 45.7, Mean Corpuscular Volume 97, Mean Corpuscular Hemoglobin 30.0, Mean Corpuscular Hemoglobin Concent 30.8L, Red Cell Distribution Width 15.5H, Platelet Count 64L, Mean Platelet Volume 9.3, Neutrophils (%) (Auto) , Lymphocytes (%) (Auto) , Monocytes (%) (Auto) , Eosinophils (%) (Auto) , Basophils (%) (Auto) , Differential Total Cells Counted 100, Neutrophils % (Manual) 58, Lymphocytes % (Manual) 23, Monocytes % (Manual) 7, Eosinophils % (Manual) 12H, Basophils % (Manual) 0, Band Neutrophils 0, Platelet Estimate DecreasedL, Platelet Morphology Normal, Anisocytosis 1+, Sodium Level 140, Potassium Level 3.5, Chloride Level 103, Carbon Dioxide Level 27, Anion Gap 10, Blood Urea Nitrogen 41H, Creatinine 4.0H, Estimat Glomerular Filtration Rate 14.7, Glucose Level 88, Calcium Level 8.5, Amylase Level 139H, Lipase 451H Height (Feet): 5 Height (Inches): 4.00 Weight (Pounds): 181 General Appearance: no apparent distress, lethargic Cardiovascular: normal rate Respiratory/Chest: decreased breath sounds Abdomen: distended Objective No change Silvio Reddy MD Sep 03, 2020 13:18
[2020-09-03 16:00] VITALS: BP 128/87
[2020-09-03 20:00] VITALS: BP 113/62
[2020-09-04] VITALS: BP 103/61
[2020-09-04 04:00] VITALS: BP 115/65
--- NOTE | 2020-09-04 07:57 | Infectious Diseases Prog Note ---
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 mirabilis -u/a wbc tnct, nit neg, leuk +1; ucx colonizers at this point Organism 1 A.BAUMANII COMPLX - MDR COLONY COUNT: 20,000 - 30,000 CFU/ML Organism 2 ENTEROCOCCUS FAECIUM COLONY COUNT: >100,000 CFU/ML ACIBCX-MDR ENT FAECIU M.I.C. RX M.I.C. RX --------- --- --------- --- AMPICILLIN >=32 R AMPICILLIN/SULBACTAM >=32 R CEFAZOLIN >=64 R CEFTAZIDIME R CEFTRIAXONE >=64 R CEFEPIME >=64 R CIPROFLOXACIN >=8 R GENTAMICIN >=16 R LEVOFLOXACIN >=8 R * MEROPENEM >=16 R NITROFURANTOIN 256 R TRIMETHOPRIM/SULFA >=320 R VANCOMYCIN <=0.5 S PIPERACILLIN/TAZOBACTAM >=128 R CKD Abd pain Acute pancreatitis -Abd US: No acute abnormality in the abdomen. Increased echogenicity of the left renal parenchyma could represent medical renal disease. hx of MDR ABC UTI and colonization -07/2020 -u/a wbc tnct, nit neg, leuk +3; ucx 60-70k MDR ABC (S Gentamycin, bactrim; R meropenem), >100k E. 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 We will continue to follow. Subjective Allergies: Coded Allergies: PENICILLINS (Verified Allergy, Unknown, 12/02/18) AF Off abx NAD WBC 9.5 improved at bedside Objective Last 24 Hour Vital Signs Date Time Temp Pulse Resp B/P (MAP) Pulse Ox O2 Delivery O2 Flow Rate FiO2 11/21/20 04:00 98.5 82 18 115/65 (82) 96 09/04/20 04:00 81 09/04/20 00:00 84 09/04/20 00:00 98.2 86 17 103/61 (75) 96 09/03/20 21:00 Room Air 09/03/20 20:00 84 09/03/20 20:00 98.4 84 18 113/62 (79) 96 09/03/20 16:00 98.1 71 20 128/87 (101) 96 09/03/20 16:00 96 09/03/20 12:00 92 09/03/20 12:00 96.6 87 18 126/78 (94) 97 09/03/20 09:00 Room Air 09/03/20 08:00 98.1 94 20 114/71 (85) 96 09/03/20 08:00 84 Height (Feet): 5 Height (Inches): 4.00 Weight (Pounds): 181 Gen: NAD in bed HEENT: NCAT Pulm: BL chest rise on RA Abd: Soft, NTND Ext: No c/c/e Neuro: Slightly agitated, awake, moving all extremities Current Medications Medications (Trade) Dose Ordered Sig/Markus Route PRN Reason Start Time Stop Time Status Last Admin Dose Admin Aspirin (ASA) 325 mg DAILY ORAL 08/20/20 09:00 10/04/20 08:59 09/02/20 09:00 Docusate Sodium (Colace) 100 mg THREE TIMES A DAY ORAL 08/28/20 13:00 09/27/20 12:59 09/03/20 08:36 Dronabinol (Marinol) 5 mg BID ORAL 08/24/20 09:00 11/22/20 08:59 09/03/20 08:36 Heparin Sodium (Porcine) (Heparin 5000 units/ml) 5,000 units EVERY 12 HOURS SUBQ 08/19/20 21:00 10/03/20 20:59 08/22/20 08:36 Pantoprazole (Protonix) 40 mg DAILY ORAL 08/24/20 09:00 09/18/20 20:59 09/03/20 08:35 Quetiapine Fumarate (SEROqueL) 50 mg Q12HR ORAL 08/19/20 21:00 10/03/20 20:59 09/03/20 21:41 Vitamin B Complex/ Vit C/Folic Acid (Nephrovite) 1 tab DAILY ORAL 08/28/20 09:00 09/27/20 08:59 09/03/20 08:36 Maira Shepherd M.D. Sep 04, 2020 07:57
[2020-09-04 08:00] VITALS: BP 137/68
[2020-09-04] MEDS: Dronabinol 2.5mg Cap ORAL SCH ×2 (08:58→17:03)
[2020-09-04] MEDS: Nephrovite tab (Rena-Vite) ORAL SCH (08:58)
[2020-09-04] MEDS: Docusate 100mg cap ORAL SCH ×3 (08:58→17:03)
[2020-09-04] MEDS: Heparin 5000 units/ml inj SUBQ SCH ×2 (08:58→20:49)
[2020-09-04 09:38] LABS: HEMATOCRIT 48.6 % (42.0-52.0); HEMOGLOBIN 14.9 G/DL (14.2-18.0); MEAN CORPUSCULAR VOLUME 98 FL (80-99); PLATELET COUNT 64 K/UL (150-450); RED BLOOD COUNT 4.97 M/UL (4.70-6.10); RED CELL DISTRIBUTION WIDTH 15.4 % (11.6-14.8); WHITE BLOOD COUNT 9.5 K/UL (4.8-10.8)
--- NOTE | 2020-09-04 09:54 | Nephrology Progress Note ---
Assessment/Plan Problem List: (1) Renal failure (ARF), acute on chronic (2) Pancreatitis (3) Urinary tract infection (4) Elevated lipase (5) CVA (cerebral vascular accident) (6) Uremic encephalopathy Plan September 04: Patient was dialyzed yesterday and mental status appears to have improved. Today's labs pending. Next dialysis is scheduled for Sunday unless he needs it earlier. September 03: Labs reviewed. Due for dialysis today. Medication list reviewed. Clinically appears stable. Will check labs tomorrow. Continue per consultants. September 02: Patient now in telemetry unit. Complains of chest pain yesterday during dialysis. It appears that chest pain relates to the site where the dialysis catheter is inserted. Patient stable at this time with no distress. Labs reviewed. Medication list reviewed. Due for dialysis tomorrow. Continue per consultants. September 01: Labs reviewed. Due for dialysis today. Mental status appeared to have improved. Continue per current management. August 31: Labs reviewed. Dialyzed yesterday. Sitting up in chair with the aid of his and face timing with his children and grandchildren. Mental status improving. Hemodialysis in a.m. Continue placement and outpatient dialysis management. Discussed with case worker. August 30: No labs drawn today. Due for dialysis today. Remains encephalopathic. Partly due to language barrier. Continue per consultants. August 29: Labs reviewed. Dialyzed yesterday. Will dialyze tomorrow. Continue per consultants. Outpatient dialysis placement upon discharge. August 28: and grandson in the room. When family present patient is calm. Patient is due for dialysis today. Medications and labs reviewed. Sara nue per consultants. August 27: Dialyzed August 26. CRP adam. On antibiotics. Remains encephalopathic. Continue dialysis as needed. Neurology and psychiatry evaluation pending. August 26: Patient dialyzed August 24. Today's labs pending. Mental status somewhat unchanged. Hemodialysis as needed. Neuro/psych eval would be helpful. August 25: Patient dialyzed yesterday. Will dialyze tomorrow. Remains encephalopathic. Consider neuro evaluation CT Head Jul 2019 Subtle focal asymmetric hypodensity in the right parieto-occipital region concerning for ischemia, age indeterminate but possibly acute. Correlate clinically. Recommend MRI for further evaluation as clinically indicated. No acute intracranial hemorrhage or shift of the midline structures. Atrophy and nonspecific periventricular hypoattenuation suggestive of chronic ischemic microvascular changes. August 24: Patient has right chest permacath. Due for dialysis today. Labs reviewed. August 23: Remains encephalopathic. Due for dialysis catheter and initiation of hemodialysis. August 22: Patient status unchanged. Due for placement of tunneled dialysis catheter tomorrow. Treatment of UTI defer to ID. Labs and medications reviewed. August 21: Dialysis catheter ordered to be placed yesterday was not done by radiology. Will wait for placement of the dialysis catheter prior to discharge. Meanwhile we will treat the urinary tract infection. Labs reviewed. Medication list reviewed. Discussed with son. Continue n.p.o. pending GI evaluation for high lipase Proceed with placement of tunneled dialysis catheter, and initiate dialysis Keep the blood pressure in check Per orders Subjective ROS Limited/Unobtainable: No Constitutional: Reports: malaise Objective Objective Last 24 Hour Vital Signs Date Time Temp Pulse Resp B/P (MAP) Pulse Ox O2 Delivery O2 Flow Rate FiO2 09/04/20 09:00 Room Air 09/04/20 08:00 97.9 85 19 137/68 (91) 97 09/04/20 08:00 79 09/04/20 04:00 98.5 82 18 115/65 (82) 96 09/04/20 04:00 81 09/04/20 00:00 84 09/04/20 00:00 98.2 86 17 103/61 (75) 96 09/03/20 21:00 Room Air 09/03/20 20:00 84 09/03/20 20:00 98.4 84 18 113/62 (79) 96 09/03/20 16:00 98.1 71 20 128/87 (101) 96 09/03/20 16:00 96 09/03/20 12:00 92 09/03/20 12:00 96.6 87 18 126/78 (94) 97 Intake and Output 09/03/20 09/04/20 19:00 07:00 Intake Total 30 ml Balance 30 ml Intake Oral 30 ml # Voids 4 # Bowel Movements 1 6 Current Medications Medications (Trade) Dose Ordered Sig/Markus Route PRN Reason Start Time Stop Time Status Last Admin Dose Admin Aspirin (ASA) 325 mg DAILY ORAL 08/20/20 09:00 10/04/20 08:59 09/04/20 08:59 Docusate Sodium (Colace) 100 mg THREE TIMES A DAY ORAL 08/28/20 13:00 09/27/20 12:59 09/04/20 08:58 Dronabinol (Marinol) 5 mg BID ORAL 08/24/20 09:00 11/22/20 08:59 09/04/20 08:58 Heparin Sodium (Porcine) (Heparin 5000 units/ml) 5,000 units EVERY 12 HOURS SUBQ 08/19/20 21:00 10/03/20 20:59 08/22/20 08:36 Pantoprazole (Protonix) 40 mg DAILY ORAL 08/24/20 09:00 09/18/20 20:59 09/04/20 08:58 Quetiapine Fumarate (SEROqueL) 50 mg Q12HR ORAL 08/19/20 21:00 10/03/20 20:59 09/04/20 08:58 Vitamin B Complex/ Vit C/Folic Acid (Nephrovite) 1 tab DAILY ORAL 08/28/20 09:00 09/27/20 08:59 09/04/20 08:58 Laboratory Tests 09/04/20 08:50: White Blood Count 9.5, Red Blood Count 4.97, Hemoglobin 14.9, Hematocrit 48.6, Mean Corpuscular Volume 98, Mean Corpuscular Hemoglobin 30.0, Mean Corpuscular Hemoglobin Concent 30.7L, Red Cell Distribution Width 15.4H, Platelet Count 64L, Mean Platelet Volume 10.0, Neutrophils (%) (Auto) , Lymphocytes (%) (Auto) , Monocytes (%) (Auto) , Eosinophils (%) (Auto) , Basophils (%) (Auto) , Neutrophils % (Manual) [Pending], Lymphocytes % (Manual) [Pending], Platelet Estimate [Pending], Platelet Morphology [Pending], Sodium Level [Pending], Potassium Level [Pending], Chloride Level [Pending], Carbon Dioxide Level [Pending], Blood Urea Nitrogen [Pending], Creatinine [Pending], Estimat Glomerular Filtration Rate [Pending], Glucose Level [Pending], Calcium Level [Pending], Phosphorus Level [Pending], Total Bilirubin [Pending], Aspartate Amino Transf (AST/SGOT) [Pending], Alanine Aminotransferase (ALT/SGPT) [Pending], Alkaline Phosphatase [Pending], Pro-B-Type Natriuretic Peptide [Pending], Total Protein [Pending], Albumin [Pending], Globulin [Pending], Amylase Level [Pending], Lipase [Pending] Height (Feet): 5 Height (Inches): 4.00 Weight (Pounds): 181 General Appearance: no apparent distress Cardiovascular: normal rate Respiratory/Chest: decreased breath sounds Abdomen: soft Objective No change Silvio Reddy MD Sep 04, 2020 09:54
--- NOTE | 2020-09-04 09:55 | General Progress Note ---
Subjective Constitutional: Reports: weakness Allergies: Coded Allergies: PENICILLINS (Verified Allergy, Unknown, 12/02/18) All Systems: reviewed and negative except above Subjective sleepy calm Objective Last 24 Hour Vital Signs Date Time Temp Pulse Resp B/P (MAP) Pulse Ox O2 Delivery O2 Flow Rate FiO2 09/04/20 09:00 Room Air 09/04/20 08:00 97.9 85 19 137/68 (91) 97 09/04/20 08:00 79 09/04/20 04:00 98.5 82 18 115/65 (82) 96 09/04/20 04:00 81 09/04/20 00:00 84 09/04/20 00:00 98.2 86 17 103/61 (75) 96 09/03/20 21:00 Room Air 09/03/20 20:00 84 09/03/20 20:00 98.4 84 18 113/62 (79) 96 09/03/20 16:00 98.1 71 20 128/87 (101) 96 09/03/20 16:00 96 09/03/20 12:00 92 09/03/20 12:00 96.6 87 18 126/78 (94) 97 Intake and Output 09/03/20 09/04/20 19:00 07:00 Intake Total 30 ml Balance 30 ml Intake Oral 30 ml # Voids 4 # Bowel Movements 1 6 Laboratory Tests 09/04/20 08:50: White Blood Count 9.5, Red Blood Count 4.97, Hemoglobin 14.9, Hematocrit 48.6, Mean Corpuscular Volume 98, Mean Corpuscular Hemoglobin 30.0, Mean Corpuscular Hemoglobin Concent 30.7L, Red Cell Distribution Width 15.4H, Platelet Count 64L, Mean Platelet Volume 10.0, Neutrophils (%) (Auto) , Lymphocytes (%) (Auto) , Monocytes (%) (Auto) , Eosinophils (%) (Auto) , Basophils (%) (Auto) , Ne utrophils % (Manual) [Pending], Lymphocytes % (Manual) [Pending], Platelet Estimate [Pending], Platelet Morphology [Pending], Sodium Level [Pending], Potassium Level [Pending], Chloride Level [Pending], Carbon Dioxide Level [Pending], Blood Urea Nitrogen [Pending], Creatinine [Pending], Estimat Glomerular Filtration Rate [Pending], Glucose Level [Pending], Calcium Level [Pending], Phosphorus Level [Pending], Total Bilirubin [Pending], Aspartate Amino Transf (AST/SGOT) [Pending], Alanine Aminotransferase (ALT/SGPT) [Pending], Alkaline Phosphatase [Pending], Pro-B-Type Natriuretic Peptide [Pending], Total Protein [Pending], Albumin [Pending], Globulin [Pending], Amylase Level [Pending], Lipase [Pending] Height (Feet): 5 Height (Inches): 4.00 Weight (Pounds): 181 General Appearance: lethargic EENT: normal ENT inspection Neck: normal alignment Cardiovascular: normal peripheral pulses, normal rate, regular rhythm Respiratory/Chest: chest wall non-tender, lungs clear, normal breath sounds Abdomen: normal bowel sounds, non tender, soft Extremities: normal inspection Edema: no edema noted Arm (L), no edema noted Arm (R), no edema noted Leg (L), no edema noted Leg (R), no edema noted Pedal (L), no edema noted Pedal (R), no edema noted Generalized Neurologic: motor weakness Skin: normal pigmentation, warm/dry Assessment/Plan Problem List: (1) Episode of generalized weakness ICD Codes: R53.1 - Weakness SNOMED: 29611534 (2) Hypertension ICD Codes: I10 - Essential (primary) hypertension SNOMED: 14056360 (3) NOEMÍ (acute kidney injury) ICD Codes: N17.9 - Acute kidney failure, unspecified SNOMED: 28334369, 9526465 (4) Urinary tract infection ICD Codes: N39.0 - Urinary tract infection, site not specified SNOMED: 87183460 (5) Pancreatitis ICD Codes: K85.90 - Acute pancreatitis without necrosis or infection, unspecified SNOMED: 17600452 (6) Renal failure ICD Codes: N19 - Unspecified kidney failure SNOMED: 45368483 (7) Encephalopathy ICD Codes: G93.40 - Encephalopathy, unspecified SNOMED: 29187677 (8) CVA (cerebral vascular accident) ICD Codes: I63.9 - Cerebral infarction, unspecified SNOMED: 022007870 Status: unchanged Assessment/Plan: pt diet abx neph gi f/u cbc bmp am dc to snf if neph clear Andrea Trinidad DO Sep 04, 2020 09:55
[2020-09-04 10:38] LABS: ALBUMIN 3.8 G/DL (3.4-5.0); ALBUMIN/GLOBULIN RATIO 0.9 (1.0-2.7); BILIRUBIN,TOTAL 0.7 MG/DL (0.2-1.0); CREATININE 2.9 MG/DL (0.55-1.30); POTASSIUM 4.9 MMOL/L (3.5-5.1)
[2020-09-04 11:03] LABS: PHOSPHORUS 3.1 MG/DL (2.5-4.9)
[2020-09-04 12:00] VITALS: BP 108/69
[2020-09-04 16:00] VITALS: BP 112/66
[2020-09-04 20:00] VITALS: BP 122/73
--- NOTE | 2020-09-04 20:47 | Cardiac Electrophysiology PN ---
Assessment/Plan Assessment/Plan 1. AMS. Ruled out for TN. The patient does not have any chest pain. Echo on August 03, 2020 showed ejection fraction of 55 to 60 percent. 2. Hypotension. Now off metoprolol. 3. End-stage renal disease, on hemodialysis via Right chest PermCath. Under the management of Dr. Reddy. AV shunt placement? 4. Acute pancreatitis. 5. History of MDR UTI and colonization. 6. CVA with right-sided weakness. 7. Status post right hip arthroplasty. 8. Chronic left cardiac fracture. 9. Diabetes. Subjective Subjective Confused off restraints. Got HD via Right chest Permcath yesterday Objective Last 24 Hour Vital Signs Date Time Temp Pulse Resp B/P (MAP) Pulse Ox O2 Delivery O2 Flow Rate FiO2 09/04/20 16:00 97.9 88 20 112/66 (81) 97 09/04/20 16:00 82 09/04/20 12:00 80 09/04/20 12:00 97.8 84 18 108/69 (82) 97 09/04/20 09:00 Room Air 09/04/20 08:00 97.9 85 19 137/68 (91) 97 09/04/20 08:00 79 09/04/20 04:00 98.5 82 18 115/65 (82) 96 09/04/20 04:00 81 09/04/20 00:00 84 09/04/20 00:00 98.2 86 17 103/61 (75) 96 09/03/20 21:00 Room Air Intake and Output 09/03/20 09/04/20 19:00 07:00 Intake Total 30 ml Balance 30 ml Intake Oral 30 ml # Voids 4 # Bowel Movements 1 6 Laboratory Tests Test 09/04/20 08:50 White Blood Count 9.5 K/UL (4.8-10.8) Red Blood Count 4.97 M/UL (4.70-6.10) Hemoglobin 14.9 G/DL (14.2-18.0) Hematocrit 48.6 % (42.0-52.0) Mean Corpuscular Volume 98 FL (80-99) Mean Corpuscular Hemoglobin 30.0 PG (27.0-31.0) Mean Corpuscular Hemoglobin Concent 30.7 G/DL (32.0-36.0) L Red Cell Distribution Width 15.4 % (11.6-14.8) H Platelet Count 64 K/UL (150-450) L Mean Platelet Volume 10.0 FL (6.5-10.1) Neutrophils (%) (Auto) % (45.0-75.0) Lymphocytes (%) (Auto) % (20.0-45.0) Monocytes (%) (Auto) % (1.0-10.0) Eosinophils (%) (Auto) % (0.0-3.0) Basophils (%) (Auto) % (0.0-2.0) Differential Total Cells Counted 100 Neutrophils % (Manual) 64 % (45-75) Lymphocytes % (Manual) 23 % (20-45) Monocytes % (Manual) 7 % (1-10) Eosinophils % (Manual) 6 % (0-3) H Basophils % (Manual) 0 % (0-2) Band Neutrophils 0 % (0-8) Platelet Estimate Decreased L Platelet Morphology Normal Hypochromasia Anisocytosis 1+ Sodium Level 134 MMOL/L (136-145) L Potassium Level 4.9 MMOL/L (3.5-5.1) Chloride Level 103 MMOL/L (98-107) Carbon Dioxide Level 21 MMOL/L (21-32) Anion Gap 11 mmol/L (5-15) Blood Urea Nitrogen 28 mg/dL (7-18) H Creatinine 2.9 MG/DL (0.55-1.30) H Estimat Glomerular Filtration Rate 21.3 mL/min (>60) Glucose Level 87 MG/DL (74-106) Calcium Level 9.0 MG/DL (8.5-10.1) Phosphorus Level 3.1 MG/DL (2.5-4.9) Total Bilirubin 0.7 MG/DL (0.2-1.0) Aspartate Amino Transf (AST/SGOT) 35 U/L (15-37) Alanine Aminotransferase (ALT/SGPT) 16 U/L (12-78) Alkaline Phosphatase 173 U/L (46-116) H Pro-B-Type Natriuretic Peptide 169 pg/mL (0-125) H Total Protein 8.2 G/DL (6.4-8.2) Albumin 3.8 G/DL (3.4-5.0) Globulin 4.4 g/dL Albumin/Globulin Ratio 0.9 (1.0-2.7) L Amylase Level 129 U/L (25-115) H Lipase 489 U/L (73-393) H Objective HEAD AND NECK: No JVD. LUNGS: Coarse rhonchi.Right chest PermCath CARDIOVASCULAR: Regular S1 and S2 with no gallop. ABDOMEN: Soft. EXTREMITIES: No pitting edema. Kory Glez MD Sep 04, 2020 20:46
[2020-09-05] VITALS (7 sets, daily range): BP systolic 100–123; BP diastolic 57–88
[2020-09-05 08:17] LABS: CALCIUM 8.9 MG/DL (8.5-10.1); CREATININE 3.4 MG/DL (0.55-1.30); POTASSIUM 4.9 MMOL/L (3.5-5.1)
[2020-09-05] MEDS: Heparin 5000 units/ml inj SUBQ SCH ×2 (09:00→21:00)
[2020-09-05] MEDS: Docusate 100mg cap ORAL SCH ×3 (09:25→17:15)
[2020-09-05] MEDS: Dronabinol 2.5mg Cap ORAL SCH ×2 (09:26→17:15)
[2020-09-05] MEDS: Nephrovite tab (Rena-Vite) ORAL SCH (09:26)
[2020-09-05 10:57] LABS: HEMATOCRIT 43.5 % (42.0-52.0); HEMOGLOBIN 13.7 G/DL (14.2-18.0); MEAN CORPUSCULAR VOLUME 97 FL (80-99); PLATELET COUNT 88 K/UL (150-450); RED BLOOD COUNT 4.48 M/UL (4.70-6.10); RED CELL DISTRIBUTION WIDTH 15.1 % (11.6-14.8); WHITE BLOOD COUNT 11.3 K/UL (4.8-10.8)
--- NOTE | 2020-09-05 11:24 | General Progress Note ---
Subjective ROS Limited/Unobtainable: Yes Allergies: Coded Allergies: PENICILLINS (Verified Allergy, Unknown, 12/02/18) Objective Last 24 Hour Vital Signs Date Time Temp Pulse Resp B/P (MAP) Pulse Ox O2 Delivery O2 Flow Rate FiO2 09/05/20 09:00 Room Air 09/05/20 08:00 97.5 83 20 116/64 (81) 97 09/05/20 07:40 85 09/05/20 04:00 90 09/05/20 04:00 98.1 86 20 111/64 (80) 98 09/05/20 00:00 97.7 96 20 102/64 (77) 98 09/05/20 00:00 94 09/04/20 21:00 Room Air 09/04/20 20:00 106 09/04/20 20:00 98.1 91 20 122/73 (89) 98 09/04/20 16:00 97.9 88 20 112/66 (81) 97 09/04/20 16:00 82 09/04/20 12:00 80 09/04/20 12:00 97.8 84 18 108/69 (82) 97 Intake and Output 09/04/20 09/05/20 19:00 07:00 Intake Total 960 ml Output Total 650 ml Balance 310 ml Intake Oral 960 ml Output Urine Total 650 ml # Voids 3 Laboratory Tests 09/05/20 05:50: Sodium Level 137, Potassium Level 4.9, Chloride Level 104, Carbon Dioxide Level 17L, Anion Gap 16H, Blood Urea Nitrogen 38H, Creatinine 3.4H, Estimat Glomerular Filtration Rate 17.7, Glucose Level 89, Calcium Level 8.9 09/05/20 09:15: White Blood Count 11.3H, Red Blood Count 4.48L, Hemoglobin 13.7L, Hematocrit 43.5, Mean Corpuscular Volume 97, Mean Corpuscular Hemoglobin 30.5, Mean Corpuscular Hemoglobin Concent 31.4L, Red Cell Distribution Width 15.1H, Platelet Count 88L, Mean Platelet Volume 9.1, Neutrophils (%) (Auto) , Lymphocytes (%) (Auto) , Monocytes (%) (Auto) , Eosinophils (%) (Auto) , Basophils (%) (Auto) , Neutrophils % (Manual) [Pending], Lymphocytes % (Manual) [Pending], Platelet Estimate [Pending], Platelet Morphology [Pending] Height (Feet): 5 Height (Inches): 4.00 Weight (Pounds): 181 Assessment/Plan Problem List: (1) Cough ICD Codes: R05 - Cough SNOMED: 79107546 (2) SOB (shortness of breath) ICD Codes: R06.02 - Shortness of breath SNOMED: 420933231 (3) Dehydration ICD Codes: E86.0 - Dehydration SNOMED: 76721114 (4) Diarrhea ICD Codes: R19.7 - Diarrhea, unspecified SNOMED: 20802835 (5) Normocytic anemia ICD Codes: D64.9 - Anemia, unspecified SNOMED: 210213265 (6) Abdominal pain ICD Codes: R10.9 - Unspecified abdominal pain SNOMED: 34877140 (7) Sepsis ICD Codes: A41.9 - Sepsis, unspecified organism SNOMED: 25984333 (8) Urinary tract infection ICD Codes: N39.0 - Urinary tract infection, site not specified SNOMED: 51704976 (9) Encephalopathy ICD Codes: G93.40 - Encephalopathy, unspecified SNOMED: 57429636 (10) Renal failure ICD Codes: N19 - Unspecified kidney failure SNOMED: 91486036 (11) CVA (cerebral vascular accident) ICD Codes: I63.9 - Cerebral infarction, unspecified SNOMED: 726050172 (12) Elevated lipase ICD Codes: R74.8 - Abnormal levels of other serum enzymes SNOMED: 408648133 Status: unchanged Assessment/Plan: dehydration no sob afebrile cva uti renal failure encephalopathy abx per id reviewed chart and labs Froylan Balderas MD Sep 05, 2020 11:24
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
[2020-09-06] VITALS: BP 121/72
[2020-09-06 04:00] VITALS: BP 119/67
--- NOTE | 2020-09-06 07:40 | General Progress Note ---
Subjective ROS Limited/Unobtainable: No Allergies: Coded Allergies: PENICILLINS (Verified Allergy, Unknown, 12/02/18) Objective Last 24 Hour Vital Signs Date Time Temp Pulse Resp B/P (MAP) Pulse Ox O2 Delivery O2 Flow Rate FiO2 09/06/20 04:00 97.1 77 16 119/67 (84) 98 09/06/20 00:00 98.1 71 20 121/72 (88) 98 09/05/20 21:00 97.9 75 16 108/64 (79) 100 09/05/20 21:00 Room Air 09/05/20 20:00 98.7 68 20 123/88 (100) 98 09/05/20 16:00 97.6 74 20 120/57 (78) 100 09/05/20 15:55 82 09/05/20 12:00 97.6 90 20 100/62 (75) 99 09/05/20 11:36 86 09/05/20 09:00 Room Air 09/05/20 08:00 97.5 83 20 116/64 (81) 97 09/05/20 07:40 85 Intake and Output 09/05/20 09/06/20 19:00 07:00 Intake Total 236 ml 200 ml Balance 236 ml 200 ml Intake Oral 236 ml 200 ml # Voids 3 1 # Bowel Movements 5 Laboratory Tests 09/05/20 09:15: White Blood Count 11.3H, Red Blood Count 4.48L, Hemoglobin 13.7L, Hematocrit 43.5, Mean Corpuscular Volume 97, Mean Corpuscular Hemoglobin 30.5, Mean Corpuscular Hemoglobin Concent 31.4L, Red Cell Distribution Width 15.1H, Platelet Count 88L, Mean Platelet Volume 9.1, Neutrophils (%) (Auto) , Lymphocytes (%) (Auto) , Monocytes (%) (Auto) , Eosinophils (%) (Auto) , Basophils (%) (Auto) , Differential Total Cells Counted 100, Neutrophils % (Manual) 58, Lymphocytes % (Manual) 26, Monocytes % (Manual) 5, Eosinophils % (Manual) 11H, Basophils % (Manual) 0, Band Neutrophils 0, Platelet Estimate DecreasedL, Platelet Morphology Normal, Hypochromasia 1+, Anisocytosis 1+ Height (Feet): 5 Height (Inches): 4.00 Weight (Pounds): 181 General Appearance: no apparent distress EENT: normal ENT inspection Neck: supple Cardiovascular: normal rate Respiratory/Chest: decreased breath sounds Abdomen: normal bowel sounds, non tender, soft Extremities: non-tender Assessment/Plan Status: unchanged Assessment/Plan: Assessment/Plan: dysphagia AMS recent CVA elevate lipase elevated ALP gallstone RI UTI on oral diet ct and us from prior admission reviewed marinol ppi daily nephrovit fu nephrology recs push po's still on restrains mild elevated lipase again Dany Swain MD Sep 06, 2020 07:40
--- NOTE | 2020-09-06 07:51 | Infectious Diseases Prog Note ---
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 mirabilis -u/a wbc tnct, nit neg, leuk +1; ucx colonizers at this point Organism 1 A.BAUMANII COMPLX - MDR COLONY COUNT: 20,000 - 30,000 CFU/ML Organism 2 ENTEROCOCCUS FAECIUM COLONY COUNT: >100,000 CFU/ML ACIBCX-MDR ENT FAECIU M.I.C. RX M.I.C. RX --------- --- --------- --- AMPICILLIN >=32 R AMPICILLIN/SULBACTAM >=32 R CEFAZOLIN >=64 R CEFTAZIDIME R CEFTRIAXONE >=64 R CEFEPIME >=64 R CIPROFLOXACIN >=8 R GENTAMICIN >=16 R LEVOFLOXACIN >=8 R * MEROPENEM >=16 R NITROFURANTOIN 256 R TRIMETHOPRIM/SULFA >=320 R VANCOMYCIN <=0.5 S PIPERACILLIN/TAZOBACTAM >=128 R CKD Abd pain Acute pancreatitis -Abd US: No acute abnormality in the abdomen. Increased echogenicity of the left renal parenchyma could represent medical renal disease. hx of MDR ABC UTI and colonization -07/2020 -u/a wbc tnct, nit neg, leuk +3; ucx 60-70k MDR ABC (S Gentamycin, bactrim; R meropenem), >100k E. 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 We will continue to follow. Subjective Allergies: Coded Allergies: PENICILLINS (Verified Allergy, Unknown, 12/02/18) AF NAD No new labs Sitting up on side of bed, present Objective Last 24 Hour Vital Signs Date Time Temp Pulse Resp B/P (MAP) Pulse Ox O2 Delivery O2 Flow Rate FiO2 09/06/20 04:00 97.1 77 16 119/67 (84) 98 09/06/20 00:00 98.1 71 20 121/72 (88) 98 09/05/20 21:00 97.9 75 16 108/64 (79) 100 09/05/20 21:00 Room Air 09/05/20 20:00 98.7 68 20 123/88 (100) 98 09/05/20 16:00 97.6 74 20 120/57 (78) 100 09/05/20 15:55 82 09/05/20 12:00 97.6 90 20 100/62 (75) 99 09/05/20 11:36 86 09/05/20 09:00 Room Air 09/05/20 08:00 97.5 83 20 116/64 (81) 97 Height (Feet): 5 Height (Inches): 4.00 Weight (Pounds): 181 Gen: NAD in bed HEENT: NCAT CV: RRR Pulm: CTAB on RA Abd: Soft, NTND Ext: No c/c/e Neuro: Sitting up, moving all extremities Laboratory Tests Test 09/05/20 09:15 White Blood Count 11.3 K/UL (4.8-10.8) H Red Blood Count 4.48 M/UL (4.70-6.10) L Hemoglobin 13.7 G/DL (14.2-18.0) L Hematocrit 43.5 % (42.0-52.0) Mean Corpuscular Volume 97 FL (80-99) Mean Corpuscular Hemoglobin 30.5 PG (27.0-31.0) Mean Corpuscular Hemoglobin Concent 31.4 G/DL (32.0-36.0) L Red Cell Distribution Width 15.1 % (11.6-14.8) H Platelet Count 88 K/UL (150-450) L Mean Platelet Volume 9.1 FL (6.5-10.1) Neutrophils (%) (Auto) % (45.0-75.0) Lymphocytes (%) (Auto) % (20.0-45.0) Monocytes (%) (Auto) % (1.0-10.0) Eosinophils (%) (Auto) % (0.0-3.0) Basophils (%) (Auto) % (0.0-2.0) Differential Total Cells Counted 100 Neutrophils % (Manual) 58 % (45-75) Lymphocytes % (Manual) 26 % (20-45) Monocytes % (Manual) 5 % (1-10) Eosinophils % (Manual) 11 % (0-3) H Basophils % (Manual) 0 % (0-2) Band Neutrophils 0 % (0-8) Platelet Estimate Decreased L Platelet Morphology Normal Hypochromasia 1+ Anisocytosis 1+ Current Medications Medications (Trade) Dose Ordered Sig/Markus Route PRN Reason Start Time Stop Time Status Last Admin Dose Admin Aspirin (ASA) 325 mg DAILY ORAL 08/20/20 09:00 10/04/20 08:59 09/05/20 09:26 Docusate Sodium (Colace) 100 mg THREE TIMES A DAY ORAL 08/28/20 13:00 09/27/20 12:59 09/05/20 17:15 Dronabinol (Marinol) 5 mg BID ORAL 08/24/20 09:00 11/22/20 08:59 09/05/20 17:15 Heparin Sodium (Porcine) (Heparin 5000 units/ml) 5,000 units EVERY 12 HOURS SUBQ 08/19/20 21:00 10/03/20 20:59 08/22/20 08:36 Pantoprazole (Protonix) 40 mg DAILY ORAL 08/24/20 09:00 09/18/20 20:59 09/05/20 09:25 Quetiapine Fumarate (SEROqueL) 50 mg Q12HR ORAL 08/19/20 21:00 10/03/20 20:59 09/05/20 21:13 Vitamin B Complex/ Vit C/Folic Acid (Nephrovite) 1 tab DAILY ORAL 08/28/20 09:00 09/27/20 08:59 09/05/20 09:26 Maira Shepherd M.D. Sep 06, 2020 07:51
[2020-09-06 08:00] VITALS: BP 124/76
[2020-09-06] MEDS: Dronabinol 2.5mg Cap ORAL SCH ×2 (08:53→17:21)
[2020-09-06] MEDS: Docusate 100mg cap ORAL SCH ×3 (08:53→17:20)
[2020-09-06] MEDS: Nephrovite tab (Rena-Vite) ORAL SCH (08:53)
[2020-09-06] MEDS: Heparin 5000 units/ml inj SUBQ SCH ×2 (08:54→21:00)
--- NOTE | 2020-09-06 10:23 | Cardiac Electrophysiology PN ---
Assessment/Plan Assessment/Plan 1. AMS. Ruled out for ID. The patient does not have any chest pain. Echo on August 03, 2020 showed ejection fraction of 55 to 60 percent. 2. Hypotension. Now off metoprolol. 3. End-stage renal disease, on hemodialysis via Right chest PermCath by Dr. Reddy. AV shunt placement? 4. Acute pancreatitis. 5. History of MDR UTI and colonization. 6. CVA with right-sided weakness. 7. Status post right hip arthroplasty. 8. Chronic left cardiac fracture. 9. Diabetes. Subjective Subjective Confused in restraints. Got HD via Right chest Permcath Transferred to [facility] Objective Last 24 Hour Vital Signs Date Time Temp Pulse Resp B/P (MAP) Pulse Ox O2 Delivery O2 Flow Rate FiO2 09/06/20 08:00 97.6 76 20 124/76 (92) 95 09/06/20 04:00 97.1 77 16 119/67 (84) 98 09/06/20 00:00 98.1 71 20 121/72 (88) 98 09/05/20 21:00 97.9 75 16 108/64 (79) 100 09/05/20 21:00 Room Air 09/05/20 20:00 98.7 68 20 123/88 (100) 98 09/05/20 16:00 97.6 74 20 120/57 (78) 100 09/05/20 15:55 82 09/05/20 12:00 97.6 90 20 100/62 (75) 99 09/05/20 11:36 86 Intake and Output 09/05/20 09/06/20 19:00 07:00 Intake Total 236 ml 200 ml Balance 236 ml 200 ml Intake Oral 236 ml 200 ml # Voids 3 1 # Bowel Movements 5 Objective HEAD AND NECK: No JVD. LUNGS: Coarse rhonchi.Right chest PermCath CARDIOVASCULAR: Regular S1 and S2 with no gallop. ABDOMEN: Soft. EXTREMITIES: No pitting edema. Kory Glez MD Sep 06, 2020 10:23
[2020-09-06 12:00] VITALS: BP 142/66
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
[2020-09-06 16:00] VITALS: BP 117/63
--- NOTE | 2020-09-06 16:47 | General Progress Note ---
Subjective ROS Limited/Unobtainable: Yes Allergies: Coded Allergies: PENICILLINS (Verified Allergy, Unknown, 12/02/18) Objective Last 24 Hour Vital Signs Date Time Temp Pulse Resp B/P (MAP) Pulse Ox O2 Delivery O2 Flow Rate FiO2 09/06/20 16:00 98.2 98 20 117/63 (81) 96 09/06/20 12:00 98.9 80 18 142/66 (91) 95 09/06/20 09:00 Room Air 09/06/20 08:00 97.6 76 20 124/76 (92) 95 09/06/20 04:00 97.1 77 16 119/67 (84) 98 09/06/20 00:00 98.1 71 20 121/72 (88) 98 09/05/20 21:00 97.9 75 16 108/64 (79) 100 09/05/20 21:00 Room Air 09/05/20 20:00 98.7 68 20 123/88 (100) 98 Intake and Output 09/05/20 09/06/20 19:00 07:00 Intake Total 236 ml 200 ml Balance 236 ml 200 ml Intake Oral 236 ml 200 ml # Voids 3 1 # Bowel Movements 5 Height (Feet): 5 Height (Inches): 4.00 Weight (Pounds): 181 Assessment/Plan Problem List: (1) Cough ICD Codes: R05 - Cough SNOMED: 18399787 (2) SOB (shortness of breath) ICD Codes: R06.02 - Shortness of breath SNOMED: 639750761 (3) Dehydration ICD Codes: E86.0 - Dehydration SNOMED: 33475014 (4) Diarrhea ICD Codes: R19.7 - Diarrhea, unspecified SNOMED: 37581288 (5) Normocytic anemia ICD Codes: D64.9 - Anemia, unspecified SNOMED: 015355160 (6) Abdominal pain ICD Codes: R10.9 - Unspecified abdominal pain SNOMED: 57943060 (7) Sepsis ICD Codes: A41.9 - Sepsis, unspecified organism SNOMED: 77847068 (8) Urinary tract infection ICD Codes: N39.0 - Urinary tract infection, site not specified SNOMED: 07515651 (9) Encephalopathy ICD Codes: G93.40 - Encephalopathy, unspecified SNOMED: 83858388 (10) Renal failure ICD Codes: N19 - Unspecified kidney failure SNOMED: 80710189 (11) CVA (cerebral vascular accident) ICD Codes: I63.9 - Cerebral infarction, unspecified SNOMED: 651700903 (12) Elevated lipase ICD Codes: R74.8 - Abnormal levels of other serum enzymes SNOMED: 258444276 Status: unchanged Assessment/Plan: abx per id confused check lytes afebrile conf cva uti renal failure stable encephalopathy reviewed chart and labs Froylan Balderas MD Sep 06, 2020 16:47
[2020-09-06 20:00] VITALS: BP 123/67
[2020-09-07] VITALS: BP 104/73
[2020-09-07 04:00] VITALS: BP 121/57
[2020-09-07 06:12] LABS: BASOPHILS % (AUTO) 0.5 % (0.0-2.0); EOSINOPHILS % (AUTO) 5.3 % (0.0-3.0); HEMATOCRIT 40.5 % (42.0-52.0); HEMOGLOBIN 12.8 G/DL (14.2-18.0); LYMPHOCYTES % (AUTO) 23.9 % (20.0-45.0); MEAN CORPUSCULAR VOLUME 95 FL (80-99); MONOCYTES % (AUTO) 2.5 % (1.0-10.0); NEUTROPHILS % (AUTO) 67.8 % (45.0-75.0); PLATELET COUNT 107 K/UL (150-450); RED BLOOD COUNT 4.26 M/UL (4.70-6.10); RED CELL DISTRIBUTION WIDTH 15.3 % (11.6-14.8); WHITE BLOOD COUNT 11.8 K/UL (4.8-10.8)
--- NOTE | 2020-09-07 06:20 | General Progress Note ---
Subjective ROS Limited/Unobtainable: No Allergies: Coded Allergies: PENICILLINS (Verified Allergy, Unknown, 12/02/18) Objective Last 24 Hour Vital Signs Date Time Temp Pulse Resp B/P (MAP) Pulse Ox O2 Delivery O2 Flow Rate FiO2 09/07/20 04:00 97.3 96 18 121/57 (78) 96 09/07/20 00:00 98.2 101 20 104/73 (83) 93 09/06/20 21:00 Room Air 09/06/20 20:00 97.9 99 18 123/67 (85) 95 09/06/20 16:00 98.2 98 20 117/63 (81) 96 09/06/20 12:00 98.9 80 18 142/66 (91) 95 09/06/20 09:00 Room Air 09/06/20 08:00 97.6 76 20 124/76 (92) 95 Intake and Output 09/06/20 09/07/20 19:00 07:00 Intake Total 840 ml 360 ml Output Total 1000 ml Balance -160 ml 360 ml Intake Oral 840 ml 360 ml Output Urine Total 1000 ml Laboratory Tests 09/07/20 04:45: White Blood Count [Pending], Red Blood Count [Pending], Hemoglobin [Pending], Hematocrit [Pending], Mean Corpuscular Volume [Pending], Mean Corpuscular Hemoglobin [Pending], Mean Corpuscular Hemoglobin Concent [Pending], Red Cell Distribution Width [Pending], Platelet Count [Pending], Mean Platelet Volume [Pe nding], Neutrophils (%) (Auto) [Pending], Lymphocytes (%) (Auto) [Pending], Monocytes (%) (Auto) [Pending], Eosinophils (%) (Auto) [Pending], Basophils (%) (Auto) [Pending], Sodium Level [Pending], Potassium Level [Pending], Chloride Level [Pending], Carbon Dioxide Level [Pending], Blood Urea Nitrogen [Pending], Creatinine [Pending], Estimat Glomerular Filtration Rate [Pending], Glucose Level [Pending], Calcium Level [Pending], Phosphorus Level [Pending], Magnesium Level [Pending], Total Bilirubin [Pending], Aspartate Amino Transf (AST/SGOT) [Pending], Alanine Aminotransferase (ALT/SGPT) [Pending], Alkaline Phosphatase [Pending], C-Reactive Protein, Quantitative [Pending], Pro-B-Type Natriuretic Peptide [Pending], Total Protein [Pending], Albumin [Pending], Globulin [Pending], Amylase Level [Pending], Lipase [Pending] Height (Feet): 5 Height (Inches): 4.00 Weight (Pounds): 181 General Appearance: no apparent distress EENT: normal ENT inspection Neck: supple Cardiovascular: normal rate Respiratory/Chest: decreased breath sounds Abdomen: normal bowel sounds, non tender, soft Extremities: non-tender Assessment/Plan Status: unchanged Assessment/Plan: Assessment/Plan: dysphagia AMS recent CVA elevate lipase elevated ALP gallstone RI UTI on oral diet ct and us from prior admission reviewed marinol ppi daily nephrovit fu nephrology recs push po's still on restrains mild elevated lipase again Dany Swain MD Sep 07, 2020 06:20
[2020-09-07 06:51] LABS: ALBUMIN 3.4 G/DL (3.4-5.0); BILIRUBIN,TOTAL 0.4 MG/DL (0.2-1.0); CREATININE 1.8 MG/DL (0.55-1.30); POTASSIUM 3.1 MMOL/L (3.5-5.1)
[2020-09-07 07:19] LABS: PHOSPHORUS 1.6 MG/DL (2.5-4.9)
[2020-09-07 08:00] VITALS: BP 98/66
--- NOTE | 2020-09-07 08:06 | Infectious Diseases Prog Note ---
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 mirabilis -u/a wbc tnct, nit neg, leuk +1; ucx colonizers at this point Organism 1 A.BAUMANII COMPLX - MDR COLONY COUNT: 20,000 - 30,000 CFU/ML Organism 2 ENTEROCOCCUS FAECIUM COLONY COUNT: >100,000 CFU/ML ACIBCX-MDR ENT FAECIU M.I.C. RX M.I.C. RX --------- --- --------- --- AMPICILLIN >=32 R AMPICILLIN/SULBACTAM >=32 R CEFAZOLIN >=64 R CEFTAZIDIME R CEFTRIAXONE >=64 R CEFEPIME >=64 R CIPROFLOXACIN >=8 R GENTAMICIN >=16 R LEVOFLOXACIN >=8 R * MEROPENEM >=16 R NITROFURANTOIN 256 R TRIMETHOPRIM/SULFA >=320 R VANCOMYCIN <=0.5 S PIPERACILLIN/TAZOBACTAM >=128 R CKD Abd pain Acute pancreatitis -Abd US: No acute abnormality in the abdomen. Increased echogenicity of the left renal parenchyma could represent medical renal disease. hx of MDR ABC UTI and colonization -07/2020 -u/a wbc tnct, nit neg, leuk +3; ucx 60-70k MDR ABC (S Gentamycin, bactrim; R meropenem), >100k E. 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 We will continue to follow. Subjective Allergies: Coded Allergies: PENICILLINS (Verified Allergy, Unknown, 12/02/18) AF NAD in bed on RA WBC 11, stable Objective Last 24 Hour Vital Signs Date Time Temp Pulse Resp B/P (MAP) Pulse Ox O2 Delivery O2 Flow Rate FiO2 09/07/20 04:00 97.3 96 18 121/57 (78) 96 09/07/20 00:00 98.2 101 20 104/73 (83) 93 09/06/20 21:00 Room Air 09/06/20 20:00 97.9 99 18 123/67 (85) 95 09/06/20 16:00 98.2 98 20 117/63 (81) 96 09/06/20 12:00 98.9 80 18 142/66 (91) 95 09/06/20 09:00 Room Air Height (Feet): 5 Height (Inches): 4.00 Weight (Pounds): 181 Gen: NAD in bed HEENT: NCAT CV: RRR Pulm: CTAB on RA Abd: Soft, NTND Ext: No c/c/e Neuro: Non focal Microbiology Date/Time Source Procedure Growth Status 09/06/20 18:00 Nasopharynx SARS-CoV-2 RdRp Gene Assay - Final Complete Laboratory Tests Test 09/07/20 04:45 White Blood Count 11.8 K/UL (4.8-10.8) H Red Blood Count 4.26 M/UL (4.70-6.10) L Hemoglobin 12.8 G/DL (14.2-18.0) L Hematocrit 40.5 % (42.0-52.0) L Mean Corpuscular Volume 95 FL (80-99) Mean Corpuscular Hemoglobin 30.2 PG (27.0-31.0) Mean Corpuscular Hemoglobin Concent 31.7 G/DL (32.0-36.0) L Red Cell Distribution Width 15.3 % (11.6-14.8) H Platelet Count 107 K/UL (150-450) L Mean Platelet Volume 9.2 FL (6.5-10.1) Neutrophils (%) (Auto) 67.8 % (45.0-75.0) Lymphocytes (%) (Auto) 23.9 % (20.0-45.0) Monocytes (%) (Auto) 2.5 % (1.0-10.0) Eosinophils (%) (Auto) 5.3 % (0.0-3.0) H Basophils (%) (Auto) 0.5 % (0.0-2.0) Sodium Level 138 MMOL/L (136-145) Potassium Level 3.1 MMOL/L (3.5-5.1) L Chloride Level 102 MMOL/L (98-107) Carbon Dioxide Level 33 MMOL/L (21-32) H Anion Gap 4 mmol/L (5-15) L Blood Urea Nitrogen 20 mg/dL (7-18) H Creatinine 1.8 MG/DL (0.55-1.30) H Estimat Glomerular Filtration Rate 37.0 mL/min (>60) Glucose Level 98 MG/DL (74-106) Calcium Level 9.0 MG/DL (8.5-10.1) Phosphorus Level 1.6 MG/DL (2.5-4.9) L Magnesium Level 2.4 MG/DL (1.8-2.4) Total Bilirubin 0.4 MG/DL (0.2-1.0) Aspartate Amino Transf (AST/SGOT) 21 U/L (15-37) Alanine Aminotransferase (ALT/SGPT) 10 U/L (12-78) L Alkaline Phosphatase 187 U/L (46-116) H C-Reactive Protein, Quantitative 1.0 mg/dL (0.00-0.90) H Pro-B-Type Natriuretic Peptide 269 pg/mL (0-125) H Total Protein 6.8 G/DL (6.4-8.2) Albumin 3.4 G/DL (3.4-5.0) Globulin 3.4 g/dL Albumin/Globulin Ratio 1.0 (1.0-2.7) Amylase Level 108 U/L (25-115) Lipase 506 U/L (73-393) H Current Medications Medications (Trade) Dose Ordered Sig/Markus Route PRN Reason Start Time Stop Time Status Last Admin Dose Admin Aspirin (ASA) 325 mg DAILY ORAL 08/20/20 09:00 10/04/20 08:59 09/05/20 09:26 Docusate Sodium (Colace) 100 mg THREE TIMES A DAY ORAL 08/28/20 13:00 09/27/20 12:59 09/05/20 17:15 Dronabinol (Marinol) 5 mg BID ORAL 08/24/20 09:00 11/22/20 08:59 09/05/20 17:15 Heparin Sodium (Porcine) (Heparin 5000 units/ml) 5,000 units EVERY 12 HOURS SUBQ 08/19/20 21:00 10/03/20 20:59 08/22/20 08:36 Pantoprazole (Protonix) 40 mg DAILY ORAL 08/24/20 09:00 09/18/20 20:59 09/05/20 09:25 Quetiapine Fumarate (SEROqueL) 50 mg Q12HR ORAL 08/19/20 21:00 10/03/20 20:59 09/06/20 21:30 Vitamin B Complex/ Vit C/Folic Acid (Nephrovite) 1 tab DAILY ORAL 08/28/20 09:00 09/27/20 08:59 09/05/20 09:26 Maira Shepherd M.D. Sep 07, 2020 08:06
[2020-09-07] MEDS ORDERED: Phospha 250 Neutral tab ORAL SCH (08:45)
[2020-09-07] MEDS: Dronabinol 2.5mg Cap ORAL SCH ×2 (08:53→17:29)
[2020-09-07] MEDS: Nephrovite tab (Rena-Vite) ORAL SCH (08:53)
[2020-09-07] MEDS: Docusate 100mg cap ORAL SCH ×3 (08:53→17:29)
[2020-09-07] MEDS: Heparin 5000 units/ml inj SUBQ SCH ×2 (08:55→20:46)
[2020-09-07 12:00] VITALS: BP 111/86
--- NOTE | 2020-09-07 12:52 | Cardiac Electrophysiology PN ---
Assessment/Plan Assessment/Plan 1. AMS. Ruled out for CT. Denies any chest pain. Echo on August 03, 2020 showed ejection fraction of 55 to 60 percent. 2. Hypotension. Now off metoprolol. 3. End-stage renal disease, on hemodialysis via Right chest PermCath by Dr. Reddy. AV shunt placement? 4. Acute pancreatitis. 5. History of MDR UTI and colonization. 6. CVA with right-sided weakness. 7. Status post right hip arthroplasty. 8. Chronic left cardiac fracture. 9. Diabetes. Subjective Subjective Confused in restraints. Got HD via Right chest Permcath Objective Last 24 Hour Vital Signs Date Time Temp Pulse Resp B/P (MAP) Pulse Ox O2 Delivery O2 Flow Rate FiO2 09/07/20 09:00 Room Air 09/07/20 08:00 97.9 80 18 98/66 (77) 94 09/07/20 04:00 97.3 96 18 121/57 (78) 96 09/07/20 00:00 98.2 101 20 104/73 (83) 93 09/06/20 21:00 Room Air 09/06/20 20:00 97.9 99 18 123/67 (85) 95 09/06/20 16:00 98.2 98 20 117/63 (81) 96 Intake and Output 09/06/20 09/07/20 19:00 07:00 Intake Total 840 ml 360 ml Output Total 1000 ml Balance -160 ml 360 ml Intake Oral 840 ml 360 ml Output Urine Total 1000 ml Laboratory Tests Test 09/07/20 04:45 White Blood Count 11.8 K/UL (4.8-10.8) H Red Blood Count 4.26 M/UL (4.70-6.10) L Hemoglobin 12.8 G/DL (14.2-18.0) L Hematocrit 40.5 % (42.0-52.0) L Mean Corpuscular Volume 95 FL (80-99) Mean Corpuscular Hemoglobin 30.2 PG (27.0-31.0) Mean Corpuscular Hemoglobin Concent 31.7 G/DL (32.0-36.0) L Red Cell Distribution Width 15.3 % (11.6-14.8) H Platelet Count 107 K/UL (150-450) L Mean Platelet Volume 9.2 FL (6.5-10.1) Neutrophils (%) (Auto) 67.8 % (45.0-75.0) Lymphocytes (%) (Auto) 23.9 % (20.0-45.0) Monocytes (%) (Auto) 2.5 % (1.0-10.0) Eosinophils (%) (Auto) 5.3 % (0.0-3.0) H Basophils (%) (Auto) 0.5 % (0.0-2.0) Sodium Level 138 MMOL/L (136-145) Potassium Level 3.1 MMOL/L (3.5-5.1) L Chloride Level 102 MMOL/L (98-107) Carbon Dioxide Level 33 MMOL/L (21-32) H Anion Gap 4 mmol/L (5-15) L Blood Urea Nitrogen 20 mg/dL (7-18) H Creatinine 1.8 MG/DL (0.55-1.30) H Estimat Glomerular Filtration Rate 37.0 mL/min (>60) Glucose Level 98 MG/DL (74-106) Calcium Level 9.0 MG/DL (8.5-10.1) Phosphorus Level 1.6 MG/DL (2.5-4.9) L Magnesium Level 2.4 MG/DL (1.8-2.4) Total Bilirubin 0.4 MG/DL (0.2-1.0) Aspartate Amino Transf (AST/SGOT) 21 U/L (15-37) Alanine Aminotransferase (ALT/SGPT) 10 U/L (12-78) L Alkaline Phosphatase 187 U/L (46-116) H C-Reactive Protein, Quantitative 1.0 mg/dL (0.00-0.90) H Pro-B-Type Natriuretic Peptide 269 pg/mL (0-125) H Total Protein 6.8 G/DL (6.4-8.2) Albumin 3.4 G/DL (3.4-5.0) Globulin 3.4 g/dL Albumin/Globulin Ratio 1.0 (1.0-2.7) Amylase Level 108 U/L (25-115) Lipase 506 U/L (73-393) H Microbiology Date/Time Source Procedure Growth Status 09/06/20 18:00 Nasopharynx SARS-CoV-2 RdRp Gene Assay - Final Complete Objective HEAD AND NECK: No JVD. LUNGS: Coarse rhonchi.Right chest PermCath CARDIOVASCULAR: Regular S1 and S2 with no gallop. ABDOMEN: Soft. EXTREMITIES: No pitting edema. Kory Glez MD Sep 07, 2020 12:52
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
[2020-09-07 16:00] VITALS: BP 110/81
--- NOTE | 2020-09-07 18:44 | History and Physical Report ---
DATE OF ADMISSION: 08/19/2020 HISTORY OF PRESENT ILLNESS: The patient is a 75-year-old [place] male who was admitted on 08/19/2020 for acute renal failure. The patient was started on dialysis. The patient is still confused, is in the bed, doing fine, more awake, alert. The patient is currently waiting for placement and started dialysis during this hospitalization. PAST MEDICAL HISTORY: Significant for hypertension, diabetes, status post ORIF of knee, degenerative arthritis, nonhealing ulcer. MEDICATIONS: See the list. ALLERGIES: NKA. FAMILY HISTORY: Noncontributory. SOCIAL HISTORY: The patient used to live with the son. He denies any smoking or drinking. REVIEW OF SYSTEMS: The patient is confused, cannot give much history. PHYSICAL EXAMINATION: VITAL SIGNS: Blood pressure is 130/70, pulse 84, respirations 18 to 24, temperature, no fever. SKIN: Good skin turgor. HEENT: AT/NC. EOMI. PERRLA. NECK: Supple. No JVD. CHEST: Bilaterally clear. CARDIOVASCULAR: Regular rhythm. No gallop. No murmur. ABDOMEN: Soft. Positive bowel sounds, nontender. EXTREMITIES: Bilateral knee synovitis. GENITOURINARY: Deferred. ASSESSMENT AND PLAN: 1. Acute end-stage renal disease, on hemodialysis. 2. Hypertension. 3. Diabetes. 4. Mild metabolic encephalopathy. 5. Severe arthritis. The patient is on medical floor. Continue hemodialysis. Continue current medical treatment. Discharge plan to SNF tomorrow. Paolo Dunlap M.D. DR: MINDY JOB#: [id number] CC:
[2020-09-07 20:26] VITALS: BP 120/80
[2020-09-08 04:00] VITALS: BP 128/76
[2020-09-08 08:00] VITALS: BP 128/74
--- NOTE | 2020-09-08 08:47 | General Progress Note ---
Subjective ROS Limited/Unobtainable: No Allergies: Coded Allergies: PENICILLINS (Verified Allergy, Unknown, 12/02/18) Objective Last 24 Hour Vital Signs Date Time Temp Pulse Resp B/P (MAP) Pulse Ox O2 Delivery O2 Flow Rate FiO2 09/08/20 08:00 97.3 84 17 128/74 (92) 96 09/08/20 04:00 97.8 83 17 128/76 (93) 97 09/07/20 20:31 Room Air 09/07/20 20:26 98.2 87 20 120/80 (93) 93 09/07/20 16:00 97.0 80 19 110/81 (91) 96 09/07/20 12:00 97.9 82 18 111/86 (94) 96 09/07/20 09:00 Room Air Intake and Output 09/07/20 09/08/20 19:00 07:00 Intake Total 500 ml 118 ml Balance 500 ml 118 ml Other 500 ml 118 ml # Voids 1 Height (Feet): 5 Height (Inches): 4.00 Weight (Pounds): 181 General Appearance: no apparent distress EENT: normal ENT inspection Neck: supple Cardiovascular: normal rate Respiratory/Chest: decreased breath sounds Abdomen: normal bowel sounds, non tender, soft Extremities: non-tender Assessment/Plan Status: unchanged Assessment/Plan: Assessment/Plan: dysphagia AMS recent CVA elevate lipase elevated ALP gallstone RI UTI on oral diet ct and us from prior admission reviewed marinol ppi daily nephrovit fu nephrology recs push po's still on restrains mild elevated lipase again Dany Swain MD Sep 08, 2020 08:47
[2020-09-08] MEDS: Dronabinol 2.5mg Cap ORAL SCH (08:52)
[2020-09-08] MEDS: Nephrovite tab (Rena-Vite) ORAL SCH (08:52)
[2020-09-08] MEDS: Docusate 100mg cap ORAL SCH ×2 (08:52→13:02)
[2020-09-08] MEDS: Heparin 5000 units/ml inj SUBQ SCH (08:53)
--- NOTE | 2020-09-08 10:58 | Infectious Diseases Prog Note ---
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 mirabilis -u/a wbc tnct, nit neg, leuk +1; ucx colonizers at this point Organism 1 A.BAUMANII COMPLX - MDR COLONY COUNT: 20,000 - 30,000 CFU/ML Organism 2 ENTEROCOCCUS FAECIUM COLONY COUNT: >100,000 CFU/ML ACIBCX-MDR ENT FAECIU M.I.C. RX M.I.C. RX --------- --- --------- --- AMPICILLIN >=32 R AMPICILLIN/SULBACTAM >=32 R CEFAZOLIN >=64 R CEFTAZIDIME R CEFTRIAXONE >=64 R CEFEPIME >=64 R CIPROFLOXACIN >=8 R GENTAMICIN >=16 R LEVOFLOXACIN >=8 R * MEROPENEM >=16 R NITROFURANTOIN 256 R TRIMETHOPRIM/SULFA >=320 R VANCOMYCIN <=0.5 S PIPERACILLIN/TAZOBACTAM >=128 R CKD Abd pain Acute pancreatitis -Abd US: No acute abnormality in the abdomen. Increased echogenicity of the left renal parenchyma could represent medical renal disease. hx of MDR ABC UTI and colonization -07/2020 -u/a wbc tnct, nit neg, leuk +3; ucx 60-70k MDR ABC (S Gentamycin, bactrim; R meropenem), >100k E. faecium (R amp; S Vanco) HIV screen neg HTN Dm2 CVA w/ residual R side weakness 06/2020 Sp R hip arthroplasty chronic left pelvic fracture Plan: Continue to monitor off abx OK for d/c from ID standpoint 08/30 SP linezolid #6, ertapenem #6 given leukocytosis 08/21 SP Gentamycin x1 -f/u cx -Monitor CBC/CMP, temperatures D/w RN Thank you for consult [facility]. We will continue to follow. Subjective Allergies: Coded Allergies: PENICILLINS (Verified Allergy, Unknown, 12/02/18) AF NAD in bed on RA Calm, sleeping Objective Last 24 Hour Vital Signs Date Time Temp Pulse Resp B/P (MAP) Pulse Ox O2 Delivery O2 Flow Rate FiO2 09/08/20 09:00 Room Air 09/08/20 08:00 97.3 84 17 128/74 (92) 96 09/08/20 04:00 97.8 83 17 128/76 (93) 97 09/07/20 20:31 Room Air 09/07/20 20:26 98.2 87 20 120/80 (93) 93 09/07/20 16:00 97.0 80 19 110/81 (91) 96 09/07/20 12:00 97.9 82 18 111/86 (94) 96 Height (Feet): 5 Height (Inches): 4.00 Weight (Pounds): 181 Gen: NAD in bed HEENT: NCAT Pulm: BL chest rise on RA Abd: Soft, NTND Ext: No c/c/e Neuro: NSleeping Microbiology Date/Time Source Procedure Growth Status 09/06/20 18:00 Nasopharynx SARS-CoV-2 RdRp Gene Assay - Final Complete Current Medications Medications (Trade) Dose Ordered Sig/Markus Route PRN Reason Start Time Stop Time Status Last Admin Dose Admin Aspirin (ASA) 325 mg DAILY ORAL 08/20/20 09:00 10/04/20 08:59 09/08/20 08:52 Docusate Sodium (Colace) 100 mg THREE TIMES A DAY ORAL 08/28/20 13:00 09/27/20 12:59 09/08/20 08:52 Dronabinol (Marinol) 5 mg BID ORAL 08/24/20 09:00 11/22/20 08:59 09/08/20 08:52 Heparin Sodium (Porcine) (Heparin 5000 units/ml) 5,000 units EVERY 12 HOURS SUBQ 08/19/20 21:00 10/03/20 20:59 08/22/20 08:36 Pantoprazole (Protonix) 40 mg DAILY ORAL 08/24/20 09:00 09/18/20 20:59 09/08/20 08:52 Quetiapine Fumarate (SEROqueL) 50 mg Q12HR ORAL 08/19/20 21:00 10/03/20 20:59 09/08/20 08:52 Vitamin B Complex/ Vit C/Folic Acid (Nephrovite) 1 tab DAILY ORAL 08/28/20 09:00 09/27/20 08:59 09/08/20 08:52 Maira Shepherd M.D. Sep 08, 2020 10:58
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
[2020-09-08 11:40] LABS: ALBUMIN 3.3 G/DL (3.4-5.0); ALBUMIN/GLOBULIN RATIO 0.8 (1.0-2.7); BILIRUBIN,TOTAL 0.4 MG/DL (0.2-1.0); CALCIUM 8.5 MG/DL (8.5-10.1); CREATININE 3.8 MG/DL (0.55-1.30); PHOSPHORUS 3.4 MG/DL (2.5-4.9); POTASSIUM 4.4 MMOL/L (3.5-5.1)
[2020-09-08 12:00] VITALS: BP 103/60
--- NOTE | 2020-09-08 13:34 | Cardiac Electrophysiology PN ---
Assessment/Plan Assessment/Plan 1. AMS. Ruled out for MN. Denies any chest pain. Echo on August 03, 2020 showed ejection fraction of 55 to 60 percent. 2. Hypotension. Resolved off metoprolol. 3. End-stage renal disease, on hemodialysis via Right chest PermCath by Dr. Reddy. 4. Acute pancreatitis. 5. History of MDR UTI and colonization. 6. CVA with right-sided weakness. 7. Status post right hip arthroplasty. 8. Chronic left cardiac fracture. 9. Diabetes. DW Dr Reddy. Family is signing out AMA Subjective Subjective Confused in restraints. Getting HD via Right chest Permcath Objective Last 24 Hour Vital Signs Date Time Temp Pulse Resp B/P (MAP) Pulse Ox O2 Delivery O2 Flow Rate FiO2 09/08/20 12:00 97.4 95 17 103/60 (74) 97 09/08/20 09:00 Room Air 09/08/20 08:00 97.3 84 17 128/74 (92) 96 09/08/20 04:00 97.8 83 17 128/76 (93) 97 09/07/20 20:31 Room Air 09/07/20 20:26 98.2 87 20 120/80 (93) 93 09/07/20 16:00 97.0 80 19 110/81 (91) 96 Intake and Output 09/07/20 09/08/20 19:00 07:00 Intake Total 500 ml 118 ml Balance 500 ml 118 ml Other 500 ml 118 ml # Voids 1 Laboratory Tests Test 09/08/20 11:10 Sodium Level 140 MMOL/L (136-145) Potassium Level 4.4 MMOL/L (3.5-5.1) Chloride Level 104 MMOL/L (98-107) Carbon Dioxide Level 29 MMOL/L (21-32) Anion Gap 8 mmol/L (5-15) Blood Urea Nitrogen 38 mg/dL (7-18) H Creatinine 3.8 MG/DL (0.55-1.30) #H Estimat Glomerular Filtration Rate 15.6 mL/min (>60) Glucose Level 120 MG/DL (74-106) H Uric Acid 6.3 MG/DL (2.6-7.2) Calcium Level 8.5 MG/DL (8.5-10.1) Phosphorus Level 3.4 MG/DL (2.5-4.9) Magnesium Level 3.0 MG/DL (1.8-2.4) H Total Bilirubin 0.4 MG/DL (0.2-1.0) Aspartate Amino Transf (AST/SGOT) 25 U/L (15-37) Alanine Aminotransferase (ALT/SGPT) 16 U/L (12-78) Alkaline Phosphatase 166 U/L (46-116) H Total Protein 7.4 G/DL (6.4-8.2) Albumin 3.3 G/DL (3.4-5.0) L Globulin 4.1 g/dL Albumin/Globulin Ratio 0.8 (1.0-2.7) L Microbiology Date/Time Source Procedure Growth Status 09/06/20 18:00 Nasopharynx SARS-CoV-2 RdRp Gene Assay - Final Complete Objective HEAD AND NECK: No JVD. LUNGS: Coarse rhonchi.Right chest PermCath CARDIOVASCULAR: Regular S1 and S2 with no gallop. ABDOMEN: Soft. EXTREMITIES: No pitting edema. Kory Glez MD Sep 08, 2020 13:34
--- NOTE | 2020-09-08 17:14 | Discharge Summary ---
DATE OF ADMISSION: 08/19/2020 DATE OF DISCHARGE: 09/08/2020 This is an 75-year-old male who came with acute renal failure, was started on hemodialysis. The patient is currently doing better, physically doing better. Confusion is better. PHYSICAL EXAMINATION: VITAL SIGNS: Stable. CHEST: Bilaterally clear. CARDIOVASCULAR: Regular rhythm. ABDOMEN: Soft. EXTREMITIES: CCE. Mild arthritis on both knees. ASSESSMENT AND PLAN: 1. Arthritis. 2. Acute renal failure. 3. Diabetes. 4. Hypertension. Discharge plan to detention. Hemodialysis as an outpatient. Continue current medical treatment. Discussed with charge nurse. Paolo Dunlap M.D. DR: MINDY JOB#: [id number] CC:
== END 2020-09-08 15:49 | DRG 469 ==
LOC: EMR 15:11 → 2E 16:07 → EDBEDREQ 16:50 → 2E 08-22 08:18 → 4E 08-23 23:15 → 2E 09-01 21:44 → 4E 09-05 20:41
PROC: 05HM33Z Insertion of Infusion Device into Right Internal Jugular Vein, Percutaneous Approach (ICD-10-PCS; principal; 2020-08-23)
PROC: 0JH63XZ Insertion of Tunneled Vascular Access Device into Chest Subcutaneous Tissue and Fascia, Percutaneous Approach (ICD-10-PCS; principal; 2020-08-23)
PROC: B513ZZA Fluoroscopy of Right Jugular Veins, Guidance (ICD-10-PCS; principal; 2020-08-23)
PROC: 5A1D70Z Performance of Urinary Filtration, Intermittent, Less than 6 Hours Per Day (ICD-10-PCS; 2020-08-23)
DX: N17.9 Acute kidney failure, unspecified (principal); K85.90 Acute pancreatitis without necrosis or infection, unspecified; N39.0 Urinary tract infection, site not specified; E11.22 Type 2 diabetes mellitus with diabetic chronic kidney disease; I69.354 Hemiplegia and hemiparesis following cerebral infarction affecting left non-dominant side; I12.0 Hypertensive chronic kidney disease with stage 5 chronic kidney disease or end stage renal disease; N18.6 End stage renal disease; Z99.2 Dependence on renal dialysis; G93.41 Metabolic encephalopathy; M19.90 Unspecified osteoarthritis, unspecified site; D72.829 Elevated white blood cell count, unspecified; R13.10 Dysphagia, unspecified
CPT/HCPCS: 36415; 36558; 76000; 76700; 80048; 80053; 80061; 80170; 80307; 81001; 81003; 82140; 82150; 82550; 82607; 82728; 82746; 82977; 83036; 83690; 83735; 83880; 84100; 84443; 84484; 84550; 85007; 85025; 85610; 85730; 86140; 86703; 86706; 86707; 86803; 87086; 87181; 93005; 96372; 99285; C9399; G0480; J2250; J8499; S0077; U0002

== ENCOUNTER 2021-01-01 21:24 | Emergency (ER) | payer MEDICAID, OTHER ==
[~2021-01-01] VITALS: Ht 167.6 cm; Wt 85.7 kg
[2021-01-01] MEDS ORDERED: LORazepam Inj 2mg/ml 1ml IV ONE (21:30)
--- NOTE | 2021-01-01 21:50 | Emergency Room Report ---
History of Present Illness General Chief Complaint: Behavioral Complaint Source: Medical Record, EMS Present Illness HPI This is 75-year-old male with a history of high blood pressure diabetes CVA and renal failure on hemodialysis. Unknown dialysis day. Patient presents with confusion. Per EMS, family called 911 because patient is confusion and was yelling. Family said they try to give him his medication but he keeps yelling that they try to kill him. He denies any pain. No nausea no vomiting. No fever or chills. Per EMS they run on him frequently for similar complaint. There is no trauma. Allergies: Coded Allergies: PENICILLINS (Verified Allergy, Unknown, 12/02/18) COVID-19 Screening Contact w/high risk pt: No Experienced COVID-19 symptoms?: No COVID-19 Testing performed [employer]: No Patient History Past Medical History: see triage record, old chart reviewed, DM, HTN, CVA/TIA Past Surgical History: other Pertinent Family History: none Social History: Denies: smoking Immunizations: other Reviewed Nursing Documentation: PMH: Agreed; PSxH: Agreed Nursing Documentation-PMH Hx Cardiac Problems: Yes Hx Hypertension: Yes Hx Diabetes: Yes Hx Cancer: No Hx Gastrointestinal Problems: No Hx Neurological Problems: Yes Hx Cerebrovascular Accident: Yes - June 2020 Review of Systems Eye: Denies: eye pain, blurred vision ENT: Denies: ear pain, nose congestion, throat swelling Respiratory: Denies: cough, shortness of breath Cardiovascular: Denies: chest pain, palpitations Gastrointestinal: Denies: abdominal pain, diarrhea, nausea, vomiting Musculoskeletal: Denies: back pain, joint pain Skin: Denies: rash Neurological: Denies: headache, numbness Endocrine: Denies: increased thirst, increased urine Hematologic/Lymphatic: Denies: easy bruising All Other Systems: negative except mentioned in HPI Physical Exam Vital Signs Date Time Temp Pulse Resp B/P (MAP) Pulse Ox O2 Delivery O2 Flow Rate FiO2 01/01/21 21:28 98.4 91 18 132/75 (94) 97 Room Air Vitals normal Sp02 EP Interpretation: reviewed, normal General Appearance: well appearing, no apparent distress, alert Head: normocephalic, atraumatic Eyes: bilateral eye PERRL, bilateral eye EOMI ENT: hearing grossly normal, normal pharynx Neck: full range of motion, supple, no meningismus Respiratory: chest non-tender, lungs clear, normal breath sounds Cardiovascular #1: regular rate, rhythm, no murmur Gastrointestinal: normal bowel sounds, non tender, no mass, no organomegaly, no bruit, non-distended Musculoskeletal: back normal, normal range of motion Neurologic: other - Right-sided weakness from old CVA Psychiatric: anxious - Agitated Medical Decision Making Diagnostic Impression: Primary Impression: ESBL (extended spectrum beta-lactamase) producing bacteria infection Additional Impressions: UTI (urinary tract infection) Qualified Codes: N30.00 - Acute cystitis without hematuria Encephalopathy acute ER Course This patient presents with acute agitation. This may be secondary to UTI. In August he grew out ESBL Proteus that is sensitive to Zosyn and meropenem. Since he is allergic to penicillin, I gave him a dose of meropenem here. Patient will be transfer to [facility] for IV antibiotics. I discussed the case with Dr. Howe. Last Vital Signs Date Time Temp Pulse Resp B/P (MAP) Pulse Ox O2 Delivery O2 Flow Rate FiO2 01/01/21 21:28 98.4 91 18 132/75 (94) 97 Room Air Status: improved Disposition: SHORT-TERM HOSP Condition: Stable Scripts Unable to Obtain Active Prescriptions or Reported Meds Referrals: Wilton Dunlap MD (PCP) Demarco Up MD Jan 01, 2021 21:50
[2021-01-01 21:55] VITALS: BP 112/68
--- NOTE | 2021-01-01 22:03 | NUR ---
ED Nurse Note: pt brought by ems due to AMS,anxious and restless. According to the ems; his family called 911 when he couldnt recognize them. pt is A&Ox1,verbal and awake. No sob,fever,cough and pain at the moment.
[2021-01-01 22:15] LABS: BASOPHILS % (AUTO) 1.2 % (0.0-2.0); EOSINOPHILS % (AUTO) 3.8 % (0.0-3.0); HEMATOCRIT 34.9 % (42.0-52.0); HEMOGLOBIN 11.3 G/DL (14.2-18.0); LYMPHOCYTES % (AUTO) 27.5 % (20.0-45.0); MEAN CORPUSCULAR VOLUME 91 FL (80-99); MONOCYTES % (AUTO) 7.9 % (1.0-10.0); NEUTROPHILS % (AUTO) 59.6 % (45.0-75.0); PLATELET COUNT 186 K/UL (150-450); RED BLOOD COUNT 3.83 M/UL (4.70-6.10); RED CELL DISTRIBUTION WIDTH 15.2 % (11.6-14.8); WHITE BLOOD COUNT 8.1 K/UL (4.8-10.8)
[2021-01-01 22:18] LABS: CALCIUM 9.6 MG/DL (8.5-10.1); CREATININE 3.8 MG/DL (0.55-1.30); POTASSIUM 4.6 MMOL/L (3.5-5.1)
[2021-01-01 22:22] LABS: ALBUMIN 3.3 G/DL (3.4-5.0); ALBUMIN/GLOBULIN RATIO 0.8 (1.0-2.7); BILIRUBIN,TOTAL 0.4 MG/DL (0.2-1.0)
[2021-01-01 22:50] LABS: APPEARANCE,URINE CLOUDY; BILIRUBIN, URINE NEGATIVE (NEGATIVE); COLOR,URINE PALE YELLOW; GLUCOSE, URINE (UA) NEGATIVE (NEGATIVE); KETONES,URINE NEGATIVE (NEGATIVE); LEUKOCYTE ESTERASE ,URINE 3+ (NEGATIVE); NITRITE,URINE NEGATIVE (NEGATIVE); PH,URINE 9 (4.5-8.0); PROTEIN,URINE 3+ (NEGATIVE); UROBILINOGEN,URINE NORMAL MG/DL (0.0-1.0)
[2021-01-01] MEDS ORDERED: Meropenem 1 GM in NS 55 ML IVPB ONE (23:15)
[2021-01-01] MEDS ORDERED: Meropenem 1gm vial ONE (23:19)
[2021-01-02 03:44] VITALS: BP 125/72
--- NOTE | 2021-01-02 03:45 | NUR ---
ER DISCHARGE NOTE: Patient is cleared to be transfer to hospital per ERMD, pt is aox1, on room air, with stable vital signs. 2 life line peramedics took the pt. all belonging sent with the pt.
== END 2021-01-02 03:44 | disposition short-term general hospital (02) ==
LOC: EDUNIT# 21:24 → EDBD 21:24 → EMR 21:36
DX: N30.00 Acute cystitis without hematuria (principal); G93.40 Encephalopathy, unspecified; Z88.0 Allergy status to penicillin; E11.9 Type 2 diabetes mellitus without complications; I10 Essential (primary) hypertension; Z99.2 Dependence on renal dialysis; G81.91 Hemiplegia, unspecified affecting right dominant side
CPT/HCPCS: 36415; 80053; 81001; 84484; 85025; 87086; 96365; 96375; J2185; Z7502; 99285